=== PATIENT | male | born 1965 | race Caucasian/White ===

== ENCOUNTER 2016-12-06 19:19 | Inpatient (IN) | payer MEDICARE, OTHER ==
[~2016-12-06] VITALS: Ht 167.6 cm; Wt 60.0 kg
[~2016-12-06 19:19] MED LIST: ASPI325T PO; BACL20TA PO; DULO1CAP3 PO; LACTATED RINGER'S 1000 ML INJ 1,000 ML IV ONE; LIPI40TA PO; LORA-392 PO; METO50TA11 PO; NEUR300C PO; NORMOSOL R INJ 2,000 ML IV ONE; ONDANSETRON HCL 4 MG/2 ML VIAL IV PUSH ONE; PANT40TA3 PO; PERC10TA27 PO; PHENYLEPH/NS 1000 MCG/10 ML SYR IV ONE; PROPOFOL 200 MG/20 ML AMP IV ONE; SODIUM CHLOR 0.9% (EXCEL) INJ 250 ML IV ONE; TRAZ100T4 PO
[2016-12-06 19:22] VITALS: BP 108/79; PULSE 96; RESP 18; O2SAT 98
[2016-12-06] MEDS ORDERED: SODIUM CHLOR 0.9% 1000 ML INJ 1,000 ML IV SCH (19:34)
[2016-12-06 19:38] VITALS: O2SAT 98
[2016-12-06] MEDS ORDERED: SODIUM CHLORID 0.9% 500 ML INJ 500 ML IV ONE (19:45)
[2016-12-06] MEDS ORDERED: SODIUM CHLORIDE 0.9% FLUSH 10 ML FLUSH IV FLUSH PRN ×2 (19:45→21:15)
[2016-12-06] MEDS ORDERED: HEPARIN SODIUM - IV 10,000 UNITS/10 ML VIAL IV ONE (19:45)
[2016-12-06] MEDS ORDERED: HEPARIN-D5W INJ 250 ML IV SCH (19:45)
--- NOTE | 2016-12-06 19:45 | PD ---
HPI Chief Complaint: Numbness/Tingling Time Seen by Provider: 19:24 Travel History International Travel<30 days: No Contact w/Intl Traveler<30days: No Traveled to known affect area: No History of Present Illness HPI 51-year-old male with history of peripheral artery disease status post aortobifemoral bypass/right iliofemoral bypass/left femoral to below the knee popliteal artery bypass on 04/14/16 by a vascular surgeon Dr. Gandhi, brought in by ambulance for evaluation of right leg pain and numbness. EMS noted the extremity to be cool and mottled, and were unable to palpate a dorsalis pedis pulse. Symptoms started about 2 hours prior to arrival to the emergency department with numbness. The patient reports that he is unable to move his right leg. Patient reports that he continues to drink alcohol and smoke cigarettes, and has not been completely compliant with all of his medications. PFSH Past Medical History Hx Anticoagulant Therapy: Yes (UNSURE THE NAME ) Arthritis: Yes Asthma: Yes Anxiety: Yes Depression: Yes Heart Rhythm Problems: Yes Cancer: No Cardiovascular Problems: Yes (HTN) High Cholesterol: Yes Chest Pain: No Congestive Heart Failure: No Cerebrovascular Accident: No Diminished Hearing: No Endocrine: No Gastrointestinal Disorders: Yes GERD: Yes Genitourinary: No Headaches: Yes Hiatal Hernia: Yes (bilateral hernia repair) Hypertension: Yes Immune Disorder: No Inguinal Hernia: Yes Implanted Vascular Access Dvce: No Musculoskeletal: Yes Neurologic: Yes Psychiatric: No Reproductive: No Respiratory: Yes Migraines: Yes Seizures: No Ulcer: No Past Surgical History Cardiac Surgery: No Ear Surgery: No Endocrine Surgery: No Eye Surgery: No Genitourinary Surgery: No Oral Surgery: Yes (teeth removal) Other Surgery: Yes (LUCIANO. HERNIA REPAIR, L. LEG VASCULAR ) Social History Alcohol Use: Yes Tobacco Use: Yes Substance Use: Yes (alcohol, MARIJUANA ) Allergies-Medications (Allergen,Severity, Reaction): Coded Allergies: Bees (Verified Allergy, Severe, SWELLING, 12/06/16) Reported Meds & Prescriptions Reported Meds & Active Scripts Active Ativan (Lorazepam) 0.5 Mg Tab 0.5 Mg PO Q8H PRN Lipitor (Atorvastatin Calcium) 40 Mg Tab 40 Mg PO HS 30 Days Aspirin 325 Mg Tab 325 Mg PO DAILY Reported Pantoprazole (Pantoprazole Sodium) 40 Mg Tab 40 Mg PO DAILY Metoprolol Succinate ER 24 HR (Metoprolol Succinate) 50 Mg Tab 50 Mg PO DAILY Duloxetine DR (Duloxetine HCl) 60 Mg Capdr 60 Mg PO DAILY Baclofen 20 Mg Tab 20 Mg PO BID Review of Systems Except as stated in HPI: all other systems reviewed are Neg Physical Exam Narrative GENERAL: Well-developed, thin, awake, alert, no apparent distress. SKIN: Right leg is cool and mottled from the knee down. Left lower extremity is warm. HEAD: Atraumatic. Normocephalic. EYES: Pupils equal and round. No scleral icterus. No injection or drainage. ENT: Mucous membranes pink and moist. NECK: Trachea midline. No JVD. CARDIOVASCULAR: Regular rate and rhythm. Unable to palpate or Doppler right popliteal/dorsalis pedis/posterior tibialis pulses. Left dorsalis pedis pulse is thready palpable. RESPIRATORY: No accessory muscle use. Clear to auscultation. Breath sounds equal bilaterally. GASTROINTESTINAL: Abdomen soft, non-tender, nondistended. MUSCULOSKELETAL: Skin exam as above. No obvious deformities. NEUROLOGICAL: Awake and alert. No obvious cranial nerve deficits. Patient reports he is unable to move his right lower extremity. The rest of his extremities have a normal range of motion and muscle strength. He also reports absent sensation in his right lower extremity. PSYCHIATRIC: Appropriate mood and affect; insight and judgment normal. Data Data Last Documented VS Vital Signs Date Time Temp Pulse Resp B/P Pulse Ox O2 Delivery O2 Flow Rate FiO2 12/06/16 21:02 85 16 147/87 100 Room Air Orders Complete Blood Count With Diff (12/06/16 19:31) Comprehensive Metabolic Panel (12/06/16 19:31) Prothrombin Time / Inr (Pt) (12/06/16 19:31) Act Partial Throm Time (Ptt) (12/06/16 19:31) Iv Access Insert/Monitor (12/06/16 19:31) Ecg Monitoring (12/06/16 19:31) Oximetry (12/06/16 19:31) Sodium Chloride 0.9% Flush (Ns Flush) (12/06/16 19:45) Heparin Infusion JIM.Q1H (12/06/16 19:31) Heparin Inj (Heparin Inj) (12/06/16 19:45) Heparin Inj (Heparin Inj) (12/07/16 01:45) Heparin Inj (Heparin Inj) (12/07/16 01:45) Heparin-D5w Inj (Heparin-D5w Inj) (12/06/16 19:45) Sodium Chlorid 0.9% 500 Ml Inj (Ns 500 M (12/06/16 19:45) Sodium Chlor 0.9% 1000 Ml Inj (Ns 1000 M (12/06/16 19:34) Cta Runoff W Iv Contrast W 3d (12/06/16 ) Morphine Inj (Morphine Inj) (12/06/16 21:00) Admit Order (Ed Use Only) (12/06/16 21:05) Labs Laboratory Tests Test 12/06/16 19:45 White Blood Count 17.9 TH/MM3 Red Blood Count 4.54 MIL/MM3 Hemoglobin 14.6 GM/DL Hematocrit 43.4 % Mean Corpuscular Volume 95.5 FL Mean Corpuscular Hemoglobin 32.1 PG Mean Corpuscular Hemoglobin 33.6 % Concent Red Cell Distribution Width 14.3 % Platelet Count 118 TH/MM3 Mean Platelet Volume 7.9 FL Neutrophils (%) (Auto) 83.8 % Lymphocytes (%) (Auto) 11.9 % Monocytes (%) (Auto) 3.6 % Eosinophils (%) (Auto) 0.5 % Basophils (%) (Auto) 0.2 % Neutrophils # (Auto) 15.0 TH/MM3 Lymphocytes # (Auto) 2.1 TH/MM3 Monocytes # (Auto) 0.6 TH/MM3 Eosinophils # (Auto) 0.1 TH/MM3 Basophils # (Auto) 0.0 TH/MM3 CBC Comment DIFF FINAL Differential Comment Prothrombin Time 10.6 SEC Prothromb Time International 1.0 RATIO Ratio Activated Partial 24.9 SEC Thromboplast Time Sodium Level 133 MEQ/L Potassium Level 3.2 MEQ/L Chloride Level 96 MEQ/L Carbon Dioxide Level 24.6 MEQ/L Anion Gap 12 MEQ/L Blood Urea Nitrogen 17 MG/DL Creatinine 0.84 MG/DL Estimat Glomerular Filtration 96 ML/MIN Rate Random Glucose 191 MG/DL Calcium Level 8.8 MG/DL Total Bilirubin 0.5 MG/DL Aspartate Amino Transf 11 U/L (AST/SGOT) Alanine Aminotransferase 19 U/L (ALT/SGPT) Alkaline Phosphatase 111 U/L Total Protein 7.1 GM/DL Albumin 3.4 GM/DL MDM Medical Decision Making Medical Screen Exam Complete: Yes Emergency Medical Condition: Yes Interpretation(s) EKG: Sinus, rate 96 Differential Diagnosis Acute arterial occlusion, spinal canal stenosis unlikely Narrative Course 7:30 PM, shortly after the patient arrived to the emergency department I discussed the case with vascular surgeon Dr. Gandhi who is very familiar with the patient as he operated on him in March 2016. He reports that he is out of town, and will not be able to evaluate the patient. Patient will be started on heparin with a bolus if there are no contraindications. 7:34 PM: Case discussed with on-call vascular surgeon Dr. Guerra who agrees with plan to start the patient on heparin. He would also like a CTA runoff of the lower extremities and will present to the emergency department to evaluate the patient. Vital signs reviewed. CBC shows WBC 17.9, hemoglobin 14.6, hematocrit 43.4, platelets 118. CMP is remarkable for sodium 133, potassium 3.2, chloride 96, random glucose 191 , otherwise essentially unremarkable. Case discussed with hospitalist Dr. Kearns who will admit the patient to her service. Critical Care Narrative Aggregate critical care time was 40 minutes. Time to perform other separately billable procedures was not included in the critical care time. My time did not include minutes spent treating any other patients simultaneously or on activities that did not directly contribute to the patient's treatment. The services I provided to this patient were to treat and/or prevent clinically significant deterioration that could result in: Loss of limb, , permanent disability, sepsis. I provided critical care services requiring my management, as noted below: Chart data review, documentation time, medication orders and management, vital sign assessments/reviewing monitor data, ordering and reviewing lab tests, ordering and interpreting/reviewing x-rays and diagnostic studies, care of the patient and discussion of the patient with the admitting physicians. Diagnosis Primary Impression: Ischemia of extremity Admitting Information Admitting Physician Requests: Admit Manan Larkin MD Dec 06, 2016 19:45
[2016-12-06 20:03] LABS: BASOPHIL % 0.2 % (0.0-2.0); EOSINOPHIL # 0.1 TH/MM3 (0-0.4); EOSINOPHIL % 0.5 % (0.0-4.0); HEMATOCRIT 43.4 % (39.0-51.0); HEMO FLAGS DIFF FINAL; LYMPH % 11.9 % (9.0-44.0); LYMPHOCYTE # 2.1 TH/MM3 (1.0-4.8); MEAN CELL VOLUME 95.5 FL (80.0-100.0); MEAN CORPUSCULAR HEMOGLOBIN 32.1 PG (27.0-34.0); MEAN CORPUSCULAR HGB CONC 33.6 % (32.0-36.0); MONO % 3.6 % (0.0-8.0); NEUT % 83.8 % (16.0-70.0); PLATELET COUNT 118 TH/MM3 (150-450); RED BLOOD COUNT 4.54 MIL/MM3 (4.50-5.90); RED CELL DISTRIBUTION WIDTH 14.3 % (11.6-17.2); WHITE BLOOD COUNT 17.9 TH/MM3 (4.0-11.0)
[2016-12-06 20:20] LABS: ANION GAP 12 MEQ/L (5-15); AST (GOT) 11 U/L (15-37); BICARBONATE 24.6 MEQ/L (21.0-32.0); BLOOD UREA NITROGEN 17 MG/DL (7-18); CHLORIDE 96 MEQ/L (98-107); GLOMERULAR FILTRATION RATE 96 ML/MIN (>89); POTASSIUM 3.2 MEQ/L (3.5-5.1); SODIUM (NA) 133 MEQ/L (136-145)
[2016-12-06 20:21] LABS: APTT (PATIENT) 24.9 SEC (24.3-30.1); PROTHROMBIN TIME - PATIENT 10.6 SEC (9.8-11.6)
[2016-12-06 20:23] LABS: ALKALINE PHOSPHATASE 111 U/L (45-117); ALT (GPT) 19 U/L (12-78); TOTAL BILIRUBIN ADULT 0.5 MG/DL (0.2-1.0)
[2016-12-06] MEDS ORDERED: MORPHINE SULFATE 4 MG/ML INJ IV PUSH ONE (21:00)
[2016-12-06 21:02] VITALS: BP 147/87; PULSE 85; RESP 16; O2SAT 100
[2016-12-06] MEDS ORDERED: LORazepam 0.5 MG TAB PO PRN (21:15)
[2016-12-06] MEDS ORDERED: ONDANSETRON HCL 4 MG/2 ML VIAL IVP PRN (21:15)
[2016-12-06] MEDS ORDERED: MORPHINE SULFATE 4 MG/ML INJ IV PRN (21:15)
[2016-12-06] MEDS ORDERED: SENNOSIDES 8.6 MG TAB PO PRN (21:15)
[2016-12-06] MEDS ORDERED: MAGNESIUM HYDROXIDE SUSP 30 ML CUP PO PRN (21:15)
[2016-12-06] MEDS ORDERED: ACETAMINOPHEN/HYDROcodone 325 MG/5 MG TAB PO PRN (21:15)
[2016-12-06] MEDS ORDERED: ACETAMINOPHEN 325 MG TAB PO PRN (21:15)
[2016-12-06] MEDS ORDERED: LACTULOSE SYRUP 20 GM/30 ML CUP PO PRN (21:15)
[2016-12-06] MEDS ORDERED: BISACODYL 10 MG SUPP RECTAL PRN (21:15)
--- NOTE | 2016-12-06 21:20 | HHI.HP ---
[facility] Admission Diagnosis acute ischemic right leg Diagnoses: (1) Ischemia of extremity Diagnosis: Principal (2) Non-compliance Diagnosis: Principal (3) HTN (hypertension) Diagnosis: Principal (4) Thrombocytopenia Diagnosis: Principal (5) Leukocytosis Diagnosis: Principal (6) Alcohol abuse Diagnosis: Principal (7) Tobacco abuse Diagnosis: Principal Travel History International Travel<30 Days: No Contact w/Intl Traveler <30 Da: No Traveled to Known Affected Are: No History of Present Illness This is a 51-year-old male with a PMH of Anxiety, Depression, HTN, Hyperlipidemia, Non-Compliance, Alcohol Abuse, Tobacco Abuse and PAD s/p Aortobifemoral Bypass, Right Iliofemoral Bypass and Left Femoral Popliteal Artery Bypass on 04/14/[address] Gandhi who was brought to the ER by EMS secondary to complaints of severe right lower extremity pain, leg noted to be cold/mottled, no pulses found by EMS. Pt states symptoms have been ongoing for several days, noted "big toe turned purple", [facility] , however pt states he was waiting for Mother to get back from [place]. Today however had severe pain and called EMS. Non-compliant w/ meds. Continues to drink/smoke. On arrival, BP 108/79, HR 96, O2 sat 98% on RA, Afebrile. WBC 17.9. Platelets 118, previously 445 on 04/17/16. INR 1.0. Dr. Gandhi contacted by ER physician, recommended Heparin drip and eval by Vascular Surgeon , Dr. Guerra consulted, recommended CTA, currently pending. Review of Systems Except as stated in HPI: all other systems reviewed are Neg ROS: 14 point review of systems otherwise negative. Past Family Social History Past Medical History PMH: Anxiety, Depression, HTN, Hyperlipidemia, Non-Compliance, Alcohol Abuse, Tobacco Abuse and PAD s/p Aortobifemoral Bypass, Right Iliofemoral Bypass and Left Femoral Popliteal Artery Bypass Past Surgical History PAST SURGICAL HISTORY: Bilateral Hernia Repair, Aortobifemoral Bypass, Right Iliofemoral Bypass and Left Femoral Popliteal Artery Bypass 04/14/16 Allergies: Coded Allergies: Bees (Verified Allergy, Severe, SWELLING, 12/06/16) Family History PAST FAMILY HISTORY: Reviewed. No h/o DM or CAD Social History PAST SOCIAL HISTORY: Positive for alcohol. Positive for tobacco. Smokes Marijuana. Physical Exam Vital Signs Vital Signs Date Time Temp Pulse Resp B/P Pulse Ox O2 Delivery O2 Flow Rate FiO2 12/06/16 21:02 85 16 147/87 100 Room Air 12/06/16 19:38 98 Room Air 12/06/16 19:22 96 18 108/79 98 Physical Exam PE: GENERAL: Middle-aged white male in no acute distress. HEENT: PERRLA, EOMI. No scleral icterus or conjunctival pallor. No lid lag or facial droop. CARDIOVASCULAR: Regular rate and rhythm. No obvious murmurs to auscultation. No chest tenderness to palpation. RESPIRATORY: No obvious rhonchi or wheezing. Clear to auscultation. Breath sounds equal bilaterally. GASTROINTESTINAL: Abdomen soft, non-tender, nondistended. BS normal. MUSCULOSKELETAL: Extremities without clubbing or edema. No obvious deformities. Bilateral LE cool to touch, RLE worse than LLE. Unable to palpate pulses RLE. NEUROLOGICAL: Awake, alert and oriented x4. No focal neurologic deficits. Moving both upper and lower extremities spontaneously. Laboratory Laboratory Tests Test 12/06/16 19:45 White Blood Count 17.9 Red Blood Count 4.54 Hemoglobin 14.6 Hematocrit 43.4 Mean Corpuscular Volume 95.5 Mean Corpuscular Hemoglobin 32.1 Mean Corpuscular Hemoglobin 33.6 Concent Red Cell Distribution Width 14.3 Platelet Count 118 Mean Platelet Volume 7.9 Neutrophils (%) (Auto) 83.8 Lymphocytes (%) (Auto) 11.9 Monocytes (%) (Auto) 3.6 Eosinophils (%) (Auto) 0.5 Basophils (%) (Auto) 0.2 Neutrophils # (Auto) 15.0 Lymphocytes # (Auto) 2.1 Monocytes # (Auto) 0.6 Eosinophils # (Auto) 0.1 Basophils # (Auto) 0.0 CBC Comment DIFF FINAL Differential Comment Prothrombin Time 10.6 Prothromb Time International 1.0 Ratio Activated Partial 24.9 Thromboplast Time Sodium Level 133 Potassium Level 3.2 Chloride Level 96 Carbon Dioxide Level 24.6 Anion Gap 12 Blood Urea Nitrogen 17 Creatinine 0.84 Estimat Glomerular Filtration 96 Rate Random Glucose 191 Calcium Level 8.8 Total Bilirubin 0.5 Aspartate Amino Transf 11 (AST/SGOT) Alanine Aminotransferase 19 (ALT/SGPT) Alkaline Phosphatase 111 Total Protein 7.1 Albumin 3.4 Result Diagram: 12/06/16194412/06/161944 Assessment and Plan Problem List: (1) Ischemia of extremity ICD Code: I99.8 Status: Acute (2) Non-compliance ICD Code: Z91.19 Status: Acute (3) Thrombocytopenia ICD Code: D69.6 Status: Acute (4) HTN (hypertension) ICD Code: I10 Status: Acute (5) Leukocytosis ICD Code: D72.829 Status: Acute (6) Alcohol abuse ICD Code: F10.10 Status: Acute (7) Tobacco abuse ICD Code: Z72.0 Status: Acute Assessment and Plan A/P: 1. Limb Ischemia: RLE. h/o PAD s/p Aortobifemoral Bypass, Right Iliofemoral Bypass and Left Femoral Popliteal Artery Bypass by Dr. Gandhi 04/14/16, non- compliant w/ meds, now w/ acute limb ischemia. Dr. Gandhi consulted, recommended Heparin gtt and Vasc Sx consult, Dr. Guerra consulted, recommended CTA, currently pending. Continue Heparin gtt, analgesics/ antiemetics, resume home medications. 2. Non-Compliance: w/ meds and follow up, stressed importance of compliance. 3. Thrombocytopenia: Platelets 118, previously 445 on 04/17/16. No active bleeding, will monitor, caution w/ Heparin. 4. HTN: Resume home Metoprolol. 5. Leukocytosis: WBC 17.9, Afebrile, no evidence of infection, likely secondary to acute limb ischemia, will monitor closely. Repeat labs in am. 6. Alcohol Abuse: Drinks daily. CIWA, Seizure Precautions, MVT/Thiamine/ Folate 7. Tobacco Abuse: Pt counselled. Ativan prn. No NicoDerm to avoid further vasoconstriction. 8. DVT Prophylaxis: Heparin gtt 9. Social work for d/c planning as needed. 10. Case discussed w/ ER physician at length. Physician Certification 2 Midnight Certification Type: Admission for Inpatient Services Order for Inpatient Services The services are ordered in accordance with Medicare regulations or non- Medicare payer requirements, as applicable. In the case of services not specified as inpatient-only, they are appropriately provided as inpatient services in accordance with the 2-midnight benchmark. Estimated LOS (days): 2 days is the estimated time the patient will need to remain in the hospital, assuming treatment plan goals are met and no additional complications. Post-Hospital Plan: Not yet determined Bre Kearns MD Dec 06, 2016 21:20
[2016-12-06] MEDS ORDERED: LORazepam 2 MG TAB PO PRN (21:30)
[2016-12-06] MEDS ORDERED: HALOPERIDOL LACTATE 5 MG/ML AMP IM PRN (21:30)
[2016-12-06] MEDS ORDERED: FLUMAZENIL 0.5 MG/5 ML VIAL IV PUSH PRN (21:30)
[2016-12-06] MEDS ORDERED: LORazepam 2 MG/ML VIAL IV PUSH PRN ×4 (21:30)
[2016-12-06] MEDS ORDERED: LORazepam 1 MG TAB PO PRN (21:30)
[2016-12-06] MEDS ORDERED: IOHEXOL 350 MG/ML 10 ML VIAL (for RAD DIAG) IV ONE (21:33)
--- NOTE | 2016-12-06 21:53 | RADRPT ---
EXAM DATE/TIME: 12/06/2016 20:30 CORRECTION Corrected on: December 07, 2016; [facility] COMPARISON: CTA RUNOFF W 3D RECON, April 04, 2016, 0:21. INDICATIONS : Patient complains of pain in his right leg; it is the worst in his right great toe. IV CONTRAST: 100 cc Omnipaque 350 (iohexol) IV RADIATION DOSE: 1.65 CTDIvol (mGy) MEDICAL HISTORY : Cardiovascular disease. Hypertension. SURGICAL HISTORY : Inguinal hernia repair. prior vascular surgery ENCOUNTER: Initial ACUITY: 3 days PAIN SCALE: 7/10 LOCATION: Right leg TECHNIQUE: Volumetric scanning was performed using a multi-row detector CT scanner. The data was post processed with a variety of visualization algorithms including full volume maximum intensity projection, multi -planar sliding thin slab reformation, curved planar reformation, and surface rendering techniques. Using automated exposure control and adjustment of the mA and/or kV according to patient size, radiat ion dose was kept as low as reasonably achievable to obtain optimal diagnostic quality images. DICO M format image data is available electronically for review and comparison. FINDINGS: ABDOMINAL AORTA: Aortobifemoral bypass graft which is patent. There is abnormal thickening of the graft involving the distal aorta and right iliac vasculature raising the possibility of inflammation/infection. There ar e solitary renal arteries bilaterally without gross abnormality. BIFURCATION: Normal. RIGHT PELVIS: The right common iliac, internal iliac, and external iliac vessels are patent without luminal irregul arity. LEFT PELVIS: The left common iliac, internal iliac, and external iliac vessels are patent and without luminal irre gularity. RIGHT THIGH: There is occlusion of the right distal common femoral artery and proximal superficial femoral artery with reconstitution of distal superficial femoral artery.. LEFT THIGH: The superficial femoral and profunda vessels are patent without luminal irregularity. RIGHT KNEE: There is reconstitution of the popliteal artery on the right. LEFT KNEE: The distal femoral is patent without luminal irregularity. There is a graft in the left lag which is occluded, could be arterial or venous. There is occlusion of the left popliteal artery with reconstit ution distally. RIGHT LEG: The trifurcation is intact. LEFT LEG: The trifurcation is intact. CONCLUSION: 1. Occlusion of the right common femoral artery and proximal superficial femoral artery with reconsti tution of the distal superficial femoral artery. 2. Occlusion of graft in the left leg could be arterial or venous. 3. Occlusion of the left popliteal artery with reconstitution distally. 4. Patent aortobifemoral bypass graft, however there is abnormal thickening of the graft at the bifur cation and involving the right iliac vasculature, could be inflammation or infection. Clinical correl ation. Jack Castro MD on December 06, 2016 at 21:46 Board Certified Radiologist. This report was verified electronically. Jack Castro MD on December 07, 2016 at 13:20 Board Certified Radiologist. This report was verified electronically.
[2016-12-06] MEDS ORDERED: ceFAZolin 2 GM PREMIX 50 ML IV SCH (22:45)
[2016-12-06] MEDS ORDERED: HEPARIN SODIUM - SQ 10,000 UNITS/ML VIAL ONE (23:00)
[2016-12-06] MEDS ORDERED: PROTAMINE SULFATE 50 MG/5 ML VIAL ONE (23:00)
[2016-12-07] MEDS ORDERED: fentaNYL CITRATE 250 MCG/5 ML AMP ONE (00:43)
[2016-12-07] MEDS ORDERED: SUGAMMADEX SODIUM 200 MG/2 ML VIAL IV PUSH ONE ×2 (00:43)
[2016-12-07] MEDS ORDERED: ceFAZolin INJ 1,000 MG VIAL IV ONE (00:46)
[2016-12-07] MEDS ORDERED: HEPARIN SODIUM - IV 10,000 UNITS/10 ML VIAL IV PRN ×2 (01:45)
[2016-12-07] MEDS ORDERED: MORPHINE SULFATE 4 MG/ML INJ ONE (02:25)
[2016-12-07] MEDS ORDERED: *morphine SULFATE 8 MG/ML PERIprocedure ONLY ONE (02:27)
[2016-12-07] MEDS: SODIUM CHLOR 0.9% 1000 ML INJ 1,000 ML IV SCH ×3 (02:45→20:28)
[2016-12-07] MEDS ORDERED: DO NOT ADM ANY ANTICOAGULANT DRUGS PRN (02:45)
[2016-12-07] MEDS: POTASSIUM CHLOR 20 MEQ PREMIX 100 ML IV SCH ×2 (02:46→04:18)
[2016-12-07] MEDS: MORPHINE SULFATE 4 MG/ML INJ IV PUSH PRN ×3 (05:56→20:29)
[2016-12-07] MEDS: ENOXAPARIN SODIUM 40 MG/0.4 ML SYRINGE SQ SCH (06:11)
[2016-12-07 06:33] LABS: AUTOMATED NEUTROPHIL # 8.2 TH/MM3 (1.8-7.7); BASOPHIL % 0.3 % (0.0-2.0); EOSINOPHIL # 0.1 TH/MM3 (0-0.4); EOSINOPHIL % 1.1 % (0.0-4.0); HEMATOCRIT 34.9 % (39.0-51.0); LYMPH % 25.2 % (9.0-44.0); MEAN CELL VOLUME 95.1 FL (80.0-100.0); MEAN CORPUSCULAR HEMOGLOBIN 32.4 PG (27.0-34.0); MEAN CORPUSCULAR HGB CONC 34.1 % (32.0-36.0); MONO % 3.8 % (0.0-8.0); NEUT % 69.6 % (16.0-70.0); PLATELET COUNT 85 TH/MM3 (150-450); RED BLOOD COUNT 3.67 MIL/MM3 (4.50-5.90); WHITE BLOOD COUNT 11.9 TH/MM3 (4.0-11.0)
[2016-12-07 06:44] LABS: HEMO FLAGS AUTO DIFF
[2016-12-07 06:55] LABS: ALKALINE PHOSPHATASE 93 U/L (45-117); ALT (GPT) 14 U/L (12-78); ANION GAP 6 MEQ/L (5-15); AST (GOT) 12 U/L (15-37); BICARBONATE 26.7 MEQ/L (21.0-32.0); BLOOD UREA NITROGEN 12 MG/DL (7-18); CHLORIDE 103 MEQ/L (98-107); GLOMERULAR FILTRATION RATE 118 ML/MIN (>89); POTASSIUM 3.9 MEQ/L (3.5-5.1); SODIUM (NA) 136 MEQ/L (136-145); TOTAL BILIRUBIN ADULT 0.5 MG/DL (0.2-1.0)
--- NOTE | 2016-12-07 07:07 | EKG ---
Date Performed: 12/06/2016 Time Performed: 19:31:33 PTAGE: 51 years EKG: Sinus rhythm POSSIBLE INFERIOR MYOCARDIAL INFARCTION BORDERLINE ECG PREVIOUS TRACING : 04/13/2016 22.11 Compared to previous tracing, possible inferior infarction pattern is now evident. DOCTOR: Brody Upton Interpretating Date/Time 12/07/2016 07:07:05
--- NOTE | 2016-12-07 08:02 | MB ---
cc: RAAD WELLS MD DATE OF CONSULTATION: 12/06/2016 REASON FOR CONSULTATION Ischemia of the right leg. HISTORY OF PRESENT DISEASE This 51-year-old male, who appears much older than his actual age, presents to the hospital now with about seven weeks of pain in his right leg. The patient states first the pain was bearable then it became more and more and in the last two weeks became very severe. The patient now presents because of numbness in the foot. He is worked up. He is found to have occlusion of the right superficial femoral artery with distal reconstitution at the level of the popliteal. The patient about a year ago in 2016 underwent an aortobifemoral bypass and left fem-pop bypass by Dr. Gandhi. The question arises now about the nature of the patient's occlusion. PAST MEDICAL HISTORY 1. Hypertension. 2. Hyperlipidemia. 3. Chronic pain. PAST SURGICAL HISTORY As above-noted. MEDICATIONS Can be found in the record. SOCIAL HISTORY The patient drinks and smokes about a pack a day, has not stopped throughout this period. PHYSICAL EXAMINATION GENERAL: A 51-year-old male appearing much older than his actual age. HEENT: Normocephalic. No trauma to the head. Pupils equal and reactive. Extraocular muscles intact. NECK: Supple. Bilateral carotid pulses. No bruits. CHEST: Clear bilateral breath sounds decreased over both lung rodriguez consistent with moderate degree of COPD. 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 HEART: Regular rhythm. ABDOMEN: Soft, patulous, active bowel sounds. EXTREMITIES: The patient has palpable bilateral femoral pulses. On the left side he has a weak popliteal pulse and dorsalis pedis posterior tibial pulse. On the right side the patient does have a weak popliteal pulse but no posterior tibial or dorsalis pedis foot. The foot is pale proximally and livid distally. Toe is grayish discolored and clearly has been chronically ischemic for a while so I believe the great toe will eventually worsen regardless of what we do here. The patient must have trashed the circulation of his great toe at some point in the recent past. NEUROLOGIC: The patient moves all four extremities, however, he has decreased sensation in the right foot and basically insensate plantar surface. IMPRESSION AND RECOMMENDATIONS Patient with an aortobifemoral left fem-pop bypass a year ago. The left fem-pop bypass is occluded, however, the patient does not have problem with the left foot. On the right side the patient has no distal pulses and this is an acute occlusion superimposed on chronic changes in the previously diseased SFA which is a limiting factor here. At this point I believe the patient has been developing this occlusion for a long time so para I do not think that TPA lysis is appropriate in this situation. I will take the patient to the OR for reconstruction, probably femoral-popliteal bypass. Thank you very much for your referral. Raad CALDERON /2:30 AM /7:54 AM
[2016-12-07 08:12] LABS: PLATELET ESTIMATE SMEAR LOW (NORMAL); PLATELET MORPHOLOGY NORMAL (NORMAL); SCAN/DIFF AUTO DIFF CONFIRMED
[2016-12-07] MEDS: BACLOFEN 20 MG TAB PO SCH ×2 (08:30→20:28)
[2016-12-07] MEDS: DULoxetine HCl DR 60 MG CAP PO SCH (08:30)
[2016-12-07] MEDS: DOCUSATE SODIUM 50 MG/SENNA 8.6 MG TAB PO SCH ×2 (08:30→20:28)
[2016-12-07] MEDS: SODIUM CHLORIDE 0.9% FLUSH 10 ML FLUSH IV FLUSH SCH ×2 (08:30→20:28)
[2016-12-07] MEDS: FOLIC ACID 1 MG TAB PO SCH (08:30)
[2016-12-07] MEDS: ASPIRIN 325 MG TAB PO SCH (08:30)
[2016-12-07] MEDS: PANTOPRAZOLE SOD 40 MG DELAYED RELEASE TAB PO SCH (08:31)
[2016-12-07] MEDS: THIAMINE HCL 100 MG TAB PO SCH (08:31)
[2016-12-07] MEDS: METOPROLOL SUCCINATE 50 MG EXTENDED RELEASE TAB PO SCH (08:31)
[2016-12-07] MEDS: MULTIVITAMINS/MINERALS THERAPEUTIC TAB PO SCH (08:31)
--- NOTE | 2016-12-07 08:45 | EKG ---
Date Performed: 12/06/2016 Time Performed: 23:00:26 PTAGE: 51 years EKG: Sinus rhythm NONDIAGNOSTIC INFERIOR Q WAVES NORMAL ECG PREVIOUS TRACING : 12/06/2016 19.31 No significant change from previous tracing noted. DOCTOR: Brody Upton Interpretating Date/Time 12/07/2016 08:43:46
--- NOTE | 2016-12-07 11:54 | HHI.PR ---
Subjective Remarks Follow-up Lower leg ischemia 12/07/16-patient seen and examined, status post femoropopliteal. Patient seen in PACU and denies any lower extremity pain. Palpable pulses. Objective Vitals Vital Signs Date Time Temp Pulse Resp B/P Pulse Ox O2 Delivery O2 Flow Rate FiO2 12/07/16 11:00 94 16 110/65 97 Room Air 12/07/16 10:00 92 16 111/67 96 Room Air 12/07/16 09:00 92 16 118/68 96 Room Air 12/07/16 08:00 98.8 92 16 113/69 96 Room Air 12/07/16 07:00 98 16 108/67 95 Room Air 12/07/16 06:01 16 12/07/16 06:00 99.1 103 16 105/62 96 Room Air 12/07/16 05:00 92 16 117/67 96 Room Air 12/07/16 04:00 90 16 122/75 99 Room Air 12/07/16 03:30 85 16 127/74 98 Room Air 12/07/16 03:00 97.9 87 16 142/85 98 Room Air 12/07/16 02:45 83 15 140/96 97 Room Air 12/07/16 02:32 15 12/07/16 02:30 83 15 142/93 97 Room Air 12/07/16 02:15 82 15 141/90 96 Room Air 12/07/16 02:05 97.6 80 14 132/83 100 Simple Mask 8 12/06/16 21:02 85 16 147/87 100 Room Air 12/06/16 19:38 98 Room Air 12/06/16 19:22 96 18 108/79 98 I/O 12/06/16 12/06/16 12/06/16 12/07/16 12/07/16 12/07/16 07:00 15:00 23:00 07:00 15:00 23:00 Intake Total 1768 ml 318 ml Output Total 875 ml 125 ml Balance 893 ml 193 ml Intake Oral 318 ml IV Total 368 ml Other 1400 ml Output Urine Total 675 ml 125 ml Estimated Blood Loss 200 ml Result Diagram: 12/07/16 0609 12/07/16 0609 Imaging Last Impressions Aorta w/Runoff CTA 12/06/16 0000 Signed Impressions: Service Date/Time: Tuesday, December 06, 2016 20:30 - CONCLUSION: 1. Occlusion of the right superficial femoral artery with reconstitution of the right popliteal artery. 2. Occlusion of graft in the left leg. 3. Patent aortobifemoral bypass graft. Jack Castro MD Objective Remarks GENERAL: NAD SKIN: Warm and dry. HEAD: Normocephalic. EYES: No scleral icterus. No injection or drainage. NECK: Supple, trachea midline. No JVD or lymphadenopathy. CARDIOVASCULAR: Regular rate and rhythm without murmurs, gallops, or rubs. RESPIRATORY: Breath sounds equal bilaterally. No accessory muscle use. GASTROINTESTINAL: Abdomen soft, non-tender, nondistended. MUSCULOSKELETAL: No cyanosis, or edema. s/p femoropopliteal; dressing in place right lower extremity thigh BACK: Nontender without obvious deformity. No CVA tenderness. A/P Problem List: (1) Ischemia of extremity ICD Code: I99.8 Status: Acute (2) Non-compliance ICD Code: Z91.19 Status: Acute (3) Thrombocytopenia ICD Code: D69.6 Status: Acute (4) HTN (hypertension) ICD Code: I10 Status: Acute (5) Leukocytosis ICD Code: D72.829 Status: Acute (6) Alcohol abuse ICD Code: F10.10 Status: Acute (7) Tobacco abuse ICD Code: Z72.0 Status: Acute Assessment and Plan 51-year-old man with 1. Limb Ischemia: RLE. h/o PAD s/p Aortobifemoral Bypass, Right Iliofemoral Bypass and Left Femoral Popliteal Artery Bypass by Dr. Gandhi 04/14/16, non- compliant w/ meds, now w/ acute limb ischemia. Status post femoropopliteal bypass. CT aortogram not take. Continue Heparin gtt, analgesics/antiemetics, continue home medications. 2. Non-Compliance: w/ meds and follow up, stressed importance of compliance. 3. Thrombocytopenia: Platelets 118, previously 445 on 04/17/16. No active bleeding, will monitor, caution w/ Heparin. 4. HTN: Continue home Metoprolol. 5. Leukocytosis: WBC 17.9, Afebrile, no evidence of infection, likely secondary to acute limb ischemia, will monitor closely. 6. Alcohol Abuse: Drinks daily. CIWA, Seizure Precautions, MVT/Thiamine/ Folate 7. Tobacco Abuse: Pt counselled. Ativan prn. No NicoDerm to avoid further vasoconstriction. 8. DVT Prophylaxis: Heparin gtt Jack To MD Dec 07, 2016 11:54
[2016-12-07 20:00] VITALS: BP 123/73; PULSE 97; RESP 17; TEMP 97.3; O2SAT 98
[2016-12-07] MEDS ORDERED: ATORVASTATIN 40 MG TAB PO SCH (21:00)
[2016-12-08] VITALS: BP 118/71; PULSE 81; RESP 17; TEMP 96.8; O2SAT 98
[2016-12-08] MEDS: MORPHINE SULFATE 4 MG/ML INJ IV PUSH PRN ×6 (00:26→14:36)
[2016-12-08 04:00] VITALS: BP 134/78; PULSE 102; RESP 17; TEMP 99.7; O2SAT 96
[2016-12-08] MEDS: ENOXAPARIN SODIUM 40 MG/0.4 ML SYRINGE SQ SCH (05:33)
[2016-12-08 08:00] VITALS: BP 125/76; PULSE 84; RESP 20; TEMP 99.6; O2SAT 95
[2016-12-08] MEDS: ASPIRIN 325 MG TAB PO SCH (08:30)
[2016-12-08] MEDS: BACLOFEN 20 MG TAB PO SCH (08:30)
[2016-12-08] MEDS: FOLIC ACID 1 MG TAB PO SCH (08:30)
[2016-12-08] MEDS: DOCUSATE SODIUM 50 MG/SENNA 8.6 MG TAB PO SCH (08:30)
[2016-12-08] MEDS: PANTOPRAZOLE SOD 40 MG DELAYED RELEASE TAB PO SCH (08:30)
[2016-12-08] MEDS: MULTIVITAMINS/MINERALS THERAPEUTIC TAB PO SCH (08:30)
[2016-12-08] MEDS: THIAMINE HCL 100 MG TAB PO SCH (08:30)
[2016-12-08] MEDS: DULoxetine HCl DR 60 MG CAP PO SCH (08:30)
[2016-12-08] MEDS: METOPROLOL SUCCINATE 50 MG EXTENDED RELEASE TAB PO SCH (08:31)
[2016-12-08] MEDS: SODIUM CHLORIDE 0.9% FLUSH 10 ML FLUSH IV FLUSH SCH ×2 (08:31→14:34)
--- NOTE | 2016-12-08 10:59 | PD.CAR.PN ---
CVT Progress Note Subjective/Hospital Course: Patient is status post declotting /revision of the right limbo aortobifemoral graft and construction of a right femoral-popliteal bypass. Incisions are clean and dry Foot is warm with actually palpable posterior tibial pulse and the dopplerable dorsalis pedis Hallux which appeared somewhat dusky prior to surgery is no well-perfused and looks completely normal Patient has been again counseled on stopping smoking because if he doesn't he will end up with bilateral above-knee amputations within the next few years Patient can be discharged today from my point To follow-up with me in my office in 2 weeks He can be discharged on aspirin 325 mg by mouth daily Objective: Vital Signs Date Time Temp Pulse Resp B/P Pulse Ox O2 Delivery O2 Flow Rate FiO2 12/08/16 08:00 99.6 84 20 125/76 95 12/08/16 04:00 99.7 102 17 134/78 96 12/08/16 00:00 96.8 81 17 118/71 98 12/07/16 20:00 97.3 97 17 123/73 98 12/07/16 13:00 84 16 103/68 97 Room Air 12/07/16 12:00 92 16 101/56 98 Room Air 12/07/16 11:00 94 16 110/65 97 Room Air Result Diagram: 12/07/16 0609 12/07/16 0609 Raad Guerra MD Dec 08, 2016 10:59
[2016-12-08 11:00] VITALS: BP 121/75; PULSE 85; RESP 17; TEMP 98.6; O2SAT 96
--- NOTE | 2016-12-08 11:33 | HHI.FF ---
Face to Face Verification Diagnosis: (1) Ischemia of extremity (2) HTN (hypertension) Physical Therapy Order: Evaluate and Treat Home Health Nursing Order: Signs/symptoms of disease process Instructions: wound care I have seen patient Bradley Brower on 12/08/16. My clinical findings support the need for the requested home health care services because: Deconditioned w/ increased weakness I certify that my clinical findings support that this patient is homebound because: Poor cardiac reserve Jack To MD Dec 08, 2016 11:33
[2016-12-08 12:00] VITALS: BP 117/62; PULSE 75; RESP 17; TEMP 98.3; O2SAT 95
[2016-12-08] MEDS ORDERED: ACETAMINOPHEN/HYDROcodone 325 MG/10 MG TAB PO PRN (12:00)
--- NOTE | 2016-12-08 12:24 | HHI.PR ---
Subjective Remarks Follow-up Lower leg ischemia 12/07/16-patient seen and examined, status post femoropopliteal. Patient seen in PACU and denies any lower extremity pain. Palpable pulses. 12/08/16-patient seen and examined; complains of inadequate pain control to right lower extremity. Case was discussed with Dr. Strauss Objective Vitals Vital Signs Date Time Temp Pulse Resp B/P Pulse Ox O2 Delivery O2 Flow Rate FiO2 12/08/16 11:00 98.6 85 17 121/75 96 12/08/16 08:00 99.6 84 20 125/76 95 12/08/16 04:00 99.7 102 17 134/78 96 12/08/16 00:00 96.8 81 17 118/71 98 12/07/16 20:00 97.3 97 17 123/73 98 12/07/16 13:00 84 16 103/68 97 Room Air I/O 12/07/16 12/07/16 12/07/16 12/08/16 12/08/16 12/08/16 06:59 14:59 22:59 06:59 14:59 22:59 Intake Total 1684 ml 622 ml 850 ml 865 ml 120 ml Output Total 830 ml 270 ml 600 ml 600 ml Balance 854 ml 352 ml 250 ml 265 ml 120 ml Intake Oral 538 ml 240 ml 240 ml 120 ml IV Total 284 ml 84 ml 610 ml 625 ml Other 1400 ml Output Urine Total 630 ml 270 ml 600 ml 600 ml Estimated Blood Loss 200 ml Result Diagram: 12/07/16 0609 12/07/16 0609 Objective Remarks GENERAL: NAD SKIN: Warm and dry. HEAD: Normocephalic. EYES: No scleral icterus. No injection or drainage. NECK: Supple, trachea midline. No JVD or lymphadenopathy. CARDIOVASCULAR: Regular rate and rhythm without murmurs, gallops, or rubs. RESPIRATORY: Breath sounds equal bilaterally. No accessory muscle use. GASTROINTESTINAL: Abdomen soft, non-tender, nondistended. MUSCULOSKELETAL: No cyanosis, or edema. s/p femoropopliteal; dressing in place right lower extremity thigh BACK: Nontender without obvious deformity. No CVA tenderness. Procedures status post declotting /revision of the right limbo aortobifemoral graft and construction of a right femoral-popliteal bypass A/P Problem List: (1) Ischemia of extremity ICD Code: I99.8 Status: Acute (2) Non-compliance ICD Code: Z91.19 Status: Acute (3) Thrombocytopenia ICD Code: D69.6 Status: Acute (4) HTN (hypertension) ICD Code: I10 Status: Acute (5) Leukocytosis ICD Code: D72.829 Status: Acute (6) Alcohol abuse ICD Code: F10.10 Status: Acute (7) Tobacco abuse ICD Code: Z72.0 Status: Acute Assessment and Plan 51-year-old man with 1. Limb Ischemia: RLE. h/o PAD s/p Aortobifemoral Bypass, Right Iliofemoral Bypass and Left Femoral Popliteal Artery Bypass by Dr. Gandhi 04/14/16, non- compliant w/ meds, now w/ acute limb ischemia. status post declotting /revision of the right limbo aortobifemoral graft and construction of a right femoral- popliteal bypass 12/06/16 . s/p Heparin gtt and continue analgesics/antiemetics , continue home medications. Consult PT prior to discharge 2. Non-Compliance: w/ meds and follow up, stressed importance of compliance. 3. Thrombocytopenia: Platelets 118, previously 445 on 04/17/16. 4. HTN: Continue home Metoprolol. 5. Leukocytosis: WBC 17.9, Afebrile, no evidence of infection, likely secondary to acute limb ischemia, will monitor closely. 6. Alcohol Abuse: Drinks daily. CIWA, Seizure Precautions, MVT/Thiamine/ Folate 7. Tobacco Abuse: Pt counselled. Ativan prn. No NicoDerm to avoid further vasoconstriction. 8. DVT Prophylaxis: Heparin gtt Jack To MD Dec 08, 2016 12:24
[2016-12-08] MEDS ORDERED: PERI8.6T PO (12:30)
[2016-12-08] MEDS ORDERED: HYDR-3583 PO (12:30)
--- NOTE | 2016-12-08 12:33 | HHI.DS ---
Discharge Summary Admission Date Dec 06, 2016 at 21:07 Discharge Date: Dec 08, 2016 Admitting Diagnosis acute ischemic right leg (1) Ischemia of extremity ICD Code: I99.8 (2) Non-compliance ICD Code: Z91.19 (3) Thrombocytopenia ICD Code: D69.6 (4) HTN (hypertension) ICD Code: I10 (5) Leukocytosis ICD Code: D72.829 (6) Alcohol abuse ICD Code: F10.10 (7) Tobacco abuse ICD Code: Z72.0 Procedures status post declotting /revision of the right limbo aortobifemoral graft and construction of a right femoral-popliteal bypass Brief History - From Admission This is a 51-year-old male with a PMH of Anxiety, Depression, HTN, Hyperlipidemia, Non-Compliance, Alcohol Abuse, Tobacco Abuse and PAD s/p Aortobifemoral Bypass, Right Iliofemoral Bypass and Left Femoral Popliteal Artery Bypass on 04/14/[address] Gandhi who was brought to the ER by EMS secondary to complaints of severe right lower extremity pain, leg noted to be cold/mottled, no pulses found by EMS. Pt states symptoms have been ongoing for several days, noted "big toe turned purple", [facility] , however pt states he was waiting for Mother to get back from [place]. Today however had severe pain and called EMS. Non-compliant w/ meds. Continues to drink/smoke. On arrival, BP 108/79, HR 96, O2 sat 98% on RA, Afebrile. WBC 17.9. Platelets 118, previously 445 on 04/17/16. INR 1.0. Dr. Gandhi contacted by ER physician, recommended Heparin drip and eval by Vascular Surgeon , Dr. Guerra consulted, recommended CTA, currently pending. CBC/BMP: 12/07/16 0609 12/07/16 0609 Significant Findings Laboratory Tests Test 12/06/16 12/07/16 19:45 06:09 White Blood Count 17.9 TH/MM3 11.9 TH/MM3 (4.0-11.0) (4.0-11.0) Platelet Count 118 TH/MM3 85 TH/MM3 (150-450) (150-450) Neutrophils (%) (Auto) 83.8 % (16.0-70.0) Neutrophils # (Auto) 15.0 TH/MM3 8.2 TH/MM3 (1.8-7.7) (1.8-7.7) Sodium Level 133 MEQ/L (136-145) Potassium Level 3.2 MEQ/L (3.5-5.1) Chloride Level 96 MEQ/L (98-107) Random Glucose 191 MG/DL (74-106) Aspartate Amino Transf 11 U/L (15-37) 12 U/L (15-37) (AST/SGOT) Red Blood Count 3.67 MIL/MM3 (4.50-5.90) Hemoglobin 11.9 GM/DL (13.0-17.0) Hematocrit 34.9 % (39.0-51.0) Platelet Estimate LOW (NORMAL) Calcium Level 7.8 MG/DL (8.5-10.1) Total Protein 5.8 GM/DL (6.4-8.2) Albumin 2.7 GM/DL (3.4-5.0) Imaging Last Impressions Aorta w/Runoff CTA 12/06/16 0000 Signed Impressions: Service Date/Time: Tuesday, December 06, 2016 20:30 - CONCLUSION: 1. Occlusion of the right common femoral artery and proximal superficial femoral artery with reconstitution of the distal superficial femoral artery. 2. Occlusion of graft in the left leg could be arterial or venous. 3. Occlusion of the left popliteal artery with reconstitution distally. 4. Patent aortobifemoral bypass graft, however there is abnormal thickening of the graft at the bifurcation and involving the right iliac vasculature, could be inflammation or infection. Clinical correlation. Jack Castro MD PE at Discharge GENERAL: NAD SKIN: Warm and dry. HEAD: Normocephalic. EYES: No scleral icterus. No injection or drainage. NECK: Supple, trachea midline. No JVD or lymphadenopathy. CARDIOVASCULAR: Regular rate and rhythm without murmurs, gallops, or rubs. RESPIRATORY: Breath sounds equal bilaterally. No accessory muscle use. GASTROINTESTINAL: Abdomen soft, non-tender, nondistended. MUSCULOSKELETAL: No cyanosis, or edema. s/p femoropopliteal; dressing in place right lower extremity thigh BACK: Nontender without obvious deformity. No CVA tenderness. Hospital Course 1. Limb Ischemia: RLE. h/o PAD s/p Aortobifemoral Bypass, Right Iliofemoral Bypass and Left Femoral Popliteal Artery Bypass by Dr. Gandhi 04/14/16, non- compliant w/ meds, now w/ acute limb ischemia. He underwent declotting / revision of the right limbo aortobifemoral graft and construction of a right femoral-popliteal bypass 12/06/16 . He was initially treated with Heparin gtt as well as analgesics/antiemetics and continued on aspirin 2. Non-Compliance: w/ meds and follow up, stressed importance of compliance. 3. Thrombocytopenia: Platelets 118, previously 445 on 04/17/16. 4. HTN: Treated with Metoprolol. 5. Leukocytosis: WBC 17.9, Afebrile, no evidence of infection, likely secondary to acute limb ischemia 6. Alcohol Abuse: Placed on CIWA, Seizure Precautions, MVT/Thiamine/Folate 7. Tobacco Abuse: Pt counselled. Ativan prn. No NicoDerm to avoid further vasoconstriction. 8. DVT Prophylaxis: Heparin gtt Pt Condition on Discharge: Stable Discharge Disposition: Disch w/ Home Health Serv Discharge Time: > 30 minutes Discharge Instructions DIET: Follow Instructions for: Heart Healthy Diet Activities you can perform: Regular-No Restrictions Follow up Referrals: PCP Follow-up - 1 Week Vascular Surgery - 2 Weeks New Medications: Sennosides-Docusate Sodium (Neeta-Colace) 8.6-50 Mg Tab 1 TAB PO BID PRN Constipation #20 Ref 0 TAB Hydrocodone-Acetaminophen (Hydrocodone-Acetaminophen) 10-325 mg Tab 1 TAB PO Q4H PRN pain>5 #30 TAB Continued Medications: Aspirin (Aspirin) 325 Mg Tab 325 MG PO DAILY Blood Clot Prevention #30 Ref 0 TAB Atorvastatin (Lipitor) 40 Mg Tab 40 MG PO HS Cholesterol Management Days 30 TAB Baclofen (Baclofen) 20 Mg Tab 20 MG PO BID Muscle Spasm Ref [address] (Dul[address]etine DR) 60 Mg Capdr 60 MG PO DAILY #30 Ref 0 CAP Lorazepam (Ativan) 0.5 Mg Tab 0.5 MG PO Q8H PRN anxiety #20 TAB Metoprolol Succinate ER 24 HR (Metoprolol Succinate ER 24 HR) 50 Mg Tab 50 MG PO DAILY #30 Ref 0 TAB Pantoprazole (Pantoprazole) 40 Mg Tab 40 MG PO DAILY Reflux #30 Ref 0 TAB Jack To MD Dec 08, 2016 12:33
[2016-12-08] MEDS: SODIUM CHLOR 0.9% 1000 ML INJ 1,000 ML IV SCH (14:10)
--- NOTE | 2016-12-09 07:13 | MP ---
cc: GLADIS WELLS MD DATE OF SURGERY 12/07/2016 PREOPERATIVE DIAGNOSIS Ischemia of the right leg, acute ischemia of the right foot, peripheral vascular disease, tobacco abuse. POSTOPERATIVE DIAGNOSIS Ischemia of the right leg, acute ischemia of the right foot, peripheral vascular disease, tobacco abuse, near occlusion of the right limb of the aortobifemoral graft and then total occlusion of the superficial femoral artery on the right. OPERATIVE PROCEDURE Right femoral-popliteal bypass with PTFE graft and embolectomy and thrombectomy of the common femoral artery and right limb of the aortobifemoral graft. SURGEON Gladis Wells MD ANESTHESIA General ESTIMATED BLOOD LOSS About 200 cc INDICATIONS FOR THE PROCEDURE This 51-year-old male presented to the emergency room with ischemia of the right leg. The patient states that this has been going on now for seven weeks, but about three weeks has been worse and the patient finally could not take it anymore. He states he has pain in his right foot and cannot walk on it and now it is getting numb. PROCEDURE NOTE The patient prepped and draped in the usual fashion and a right groin incision is made, deepened down to the level of the connection of the right limb of the aortobifemoral left to the common femoral artery. There is a nice anastomosis which is spatulated and appears to be nice and clean. The vessel was very carefully dissected and so is the graft proximally to gain control and then a Vesseloop and umbilical tape is placed around the graft. Another way of proximal control, the anastomosis is dissected. The patient has blood flow proximally, however as I am coming down to the anastomosis, blood flow disappears. There is no flow below the groin level. Once the vessel is dissected, the patient is given 5000 units of heparin and then proximally DeBakey clamp is placed and longitudinal incision is made in the graft overlying the vessel. This allows entry of the vessel. The patient has a large amount of thromboembolic material in the distal graft and continuing into the superficial femoral artery, as well as into the deep femoral artery. He must have trashed the leg several times and finally this came to a grinding halt. The anastomosis, however, is very nicely done and clean. All the thromboembolic material is now removed and then a The DeBakey clamp was released and Reed is placed proximally. Reed retrieves another clump of thromboembolic material and then there is a brisk flow down. The clamp is now quickly reapplied. The Reed is now passed distally into the SFA however, there is an organized clot in there and this cannot be opened up at this point, therefore this is abandoned and incision made through the fem-pop graft. Now the median popliteal incision is made, popliteal artery isolated. It appears to be nice and soft and well suited for the graft. An 8 mm ringed Ogden-Osmar is now passed from distal to proximal using a Tanya Weck tunneler and then distal anastomosis is created. The popliteal artery is opened longitudinally with Lamb scissors and then the graft is cut under oblique angle with an 11 blade. 6-0 Prolene running anastomosis is now created. The vessel is now released and back bled. It bleeds back nicely. The graft is now flushed with heparinized saline and then the clamp is applied to the graft allowing the vessel to maintain patent. Proximal anastomosis now attended obviously and I made about a 2-1/2 inch long incision in the graft so the distal half of the incision is closed with running 5-0 Prolene and then about another inch is left open. This was used to anastomose the proximal graft which is cut to size under an oblique angle and then sewn in with 5-0 Prolene. Prior to completion of the anastomosis, again the graft is back bled and then flushed and then blood flow was reestablished. The patient now has a bounding pulse in the popliteal artery and brisk pulse in the and posterior tibial artery. The foot warms up readily. The area irrigated with copious amounts of saline and then the incision is closed in layers with 0 Vicryl and gilbert. The patient tolerated the procedure well. Gladis DENNIS /2:19 AM /7:04 AM
[2016-12-10] MEDS ORDERED: THIAMINE HCL 100 MG TAB PO SCH (09:00)
== END 2016-12-08 17:42 | disposition home health service (06) | DRG 271 ==
LOC: NEPD 19:19 → NEDA 21:07 → HPAC 12-07 06:11 → N07B 12-07 14:20
PROVIDERS: ADMIT Hospitalist; ATTEND Hospitalist
PROC: 041K0JL Bypass Right Femoral Artery to Popliteal Artery with Synthetic Substitute, Open Approach (ICD-10-PCS; 2016-12-06)
PROC: 04CK3ZZ Extirpation of Matter from Right Femoral Artery, Percutaneous Approach (ICD-10-PCS; principal; 2016-12-06 23:18)
DX: I74.3 Embolism and thrombosis of arteries of the lower extremities (principal); T82.818A Embolism due to vascular prosthetic devices, implants and grafts, initial encounter; D69.6 Thrombocytopenia, unspecified; I70.92 Chronic total occlusion of artery of the extremities; I73.9 Peripheral vascular disease, unspecified; I10 Essential (primary) hypertension; D72.829 Elevated white blood cell count, unspecified; F10.10 Alcohol abuse, uncomplicated; F17.210 Nicotine dependence, cigarettes, uncomplicated; M19.90 Unspecified osteoarthritis, unspecified site; K21.9 Gastro-esophageal reflux disease without esophagitis; E78.5 Hyperlipidemia, unspecified; G89.29 Other chronic pain; F41.9 Anxiety disorder, unspecified; F32.9 Major depressive disorder, single episode, unspecified; Z79.82 Long term (current) use of aspirin; Z91.14 Patient's other noncompliance with medication regimen; Y90.9 Presence of alcohol in blood, level not specified; Z91.19 Patient's noncompliance with other medical treatment and regimen
CPT/HCPCS: 75635; 80053; 82948; 85025; 85610; 85730; 86850; 86900; 86901; 86920; 87015; 87070; 87102; 87116; 87205; 87206; 88304; 88305; 93005; 96361; 96365; 96374; 96375; C1757; C1768; E0113; J0690; J1644; J1650; J2060; J2270; J2370; J2405; J2720; J3010; J3480; J7030; J7040; J7050; J7120; Q9967

== ENCOUNTER 2017-04-18 18:49 | Inpatient (IN) | payer MEDICARE, OTHER ==
[~2017-04-18] VITALS: Ht 167.6 cm; Wt 54.0 kg
[~2017-04-18 18:49] MED LIST changes: +ASPI-183 PO; -ASPI325T PO; +HYDR-3583 PO; -LACTATED RINGER'S 1000 ML INJ 1,000 ML IV ONE; +METO1TAB9 PO; -METO50TA11 PO; -NEUR300C PO; -NORMOSOL R INJ 2,000 ML IV ONE; -ONDANSETRON HCL 4 MG/2 ML VIAL IV PUSH ONE; -PERC10TA27 PO; +PERI8.6T PO; -PHENYLEPH/NS 1000 MCG/10 ML SYR IV ONE; -PROPOFOL 200 MG/20 ML AMP IV ONE; -SODIUM CHLOR 0.9% (EXCEL) INJ 250 ML IV ONE; -TRAZ100T4 PO
[2017-04-18 19:06] VITALS: BP 184/107; PULSE 82; RESP 16; TEMP 98.9; O2SAT 99
--- NOTE | 2017-04-18 20:38 | PD ---
HPI Chief Complaint: Pain: Acute or Chronic Time Seen by Provider: 20:33 Travel History International Travel<30 days: No Contact w/Intl Traveler<30days: No Traveled to known affect area: No History of Present Illness HPI The patient is a 51 year old male who presents to the [facility] emergency department with a history of worsening right foot and ankle pain that he reports began a few days ago. The patient is a poor historian. The patient reports that he has had chronic leg pain in both legs for years. He reports that in March 2016 he had surgery to the vasculature of the right leg and then again in November had another surgery due to an acute blockage. He can't recall the name of the surgeon. He reports he is followed at the [facility] and cannot recall exactly when he last had a visit with a primary care physician. He reports that at sometime earlier this year. The patient reports that he continues to smoke approximately 16 cigarettes daily. The patient on review of systems reports that he did have diarrhea a few days ago, however he reports that it was mild and resolved. Otherwise on review of systems, he denies having any known recent fevers, worsening cough or congestion , neck pain, chest pain, shortness of breath, abdominal pain, vomiting, urinary symptoms, or neurologic symptoms. PFS Past Medical History Narrative Medical The patient's past medical history is significant for PTSD, Hypertension, 13 broken bones, CVA, GERD, Depression, and Anxiety, peripheral arterial disease, hyperlipidemia, medication noncompliance, tobacco abuse, alcohol abuse. Hx Anticoagulant Therapy: Yes (UNSURE THE NAME ) Arthritis: Yes Asthma: Yes Anxiety: Yes Depression: Yes Heart Rhythm Problems: No Cancer: No Cardiovascular Problems: Yes (HTN) Chemotherapy: No Chest Pain: No Congestive Heart Failure: Yes Diabetes: No Diminished Hearing: No Endocrine: No Gastrointestinal Disorders: Yes GERD: Yes (very bad) Genitourinary: No Headaches: Yes (patient states due to neck) Hiatal Hernia: Yes Hypertension: Yes Immune Disorder: No Inguinal Hernia: Yes Implanted Vascular Access Dvce: No Kidney Stones: No Musculoskeletal: Yes Neurologic: No Psychiatric: Yes (PTSD) Reproductive: No Respiratory: Yes (patient states due to smoking he has a lot of breath problems ) Migraines: Yes Radiation Therapy: No Renal Failure: No Seizures: No Sickle Cell Disease: No Thyroid Disease: No Past Surgical History Narrative Surgical The patient's past surgical history is significant for cervical fusion, bilateral hernia repair, aortobifemoral bypass, right iliofemoral bypass, left femoral-popliteal artery bypass. Abdominal Surgery: Yes (hernia surgery 1988 ) Cardiac Surgery: No Ear Surgery: No Endocrine Surgery: No Eye Surgery: No Genitourinary Surgery: No Gynecologic Surgery: No Oral Surgery: Yes (removal of teeth) Thoracic Surgery: Yes (titanium plate in neck) Other Surgery: Yes (VASCULAR SX BILATERAL LEGS) Social History Alcohol Use: Yes (2-4 packs a week) Tobacco Use: Yes (16 CIGS DAILY) Substance Use: Yes (smoke marijuana) Allergies-Medications (Allergen,Severity, Reaction): Coded Allergies: bee venom protein (honey bee) (Unverified Allergy, Severe, SWELLING, ) Reported Meds & Prescriptions Reported Meds & Active Scripts Active Hydrocodone-Acetaminophen 10-325 mg Tab 1 Tab PO Q4H PRN Ativan (Lorazepam) 0.5 Mg Tab 0.5 Mg PO Q8H PRN Lipitor (Atorvastatin Calcium) 40 Mg Tab 40 Mg PO HS 30 Days Aspirin 325 Mg Tab 325 Mg PO DAILY Reported Pantoprazole (Pantoprazole Sodium) 40 Mg Tab 40 Mg PO DAILY Metoprolol Succinate ER 24 HR (Metoprolol Succinate) 50 Mg Tab 50 Mg PO DAILY Duloxetine DR (Duloxetine HCl) 60 Mg Capdr 60 Mg PO DAILY Baclofen 20 Mg Tab 20 Mg PO BID Review of Systems General / Constitutional: No: Fever Eyes: No: Visual changes HENT: No: Headaches Cardiovascular: No: Chest Pain or Discomfort Respiratory: No: Shortness of Breath Gastrointestinal: Positive: Diarrhea, No: Nausea, Vomiting, Abdominal Pain Genitourinary: No: Dysuria Musculoskeletal: Positive: Myalgias, Arthralgias, Pain Skin: No Rash Neurologic: No: Weakness, Focal Abnormalities, Change in Mentation, Slurred Speech, Sensory Disturbance Psychiatric: No: Depression Endocrine: No: Polydipsia Hematologic/Lymphatic: No: Easy Bruising Physical Exam Narrative General: The patient is well-developed well-nourished male in no acute distress. Head and Neck exam: Head is normocephalic atraumatic. Eyes: EOMI, pupils are equal round and reactive to light. Nose: Midline septum with pink mucous membranes Mouth: Dentition unremarkable. Moist mucus membranes. Posterior oropharynx is not erythematous. No tonsillar hypertrophy. Uvula midline. Airway patent. Neck: No palpable lymphadenopathy. No nuchal rigidity. No thyromegaly. Cardiovascular: Regular rate and rhythm without murmurs, gallops, or rubs. Lungs: Clear to auscultation bilaterally. No wheezes, rhonchi, or rales. Abdomen: Soft, without tenderness to palpation in all 4 quadrants of the abdomen. No guarding, rebound, or rigidity. Normal bowel sounds are audible. No tenderness on palpation of McBurney's point. Extremities: No clubbing, cyanosis, or edema. The patient's right foot is pale compared to the left. The patient has prolonged capillary refill of the right foot compared to the left. The patient's left foot capillary refill is 4 seconds. The patient has no palpable pulses in bilateral lower extremities. The patient has 2+ pulses in bilateral upper extremities. Back: No spinous process tenderness to palpation. No costovertebral angle tenderness to palpation. Neurologic Exam: Grossly nonfocal. Skin Exam: No rash noted. Intact skin that is warm and dry. Data Data Last Documented VS Vital Signs Date Time Temp Pulse Resp B/P (MAP) Pulse Ox O2 Delivery O2 Flow Rate FiO2 04/18/17 20:47 89 18 209/108 (141) 100 Room Air 04/18/17 19:06 98.9 Orders Orders Complete Blood Count With Diff (04/18/17 20:45) Comprehensive Metabolic Panel (04/18/17 20:45) Creatine Kinase (Cpk) (04/18/17 20:45) Ckmb (Isoenzyme) Profile (04/18/17 20:45) Troponin I (04/18/17 20:45) Prothrombin Time / Inr (Pt) (04/18/17 20:45) Act Partial Throm Time (Ptt) (04/18/17 20:45) Magnesium (Mg) (04/18/17 20:45) Chest, Single Ap (04/18/17 20:45) Iv Access Insert/Monitor (04/18/17 20:45) Ecg Monitoring (04/18/17 20:45) Oximetry (04/18/17 20:45) Morphine Inj (Morphine Inj) (04/18/17 21:15) Ondansetron Inj (Zofran Inj) (04/18/17 21:15) Sodium Chlor 0.9% 1000 Ml Inj (Ns 1000 M (04/18/17 21:15) Cta Runoff W Iv Contrast W 3d (04/18/17 ) CKMB (04/18/17 21:15) CKMB% (04/18/17 21:15) Heparin Inj (Heparin Inj) (04/18/17 23:00) Heparin-D5w 25,000 U/250 Ml (Heparin-D5w (04/18/17 23:00) Act Partial Throm Time (Ptt) (04/18/17 22:54) Prothrombin Time / Inr (Pt) (04/18/17 22:54) Cbc No Diff, Includes Plts (04/18/17 22:54) Cbc No Diff, Includes Plts (04/21/17 06:00) Act Partial Throm Time (Ptt) (04/19/17 05:54) Occult Blood (Hemoccult) Stool (04/18/17 22:54) Admit Order (Ed Use Only) (04/18/17 22:54) Labs Laboratory Tests Test 04/18/17 21:15 White Blood Count 13.8 TH/MM3 Red Blood Count 5.00 MIL/MM3 Hemoglobin 16.3 GM/DL Hematocrit 47.7 % Mean Corpuscular Volume 95.5 FL Mean Corpuscular Hemoglobin 32.7 PG Mean Corpuscular Hemoglobin Concent 34.3 % Red Cell Distribution Width 14.1 % Platelet Count 298 TH/MM3 Mean Platelet Volume 7.2 FL Neutrophils (%) (Auto) 74.6 % Lymphocytes (%) (Auto) 18.9 % Monocytes (%) (Auto) 5.5 % Eosinophils (%) (Auto) 0.7 % Basophils (%) (Auto) 0.3 % Neutrophils # (Auto) 10.3 TH/MM3 Lymphocytes # (Auto) 2.6 TH/MM3 Monocytes # (Auto) 0.8 TH/MM3 Eosinophils # (Auto) 0.1 TH/MM3 Basophils # (Auto) 0.0 TH/MM3 CBC Comment DIFF FINAL Differential Comment Prothrombin Time 10.3 SEC Prothromb Time International Ratio 1.0 RATIO Activated Partial Thromboplast Time 28.1 SEC Blood Urea Nitrogen 7 MG/DL Creatinine 0.79 MG/DL Random Glucose 103 MG/DL Total Protein 7.8 GM/DL Albumin 3.7 GM/DL Calcium Level 8.6 MG/DL Magnesium Level 1.8 MG/DL Alkaline Phosphatase 98 U/L Aspartate Amino Transf (AST/SGOT) 34 U/L Alanine Aminotransferase (ALT/SGPT) 16 U/L Total Bilirubin 0.4 MG/DL Sodium Level 132 MEQ/L Potassium Level 4.1 MEQ/L Chloride Level 100 MEQ/L Carbon Dioxide Level 28.2 MEQ/L Anion Gap 4 MEQ/L Estimat Glomerular Filtration Rate 103 ML/MIN Total Creatine Kinase 636 U/L Creatine Kinase MB 11.0 NG/ML Creatine Kinase MB % 1.7 % Troponin I LESS THAN 0.02 NG/ML MDM Medical Decision Making Medical Screen Exam Complete: Yes Emergency Medical Condition: Yes Medical Record Reviewed: Yes Interpretation(s) Last Impressions Chest X-Ray 04/18/172044 Signed Impressions: Service Date/Time: Tuesday, April 18, 2017 21:33 - CONCLUSION: No evidence of acute cardiopulmonary disease. Delonte Mas MD Differential Diagnosis Peripheral arterial occlusion related to thrombosis, versus embolism Narrative Course During the course of the patients emergency department visit, the patients history, examination, and differential diagnosis were reviewed with the patient. The patient was placed on a child monitor with oximetry and frequent blood pressure monitoring. The patient had IV access obtained and blood work sent for analysis. The patient had an ECG done on arrival. The patient's ECG reveals a sinus rhythm with a heart rate of 87, no acute ST segment elevation, QRS duration is 102 ms, QTC 421 ms. A call was then placed out to the vascular surgeon that lasted surgery on the patient, . I spoke to him at 9:01 PM regarding this patient's case. He recommended that the patient be admitted to the medical service and he will see the patient consultation in the morning. The patient was initially provided morphine for pain, Zofran for nausea. The patients laboratory studies were reviewed and remarkable for a CBC remarkable for a white count of 13.8, neutrophils 74.6. CMP is remarkable for sodium of 132, anion gap 4, CPK 636 with MB percent 1.7, troponin I less than 0.02, PT 10.3, PTT 28.1. Radiology studies were reviewed and remarkable for a chest x-ray that showed no evidence of acute cardiopulmonary disease. A CTA with runoff of the legs was ordered. I spoke to the admitting hospitalist who did recommend the patient be started on heparin as a bolus and IV. The patients results were discussed with the patient, including the plan of care. I explained that further testing and/ or monitoring is indicated based on the patients history, examination, and/ or laboratory findings. Therefore, I recommended admission for additional evaluation. The patient expressed understanding and was agreeable with this plan. The patient was admitted to the hospital in guarded condition and sent to a bed under the care of the [facility] service. Physician Communication Physician Communication The patient's case including history, pertinent physical examination findings, and laboratory studies were discussed with Dr. Kearns. It was agreed that the patient would be admitted to the [facility] service. Diagnosis Primary Impression: Ischemia of extremity Admitting Information Admitting Physician Requests: it Yuliya Bynum MD Apr 18, 2017 20:38
[2017-04-18 20:47] VITALS: BP 209/108; PULSE 89; RESP 18; O2SAT 100
[2017-04-18] MEDS ORDERED: MORPHINE SULFATE 4 MG/ML INJ IV PUSH ONE (21:15)
[2017-04-18] MEDS ORDERED: ONDANSETRON HCL 4 MG/2 ML VIAL IV PUSH ONE (21:15)
[2017-04-18] MEDS: SODIUM CHLOR 0.9% 1000 ML INJ 1,000 ML IV SCH (21:46)
[2017-04-18 21:51] LABS: APTT (PATIENT) 28.1 SEC (24.3-30.1); PROTHROMBIN TIME - PATIENT 10.3 SEC (9.8-11.6)
--- NOTE | 2017-04-18 21:55 | RADRPT ---
EXAM DATE/TIME: 04/18/2017 21:33 [facility] COMPARISON: CHEST SINGLE AP, April 10, 2016, 11:12. INDICATIONS : Cough. MEDICAL HISTORY : Cardiovascular disease. Hypertension SURGICAL HISTORY : Inguinal hernia repair. Fusion, cervical. ENCOUNTER: Initial ACUITY: 1 day PAIN SCORE: 0/10 LOCATION: Bilateral chest FINDINGS: A single view of the chest demonstrates the lungs to be symmetrically aerated without evidence of mas s, infiltrate or effusion. The cardiomediastinal contours are unremarkable. Osseous structures are intact. Unchanged subcentimeter right upper lobe benign granuloma. CONCLUSION: No evidence of acute cardiopulmonary disease. Delonte Mas MD on April 18, 2017 at 21:52 Board Certified Radiologist. This report was verified electronically.
[2017-04-18 21:56] LABS: AUTOMATED NEUTROPHIL # 10.3 TH/MM3 (1.8-7.7); BASOPHIL % 0.3 % (0.0-2.0); EOSINOPHIL # 0.1 TH/MM3 (0-0.4); EOSINOPHIL % 0.7 % (0.0-4.0); HEMATOCRIT 47.7 % (39.0-51.0); HEMO FLAGS DIFF FINAL; LYMPH % 18.9 % (9.0-44.0); LYMPHOCYTE # 2.6 TH/MM3 (1.0-4.8); MEAN CELL VOLUME 95.5 FL (80.0-100.0); MEAN CORPUSCULAR HEMOGLOBIN 32.7 PG (27.0-34.0); MEAN CORPUSCULAR HGB CONC 34.3 % (32.0-36.0); MONO % 5.5 % (0.0-8.0); NEUT % 74.6 % (16.0-70.0); PLATELET COUNT 298 TH/MM3 (150-450); RED CELL DISTRIBUTION WIDTH 14.1 % (11.6-17.2); WHITE BLOOD COUNT 13.8 TH/MM3 (4.0-11.0)
[2017-04-18 22:03] LABS: ALT (GPT) 16 U/L (12-78)
[2017-04-18 22:06] LABS: ANION GAP 4 MEQ/L (5-15); AST (GOT) 34 U/L (15-37); BICARBONATE 28.2 MEQ/L (21.0-32.0); BLOOD UREA NITROGEN 7 MG/DL (7-18); CHLORIDE 100 MEQ/L (98-107); GLOMERULAR FILTRATION RATE 103 ML/MIN (>89); MAGNESIUM 1.8 MG/DL (1.5-2.5); SODIUM (NA) 132 MEQ/L (136-145)
[2017-04-18 22:07] LABS: POTASSIUM 4.1 MEQ/L (3.5-5.1)
[2017-04-18 22:12] LABS: ALKALINE PHOSPHATASE 98 U/L (45-117); CREATINE KINASE 636 U/L (39-308); TOTAL BILIRUBIN ADULT 0.4 MG/DL (0.2-1.0)
[2017-04-18] MEDS ORDERED: ACETAMINOPHEN 325 MG TAB PO PRN (23:00)
[2017-04-18] MEDS ORDERED: LACTULOSE SYRUP 20 GM/30 ML CUP PO PRN (23:00)
[2017-04-18] MEDS ORDERED: LORazepam 2 MG TAB PO PRN (23:00)
[2017-04-18] MEDS ORDERED: LORazepam 0.5 MG TAB PO PRN (23:00)
[2017-04-18] MEDS ORDERED: MAGNESIUM HYDROXIDE SUSP 30 ML CUP PO PRN (23:00)
[2017-04-18] MEDS ORDERED: BISACODYL 10 MG SUPP RECTAL PRN (23:00)
[2017-04-18] MEDS ORDERED: LORazepam 2 MG/ML VIAL IV PUSH PRN ×3 (23:00)
[2017-04-18] MEDS ORDERED: ONDANSETRON HCL 4 MG/2 ML VIAL IVP PRN (23:00)
[2017-04-18] MEDS ORDERED: LORazepam 1 MG TAB PO PRN (23:00)
[2017-04-18] MEDS ORDERED: SODIUM CHLORIDE 0.9% FLUSH 10 ML FLUSH IV FLUSH PRN (23:00)
[2017-04-18] MEDS ORDERED: HEPARIN SODIUM - IV 10,000 UNITS/10 ML VIAL IV ONE (23:00)
[2017-04-18] MEDS ORDERED: SENNOSIDES 8.6 MG TAB PO PRN (23:00)
[2017-04-18] MEDS ORDERED: FLUMAZENIL 0.5 MG/5 ML VIAL IV PUSH PRN (23:00)
[2017-04-18 23:46] VITALS: BP 228/104; PULSE 66; RESP 18; O2SAT 100
[2017-04-18] MEDS: ACETAMINOPHEN/HYDROcodone 325 MG/5 MG TAB PO PRN (23:46)
--- NOTE | 2017-04-18 23:51 | HHI.HP ---
HPI Service [facility] Primary Care Physician [facility] Admission Diagnosis Limb ischemia on right Diagnoses: (1) Ischemia of extremity Diagnosis: Principal (2) Non-compliance Diagnosis: Principal (3) HTN (hypertension) Diagnosis: Principal (4) Leukocytosis Diagnosis: Principal (5) Rhabdomyolysis Diagnosis: Principal (6) Alcohol abuse Diagnosis: Principal (7) Tobacco abuse Diagnosis: Principal Travel History International Travel<30 Days: No Contact w/Intl Traveler <30 Da: No Traveled to Known Affected Are: No History of Present Illness This is a 51-year-old male with a PMH of HTN, Anxiety, Depression, Hyperlipidemia, Noncompliance, Alcohol Abuse, Tobacco Abuse and PAD who presented to the ER with complaints of right foot pain x3 days. Previous admit 12/06-12/08/16 for similar complaints, h/o PAD s/p Aortobifemoral Bypass, Right Iliofemoral Bypass and Left Femoral Popliteal Artery Bypass by Dr. Gandhi , non-compliant w/ meds, noted to have acute limb ischemia during that admission, s/p declotting/revision of the right limb aortobifemoral graft and right femoral-popliteal bypass 12/06/[address] Guerra. Returns now w/ acute onset of pain. Pt poor historian, doesn't know what medications he takes. On arrival, BP 184/107, HR 82, O2 sat 99% on RA, Afebrile. WBC 13.8. CPK 636. Trop negative. Dr. Guerra consulted by ER physician, will see in consultation. Started on Heparin gtt in ER. Review of Systems Except as stated in HPI: all other systems reviewed are Neg ROS: 14 point review of systems otherwise negative. Past Family Social History Past Medical History PMH: HTN, Anxiety, Depression, Hyperlipidemia, Noncompliance, Alcohol Abuse, Tobacco Abuse and PAD Past Surgical History PAST SURGICAL HISTORY: Bilateral Hernia Repair, Cervical Fusion, Aortobifemoral Bypass, Right Iliofemoral Bypass, Left Femoral Popliteal Arterial Bypass, Dental Extraction Allergies: Coded Allergies: bee venom protein (honey bee) (Unverified Allergy, Severe, SWELLING, ) Family History PAST FAMILY HISTORY: Reviewed. No h/o DM or CAD Social History PAST SOCIAL HISTORY: +Alcohol. Smokes 1ppd. +Marijuana. Physical Exam Vital Signs Vital Signs Date Time Temp Pulse Resp B/P (MAP) Pulse Ox O2 Delivery O2 Flow Rate FiO2 04/18/17 23:46 66 18 228/104 (145) 100 Room Air 04/18/17 20:47 89 18 209/108 (141) 100 Room Air 04/18/17 19:06 98.9 82 16 184/107 (132) 99 Physical Exam PE: GENERAL: Middle-aged male in no acute distress. HEENT: PERRLA, EOMI. No scleral icterus or conjunctival pallor. No lid lag or facial droop. CARDIOVASCULAR: Regular rate and rhythm. No obvious murmurs to auscultation. No chest tenderness to palpation. RESPIRATORY: No obvious rhonchi or wheezing. Clear to auscultation. Breath sounds equal bilaterally. GASTROINTESTINAL: Abdomen soft, non-tender, nondistended. BS normal. MUSCULOSKELETAL: Extremities without clubbing or edema. No obvious deformities. Bilateral feet cold to touch, right worse than left, no palpable pulses bilaterally. LLE dopplerable. NEUROLOGICAL: Awake, alert and oriented x4. No focal neurologic deficits. Moving both upper and lower extremities spontaneously. Laboratory Laboratory Tests Test 04/18/17 21:15 White Blood Count 13.8 Red Blood Count 5.00 Hemoglobin 16.3 Hematocrit 47.7 Mean Corpuscular Volume 95.5 Mean Corpuscular Hemoglobin 32.7 Mean Corpuscular Hemoglobin Concent 34.3 Red Cell Distribution Width 14.1 Platelet Count 298 Mean Platelet Volume 7.2 Neutrophils (%) (Auto) 74.6 Lymphocytes (%) (Auto) 18.9 Monocytes (%) (Auto) 5.5 Eosinophils (%) (Auto) 0.7 Basophils (%) (Auto) 0.3 Neutrophils # (Auto) 10.3 Lymphocytes # (Auto) 2.6 Monocytes # (Auto) 0.8 Eosinophils # (Auto) 0.1 Basophils # (Auto) 0.0 CBC Comment DIFF FINAL Differential Comment Prothrombin Time 10.3 Prothromb Time International Ratio 1.0 Activated Partial Thromboplast Time 28.1 Blood Urea Nitrogen 7 Creatinine 0.79 Random Glucose 103 Total Protein 7.8 Albumin 3.7 Calcium Level 8.6 Magnesium Level 1.8 Alkaline Phosphatase 98 Aspartate Amino Transf (AST/SGOT) 34 Alanine Aminotransferase (ALT/SGPT) 16 Total Bilirubin 0.4 Sodium Level 132 Potassium Level 4.1 Chloride Level 100 Carbon Dioxide Level 28.2 Anion Gap 4 Estimat Glomerular Filtration Rate 103 Total Creatine Kinase 636 Creatine Kinase MB 11.0 Creatine Kinase MB % 1.7 Troponin I LESS THAN 0.02 Result Diagram: 04/18/17211404/18/172114 Caprini VTE Risk Assessment Caprini VTE Risk Assessment: Mod/High Risk (score >= 2) Caprini Risk Assessment Model Point Value = 1 Point Value = 2 Point Value = 3 Point Value = 5 Age 41-60 Minor surgery BMI > 25 kg/m2 Swollen legs Varicose veins or History of unexplained or recurrent spontaneous Oral contraceptives or hormone replacement Sepsis (< 1 month) Serious lung disease, including pneumonia (< 1 month) Abnormal pulmonary function Acute myocardial infarction Congestive heart failure (< 1 month) History of inflammatory bowel disease Medical patient at bed rest Age 61-74 Arthroscopic surgery Major open surgery (> 45 min) Laparoscopic surgery (> 45 min) Malignancy Confined to bed (> 72 hours) Immobilizing plaster cast Central venous access Age >= 75 History of VTE Family history of VTE Factor V Leiden Prothrombin [id number] Lupus anticoagulant Anticardiolipin antibodies Elevated serum homocysteine Heparin-induced thrombocytopenia Other congenital or acquired thrombophilia Stroke (< 1 month) Elective arthroplasty Hip, pelvis, or leg fracture Acute spinal cord injury (< 1 month) Prophylaxis Regimen Total Risk Factor Score Risk Level Prophylaxis Regimen 0-1 Low Early ambulation 2 Moderate Order ONE of the following: *Sequential Compression Device (SCD) *Heparin 5000 units SQ BID 3-4 Higher Order ONE of the following medications: *Heparin 5000 units SQ TID *Enoxaparin/Lovenox 40 mg SQ daily (WT < 150 kg, CrCl > 30 mL/min) *Enoxaparin/Lovenox 30 mg SQ daily (WT < 150 kg, CrCl > 10-29 mL/min) *Enoxaparin/Lovenox 30 mg SQ BID (WT < 150 kg, CrCl > 30 mL/min) AND/OR *Sequential Compression Device (SCD) 5 or more Highest Order ONE of the following medications: *Heparin 5000 units SQ TID (Preferred with Epidurals) *Enoxaparin/Lovenox 40 mg SQ daily (WT < 150 kg, CrCl > 30 mL/min) *Enoxaparin/Lovenox 30 mg SQ daily (WT < 150 kg, CrCl > 10-29 mL/min) *Enoxaparin/Lovenox 30 mg SQ BID (WT < 150 kg, CrCl > 30 mL/min) AND *Sequential Compression Device (SCD) Assessment and Plan Problem List: (1) Ischemia of extremity ICD Code: I99.8 - Other disorder of circulatory system Status: Acute (2) Non-compliance ICD Code: Z91.19 - Patient's noncompliance with other medical treatment and regimen Status: Acute (3) HTN (hypertension) ICD Code: I10 - Essential (primary) hypertension Status: Acute (4) Leukocytosis ICD Code: D72.829 - Elevated white blood cell count, unspecified Status: Acute (5) Rhabdomyolysis ICD Code: M62.82 - Rhabdomyolysis (6) Alcohol abuse ICD Code: F10.10 - Alcohol abuse, uncomplicated Status: Acute (7) Tobacco abuse ICD Code: Z72.0 - Tobacco use Status: Acute Assessment and Plan A/P: 1. Limb Ischemia: h/o PAD s/p Aortobifemoral Bypass, Right Iliofemoral Bypass and Left Femoral Popliteal Artery Bypass by Dr. Gandhi 04/14/16 and declotting/ revision of the Right Aortobifemoral Graft w/ Right Femoral-Popliteal Bypass on 12/06/[address] Guerra, now w/ recurrent ischemia, likely secondary to non- compliance and ongoing tobacco abuse. Dr. Guerra consulted by ER physician, will see in consultation. Started on Heparin gtt, CTA w/ Runoff pending, will follow. Continue ASA, Metoprolol, Statin. 2. Non-Compliance: known non-compliance to meds/follow-up, continues to smoke. Stressed importance of compliance. 3. HTN: Uncontrolled. BP 228/104, HR 66, Lopressor IV x1 now, recheck BP, optimize BP control. 4. Rhabdomyolysis: Mild. CPK 636. IVF for hydration, repeat labs in am. 5. Leukocytosis: WBC 13.8, no obvious source of infection, CXR negative, images reviewed by me. Leukocytosis likely secondary to hypoperfusion from limb ischemia. Recheck labs in am. 6. Alcohol Abuse: CIWA, Seizure Precautions, MVT/Thiamine/Folate 7. Tobacco Abuse: Counselled. Ativan prn. No NicoDerm to avoid vasoconstriction. 8. DVT Prophylaxis: Heparin gtt 9. Social work for d/c planning as needed. 10. Case discussed w/ ER physician at length. Physician Certification 2 Midnight Certification Type: Admission for Inpatient Services Order for Inpatient Services The services are ordered in accordance with Medicare regulations or non- Medicare payer requirements, as applicable. In the case of services not specified as inpatient-only, they are appropriately provided as inpatient services in accordance with the 2-midnight benchmark. Estimated LOS (days): 2 days is the estimated time the patient will need to remain in the hospital, assuming treatment plan goals are met and no additional complications. Post-Hospital Plan: Not yet determined Bre Kearns MD Apr 18, 2017 23:51
[2017-04-18] MEDS: HEPARIN-D5W 25,000 U/250 ML 250 ML IV PRN (23:58)
[2017-04-19] VITALS (7 sets, daily range): BP systolic 155–205; BP diastolic 85–111; PULSE 18–110; RESP 15–18; TEMP 97–99; O2SAT 97–100
[2017-04-19] MEDS ORDERED: METOPROLOL TARTRATE 5 MG/5 ML VIAL IV PUSH ONE
[2017-04-19 00:08] LABS: HEMATOCRIT 46.4 % (39.0-51.0); MEAN CELL VOLUME 95.8 FL (80.0-100.0); MEAN CORPUSCULAR HEMOGLOBIN 33.2 PG (27.0-34.0); MEAN CORPUSCULAR HGB CONC 34.7 % (32.0-36.0); PLATELET COUNT 240 TH/MM3 (150-450); RED BLOOD COUNT 4.84 MIL/MM3 (4.50-5.90); RED CELL DISTRIBUTION WIDTH 14.2 % (11.6-17.2); REVIEW FLAG FINAL; WHITE BLOOD COUNT 13.8 TH/MM3 (4.0-11.0)
[2017-04-19] MEDS ORDERED: LABETALOL HCL 100 MG/20 ML VIAL IV PUSH ONE (00:15)
[2017-04-19] MEDS ORDERED: FAMOTIDINE 20 MG/2 ML VIAL IV PUSH SCH (00:15)
[2017-04-19 00:21] LABS: APTT (PATIENT) 28.1 SEC (24.3-30.1); PROTHROMBIN TIME - PATIENT 10.3 SEC (9.8-11.6)
[2017-04-19] MEDS: MORPHINE SULFATE 4 MG/ML INJ IV PUSH PRN ×2 (00:55→03:48)
[2017-04-19] MEDS ORDERED: cloNIDine HCL 0.1 MG TAB PO ONE (02:00)
[2017-04-19] MEDS ORDERED: ENALAPRILAT 2.5 MG/2 ML VIAL IV PUSH PRN (02:15)
[2017-04-19] MEDS: LORazepam 2 MG/ML VIAL IV PUSH PRN ×6 (03:51→22:54)
[2017-04-19] MEDS ORDERED: HALOPERIDOL LACTATE 5 MG/ML AMP IV PUSH ONE (05:00)
[2017-04-19] MEDS: SODIUM CHLOR 0.9% 1000 ML INJ 1,000 ML IV SCH ×2 (07:15→17:15)
[2017-04-19 07:35] LABS: AUTOMATED NEUTROPHIL # 9.9 TH/MM3 (1.8-7.7); BASOPHIL % 0.2 % (0.0-2.0); EOSINOPHIL # 0.1 TH/MM3 (0-0.4); EOSINOPHIL % 0.4 % (0.0-4.0); HEMATOCRIT 45.3 % (39.0-51.0); HEMO FLAGS DIFF FINAL; LYMPH % 19.2 % (9.0-44.0); LYMPHOCYTE # 2.6 TH/MM3 (1.0-4.8); MEAN CELL VOLUME 95.1 FL (80.0-100.0); MEAN CORPUSCULAR HEMOGLOBIN 32.7 PG (27.0-34.0); MEAN CORPUSCULAR HGB CONC 34.4 % (32.0-36.0); MONO % 5.9 % (0.0-8.0); NEUT % 74.3 % (16.0-70.0); PLATELET COUNT 247 TH/MM3 (150-450); RED BLOOD COUNT 4.76 MIL/MM3 (4.50-5.90); RED CELL DISTRIBUTION WIDTH 13.9 % (11.6-17.2); WHITE BLOOD COUNT 13.3 TH/MM3 (4.0-11.0)
[2017-04-19 07:40] LABS: APTT (PATIENT) 30.6 SEC (24.3-30.1)
[2017-04-19 08:08] LABS: ALT (GPT) 18 U/L (12-78); ANION GAP 10 MEQ/L (5-15); AST (GOT) 24 U/L (15-37); BICARBONATE 24.8 MEQ/L (21.0-32.0); BLOOD UREA NITROGEN 4 MG/DL (7-18); CHLORIDE 102 MEQ/L (98-107); GLOMERULAR FILTRATION RATE 131 ML/MIN (>89); POTASSIUM 3.3 MEQ/L (3.5-5.1); SODIUM (NA) 137 MEQ/L (136-145)
[2017-04-19 08:11] LABS: ALKALINE PHOSPHATASE 94 U/L (45-117); CREATINE KINASE 874 U/L (39-308); TOTAL BILIRUBIN ADULT 0.3 MG/DL (0.2-1.0)
[2017-04-19 08:30] LABS: CKMB 15.1 NG/ML (0.5-3.6)
[2017-04-19] MEDS: ASPIRIN 325 MG TAB PO SCH (08:45)
[2017-04-19] MEDS: DOCUSATE SODIUM 50 MG/SENNA 8.6 MG TAB PO SCH ×2 (08:45→20:41)
[2017-04-19] MEDS: BACLOFEN 20 MG TAB PO SCH ×2 (08:45→20:41)
[2017-04-19] MEDS: FOLIC ACID 1 MG TAB PO SCH (08:45)
[2017-04-19] MEDS: THIAMINE HCL 100 MG TAB PO SCH (08:45)
[2017-04-19] MEDS: PANTOPRAZOLE SOD 40 MG DELAYED RELEASE TAB PO SCH (08:45)
[2017-04-19] MEDS: MULTIVITAMINS/MINERALS THERAPEUTIC TAB PO SCH (08:45)
[2017-04-19] MEDS: METOPROLOL SUCCINATE 50 MG EXTENDED RELEASE TAB PO SCH (08:45)
[2017-04-19] MEDS: DULoxetine HCl DR 60 MG CAP PO SCH (08:46)
[2017-04-19] MEDS: SODIUM CHLORIDE 0.9% FLUSH 10 ML FLUSH IV FLUSH SCH ×2 (08:46→20:42)
[2017-04-19] MEDS: HALOPERIDOL LACTATE 5 MG/ML AMP IM PRN ×5 (08:47→22:04)
[2017-04-19] MEDS: amLODIPine BESYLATE 5 MG TAB PO SCH (10:14)
--- NOTE | 2017-04-19 10:19 | PD.PN.STU ---
Subjective Remarks Patient is a poor historian but reports pain in his right leg for several days. He states he has been having issues with blood flow to legs for at least 2 years now. Admits regular smoking and alcohol use but amount is unclear. Also admits to noncompliance with medications. Per nurse, patient disoriented and has been pulling out his IVs even when sedated with Haldol and in wrist restraints. Ativan given every 4 hours per [facility] alcohol withdrawal protocol and with possible hallucinations. Objective Vitals Vital Signs Date Time Temp Pulse Resp B/P (MAP) Pulse Ox O2 Delivery O2 Flow Rate FiO2 04/19/17 08:39 99.0 96 18 194/105 (134) 97 04/19/17 04:00 97.0 110 18 191/110 (137) 97 04/19/17 00:45 98.2 62 18 205/111 (142) 100 04/19/17 00:13 80 194/110 (138) 04/18/17 23:46 66 18 228/104 (145) 100 Room Air 04/18/17 20:47 89 18 209/108 (141) 100 Room Air 04/18/17 19:06 98.9 82 16 184/107 (132) 99 Result Diagram: 04/19/17 0712 04/19/17 0712 Other Results Laboratory Tests Test 04/18/17 21:15 04/18/17 23:50 04/19/17 07:12 White Blood Count 13.8 TH/MM3 13.8 TH/MM3 13.3 TH/MM3 Red Blood Count 5.00 MIL/MM3 4.84 MIL/MM3 4.76 MIL/MM3 Hemoglobin 16.3 GM/DL 16.1 GM/DL 15.6 GM/DL Hematocrit 47.7 % 46.4 % 45.3 % Mean Corpuscular Volume 95.5 FL 95.8 FL 95.1 FL Mean Corpuscular Hemoglobin 32.7 PG 33.2 PG 32.7 PG Mean Corpuscular Hemoglobin Concent 34.3 % 34.7 % 34.4 % Red Cell Distribution Width 14.1 % 14.2 % 13.9 % Platelet Count 298 TH/MM3 240 TH/MM3 247 TH/MM3 Mean Platelet Volume 7.2 FL 6.8 FL 6.9 FL Neutrophils (%) (Auto) 74.6 % 74.3 % Lymphocytes (%) (Auto) 18.9 % 19.2 % Monocytes (%) (Auto) 5.5 % 5.9 % Eosinophils (%) (Auto) 0.7 % 0.4 % Basophils (%) (Auto) 0.3 % 0.2 % Neutrophils # (Auto) 10.3 TH/MM3 9.9 TH/MM3 Lymphocytes # (Auto) 2.6 TH/MM3 2.6 TH/MM3 Monocytes # (Auto) 0.8 TH/MM3 0.8 TH/MM3 Eosinophils # (Auto) 0.1 TH/MM3 0.1 TH/MM3 Basophils # (Auto) 0.0 TH/MM3 0.0 TH/MM3 CBC Comment DIFF FINAL DIFF FINAL Differential Comment Prothrombin Time 10.3 SEC 10.3 SEC Prothromb Time International Ratio 1.0 RATIO 1.0 RATIO Activated Partial Thromboplast Time 28.1 SEC 28.1 SEC 30.6 SEC Blood Urea Nitrogen 7 MG/DL 4 MG/DL Creatinine 0.79 MG/DL 0.64 MG/DL Random Glucose 103 MG/DL 118 MG/DL Total Protein 7.8 GM/DL 7.0 GM/DL Albumin 3.7 GM/DL 3.5 GM/DL Calcium Level 8.6 MG/DL 8.4 MG/DL Magnesium Level 1.8 MG/DL Alkaline Phosphatase 98 U/L 94 U/L Aspartate Amino Transf (AST/SGOT) 34 U/L 24 U/L Alanine Aminotransferase (ALT/SGPT) 16 U/L 18 U/L Total Bilirubin 0.4 MG/DL 0.3 MG/DL Sodium Level 132 MEQ/L 137 MEQ/L Potassium Level 4.1 MEQ/L 3.3 MEQ/L Chloride Level 100 MEQ/L 102 MEQ/L Carbon Dioxide Level 28.2 MEQ/L 24.8 MEQ/L Anion Gap 4 MEQ/L 10 MEQ/L Estimat Glomerular Filtration Rate 103 ML/MIN 131 ML/MIN Total Creatine Kinase 636 U/L 874 U/L Creatine Kinase MB 11.0 NG/ML 15.1 NG/ML Creatine Kinase MB % 1.7 % 1.7 % Troponin I LESS THAN 0.02 NG/ML Imaging Last 48 hours Impressions Chest X-Ray 04/18/172044 Signed Impressions: Service Date/Time: Tuesday, April 18, 2017 21:33 - CONCLUSION: No evidence of acute cardiopulmonary disease. Delonte Mas MD Objective Remarks GENERAL: Patient writhing in bed in apparent distress. Alert and oriented only to person. SKIN: Warm and dry. HEAD: Atraumatic. Normocephalic. EYES: Pupils equal and round. No scleral icterus. No injection or drainage. ENT: No nasal bleeding or discharge. Mucous membranes pink and moist. NECK: Trachea midline. No JVD. CARDIOVASCULAR: Regular rate and rhythm. RESPIRATORY: No accessory muscle use. Clear to auscultation. Breath sounds equal bilaterally. GASTROINTESTINAL: Abdomen soft, non-tender, nondistended. Hepatic and splenic margins not palpable. MUSCULOSKELETAL: Extremities without clubbing, cyanosis, or edema. No obvious deformities. NEUROLOGICAL: Awake and alert. No obvious cranial nerve deficits. Motor grossly within normal limits. Five out of 5 muscle strength in the arms and legs. Normal speech. Medications and IVs Current Medications Morphine Sulfate (Morphine Inj) 4 mg ONCE ONCE IV PUSH Last administered on 21:46; Start 04/18/17 at 21:15; Stop 04/18/17 at 21:16; Status DC Ondansetron HCl (Zofran Inj) 4 mg ONCE ONCE IV PUSH Last administered on 21:46; Start 04/18/17 at 21:15; Stop 04/18/17 at 21:16; Status DC Sodium Chloride 1,000 ml @ 100 mls/hr Q10H IV Last administered on 04/18/17 21:46; Start 04/18/17 at 21:15 Heparin Sodium (Porcine) (Heparin Inj) 4,000 units ONCE ONCE IV Last administered on 04/18/17 23:55; Start 04/18/17 at 23:00; Stop 04/18/17 at 23:01 ; Status DC Heparin Sodium/ Dextrose 250 ml @ 10 mls/hr TITRATE PRN IV Coagulation Management Last administered on 04/18/17 23:58; Start 04/18/17 at 23:00 Sodium Chloride (NS Flush) 2 ml UNSCH PRN IV FLUSH FLUSH AFTER USING IV ACCESS ; Start 04/18/17 at 23:00 Sodium Chloride (NS Flush) 2 ml BID IV FLUSH ; Start 04/19/17 at 09:00 Ondansetron HCl (Zofran Inj) 4 mg Q6H PRN IVP NAUSEA OR VOMITING; Start at 23:00 Acetaminophen (Tylenol) 650 mg Q6H PRN PO FEVER/PAIN SCALE 1 TO 2; Start at 23:00 Acetaminophen/ Hydrocodone Bitart ([place]ette 5-325 Mg) 1 tab Q4H PRN PO PAIN SCALE 3 TO 5 Last administered on 04/18/17 23:46; Start 04/18/17 at 23:00 Morphine Sulfate (Morphine Inj) 2 mg Q3H PRN IV PUSH Pain 6-10 Last administered on 04/19/17 03:48; Start 04/18/17 at 23:00 Senna/Docusate Sodium (Neeta-Colace) 1 tab BID PO Last administered on 08:45; Start 04/19/17 at 09:00 Magnesium Hydroxide (Milk Of Magnesia Liq) 30 ml Q12H PRN PO Mild constipation ; Start 04/18/17 at 23:00 Sennosides (Senokot) 17.2 mg Q12H PRN PO Moderate constipation; Start 04/18/17 at 23:00 Bisacodyl (Dulcolax Supp) 10 mg DAILY PRN RECTAL SEVERE CONSITIPATION; Start 04/18/17 at 23:00 Lactulose (Lactulose Liq) 30 ml DAILY PRN PO SEVERE CONSITIPATION; Start at 23:00 Folic Acid (Folate) 1 mg DAILY PO Last administered on 04/19/17 08:45; Start 04/19/17 at 09:00; Stop 04/24/17 at 08:59 Thiamine HCl (Vitamin B1) 100 mg DAILY PO Last administered on 04/19/17 08:45 ; Start 04/19/17 at 09:00 Multivitamins/ Minerals Therapeutic (Theragran M Tab) 1 tab DAILY PO Last administered on 04/19/17 08:45; Start 04/19/17 at 09:00; Stop 04/24/17 at 08:59 Flumazenil (Romazicon Inj) 0.2 mg Q1M PRN IV PUSH SEE LABEL COMMENTS; Start at 23:00 Lorazepam (Ativan) 1 mg Q4H PRN PO CIWA 8 - 10; Start 04/18/17 at 23:00 Lorazepam (Ativan Inj) 1 mg Q4H PRN IV PUSH CIWA 8 - 10 Last administered on 00:56; Start 04/18/17 at 23:00 Lorazepam (Ativan) 2 mg Q2H PRN PO CIWA 11-14; Start 04/18/17 at 23:00 Lorazepam (Ativan Inj) 2 mg Q2H PRN IV PUSH CIWA 11-14 Last administered on 07:46; Start 04/18/17 at 23:00 Lorazepam (Ativan Inj) 2 mg Q1H PRN IV PUSH CIWA 15-20; Start 04/18/17 at 23:00 Lorazepam (Ativan Inj) 2 mg Q15M PRN IV PUSH CIWA > 20; Start 04/18/17 at 23:00 Haloperidol Lactate (Haldol Inj) 2 mg Q15M PRN IM SEE LABEL COMMENTS Last administered on 04/19/17 08:47; Start 04/18/17 at 23:00 Aspirin (Aspirin) 325 mg DAILY PO Last administered on 04/19/17 08:45; Start 04/19/17 at 09:00 Atorvastatin Calcium (Lipitor) 40 mg HS PO ; Start 04/19/17 at 21:00 Baclofen (Lioresal) 20 mg BID PO Last administered on 04/19/17 08:45; Start 04/19/17 at 09:00 Duloxetine HCl (Cymbalta Dr) 60 mg DAILY PO Last administered on 04/19/17 08: 46; Start 04/19/17 at 09:00 Lorazepam (Ativan) 0.5 mg Q8H PRN PO anxiety; Start 04/18/17 at 23:00 Metoprolol Succinate (Toprol Xl) 50 mg DAILY PO Last administered on 04/19/17 08:45; Start 04/19/17 at 09:00 Pantoprazole Sodium (Protonix) 40 mg DAILY PO Last administered on 04/19/17 08 :45; Start 04/19/17 at 09:00 Metoprolol Tartrate (Lopressor Inj) 5 mg ONCE ONCE IV PUSH Last administered on 04/19/17 00:10; Start 04/19/17 at 00:00; Stop 04/19/17 at 00:01; Status DC Labetalol HCl (Trandate Inj) 10 mg ONCE ONCE IV PUSH ; Start 04/19/17 at 00:15 ; Stop 04/19/17 at 00:16; Status DC Famotidine (Pepcid Inj) 10 mg ONCE IV PUSH ; Start 04/19/17 at 00:15 Clonidine (Catapres) 0.1 mg ONCE ONCE PO Last administered on 04/19/17 03:48 ; Start 04/19/17 at 02:00; Stop 04/19/17 at 02:01; Status DC Enalaprilat (Vasotec Inj) 2.5 mg Q6H PRN IV PUSH SEE LABEL COMMENTS; Start 04/19/17 at 02:15 Haloperidol Lactate (Haldol Inj) 2 mg ONCE ONCE IV PUSH Last administered on 04/19/17 05:30; Start 04/19/17 at 05:00; Stop 04/19/17 at 05:01; Status DC Amlodipine Besylate (Norvasc) 5 mg DAILY PO ; Start 04/19/17 at 10:00 A/P Assessment and Plan P 1. Limb Ischemia: h/o PAD s/p Aortobifemoral Bypass, Right Iliofemoral Bypass and Left Femoral Popliteal Artery Bypass by Dr. Gandhi 04/14/16 and declotting/ revision of the Right Aortobifemoral Graft w/ Right Femoral-Popliteal Bypass on 12/06/[address] Guerra, now w/ recurrent ischemia, likely secondary to non- compliance and ongoing tobacco abuse. Dr. Guerra consulted by ER physician, will see in consultation. Started on Heparin gtt, CTA w/ Runoff pending, will follow. Continue ASA, Metoprolol, Statin. 2. Non-Compliance: known non-compliance to meds/follow-up, continues to smoke. Stressed importance of compliance. 3. HTN: Uncontrolled. BP 228/104, HR 66, Lopressor IV x1 now, recheck BP, optimize BP control. 4. Rhabdomyolysis: Mild. CPK 636. IVF for hydration, repeat labs in am. 5. Leukocytosis: WBC 13.8, no obvious source of infection, CXR negative, images reviewed by me. Leukocytosis likely secondary to hypoperfusion from limb ischemia. Recheck labs in am. 6. Alcohol Abuse: CIWA, Seizure Precautions, MVT/Thiamine/Folate 7. Tobacco Abuse: Counselled. Ativan prn. No NicoDerm to avoid vasoconstriction. 8. DVT Prophylaxis: Heparin gtt Nigel Frazier M3 Apr 19, 2017 10:19
[2017-04-19] MEDS: ACETAMINOPHEN/HYDROcodone 325 MG/5 MG TAB PO PRN ×2 (11:55→22:15)
--- NOTE | 2017-04-19 12:40 | PD.CAR.PN ---
CVT Progress Note Subjective/Hospital Course: Patient evaluated Likely occlusion of the right femoral-popliteal bypass. Patient is very noncompliant never follow-up with my office after the surgery Spoken to interventional radiology Based on CTA will likely need tPA lysis Full consult to follow Nesha J Objective: Vital Signs Date Time Temp Pulse Resp B/P (MAP) Pulse Ox O2 Delivery O2 Flow Rate FiO2 04/19/17 12:12 97.2 18 18 160/96 (117) 98 04/19/17 08:39 99.0 96 18 194/105 (134) 97 04/19/17 04:00 97.0 110 18 191/110 (137) 97 04/19/17 00:45 98.2 62 18 205/111 (142) 100 04/19/17 00:13 80 194/110 (138) 04/18/17 23:46 66 18 228/104 (145) 100 Room Air 04/18/17 20:47 89 18 209/108 (141) 100 Room Air 04/18/17 19:06 98.9 82 16 184/107 (132) 99 Labs: Laboratory Tests Test 04/19/17 07:12 White Blood Count 13.3 TH/MM3 (4.0-11.0) Red Blood Count 4.76 MIL/MM3 (4.50-5.90) Hemoglobin 15.6 GM/DL (13.0-17.0) Hematocrit 45.3 % (39.0-51.0) Mean Corpuscular Volume 95.1 FL (80.0-100.0) Mean Corpuscular Hemoglobin 32.7 PG (27.0-34.0) Mean Corpuscular Hemoglobin Concent 34.4 % (32.0-36.0) Red Cell Distribution Width 13.9 % (11.6-17.2) Platelet Count 247 TH/MM3 (150-450) Mean Platelet Volume 6.9 FL (7.0-11.0) Neutrophils (%) (Auto) 74.3 % (16.0-70.0) Lymphocytes (%) (Auto) 19.2 % (9.0-44.0) Monocytes (%) (Auto) 5.9 % (0.0-8.0) Eosinophils (%) (Auto) 0.4 % (0.0-4.0) Basophils (%) (Auto) 0.2 % (0.0-2.0) Neutrophils # (Auto) 9.9 TH/MM3 (1.8-7.7) Lymphocytes # (Auto) 2.6 TH/MM3 (1.0-4.8) Monocytes # (Auto) 0.8 TH/MM3 (0-0.9) Eosinophils # (Auto) 0.1 TH/MM3 (0-0.4) Basophils # (Auto) 0.0 TH/MM3 (0-0.2) CBC Comment DIFF FINAL Differential Comment Activated Partial Thromboplast Time 30.6 SEC (24.3-30.1) Blood Urea Nitrogen 4 MG/DL (7-18) Creatinine 0.64 MG/DL (0.60-1.30) Random Glucose 118 MG/DL (74-106) Total Protein 7.0 GM/DL (6.4-8.2) Albumin 3.5 GM/DL (3.4-5.0) Calcium Level 8.4 MG/DL (8.5-10.1) Alkaline Phosphatase 94 U/L (45-117) Aspartate Amino Transf (AST/SGOT) 24 U/L (15-37) Alanine Aminotransferase (ALT/SGPT) 18 U/L (12-78) Total Bilirubin 0.3 MG/DL (0.2-1.0) Sodium Level 137 MEQ/L (136-145) Potassium Level 3.3 MEQ/L (3.5-5.1) Chloride Level 102 MEQ/L (98-107) Carbon Dioxide Level 24.8 MEQ/L (21.0-32.0) Anion Gap 10 MEQ/L (5-15) Estimat Glomerular Filtration Rate 131 ML/MIN (>89) Total Creatine Kinase 874 U/L (39-308) Creatine Kinase MB 15.1 NG/ML (0.5-3.6) Creatine Kinase MB % 1.7 % (0.0-4.0) Result Diagram: 04/19/1771104/19/1712 Raad Guerra MD Apr 19, 2017 12:40
--- NOTE | 2017-04-19 12:43 | HHI.PR ---
Subjective Remarks The patient is currently withdrawing, presumably from alcohol. He is hallucinating which suggest delirium tremens. He does complain of pain of the right knee and ankle. He took out his IV multiple times and is requiring restraints. Objective Vitals Vital Signs Date Time Temp Pulse Resp B/P (MAP) Pulse Ox O2 Delivery O2 Flow Rate FiO2 04/19/17 12:12 97.2 18 18 160/96 (117) 98 04/19/17 08:39 99.0 96 18 194/105 (134) 97 04/19/17 04:00 97.0 110 18 191/110 (137) 97 04/19/17 00:45 98.2 62 18 205/111 (142) 100 04/19/17 00:13 80 194/110 (138) 04/18/17 23:46 66 18 228/104 (145) 100 Room Air 04/18/17 20:47 89 18 209/108 (141) 100 Room Air 04/18/17 19:06 98.9 82 16 184/107 (132) 99 I/O 04/18/17 04/18/17 04/18/17 04/19/17 04/19/17 04/19/17 07:00 15:00 23:00 07:00 15:00 23:00 # Voids 5 Result Diagram: 04/19/1771104/19/17711 Imaging Last Impressions Chest X-Ray 04/18/172044 Signed Impressions: Service Date/Time: Tuesday, April 18, 2017 21:33 - CONCLUSION: No evidence of acute cardiopulmonary disease. Delonte Mas MD Objective Remarks GENERAL: This is a well-nourished, well-developed patient, in no apparent distress. CARDIOVASCULAR: Normal rate and regular rhythm without murmurs, gallops, or rubs. RESPIRATORY: Good respiratory efforts. Breath sounds equal and clear to auscultation bilaterally. GASTROINTESTINAL: Abdomen soft, non-tender, non-distended. Normal active bowel sounds MUSCULOSKELETAL: Extremities without cyanosis, or edema. NEURO: Alert & Oriented x4 to person, place, time, situation. Moves all ext x4 PSYCH: Appropriate mood and affect. A/P Problem List: (1) Ischemia of extremity ICD Code: I99.8 - Other disorder of circulatory system Status: Acute (2) Non-compliance ICD Code: Z91.19 - Patient's noncompliance with other medical treatment and regimen Status: Acute (3) HTN (hypertension) ICD Code: I10 - Essential (primary) hypertension Status: Acute (4) Leukocytosis ICD Code: D72.829 - Elevated white blood cell count, unspecified Status: Acute (5) Rhabdomyolysis ICD Code: M62.82 - Rhabdomyolysis (6) Alcohol abuse ICD Code: F10.10 - Alcohol abuse, uncomplicated Status: Acute (7) Tobacco abuse ICD Code: Z72.0 - Tobacco use Status: Acute Assessment and Plan 51-year-old male alcoholic, significant peripheral vascular disease, noncompliance with medical treatment presented with acute right limb ischemia. Limb Ischemia: h/o PAD s/p Aortobifemoral Bypass, Right Iliofemoral Bypass and Left Femoral Popliteal Artery Bypass by Dr. Gandhi 04/14/16 and declotting/ revision of the Right Aortobifemoral Graft w/ Right Femoral-Popliteal Bypass on 12/06/[address] Guerra, now w/ recurrent ischemia, likely secondary to non- compliance and ongoing tobacco abuse. Dr. Guerra consulted by ER physician and will see in consultation. - Started on Heparin gtt, CTA w/ Runoff pending. Continue ASA, Metoprolol, Statin. -Further plans per vascular surgery. Alcohol withdrawal/DTs: - Continue treatment per CIWA protocol. Haldol as needed. Discussed with RN to treat symptoms accordingly. HTN: Uncontrolled. Worse secondary to withdrawal as above. - Continue metoprolol. Add Norvasc. Clonidine as needed. Rhabdomyolysis: Mild. Continue IVF for hydration, repeat labs in am. Leukocytosis: WBC 13.8, no obvious source of infection, CXR negative, images reviewed by me. Leukocytosis likely secondary to hypoperfusion from limb ischemia. Recheck labs in am. Alcohol Abuse: CIWA, Seizure Precautions, MVT/Thiamine/Folate Tobacco Abuse: Counselled. Ativan prn. DVT Prophylaxis: Heparin gtt Beatrice Groves MD Apr 19, 2017 12:43
[2017-04-19] MEDS ORDERED: POTASSIUM CHLORIDE 10 MEQ CONTROLLED RELEASE TAB PO ONE (12:45)
--- NOTE | 2017-04-19 13:15 | MB ---
cc: RAAD WELLS MD DATE OF CONSULTATION: 04/19/2017 REASON FOR CONSULTATION Ischemia of the right leg. HISTORY OF PRESENT DISEASE This 51-year-old male is known to me from previous encounters. He is a noncompliant patient and a vasculopath. In March 2016 he underwent aortobifemoral bypass and then in November I did a fem-pop bypass on the right. Since then the patient has been followed off and on by the [facility] and he never came back to my office for follow-up. Numerous messages to reach him remained unanswered. The patient continues to smoke about pack a day and here he is now with ischemia of the right foot. PAST MEDICAL HISTORY 1. Peripheral vascular disease. 2. Hypertension. 3. Congestive heart failure. 4. Recurrent diarrhea. 5. Severe gastroesophageal reflux with heartburn. 6. Hiatal hernia. 7. PTSD. 8. COPD. 9. Recurrent migraines. 10.Asthma. PAST SURGICAL HISTORY 1. Inguinal hernia repair in 1988. 2. Some sort of a chest surgery with a titanium plate in the anterior neck. 3. Aortobifemoral bypass in March last year, fem-pop in October this year. SOCIAL HISTORY The patient drinks about a six-pack of beer a day and smokes about a pack of cigarettes a day. He also smokes pot. MEDICATIONS 1. Initially on Plavix, which he stopped taking. 2. Eliquis, which he stopped taking. 3. Metoprolol; does not seem to be taking this. 4. Prevacid; does not seem to be taking this. PHYSICAL EXAMINATION GENERAL: A 51-year-old male who appears to be 78. HEENT: Normocephalic. No trauma to the head. Pupils equally reactive. Extraocular muscles intact. NECK: Bilateral carotid pulses; faint bruits. Carotids have been reviewed in the past. CHEST: Decreased breath sounds bilateral. Patient has advanced COPD. HEART: Regular rhythm. ABDOMEN: Soft, patulous, active bowel sounds. EXTREMITIES: The patient actually has palpable femoral pulse on the left and Doppler'able on the right. He had Doppler'able left posterior tibial but no dorsalis pedis. On the right he has no pulses below the level of the groin. Thigh is warm but calf is cool and foot is cold, insensate and pale-appearing. NEUROLOGIC: The patient is intact except decreased sensation in the right foot. IMPRESSION Patient with occlusion of blood flow to the right leg, likely right fem-pop occlusion and distal occlusion. RECOMMENDATIONS At this point the only option is a TPA lysis. If that is not successful the patient will require right above-knee amputation. Thank you very much for the referral. Raad CALDERON /12:43 PM /12:59 PM
[2017-04-19] MEDS ORDERED: cloNIDine HCL 0.1 MG TAB PO PRN (16:15)
[2017-04-19] MEDS ORDERED: IOHEXOL 350 MG/ML 10 ML VIAL (for RAD DIAG) IVCONTRAST ONE (18:29)
--- NOTE | 2017-04-19 19:12 | EKG ---
Date Performed: 04/18/2017 Time Performed: 21:26:13 PTAGE: 51 years EKG: Sinus rhythm POSSIBLE LEFT ATRIAL ENLARGEMENT POSSIBLE INFERIOR MYOCARDIAL INFARCTION Since previous tracing, no significant change noted BORDERLINE ECG PREVIOUS TRACING : 12/06/2016 23.00 DOCTOR: Fredy Jansen Interpretating Date/Time 04/19/2017 19:11:28
[2017-04-19 20:10] LABS: APTT (PATIENT) 29.9 SEC (24.3-30.1)
[2017-04-19] MEDS: ATORVASTATIN 40 MG TAB PO SCH (20:42)
[2017-04-20] VITALS (8 sets, daily range): BP systolic 114–186; BP diastolic 78–99; PULSE 58–88; RESP 16–18; TEMP 97.3–99.1; O2SAT 95–97
[2017-04-20] MEDS: SODIUM CHLOR 0.9% 1000 ML INJ 1,000 ML IV SCH ×2 (03:15→21:56)
[2017-04-20] MEDS: ACETAMINOPHEN/HYDROcodone 325 MG/5 MG TAB PO PRN ×2 (06:36→16:55)
[2017-04-20 08:07] LABS: HEMATOCRIT 47.5 % (39.0-51.0); MEAN CELL VOLUME 95.8 FL (80.0-100.0); MEAN CORPUSCULAR HEMOGLOBIN 32.7 PG (27.0-34.0); MEAN CORPUSCULAR HGB CONC 34.2 % (32.0-36.0); PLATELET COUNT 248 TH/MM3 (150-450); RED BLOOD COUNT 4.96 MIL/MM3 (4.50-5.90); RED CELL DISTRIBUTION WIDTH 14.2 % (11.6-17.2); REVIEW FLAG FINAL; WHITE BLOOD COUNT 14.8 TH/MM3 (4.0-11.0)
[2017-04-20 08:15] LABS: APTT (PATIENT) 66.5 SEC (24.3-30.1)
--- NOTE | 2017-04-20 08:17 | RADRPT ---
EXAM DATE/TIME: 04/19/2017 17:42 [facility] COMPARISON: CTA RUNOFF W 3D RECON, December 06, 2016, 20:30. INDICATIONS : Thrombosis IV CONTRAST: 100 cc Omnipaque 350 (iohexol) IV RADIATION DOSE: 6.26 CTDIvol (mGy) MEDICAL HISTORY : Hypertension. Arthritis. Hernia, hiatal.Inguinal hernea SURGICAL HISTORY : Hernia,aortofemoral bypass,left femoral popiteal ENCOUNTER: Initial ACUITY: 1 day PAIN SCALE: 10/10 LOCATION: Bilateral lower extremity TECHNIQUE: Volumetric scanning was performed using a multi-row detector CT scanner. The data was post processed with a variety of visualization algorithms including full volume maximum intensity projection, multi -planar sliding thin slab reformation, curved planar reformation, and surface rendering techniques. Using automated exposure control and adjustment of the mA and/or kV according to patient size, radiat ion dose was kept as low as reasonably achievable to obtain optimal diagnostic quality images. DICO M format image data is available electronically for review and comparison. FINDINGS: AORTA: Redemonstration of aortobifemoral bypass graft. Aortic portion of the graft is patent. The [place] inf rarenal abdominal aorta is occluded. VISCERAL ARTERIES: Single bilateral renal arteries. Right renal artery demonstrates mild stenosis proximally secondary t o calcified plaque. There is critical stenosis of the left renal artery origin. Celiac and SMA are wi jeffrey patent. LISSY is occluded the origin and reconstitutes proximally. RIGHT LEG: INFLOW: Interval occlusion of the right iliac limb and common femoral artery. [place] iliac arteries are occlu ded. OUTFLOW: Persistent occlusion of the profunda and SFA. Interval placement of a right femoral to popliteal bypa ss graft which is now also occluded. Popliteal artery is occluded. RUNOFF: No runoff arteries are demonstrated. LEFT LEG: INFLOW: Left iliac limb is patent. The post endarterectomy changes of the left common femoral artery with sta ble small ulcerated plaque versus pseudoaneurysms in the distal common artery. The [place] iliac arter ies are occluded. OUTFLOW: Profunda is patent. SFA is patent. Popliteal artery is patent. There is an occluded left femoral to below knee popliteal artery bypass graft. There is focal moderate to severe stenosis of the distal ab ove-knee popliteal artery at the level of the knee secondary to calcified plaque. The below knee popl iteal artery is occluded at the level of the knee. RUNOFF: There is reconstitution of the runoff vessels via genicular collaterals with 3 vessel runoff to the f oot. GENERAL FINDINGS: Visualized lung bases are clear. Evaluation of the abdominal viscera is limited due to arterial phase technique. Liver, spleen, adrenal glands, gallbladder, and pancreas are grossly unremarkable. Kidney s demonstrate symmetrical enhancement without evidence for radiopaque renal calculi or hydronephrosis . No significant renal mass. The bowel appears unremarkable without evidence for obstruction. No sign ificant free fluid or drainable fluid collection. Bladder is mildly distended but otherwise unremarkable. Prostate and seminal vesicles are within norm al limits. CONCLUSION: 1. Aortobifemoral bypass with interval occlusion of the right iliac limb and right common from arteri es. There is also persistent occlusion of the profunda and SFA with occlusion of interval right femor al to popliteal bypass graft. Popliteal artery and runoff vessels on the right are also not opacified . However, this may be flow related. 2. Persistent occlusion of left femoral to below knee popliteal artery bypass graft do to below knee popliteal artery occlusion. There is reconstitution of the runoff vessels via genicular collaterals w ith 3 vessel runoff to the left foot. Conrado Lynn MD on April 20, 2017 at 7:39 Board Certified Radiologist. This report was verified electronically.
[2017-04-20] MEDS: amLODIPine BESYLATE 5 MG TAB PO SCH (08:20)
[2017-04-20] MEDS: BACLOFEN 20 MG TAB PO SCH ×2 (08:20→21:00)
[2017-04-20] MEDS: FOLIC ACID 1 MG TAB PO SCH (08:20)
[2017-04-20] MEDS: DULoxetine HCl DR 60 MG CAP PO SCH (08:20)
[2017-04-20] MEDS: SODIUM CHLORIDE 0.9% FLUSH 10 ML FLUSH IV FLUSH SCH ×2 (08:20→21:00)
[2017-04-20] MEDS: ASPIRIN 325 MG TAB PO SCH (08:20)
[2017-04-20] MEDS: MULTIVITAMINS/MINERALS THERAPEUTIC TAB PO SCH (08:21)
[2017-04-20] MEDS: METOPROLOL SUCCINATE 50 MG EXTENDED RELEASE TAB PO SCH (08:21)
[2017-04-20] MEDS: THIAMINE HCL 100 MG TAB PO SCH (08:21)
[2017-04-20] MEDS: PANTOPRAZOLE SOD 40 MG DELAYED RELEASE TAB PO SCH (08:21)
[2017-04-20] MEDS: DOCUSATE SODIUM 50 MG/SENNA 8.6 MG TAB PO SCH ×2 (08:21→21:00)
[2017-04-20 08:23] LABS: BICARBONATE 24.1 MEQ/L (21.0-32.0); POTASSIUM 4.1 MEQ/L (3.5-5.1)
[2017-04-20] MEDS: HEPARIN-D5W 25,000 U/250 ML 250 ML IV PRN ×2 (08:23→14:00)
[2017-04-20 08:49] LABS: CKMB 28.6 NG/ML (0.5-3.6)
[2017-04-20] MEDS ORDERED: LIDOCAINE 1%/EPINEPHrine 1:100,000 SOLN 20 ML VIAL ONE (09:31)
[2017-04-20] MEDS ORDERED: ceFAZolin INJ 1,000 MG VIAL ONE ×2 (09:31→19:49)
[2017-04-20] MEDS ORDERED: HEPARIN SODIUM - SQ 10,000 UNITS/ML VIAL ONE (09:31)
--- NOTE | 2017-04-20 10:41 | PD.PN.STU ---
Subjective Remarks Patient oriented today and able to provide a more coherent history. Still with a lot of pain in R leg. No other complaints. Last Ativan and Haldol needed at 22 :00 yesterday. Objective Vitals Vital Signs Date Time Temp Pulse Resp B/P (MAP) Pulse Ox O2 Delivery O2 Flow Rate FiO2 04/20/17 08:14 97.9 58 16 186/93 (124) 96 04/20/17 05:37 97.5 83 18 97 04/20/17 04:51 157/92 (113) 04/20/17 00:45 97.3 80 18 163/99 (120) 95 04/19/17 20:36 98.1 68 15 155/85 (108) 98 04/19/17 16:31 97.3 64 16 158/108 (125) 98 04/19/17 12:12 97.2 18 18 160/96 (117) 98 I/O 04/19/17 04/19/17 04/19/17 04/20/17 04/20/17 04/20/17 07:00 15:00 23:00 07:00 15:00 23:00 Intake Total 120 ml Output Total 500 ml 450 ml Balance 120 ml -500 ml -450 ml Intake Oral 120 ml Output Urine Total 500 ml 450 ml # Voids 5 3 Result Diagram: 04/20/17 0600 04/20/17 0620 Other Results Laboratory Tests Test 04/18/17 21:15 04/18/17 23:50 04/19/17 07:12 04/19/17 18:36 White Blood Count 13.8 TH/MM3 13.8 TH/MM3 13.3 TH/MM3 Red Blood Count 5.00 MIL/MM3 4.84 MIL/MM3 4.76 MIL/MM3 Hemoglobin 16.3 GM/DL 16.1 GM/DL 15.6 GM/DL Hematocrit 47.7 % 46.4 % 45.3 % Mean Corpuscular Volume 95.5 FL 95.8 FL 95.1 FL Mean Corpuscular Hemoglobin 32.7 PG 33.2 PG 32.7 PG Mean Corpuscular Hemoglobin Concent 34.3 % 34.7 % 34.4 % Red Cell Distribution Width 14.1 % 14.2 % 13.9 % Platelet Count 298 TH/MM3 240 TH/MM3 247 TH/MM3 Mean Platelet Volume 7.2 FL 6.8 FL 6.9 FL Neutrophils (%) (Auto) 74.6 % 74.3 % Lymphocytes (%) (Auto) 18.9 % 19.2 % Monocytes (%) (Auto) 5.5 % 5.9 % Eosinophils (%) (Auto) 0.7 % 0.4 % Basophils (%) (Auto) 0.3 % 0.2 % Neutrophils # (Auto) 10.3 TH/MM3 9.9 TH/MM3 Lymphocytes # (Auto) 2.6 TH/MM3 2.6 TH/MM3 Monocytes # (Auto) 0.8 TH/MM3 0.8 TH/MM3 Eosinophils # (Auto) 0.1 TH/MM3 0.1 TH/MM3 Basophils # (Auto) 0.0 TH/MM3 0.0 TH/MM3 CBC Comment DIFF FINAL DIFF FINAL Differential Comment Prothrombin Time 10.3 SEC 10.3 SEC Prothromb Time International Ratio 1.0 RATIO 1.0 RATIO Activated Partial Thromboplast Time 28.1 SEC 28.1 SEC 30.6 SEC 29.9 SEC Blood Urea Nitrogen 7 MG/DL 4 MG/DL Creatinine 0.79 MG/DL 0.64 MG/DL Random Glucose 103 MG/DL 118 MG/DL Total Protein 7.8 GM/DL 7.0 GM/DL Albumin 3.7 GM/DL 3.5 GM/DL Calcium Level 8.6 MG/DL 8.4 MG/DL Magnesium Level 1.8 MG/DL Alkaline Phosphatase 98 U/L 94 U/L Aspartate Amino Transf (AST/SGOT) 34 U/L 24 U/L Alanine Aminotransferase (ALT/SGPT) 16 U/L 18 U/L Total Bilirubin 0.4 MG/DL 0.3 MG/DL Sodium Level 132 MEQ/L 137 MEQ/L Potassium Level 4.1 MEQ/L 3.3 MEQ/L Chloride Level 100 MEQ/L 102 MEQ/L Carbon Dioxide Level 28.2 MEQ/L 24.8 MEQ/L Anion Gap 4 MEQ/L 10 MEQ/L Estimat Glomerular Filtration Rate 103 ML/MIN 131 ML/MIN Total Creatine Kinase 636 U/L 874 U/L Creatine Kinase MB 11.0 NG/ML 15.1 NG/ML Creatine Kinase MB % 1.7 % 1.7 % Troponin I LESS THAN 0.02 NG/ML Test 04/20/17 06:00 04/20/17 06:20 White Blood Count 14.8 TH/MM3 Red Blood Count 4.96 MIL/MM3 Hemoglobin 16.2 GM/DL Hematocrit 47.5 % Mean Corpuscular Volume 95.8 FL Mean Corpuscular Hemoglobin 32.7 PG Mean Corpuscular Hemoglobin Concent 34.2 % Red Cell Distribution Width 14.2 % Platelet Count 248 TH/MM3 Mean Platelet Volume 7.9 FL Hematology Comments Activated Partial Thromboplast Time 66.5 SEC Blood Urea Nitrogen 5 MG/DL Creatinine 0.59 MG/DL Random Glucose 69 MG/DL Calcium Level 8.5 MG/DL Sodium Level 136 MEQ/L Potassium Level 4.1 MEQ/L Chloride Level 106 MEQ/L Carbon Dioxide Level 24.1 MEQ/L Anion Gap 6 MEQ/L Estimat Glomerular Filtration Rate 144 ML/MIN Total Creatine Kinase 2073 U/L Creatine Kinase MB 28.6 NG/ML Creatine Kinase MB % 1.4 % Imaging Last 72 hours Impressions Chest X-Ray [id number]/18/[id number] Signed Impressions: Service Date/Time: Tuesday, April 18, 2017 21:33 - CONCLUSION: No evidence of acute cardiopulmonary disease. Delonte Mas MD Aorta w/Runoff CTA 04/18/17 0000 Signed Impressions: Service Date/Time: Wednesday, April 19, 2017 17:42 - CONCLUSION: 1. Aortobifemoral bypass with interval occlusion of the right iliac limb and right common from arteries. There is also persistent occlusion of the profunda and SFA with occlusion of interval right femoral to popliteal bypass graft. Popliteal artery and runoff vessels on the right are also not opacified. However, this may be flow related. 2. Persistent occlusion of left femoral to below knee popliteal artery bypass graft do to below knee popliteal artery occlusion. There is reconstitution of the runoff vessels via genicular collaterals with 3 vessel runoff to the left foot. Conrado Lynn MD Objective Remarks GENERAL: Alert and oriented x3. Awakened from sleep. In obvious pain, especially upon movement of R leg. SKIN: Warm and dry. HEAD: Atraumatic. Normocephalic. EYES: Pupils equal and round. No scleral icterus. No injection or drainage. ENT: No nasal bleeding or discharge. Mucous membranes pink and moist. NECK: Trachea midline. No JVD. CARDIOVASCULAR: Regular rate and rhythm. RESPIRATORY: No accessory muscle use. Clear to auscultation. Breath sounds equal bilaterally. GASTROINTESTINAL: Abdomen soft, non-tender, nondistended. Hepatic and splenic margins not palpable. MUSCULOSKELETAL: L LE within normal limits. R foot with significant cyanosis, cold to touch, dorsalis pedis and posterior malleolar pulses absent. Distal R leg with erythematous mottling and pain to palpation. Popliteal pulse weak. NEUROLOGICAL: Awake and alert. No obvious cranial nerve deficits. Motor grossly within normal limits. Normal speech. Medications and IVs Current Medications Morphine Sulfate (Morphine Inj) 4 mg ONCE ONCE IV PUSH Last administered on 21:46; Start 04/18/17 at 21:15; Stop 04/18/17 at 21:16; Status DC Ondansetron HCl (Zofran Inj) 4 mg ONCE ONCE IV PUSH Last administered on 21:46; Start 04/18/17 at 21:15; Stop 04/18/17 at 21:16; Status DC Sodium Chloride 1,000 ml @ 100 mls/hr Q10H IV Last administered on 04/19/17 07:15; Start 04/18/17 at 21:15 Heparin Sodium (Porcine) (Heparin Inj) 4,000 units ONCE ONCE IV Last administered on 04/18/17 23:55; Start 04/18/17 at 23:00; Stop 04/18/17 at 23:01 ; Status DC Heparin Sodium/ Dextrose 250 ml @ 10 mls/hr TITRATE PRN IV Coagulation Management Last administered on 04/20/17 08:23; Start 04/18/17 at 23:00 Sodium Chloride (NS Flush) 2 ml UNSCH PRN IV FLUSH FLUSH AFTER USING IV ACCESS ; Start 04/18/17 at 23:00 Sodium Chloride (NS Flush) 2 ml BID IV FLUSH ; Start 04/19/17 at 09:00 Ondansetron HCl (Zofran Inj) 4 mg Q6H PRN IVP NAUSEA OR VOMITING; Start at 23:00 Acetaminophen (Tylenol) 650 mg Q6H PRN PO FEVER/PAIN SCALE 1 TO 2; Start at 23:00 Acetaminophen/ Hydrocodone Bitart ([place] 5-325 Mg) 1 tab Q4H PRN PO PAIN SCALE 3 TO 5 Last administered on 04/20/17 06:36; Start 04/18/17 at 23:00 Morphine Sulfate (Morphine Inj) 2 mg Q3H PRN IV PUSH Pain 6-10 Last administered on 04/19/17 03:48; Start 04/18/17 at 23:00 Senna/Docusate Sodium (Neeta-Colace) 1 tab BID PO Last administered on 20:41; Start 04/19/17 at 09:00 Magnesium Hydroxide (Milk Of Magnesia Liq) 30 ml Q12H PRN PO Mild constipation ; Start 04/18/17 at 23:00 Sennosides (Senokot) 17.2 mg Q12H PRN PO Moderate constipation; Start 04/18/17 at 23:00 Bisacodyl (Dulcolax Supp) 10 mg DAILY PRN RECTAL SEVERE CONSITIPATION; Start 04/18/17 at 23:00 Lactulose (Lactulose Liq) 30 ml DAILY PRN PO SEVERE CONSITIPATION; Start at 23:00 Folic Acid (Folate) 1 mg DAILY PO Last administered on 04/19/17 08:45; Start 04/19/17 at 09:00; Stop 04/24/17 at 08:59 Thiamine HCl (Vitamin B1) 100 mg DAILY PO Last administered on 04/19/17 08:45 ; Start 04/19/17 at 09:00 Multivitamins/ Minerals Therapeutic (Theragran M Tab) 1 tab DAILY PO Last administered on 04/19/17 08:45; Start 04/19/17 at 09:00; Stop 04/24/17 at 08:59 Flumazenil (Romazicon Inj) 0.2 mg Q1M PRN IV PUSH SEE LABEL COMMENTS; Start at 23:00 Lorazepam (Ativan) 1 mg Q4H PRN PO CIWA 8 - 10; Start 04/18/17 at 23:00 Lorazepam (Ativan Inj) 1 mg Q4H PRN IV PUSH CIWA 8 - 10 Last administered on 00:56; Start 04/18/17 at 23:00 Lorazepam (Ativan) 2 mg Q2H PRN PO CIWA 11-14; Start 04/18/17 at 23:00 Lorazepam (Ativan Inj) 2 mg Q2H PRN IV PUSH CIWA 11-14 Last administered on 22:54; Start 04/18/17 at 23:00 Lorazepam (Ativan Inj) 2 mg Q1H PRN IV PUSH CIWA 15-20; Start 04/18/17 at 23:00 Lorazepam (Ativan Inj) 2 mg Q15M PRN IV PUSH CIWA > 20; Start 04/18/17 at 23:00 Haloperidol Lactate (Haldol Inj) 2 mg Q15M PRN IM SEE LABEL COMMENTS Last administered on 04/19/17 22:04; Start 04/18/17 at 23:00 Aspirin (Aspirin) 325 mg DAILY PO Last administered on 04/19/17 08:45; Start 04/19/17 at 09:00 Atorvastatin Calcium (Lipitor) 40 mg HS PO Last administered on 04/19/17 20:42 ; Start 04/19/17 at 21:00 Baclofen (Lioresal) 20 mg BID PO Last administered on 04/19/17 20:41; Start 04/19/17 at 09:00 Duloxetine HCl (Cymbalta Dr) 60 mg DAILY PO Last administered on 04/19/17 08: 46; Start 04/19/17 at 09:00 Lorazepam (Ativan) 0.5 mg Q8H PRN PO anxiety; Start 04/18/17 at 23:00 Metoprolol Succinate (Toprol Xl) 50 mg DAILY PO Last administered on 04/19/17 08:45; Start 04/19/17 at 09:00 Pantoprazole Sodium (Protonix) 40 mg DAILY PO Last administered on 04/19/17 08 :45; Start 04/19/17 at 09:00 Metoprolol Tartrate (Lopressor Inj) 5 mg ONCE ONCE IV PUSH Last administered on 04/19/17 00:10; Start 04/19/17 at 00:00; Stop 04/19/17 at 00:01; Status DC Labetalol HCl (Trandate Inj) 10 mg ONCE ONCE IV PUSH ; Start 04/19/17 at 00:15 ; Stop 04/19/17 at 00:16; Status DC Famotidine (Pepcid Inj) 10 mg ONCE IV PUSH ; Start 04/19/17 at 00:15 Clonidine (Catapres) 0.1 mg ONCE ONCE PO Last administered on 04/19/17 03:48 ; Start 04/19/17 at 02:00; Stop 04/19/17 at 02:01; Status DC Enalaprilat (Vasotec Inj) 2.5 mg Q6H PRN IV PUSH SEE LABEL COMMENTS Last administered on 04/20/17 08:31; Start 04/19/17 at 02:15 Haloperidol Lactate (Haldol Inj) 2 mg ONCE ONCE IV PUSH Last administered on 04/19/17 05:30; Start 04/19/17 at 05:00; Stop 04/19/17 at 05:01; Status DC Amlodipine Besylate (Norvasc) 5 mg DAILY PO Last administered on 04/19/17 10: 14; Start 04/19/17 at 10:00 Potassium Chloride (KCl) 30 meq ONCE ONCE PO Last administered on 04/19/17 15 :41; Start 04/19/17 at 12:45; Stop 04/19/17 at 12:49; Status DC Clonidine (Catapres) 0.1 mg Q6H PRN PO SBP> OR = 180, DBP> OR = 100; Start 04/19/17 at 16:15 Iohexol (Omnipaque 350 Inj) 100 ml STK-MED ONCE IVCONTRAST Last administered on 04/19/17 18:29; Start 04/19/17 at 18:29; Stop 04/19/17 at 18:30; Status DC Heparin Sodium (Porcine) (Heparin Inj) 10,000 units STK-MED ONCE .ROUTE ; Start 04/20/17 at 09:31; Stop 04/20/17 at 09:32; Status DC Cefazolin Sodium (Ancef Inj) 1,000 mg STK-MED ONCE .ROUTE ; Start 04/20/17 at 09 :31; Stop 04/20/17 at 09:32; Status DC Lidocaine/ Epinephrine (Xylocaine-Epi 1%-1:100,000 Inj) 20 ml STK-MED ONCE .ROUTE ; Start 04/20/17 at 09:31; Stop 04/20/17 at 09:32; Status DC A/P Assessment and Plan 51-year-old male alcoholic, significant peripheral vascular disease, noncompliance with medical treatment presented with acute right limb ischemia. Limb Ischemia: h/o PAD s/p Aortobifemoral Bypass, Right Iliofemoral Bypass and Left Femoral Popliteal Artery Bypass by Dr. Gandhi 04/14/16 and declotting/ revision of the Right Aortobifemoral Graft w/ Right Femoral-Popliteal Bypass on 12/06/[address] Guerra, now w/ recurrent ischemia, likely secondary to non- compliance and ongoing tobacco abuse. Dr. Guerra consulted by ER physician and will see in consultation. -On Heparin gtt, CTA w/ Runoff shows significant occlusions in bypasses and [place] arteries in R LE as well as occlusion but collateral circulation in L LE. -Continue ASA, Metoprolol, Statin. -Following with vascular surgery: tPA lysis planned. -Clinically worsened today, urgent intervention indicated. Alcohol withdrawal/DTs: - Continue treatment per CIWA protocol. Haldol as needed. HTN: Better control today. Worse secondary to withdrawal as above. - Continue metoprolol. Add Norvasc. Clonidine as needed. Rhabdomyolysis: More severe today, CK >2000. Continue IVF for hydration, repeat labs post-thrombolysis. Leukocytosis: WBC 14.8 today, 13.8 on admission but no obvious source of infection, CXR negative, images reviewed by me. Leukocytosis likely secondary to hypoperfusion from limb ischemia. Recheck labs in am. Alcohol Abuse: CIWA, Seizure Precautions, MVT/Thiamine/Folate Tobacco Abuse: Counselled. Ativan prn. DVT Prophylaxis: Heparin gtt Nigel Frazier M3 Apr 20, 2017 10:41
[2017-04-20] MEDS ORDERED: VANCOMYCIN HCL 1000 MG VIAL IV ONE (12:50)
[2017-04-20] MEDS ORDERED: DO NOT ADM ANY ANTICOAGULANT DRUGS PRN ×2 (13:22→20:23)
[2017-04-20] MEDS ORDERED: SODIUM CHLOR 0.9% 1000 ML INJ 1,000 ML IV SCH (14:00)
[2017-04-20] MEDS ORDERED: *morphine SULFATE 8 MG/ML PERIprocedure ONLY ONE ×2 (14:10→14:18)
--- NOTE | 2017-04-20 14:40 | PD.CAR.PN ---
CVT Progress Note Subjective/Hospital Course: Patient evaluated Likely occlusion of the right femoral-popliteal bypass. Patient is very noncompliant never follow-up with my office after the surgery Spoken to interventional radiology Based on CTA will likely need tPA lysis Full consult to follow Nesha J 04/20/17 CTA with runoff reveals complete occlusion of the right sided flow starting from the aorta down into the leg. Patient has occlusion of the aortofemoral bypass femoral-popliteal bypass and popliteal artery to the level of the knee. Distal vessels are barely discernible in face of lack of flow We'll take patient to the operating room for revision of aorta to femoral graft femoral-popliteal bypass thromboembolectomy and possible axillofemoral bypass depending on the circumstances Despite all these measures there is a very high likelihood that this patient will lose his leg above the knee eventually considering the fact that he has no discernible flow below the level of the knee and his disease is severely advanced This will be last ditch effort to save the leg but explained to the patient there is high likelihood he will lose the right leg. Objective: Vital Signs Date Time Temp Pulse Resp B/P (MAP) Pulse Ox O2 Delivery O2 Flow Rate FiO2 04/20/17 08:14 97.9 58 16 186/93 (124) 96 04/20/17 05:37 97.5 83 18 97 04/20/17 04:51 157/92 (113) 04/20/17 00:45 97.3 80 18 163/99 (120) 95 04/19/17 20:36 98.1 68 15 155/85 (108) 98 04/19/17 16:31 97.3 64 16 158/108 (125) 98 Labs: Laboratory Tests Test 04/20/17 06:00 04/20/17 06:20 White Blood Count 14.8 TH/MM3 (4.0-11.0) Red Blood Count 4.96 MIL/MM3 (4.50-5.90) Hemoglobin 16.2 GM/DL (13.0-17.0) Hematocrit 47.5 % (39.0-51.0) Mean Corpuscular Volume 95.8 FL (80.0-100.0) Mean Corpuscular Hemoglobin 32.7 PG (27.0-34.0) Mean Corpuscular Hemoglobin Concent 34.2 % (32.0-36.0) Red Cell Distribution Width 14.2 % (11.6-17.2) Platelet Count 248 TH/MM3 (150-450) Mean Platelet Volume 7.9 FL (7.0-11.0) Hematology Comments Activated Partial Thromboplast Time 66.5 SEC (24.3-30.1) Blood Urea Nitrogen 5 MG/DL (7-18) Creatinine 0.59 MG/DL (0.60-1.30) Random Glucose 69 MG/DL (74-106) Calcium Level 8.5 MG/DL (8.5-10.1) Sodium Level 136 MEQ/L (136-145) Potassium Level 4.1 MEQ/L (3.5-5.1) Chloride Level 106 MEQ/L (98-107) Carbon Dioxide Level 24.1 MEQ/L (21.0-32.0) Anion Gap 6 MEQ/L (5-15) Estimat Glomerular Filtration Rate 144 ML/MIN (>89) Total Creatine Kinase 2073 U/L (39-308) Creatine Kinase MB 28.6 NG/ML (0.5-3.6) Creatine Kinase MB % 1.4 % (0.0-4.0) Result Diagram: 04/20/17 0600 04/20/17 0620 Raad Guerra MD Apr 20, 2017 14:40
[2017-04-20] MEDS ORDERED: HEPARIN SODIUM - IV 10,000 UNITS/10 ML VIAL IV PUSH ONE (14:45)
[2017-04-20] MEDS ORDERED: HEPARIN-D5W 25,000 U/250 ML 250 ML IV PRN (14:45)
[2017-04-20] MEDS: MORPHINE SULFATE 4 MG/ML INJ IV PUSH PRN ×3 (16:11→22:35)
--- NOTE | 2017-04-20 18:08 | HHI.PR ---
Subjective Remarks Patient seen post op. He underwent Iliofemoral embolectomy, femoral-popliteal embolectomy, revision of the iliofemoral anastomosis graft, revision of femoral- popliteal graft with popliteal artery endarterectomy and bovine patch angioplasty. He reports pain on the right leg. Objective Vitals Vital Signs Date Time Temp Pulse Resp B/P (MAP) Pulse Ox O2 Delivery O2 Flow Rate FiO2 04/20/17 16:00 97 16 131/98 (109) 93 Nasal Cannula 2 04/20/17 15:00 96 16 137/98 (111) 98 Nasal Cannula 2 04/20/17 14:30 84 20 131/85 (100) 95 Nasal Cannula 2 04/20/17 14:15 86 22 139/87 (104) 99 Nasal Cannula 2 04/20/17 14:00 80 22 123/73 (90) 99 Nasal Cannula 2 04/20/17 13:45 59 20 122/70 (87) 99 Nasal Cannula 2 04/20/17 13:30 78 20 141/79 (99) 99 Nasal Cannula 2 04/20/17 13:23 97.6 75 18 133/79 (97) 100 Nasal Cannula 2 04/20/17 08:14 97.9 58 16 186/93 (124) 96 04/20/17 05:37 97.5 83 18 97 04/20/17 04:51 157/92 (113) 04/20/17 00:45 97.3 80 18 163/99 (120) 95 04/19/17 20:36 98.1 68 15 155/85 (108) 98 I/O 04/19/17 04/19/17 04/19/17 04/20/17 04/20/17 04/20/17 07:00 15:00 23:00 07:00 15:00 23:00 Intake Total 120 ml 1500 ml Output Total 500 ml 775 ml 75 ml Balance 120 ml -500 ml 725 ml -75 ml Intake Oral 120 ml Other 1500 ml Output Urine Total 500 ml 675 ml 75 ml Estimated Blood Loss 100 ml # Voids 5 3 Result Diagram: 04/20/17 0600 04/20/17 0620 Objective Remarks GENERAL: This is a well-nourished, well-developed patient, in no apparent distress. CARDIOVASCULAR: Normal rate and regular rhythm without murmurs, gallops, or rubs. RESPIRATORY: Good respiratory efforts. Breath sounds equal and clear to auscultation bilaterally. GASTROINTESTINAL: Abdomen soft, non-tender, non-distended. Normal active bowel sounds MUSCULOSKELETAL: I am unable to palpate a right dorsalis pedis pulse. Right foot colder than left. Right great toe is purple. NEURO: Alert & Oriented x4 to person, place, time, situation. Moves all ext x4 PSYCH: Calm A/P Problem List: (1) Ischemia of extremity ICD Code: I99.8 - Other disorder of circulatory system Status: Acute (2) Non-compliance ICD Code: Z91.19 - Patient's noncompliance with other medical treatment and regimen Status: Acute (3) HTN (hypertension) ICD Code: I10 - Essential (primary) hypertension Status: Acute (4) Leukocytosis ICD Code: D72.829 - Elevated white blood cell count, unspecified Status: Acute (5) Rhabdomyolysis ICD Code: M62.82 - Rhabdomyolysis (6) Alcohol abuse ICD Code: F10.10 - Alcohol abuse, uncomplicated Status: Acute (7) Tobacco abuse ICD Code: Z72.0 - Tobacco use Status: Acute Assessment and Plan 51-year-old male alcoholic, significant peripheral vascular disease, noncompliance with medical treatment presented with acute right limb ischemia. Limb Ischemia: h/o PAD s/p Aortobifemoral Bypass, Right Iliofemoral Bypass and Left Femoral Popliteal Artery Bypass by Dr. Gandhi 04/14/16 and declotting/ revision of the Right Aortobifemoral Graft w/ Right Femoral-Popliteal Bypass on 12/06/[address] Guerra, now w/ recurrent ischemia, likely secondary to non- compliance and ongoing tobacco abuse. Dr. Guerra following - Started on Heparin gtt, patient underwent Iliofemoral embolectomy, femoral- popliteal embolectomy, revision of the iliofemoral anastomosis graft, revision of femoral-popliteal graft with popliteal artery endarterectomy and bovine patch angioplasty. - Further plans per Vascular surgery. My need amputation. Alcohol withdrawal/DTs: Improving - Continue treatment per CIWA protocol. Haldol as needed. HTN: Better controlled - Continue metoprolol. Norvasc. Clonidine as needed. Rhabdomyolysis: Mild. Continue IVF for hydration, repeat labs in am. Leukocytosis: WBC 13.8, no obvious source of infection, CXR negative, images reviewed by me. Leukocytosis likely reactive secondary to hypoperfusion from limb ischemia. Recheck labs in am. Alcohol Abuse: CIWA, Seizure Precautions, MVT/Thiamine/Folate Tobacco Abuse: Counselled. Ativan prn. DVT Prophylaxis: Heparin gtt Beatrice Groves MD Apr 20, 2017 18:08
--- NOTE | 2017-04-20 19:10 | MP ---
cc: [facility] PRISCILLA[facility] DATE OF SURGERY: 04/20/2017 PREOPERATIVE DIAGNOSIS: Severe ischemia of the right leg, occlusion of ortho femoral and femoral-popliteal bypass graft, occlusion of flow to the right leg and severe distal disease. POSTOPERATIVE DIAGNOSIS: Severe ischemia of the right leg, occlusion of ortho femoral and femoral-popliteal bypass graft, occlusion of flow to the right leg and severe distal disease. OPERATIVE PROCEDURE: Iliofemoral embolectomy, femoral-popliteal embolectomy, revision of the iliofemoral anastomosis graft, revision of femoral-popliteal graft with popliteal artery endarterectomy and bovine patch angioplasty. SURGEON Dr. Guerra ANESTHESIA General. ESTIMATED BLOOD LOSS: 200 cc DETAILS OF PROCEDURE: The patient prepped and draped in the usual fashion. First the right groin incision was made, deepened down to the level of the graft anastomosis. With careful dissection the proximal anastomosis femoral graft, the common femoral artery in a jump and then to the iliofemoral graft is exposed. Both anastomosis are intact. The patient is given 5000 units of heparin and then fem-pop PTFE graft is opened, as it courses into the aortofemoral graft. Opening is made measuring about an [id number] in length. This allows for visualization of inside of this. There is an old organized thrombus in there. This has been there probably for at least a week or ten days. Nonetheless, a #5 embolectomy catheter is now passed up into the aorta and it goes easy. The balloon is inflated and withdrawn. Huge amount of thromboembolic material is obtained and on second pass. There is a brisk high pressure flow coming down. Therefore, a Satinsky clamp is placed around the proximal part of the graft to control the bleeding. Very carefully, one more time, the embolectomy catheter is passed up holding pressure on the vessel and then withdrawn. No more embolic material is obtained and blood flow from top down is brisk and high pressure. This basically opens up this part of the graft. Satinsky clamp is now applied and the distal end is observed. The fem pop graft is clearly occluded. Embolectomy catheter is passed down and huge amount of thromboembolic material obtained. I could only pass the embolectomy catheter about 32 cm down and this is measured out and it corresponds to the anastomosis with the popliteal artery. Therefore, the median incision is made just at the level of the knee, deepened down to the level of the previous anastomosis. This one is isolated and then the popliteal artery is isolated all the way down to the trifurcation. The anastomosis is probably an inch above the trifurcation so it is fairly low. There the vessel is fairly soft. The vessel loops placed around it and then the graft is opened longitudinally with Lamb scissors going into the popliteal artery. An opening of about two inches in length is created. The vessel is filled with old organized plaque, thromboembolic material and debris, neointimal hyperplasia and anything else that would pathologically occur here. Very carefully with [place] dissector all the material was dissected and then removed. Small debris is removed with [place] dissector and small hemostats. Once this was completed actual some back flow from the popliteal artery. The #3 Reed is now passed distally and goes into only about 12 cm down into some sort of a vessel but this patient has such severe distal disease that nothing will pass. It is withdrawn and no embolic or thrombotic material was obtained. Popliteal artery is now flushed with copious amounts of heparinized saline downward and this comes back but it is fairly easy to flush it down so there must be an outflow down there. Distal arteriogram could not be obtained due to the orientation of the patient on the table. Once more the inside of the vessel is now checked. The Reed embolectomy catheter is now passed proximal to distal once more and comes out at the level of the incision, so the whole graft is now clearn. An 8 millimeter x 8 cm Bovine patch is now chosen and sewn with running 5-0 Prolene creating a patch anastomosis of the fem pop distal area. Once more, the graft is flushed with saline. There is no leak. Now the proximal area is attended. Once more the Reed is passed proximal and there is again brisk flow down under pressure. The graft is closed now primarily with running 5-0 Prolene and blood flow re-established. The patient has a bounding palpable pulse and popliteal artery and the foot readily warms up. It should be noted that the foot is at this point purple, discolored, because it was ischemic for such a long time. I could not palpate right away any pulses or Doppler, but clearly color changed immediately and the patient had distal flow. We will see how he does in the next few days and this will determine whether needs a high or lower level amputation. Incision is now closed with 4-0 Vicryl in layers and 4-0 Monocryl. The patient tolerated the procedure well. Raad CEDEÑO /2:40 PM /5:50 PM
[2017-04-20] MEDS: ceFAZolin 1,000 MG/NS 100 ML IV SCH ×2 (19:49)
[2017-04-20 19:59] LABS: APTT (PATIENT) 44.3 SEC (24.3-30.1)
[2017-04-20] MEDS ORDERED: MORPHINE SULFATE 2 MG/ML INJ ONE (20:46)
[2017-04-20] MEDS: ATORVASTATIN 40 MG TAB PO SCH (21:00)
[2017-04-21] VITALS (9 sets, daily range): BP systolic 110–143; BP diastolic 66–90; PULSE 75–97; RESP 14–20; TEMP 98.4–99.3; O2SAT 95–97
[2017-04-21] MEDS: MORPHINE SULFATE 4 MG/ML INJ IV PUSH PRN ×8 (01:19→21:15)
[2017-04-21] MEDS: SODIUM CHLOR 0.9% 1000 ML INJ 1,000 ML IV SCH ×4 (01:40→23:24)
[2017-04-21 01:59] LABS: MEAN CELL VOLUME 97.2 FL (80.0-100.0); MEAN CORPUSCULAR HEMOGLOBIN 32.2 PG (27.0-34.0); MEAN CORPUSCULAR HGB CONC 33.2 % (32.0-36.0); PLATELET COUNT 232 TH/MM3 (150-450); RED BLOOD COUNT 4.02 MIL/MM3 (4.50-5.90); RED CELL DISTRIBUTION WIDTH 14.2 % (11.6-17.2); REVIEW FLAG FINAL; WHITE BLOOD COUNT 15.2 TH/MM3 (4.0-11.0)
[2017-04-21 02:23] LABS: APTT (PATIENT) 41.1 SEC (24.3-30.1)
[2017-04-21 02:26] LABS: BICARBONATE 22.6 MEQ/L (21.0-32.0); POTASSIUM 3.6 MEQ/L (3.5-5.1)
[2017-04-21 02:38] LABS: CALCIUM-PROTEIN CORRECTED 8.3 MG/DL (8.5-10.1)
[2017-04-21] MEDS: ceFAZolin 1,000 MG/NS 100 ML IV SCH ×6 (03:53→21:12)
--- NOTE | 2017-04-21 07:59 | HHI.PR ---
Subjective Remarks f/u; PVD in no acute distress. complaining of severe pain to the right leg. d/w the RN. Objective Vitals Vital Signs Date Time Temp Pulse Resp B/P (MAP) Pulse Ox O2 Delivery O2 Flow Rate FiO2 04/21/17 06:48 19 04/21/17 03:00 92 04/21/17 03:00 99.0 97 16 135/84 (101) 95 04/20/17 23:49 96 21 04/20/17 23:00 98.9 71 16 114/78 (90) 97 04/20/17 23:00 71 04/20/17 21:30 96 29 111/74 (86) 100 Nasal Cannula 2 04/20/17 21:15 57 20 125/69 (87) 100 Nasal Cannula 2 04/20/17 21:00 70 22 127/67 (87) 100 Nasal Cannula 2 04/20/17 20:45 69 24 118/66 (83) 100 Nasal Cannula 2 04/20/17 20:24 64 20 117/65 (82) 100 Nasal Cannula 2 04/20/17 18:40 97 Nasal Cannula 2.00 04/20/17 18:20 99.1 88 16 146/86 (106) 97 04/20/17 18:00 98.8 93 18 150/79 (102) 96 Nasal Cannula 2 04/20/17 17:00 96 20 134/79 (97) 97 Nasal Cannula 2 04/20/17 16:00 97 16 131/98 (109) 93 Nasal Cannula 2 04/20/17 15:00 96 16 137/98 (111) 98 Nasal Cannula 2 04/20/17 14:30 84 20 131/85 (100) 95 Nasal Cannula 2 04/20/17 14:15 86 22 139/87 (104) 99 Nasal Cannula 2 04/20/17 14:00 80 22 123/73 (90) 99 Nasal Cannula 2 04/20/17 13:45 59 20 122/70 (87) 99 Nasal Cannula 2 04/20/17 13:30 78 20 141/79 (99) 99 Nasal Cannula 2 04/20/17 13:23 97.6 75 18 133/79 (97) 100 Nasal Cannula 2 04/20/17 08:14 97.9 58 16 186/93 (124) 96 I/O 12/5/17 04/20/17 04/20/17 04/21/17 04/21/17 04/21/17 07:00 15:00 23:00 07:00 15:00 23:00 Intake Total 1500 ml 833 ml 1707 ml Output Total 500 ml 775 ml 375 ml 650 ml Balance -500 ml 725 ml 458 ml 1057 ml Intake Oral 50 ml 480 ml IV Total 283 ml 1227 ml Other 1500 ml 500 ml Output Urine Total 500 ml 675 ml 375 ml 650 ml Stool Total 0 ml Estimated Blood Loss 100 ml # Voids 3 Result Diagram: 04/21/17 0152 04/21/17 0152 Imaging Last Impressions Chest X-Ray 04/18/172044 Signed Impressions: Service Date/Time: Tuesday, April 18, 2017 21:33 - CONCLUSION: No evidence of acute cardiopulmonary disease. Delonte Mas MD Aorta w/Runoff CTA 04/18/17 0000 Signed Impressions: Service Date/Time: Wednesday, April 19, 2017 17:42 - CONCLUSION: 1. Aortobifemoral bypass with interval occlusion of the right iliac limb and right common from arteries. There is also persistent occlusion of the profunda and SFA with occlusion of interval right femoral to popliteal bypass graft. Popliteal artery and runoff vessels on the right are also not opacified. However, this may be flow related. 2. Persistent occlusion of left femoral to below knee popliteal artery bypass graft do to below knee popliteal artery occlusion. There is reconstitution of the runoff vessels via genicular collaterals with 3 vessel runoff to the left foot. Conrado Lynn MD Objective Remarks GENERAL: This is a well-nourished, well-developed patient, in no apparent distress. CARDIOVASCULAR: Regular rate and regular rhythm without murmurs, gallops, or rubs. RESPIRATORY: Clear to auscultation. Breath sounds equal bilaterally. No wheezes , rales, or rhonchi. GASTROINTESTINAL: Abdomen soft, non-tender, nondistended. Normal, active bowel sounds MUSCULOSKELETAL: right leg covered with clean dressing. NEURO: Alert & Oriented x4 to person, place, time, situation. Moves all ext x4 Medications and IVs Current Medications Morphine Sulfate (Morphine Inj) 4 mg ONCE ONCE IV PUSH Last administered on t 21:46; Start 04/18/17 at 21:15; Stop 04/18/17 at 21:16; Status DC Ondansetron HCl (Zofran Inj) 4 mg ONCE ONCE IV PUSH Last administered on 21:46; Start 04/18/17 at 21:15; Stop 04/18/17 at 21:16; Status DC Sodium Chloride 1,000 ml @ 100 mls/hr Q10H IV Last administered on 04/19/17 07:15; Start 04/18/17 at 21:15; Stop 04/20/17 at 14:52; Status DC Heparin Sodium (Porcine) (Heparin Inj) 4,000 units ONCE ONCE IV Last administered on 04/18/17 23:55; Start 04/18/17 at 23:00; Stop 04/18/17 at 23:01 ; Status DC Heparin Sodium/ Dextrose 250 ml @ 10 mls/hr TITRATE PRN IV Coagulation Management Last administered on 04/20/17 08:23; Start 04/18/17 at 23:00; Stop 04/20/17 at 14:21; Status DC Sodium Chloride (NS Flush) 2 ml UNSCH PRN IV FLUSH FLUSH AFTER USING IV ACCESS ; Start 04/18/17 at 23:00 Sodium Chloride (NS Flush) 2 ml BID IV FLUSH ; Start 04/19/17 at 09:00 Ondansetron HCl (Zofran Inj) 4 mg Q6H PRN IVP NAUSEA OR VOMITING; Start at 23:00 Acetaminophen (Tylenol) 650 mg Q6H PRN PO FEVER/PAIN SCALE 1 TO 2; Start at 23:00 Acetaminophen/ Hydrocodone Bitart ([place] 5-325 Mg) 1 tab Q4H PRN PO PAIN SCALE 3 TO 5 Last administered on 04/20/17 16:55; Start 04/18/17 at 23:00 Morphine Sulfate (Morphine Inj) 2 mg Q3H PRN IV PUSH Pain 6-10 Last administered on 04/21/17 06:40; Start 04/18/17 at 23:00 Senna/Docusate Sodium (Neeta-Colace) 1 tab BID PO Last administered on 20:41; Start 04/19/17 at 09:00 Magnesium Hydroxide (Milk Of Magnesia Liq) 30 ml Q12H PRN PO Mild constipation ; Start 04/18/17 at 23:00 Sennosides (Senokot) 17.2 mg Q12H PRN PO Moderate constipation; Start 04/18/17 at 23:00 Bisacodyl (Dulcolax Supp) 10 mg DAILY PRN RECTAL SEVERE CONSITIPATION; Start 04/18/17 at 23:00 Lactulose (Lactulose Liq) 30 ml DAILY PRN PO SEVERE CONSITIPATION; Start at 23:00 Folic Acid (Folate) 1 mg DAILY PO Last administered on 04/19/17 08:45; Start 04/19/17 at 09:00; Stop 04/24/17 at 08:59 Thiamine HCl (Vitamin B1) 100 mg DAILY PO Last administered on 04/19/17 08:45 ; Start 04/19/17 at 09:00 Multivitamins/ Minerals Therapeutic (Theragran M Tab) 1 tab DAILY PO Last administered on 04/19/17 08:45; Start 04/19/17 at 09:00; Stop 04/24/17 at 08:59 Flumazenil (Romazicon Inj) 0.2 mg Q1M PRN IV PUSH SEE LABEL COMMENTS; Start at 23:00 Lorazepam (Ativan) 1 mg Q4H PRN PO CIWA 8 - 10; Start 04/18/17 at 23:00 Lorazepam (Ativan Inj) 1 mg Q4H PRN IV PUSH CIWA 8 - 10 Last administered on 00:56; Start 04/18/17 at 23:00 Lorazepam (Ativan) 2 mg Q2H PRN PO CIWA 11-14; Start 04/18/17 at 23:00 Lorazepam (Ativan Inj) 2 mg Q2H PRN IV PUSH CIWA 11-14 Last administered on 22:54; Start 04/18/17 at 23:00 Lorazepam (Ativan Inj) 2 mg Q1H PRN IV PUSH CIWA 15-20; Start 04/18/17 at 23:00 Lorazepam (Ativan Inj) 2 mg Q15M PRN IV PUSH CIWA > 20; Start 04/18/17 at 23:00 Haloperidol Lactate (Haldol Inj) 2 mg Q15M PRN IM SEE LABEL COMMENTS Last administered on 04/19/17 22:04; Start 04/18/17 at 23:00 Aspirin (Aspirin) 325 mg DAILY PO Last administered on 04/19/17 08:45; Start 04/19/17 at 09:00 Atorvastatin Calcium (Lipitor) 40 mg HS PO Last administered on 04/19/17 20:42 ; Start 04/19/17 at 21:00 Baclofen (Lioresal) 20 mg BID PO Last administered on 04/19/17 20:41; Start 04/19/17 at 09:00 Duloxetine HCl (Cymbalta Dr) 60 mg DAILY PO Last administered on 04/19/17 08: 46; Start 04/19/17 at 09:00 Lorazepam (Ativan) 0.5 mg Q8H PRN PO anxiety Last administered on 04/21/17 01: 38; Start 04/18/17 at 23:00 Metoprolol Succinate (Toprol Xl) 50 mg DAILY PO Last administered on 04/19/17 08:45; Start 04/19/17 at 09:00 Pantoprazole Sodium (Protonix) 40 mg DAILY PO Last administered on 04/19/17 08 :45; Start 04/19/17 at 09:00 Metoprolol Tartrate (Lopressor Inj) 5 mg ONCE ONCE IV PUSH Last administered on 04/19/17 00:10; Start 04/19/17 at 00:00; Stop 04/19/17 at 00:01; Status DC Labetalol HCl (Trandate Inj) 10 mg ONCE ONCE IV PUSH ; Start 04/19/17 at 00:15 ; Stop 04/19/17 at 00:16; Status DC Famotidine (Pepcid Inj) 10 mg ONCE IV PUSH ; Start 04/19/17 at 00:15 Clonidine (Catapres) 0.1 mg ONCE ONCE PO Last administered on 04/19/17 03:48 ; Start 04/19/17 at 02:00; Stop 04/19/17 at 02:01; Status DC Enalaprilat (Vasotec Inj) 2.5 mg Q6H PRN IV PUSH SEE LABEL COMMENTS Last administered on 04/20/17 08:31; Start 04/19/17 at 02:15 Haloperidol Lactate (Haldol Inj) 2 mg ONCE ONCE IV PUSH Last administered on 04/19/17 05:30; Start 04/19/17 at 05:00; Stop 04/19/17 at 05:01; Status DC Amlodipine Besylate (Norvasc) 5 mg DAILY PO Last administered on 04/19/17 10: 14; Start 04/19/17 at 10:00 Potassium Chloride (KCl) 30 meq ONCE ONCE PO Last administered on 04/19/17 15 :41; Start 04/19/17 at 12:45; Stop 04/19/17 at 12:49; Status DC Clonidine (Catapres) 0.1 mg Q6H PRN PO SBP> OR = 180, DBP> OR = 100; Start 04/19/17 at 16:15 Iohexol (Omnipaque 350 Inj) 100 ml STK-MED ONCE IVCONTRAST Last administered on 04/19/17 18:29; Start 04/19/17 at 18:29; Stop 04/19/17 at 18:30; Status DC Heparin Sodium (Porcine) (Heparin Inj) 10,000 units STK-MED ONCE .ROUTE Last administered on 04/20/17 11:35; Start 04/20/17 at 09:31; Stop 04/20/17 at 09:32 ; Status DC Cefazolin Sodium (Ancef Inj) 1,000 mg STK-MED ONCE .ROUTE Last administered on 04/20/17 11:20; Start 04/20/17 at 09:31; Stop 04/20/17 at 09:32; Status DC Lidocaine/ Epinephrine (Xylocaine-Epi 1%-1:100,000 Inj) 20 ml STK-MED ONCE .ROUTE Last administered on 04/20/17 11:35; Start 04/20/17 at 09:31; Stop 04/20/17 at 09:32; Status DC Vancomycin HCl (Vancomycin Inj) 1,000 mg ONCE ONCE IV Last administered on 13:29; Start 04/20/17 at 12:50; Stop 04/20/17 at 13:29; Status DC Morphine Sulfate (*morphine INJ PERIprocedure ONLY) 8 mg STK-MED ONCE .ROUTE Last administered on 04/20/17 14:10; Start 04/20/17 at 14:10; Stop 04/20/17 at 14:11; Status DC Miscellaneous Information ALL NURSING DEPARTME... UNSCH PRN .XX SEE LABEL COMMENTS; Start 04/20/17 at 13:22; Stop 04/21/17 at 13:21 Morphine Sulfate (*morphine INJ PERIprocedure ONLY) 8 mg STK-MED ONCE .ROUTE Last administered on 04/20/17 14:18; Start 04/20/17 at 14:18; Stop 04/20/17 at 14:19; Status DC Heparin Sodium/ Dextrose 250 ml @ 8 mls/hr TITRATE PRN IV Coagulation Management Last administered on 04/20/17 14:00; Start 04/20/17 at 14:00 Sodium Chloride 1,000 ml @ 60 mls/hr [id number] IV Last administered on 14:00; Start 04/20/17 at 14:00; Stop 04/20/17 at 18:39; Status DC Heparin Sodium (Porcine) (Heparin Inj) ONCE ONCE IV PUSH ; Start 04/20/17 at 14:45; Stop 04/20/17 at 14:46; Status UNV Heparin Sodium/ Dextrose 250 ml @ 6.6 mls/hr TITRATE PRN IV Coagulation Management; Start 04/20/17 at 14:45; Status UNV Sodium Chloride 1,000 ml @ 150 mls/hr Q6H40M IV Last administered on 01:40; Start 04/20/17 at 19:00 Cefazolin Sodium 1000 mg/Sodium Chloride 100 ml @ 200 mls/hr Q8H IV Last administered on 04/21/17 03:53; Start 04/20/17 at 18:45; Stop 04/21/17 at 11:14 Cefazolin Sodium (Ancef Inj) 1,000 mg STK-MED ONCE .ROUTE ; Start 04/20/17 at 19 :49; Stop 04/20/17 at 19:50; Status DC Morphine Sulfate (Morphine Inj) 2 mg STK-MED ONCE .ROUTE ; Start 04/20/17 at 20: 46; Stop 04/20/17 at 20:47; Status DC Miscellaneous Information ALL NURSING DEPARTME... UNSCH PRN .XX SEE LABEL COMMENTS; Start 04/20/17 at 20:23; Stop 04/21/17 at 20:22 A/P Problem List: (1) Ischemia of extremity ICD Code: I99.8 - Other disorder of circulatory system Status: Acute (2) Non-compliance ICD Code: Z91.19 - Patient's noncompliance with other medical treatment and regimen Status: Acute (3) HTN (hypertension) ICD Code: I10 - Essential (primary) hypertension Status: Acute (4) Leukocytosis ICD Code: D72.829 - Elevated white blood cell count, unspecified Status: Acute (5) Rhabdomyolysis ICD Code: M62.82 - Rhabdomyolysis (6) Alcohol abuse ICD Code: F10.10 - Alcohol abuse, uncomplicated Status: Acute (7) Tobacco abuse ICD Code: Z72.0 - Tobacco use Status: Acute Assessment and Plan A/P Limb Ischemia: h/o PAD s/p Aortobifemoral Bypass, Right Iliofemoral Bypass and Left Femoral Popliteal Artery Bypass by Dr. Gandhi 04/14/16 and declotting/ revision of the Right Aortobifemoral Graft w/ Right Femoral-Popliteal Bypass on 12/06/[address] Guerra, now w/ recurrent ischemia, likely secondary to non- compliance and ongoing tobacco abuse. - Started on Heparin gtt. - patient underwent Iliofemoral embolectomy, femoral-popliteal embolectomy, revision of the iliofemoral anastomosis graft, revision of femoral-popliteal graft with popliteal artery endarterectomy and bovine patch angioplasty. - continue with pain control; will increase IV Morphine today and monitor the response. - Further plans per Vascular surgery. My need amputation. Alcohol withdrawal/DTs: Improving - Continue treatment per CIWA protocol. Haldol as needed. HTN: Better controlled - Continue metoprolol. Norvasc. Clonidine as needed. Rhabdomyolysis: Mild. Continue IVF for hydration, repeat labs in am. Leukocytosis: Leukocytosis likely reactive secondary to hypoperfusion from limb ischemia. Alcohol Abuse: CIWA, Seizure Precautions, MVT/Thiamine/Folate Tobacco Abuse: Counselled. Ativan prn. DVT Prophylaxis: Heparin gtt Sindi Desai MD Apr 21, 2017 07:59
[2017-04-21] MEDS: BACLOFEN 20 MG TAB PO SCH ×2 (08:22→21:13)
[2017-04-21] MEDS: THIAMINE HCL 100 MG TAB PO SCH (08:22)
[2017-04-21] MEDS: FOLIC ACID 1 MG TAB PO SCH (08:22)
[2017-04-21] MEDS: PANTOPRAZOLE SOD 40 MG DELAYED RELEASE TAB PO SCH (08:22)
[2017-04-21] MEDS: ASPIRIN 325 MG TAB PO SCH (08:23)
[2017-04-21] MEDS: DOCUSATE SODIUM 50 MG/SENNA 8.6 MG TAB PO SCH ×2 (08:23→21:13)
[2017-04-21] MEDS: METOPROLOL SUCCINATE 50 MG EXTENDED RELEASE TAB PO SCH (08:23)
[2017-04-21] MEDS: MULTIVITAMINS/MINERALS THERAPEUTIC TAB PO SCH (08:23)
[2017-04-21] MEDS: DULoxetine HCl DR 60 MG CAP PO SCH (08:23)
[2017-04-21] MEDS: SODIUM CHLORIDE 0.9% FLUSH 10 ML FLUSH IV FLUSH SCH ×2 (08:23→21:13)
[2017-04-21] MEDS: amLODIPine BESYLATE 5 MG TAB PO SCH (08:23)
[2017-04-21] MEDS: ACETAMINOPHEN/HYDROcodone 325 MG/5 MG TAB PO PRN ×3 (08:40→16:31)
[2017-04-21] MEDS: fentaNYL 50 MCG/HR PATCH T-DERMAL SCH (16:01)
[2017-04-21 16:44] LABS: CKMB 296.9 NG/ML (0.5-3.6)
[2017-04-21] MEDS: HEPARIN-D5W 25,000 U/250 ML 250 ML IV PRN (17:20)
[2017-04-21] MEDS: ATORVASTATIN 40 MG TAB PO SCH (21:13)
[2017-04-22] VITALS (19 sets, daily range): BP systolic 104–129; BP diastolic 62–76; PULSE 67–89; RESP 17–20; TEMP 97.9–99.5; O2SAT 93–98
[2017-04-22] MEDS: MORPHINE SULFATE 4 MG/ML INJ IV PUSH PRN ×4 (01:03→21:48)
[2017-04-22] MEDS: ceFAZolin 1,000 MG/NS 100 ML IV SCH ×6 (04:33→19:54)
[2017-04-22] MEDS: ACETAMINOPHEN/HYDROcodone 325 MG/5 MG TAB PO PRN ×5 (04:47→21:47)
[2017-04-22] MEDS: SODIUM CHLOR 0.9% 1000 ML INJ 1,000 ML IV SCH ×3 (06:13→17:36)
--- NOTE | 2017-04-22 08:14 | HHI.PR ---
Subjective Remarks in no acute distress. pain is better. d/w the RN and no acute issues over night. Objective Vitals Vital Signs Date Time Temp Pulse Resp B/P (MAP) Pulse Ox O2 Delivery O2 Flow Rate FiO2 04/22/17 05:50 16 04/22/17 04:00 98.3 89 20 107/76 (86) 96 04/22/17 03:00 89 04/22/17 01:10 16 04/22/17 00:00 99.0 83 20 129/75 (93) 94 04/21/17 23:00 97 04/21/17 20:00 98.7 83 20 142/90 (107) 96 04/21/17 19:00 83 04/21/17 15:17 98.4 75 14 118/75 (89) 97 04/21/17 15:00 83 04/21/17 11:00 98.6 76 14 126/72 (90) 97 04/21/17 11:00 78 I/O 04/21/17 04/21/17 04/21/17 04/22/17 04/22/17 04/22/17 07:00 15:00 23:00 07:00 15:00 23:00 Intake Total 1707 ml 100 ml 2459 ml 2752 ml Output Total 650 ml 1280 ml 790 ml Balance 1057 ml 100 ml 1179 ml 1962 ml Intake Oral 480 ml 960 ml 720 ml IV Total 1227 ml 100 ml 1499 ml 2032 ml Output Urine Total 650 ml 1280 ml 790 ml Stool Total 0 ml 0 ml # Bowel Movements 0 Result Diagram: 04/21/17 0152 04/21/17 0152 Imaging Last Impressions Chest X-Ray 04/18/172044 Signed Impressions: Service Date/Time: Tuesday, April 18, 2017 21:33 - CONCLUSION: No evidence of acute cardiopulmonary disease. Delonte Mas MD Aorta w/Runoff CTA 04/18/17 0000 Signed Impressions: Service Date/Time: Wednesday, April 19, 2017 17:42 - CONCLUSION: 1. Aortobifemoral bypass with interval occlusion of the right iliac limb and right common from arteries. There is also persistent occlusion of the profunda and SFA with occlusion of interval right femoral to popliteal bypass graft. Popliteal artery and runoff vessels on the right are also not opacified. However, this may be flow related. 2. Persistent occlusion of left femoral to below knee popliteal artery bypass graft do to below knee popliteal artery occlusion. There is reconstitution of the runoff vessels via genicular collaterals with 3 vessel runoff to the left foot. Conrado Lynn MD Objective Remarks GENERAL: This is a well-nourished, well-developed patient, in no apparent distress. CARDIOVASCULAR: Regular rate and regular rhythm without murmurs, gallops, or rubs. RESPIRATORY: Clear to auscultation. Breath sounds equal bilaterally. No wheezes , rales, or rhonchi. GASTROINTESTINAL: Abdomen soft, non-tender, nondistended. Normal, active bowel sounds MUSCULOSKELETAL: right leg covered with clean dressing. NEURO: Alert & Oriented x4 to person, place, time, situation. Moves all ext x4 Medications and IVs Current Medications Morphine Sulfate (Morphine Inj) 4 mg ONCE ONCE IV PUSH Last administered on 21:46; Start 04/18/17 at 21:15; Stop 04/18/17 at 21:16; Status DC Ondansetron HCl (Zofran Inj) 4 mg ONCE ONCE IV PUSH Last administered on 21:46; Start 04/18/17 at 21:15; Stop 04/18/17 at 21:16; Status DC Sodium Chloride 1,000 ml @ 100 mls/hr Q10H IV Last administered on 04/19/17 07:15; Start 04/18/17 at 21:15; Stop 04/20/17 at 14:52; Status DC Heparin Sodium (Porcine) (Heparin Inj) 4,000 units ONCE ONCE IV Last administered on 04/18/17 23:55; Start 04/18/17 at 23:00; Stop 04/18/17 at 23:01 ; Status DC Heparin Sodium/ Dextrose 250 ml @ 10 mls/hr TITRATE PRN IV Coagulation Management Last administered on 04/20/17 08:23; Start 04/18/17 at 23:00; Stop 04/20/17 at 14:21; Status DC Sodium Chloride (NS Flush) 2 ml UNSCH PRN IV FLUSH FLUSH AFTER USING IV ACCESS ; Start 04/18/17 at 23:00 Sodium Chloride (NS Flush) 2 ml BID IV FLUSH Last administered on 04/21/17 21: 13; Start 04/19/17 at 09:00 Ondansetron HCl (Zofran Inj) 4 mg Q6H PRN IVP NAUSEA OR VOMITING; Start at 23:00 Acetaminophen (Tylenol) 650 mg Q6H PRN PO FEVER/PAIN SCALE 1 TO 2; Start at 23:00 Acetaminophen/ Hydrocodone Bitart ([place] 5-325 Mg) 1 tab Q4H PRN PO PAIN SCALE 3 TO 5 Last administered on 04/22/17 04:47; Start 04/18/17 at 23:00 Morphine Sulfate (Morphine Inj) 2 mg Q3H PRN IV PUSH Pain 6-10 Last administered on 04/21/17 06:40; Start 04/18/17 at 23:00; Stop 04/21/17 at 08:00 ; Status DC Senna/Docusate Sodium (Neeta-Colace) 1 tab BID PO Last administered on 21:13; Start 04/19/17 at 09:00 Magnesium Hydroxide (Milk Of Magnesia Liq) 30 ml Q12H PRN PO Mild constipation ; Start 04/18/17 at 23:00 Sennosides (Senokot) 17.2 mg Q12H PRN PO Moderate constipation; Start 04/18/17 at 23:00 Bisacodyl (Dulcolax Supp) 10 mg DAILY PRN RECTAL SEVERE CONSITIPATION; Start 04/18/17 at 23:00 Lactulose (Lactulose Liq) 30 ml DAILY PRN PO SEVERE CONSITIPATION; Start at 23:00 Folic Acid (Folate) 1 mg DAILY PO Last administered on 04/21/17 08:22; Start 04/19/17 at 09:00; Stop 04/24/17 at 08:59 Thiamine HCl (Vitamin B1) 100 mg DAILY PO Last administered on 04/21/17 08:22 ; Start 04/19/17 at 09:00 Multivitamins/ Minerals Therapeutic (Theragran M Tab) 1 tab DAILY PO Last administered on 04/21/17 08:23; Start 04/19/17 at 09:00; Stop 04/24/17 at 08:59 Flumazenil (Romazicon Inj) 0.2 mg Q1M PRN IV PUSH SEE LABEL COMMENTS; Start at 23:00 Lorazepam (Ativan) 1 mg Q4H PRN PO CIWA 8 - 10; Start 04/18/17 at 23:00 Lorazepam (Ativan Inj) 1 mg Q4H PRN IV PUSH CIWA 8 - 10 Last administered on 00:56; Start 04/18/17 at 23:00 Lorazepam (Ativan) 2 mg Q2H PRN PO CIWA 11-14; Start 04/18/17 at 23:00 Lorazepam (Ativan Inj) 2 mg Q2H PRN IV PUSH CIWA 11-14 Last administered on 22:54; Start 04/18/17 at 23:00 Lorazepam (Ativan Inj) 2 mg Q1H PRN IV PUSH CIWA 15-20; Start 04/18/17 at 23:00 Lorazepam (Ativan Inj) 2 mg Q15M PRN IV PUSH CIWA > 20; Start 04/18/17 at 23:00 Haloperidol Lactate (Haldol Inj) 2 mg Q15M PRN IM SEE LABEL COMMENTS Last administered on 04/19/17 22:04; Start 04/18/17 at 23:00 Aspirin (Aspirin) 325 mg DAILY PO Last administered on 04/21/17 08:23; Start 04/19/17 at 09:00 Atorvastatin Calcium (Lipitor) 40 mg HS PO Last administered on 04/21/17 21:13 ; Start 04/19/17 at 21:00 Baclofen (Lioresal) 20 mg BID PO Last administered on 04/21/17 21:13; Start 04/19/17 at 09:00 Duloxetine HCl (Cymbalta Dr) 60 mg DAILY PO Last administered on 04/21/17 08: 23; Start 04/19/17 at 09:00 Lorazepam (Ativan) 0.5 mg Q8H PRN PO anxiety Last administered on 04/21/17 01: 38; Start 04/18/17 at 23:00 Metoprolol Succinate (Toprol Xl) 50 mg DAILY PO Last administered on 04/21/17 08:23; Start 04/19/17 at 09:00 Pantoprazole Sodium (Protonix) 40 mg DAILY PO Last administered on 04/21/17 08 :22; Start 04/19/17 at 09:00 Metoprolol Tartrate (Lopressor Inj) 5 mg ONCE ONCE IV PUSH Last administered on 04/19/17 00:10; Start 04/19/17 at 00:00; Stop 04/19/17 at 00:01; Status DC Labetalol HCl (Trandate Inj) 10 mg ONCE ONCE IV PUSH ; Start 04/19/17 at 00:15 ; Stop 04/19/17 at 00:16; Status DC Famotidine (Pepcid Inj) 10 mg ONCE IV PUSH ; Start 04/19/17 at 00:15 Clonidine (Catapres) 0.1 mg ONCE ONCE PO Last administered on 04/19/17 03:48 ; Start 04/19/17 at 02:00; Stop 04/19/17 at 02:01; Status DC Enalaprilat (Vasotec Inj) 2.5 mg Q6H PRN IV PUSH SEE LABEL COMMENTS Last administered on 04/20/17 08:31; Start 04/19/17 at 02:15 Haloperidol Lactate (Haldol Inj) 2 mg ONCE ONCE IV PUSH Last administered on 04/19/17 05:30; Start 04/19/17 at 05:00; Stop 04/19/17 at 05:01; Status DC Amlodipine Besylate (Norvasc) 5 mg DAILY PO Last administered on 04/21/17 08: 23; Start 04/19/17 at 10:00 Potassium Chloride (KCl) 30 meq ONCE ONCE PO Last administered on 04/19/17 15 :41; Start 04/19/17 at 12:45; Stop 04/19/17 at 12:49; Status DC Clonidine (Catapres) 0.1 mg Q6H PRN PO SBP> OR = 180, DBP> OR = 100; Start 04/19/17 at 16:15 Iohexol (Omnipaque 350 Inj) 100 ml STK-MED ONCE IVCONTRAST Last administered on 04/19/17 18:29; Start 04/19/17 at 18:29; Stop 04/19/17 at 18:30; Status DC Heparin Sodium (Porcine) (Heparin Inj) 10,000 units STK-MED ONCE .ROUTE Last administered on 04/20/17 11:35; Start 04/20/17 at 09:31; Stop 04/20/17 at 09:32 ; Status DC Cefazolin Sodium (Ancef Inj) 1,000 mg STK-MED ONCE .ROUTE Last administered on 04/20/17 11:20; Start 04/20/17 at 09:31; Stop 04/20/17 at 09:32; Status DC Lidocaine/ Epinephrine (Xylocaine-Epi 1%-1:100,000 Inj) 20 ml STK-MED ONCE .ROUTE Last administered on 04/20/17 11:35; Start 04/20/17 at 09:31; Stop 04/20/17 at 09:32; Status DC Vancomycin HCl (Vancomycin Inj) 1,000 mg ONCE ONCE IV Last administered on 13:29; Start 04/20/17 at 12:50; Stop 04/20/17 at 13:29; Status DC Morphine Sulfate (*morphine INJ PERIprocedure ONLY) 8 mg STK-MED ONCE .ROUTE Last administered on 04/20/17 14:10; Start 04/20/17 at 14:10; Stop 04/20/17 at 14:11; Status DC Miscellaneous Information ALL NURSING DEPARTME... UNSCH PRN .XX SEE LABEL COMMENTS; Start 04/20/17 at 13:22; Stop 04/21/17 at 13:21; Status DC Morphine Sulfate (*morphine INJ PERIprocedure ONLY) 8 mg STK-MED ONCE .ROUTE Last administered on 04/20/17 14:18; Start 04/20/17 at 14:18; Stop 04/20/17 at 14:19; Status DC Heparin Sodium/ Dextrose 250 ml @ 8 mls/hr TITRATE PRN IV Coagulation Management Last administered on 04/21/17 17:20; Start 04/20/17 at 14:00 Sodium Chloride 1,000 ml @ 60 mls/hr [id number] IV Last administered on 14:00; Start 04/20/17 at 14:00; Stop 04/20/17 at 18:39; Status DC Heparin Sodium (Porcine) (Heparin Inj) ONCE ONCE IV PUSH ; Start 04/20/17 at 14:45; Stop 04/20/17 at 14:46; Status UNV Heparin Sodium/ Dextrose 250 ml @ 6.6 mls/hr TITRATE PRN IV Coagulation Management; Start 04/20/17 at 14:45; Status UNV Sodium Chloride 1,000 ml @ 150 mls/hr Q6H40M IV Last administered on 06:13; Start 04/20/17 at 19:00 Cefazolin Sodium 1000 mg/Sodium Chloride 100 ml @ 200 mls/hr Q8H IV Last administered on 04/21/17 11:37; Start 04/20/17 at 18:45; Stop 04/21/17 at 11:14 ; Status DC Cefazolin Sodium (Ancef Inj) 1,000 mg STK-MED ONCE .ROUTE ; Start 04/20/17 at 19 :49; Stop 04/20/17 at 19:50; Status DC Morphine Sulfate (Morphine Inj) 2 mg STK-MED ONCE .ROUTE ; Start 04/20/17 at 20: 46; Stop 04/20/17 at 20:47; Status DC Miscellaneous Information ALL NURSING DEPARTME... UNSCH PRN .XX SEE LABEL COMMENTS; Start 04/20/17 at 20:23; Stop 04/21/17 at 20:22; Status DC Morphine Sulfate (Morphine Inj) 4 mg Q3H PRN IV PUSH Pain 6-10 Last administered on 04/22/17 01:03; Start 04/21/17 at 08:00 Cefazolin Sodium 1000 mg/Sodium Chloride 100 ml @ 200 mls/hr Q8H IV Last administered on 04/22/17 04:33; Start 04/21/17 at 20:00 Fentanyl (Duragesic 50 Mcg Patch.72 Hr) 1 patch Q3D T-DERMAL Last administered on 04/21/17 16:01; Start 04/21/17 at 16:00 Miscellaneous Information 1 Q3D T-DERMAL ; Start 04/24/17 at 16:00 A/P Problem List: (1) Ischemia of extremity ICD Code: I99.8 - Other disorder of circulatory system Status: Acute (2) Non-compliance ICD Code: Z91.19 - Patient's noncompliance with other medical treatment and regimen Status: Acute (3) HTN (hypertension) ICD Code: I10 - Essential (primary) hypertension Status: Acute (4) Leukocytosis ICD Code: D72.829 - Elevated white blood cell count, unspecified Status: Acute (5) Rhabdomyolysis ICD Code: M62.82 - Rhabdomyolysis (6) Alcohol abuse ICD Code: F10.10 - Alcohol abuse, uncomplicated Status: Acute (7) Tobacco abuse ICD Code: Z72.0 - Tobacco use Status: Acute Assessment and Plan A/P Limb Ischemia: h/o PAD s/p Aortobifemoral Bypass, Right Iliofemoral Bypass and Left Femoral Popliteal Artery Bypass by Dr. Gandhi 04/14/16 and declotting/ revision of the Right Aortobifemoral Graft w/ Right Femoral-Popliteal Bypass on 12/06/[address] Guerra, now w/ recurrent ischemia, likely secondary to non- compliance and ongoing tobacco abuse. - Started on Heparin gtt. - patient underwent Iliofemoral embolectomy, femoral-popliteal embolectomy, revision of the iliofemoral anastomosis graft, revision of femoral-popliteal graft with popliteal artery endarterectomy and bovine patch angioplasty. - continue with pain contro; pain is better today. - Further plans per Vascular surgery. My need amputation. Alcohol withdrawal/DTs: Improving - Continue treatment per CIWA protocol. Haldol as needed. HTN: Better controlled - Continue metoprolol. Norvasc. Clonidine as needed. Rhabdomyolysis: Continue IVF for hydration, repeat labs tomorrow. Leukocytosis: Leukocytosis likely reactive secondary to hypoperfusion from limb ischemia. Alcohol Abuse: CIWA, Seizure Precautions, MVT/Thiamine/Folate Tobacco Abuse: Counselled. Ativan prn. DVT Prophylaxis: Heparin gtt Sindi Desai MD Apr 22, 2017 08:14
[2017-04-22 08:24] LABS: APTT (PATIENT) 41.3 SEC (24.3-30.1)
[2017-04-22] MEDS: SODIUM CHLORIDE 0.9% FLUSH 10 ML FLUSH IV FLUSH SCH ×2 (09:00→20:01)
[2017-04-22] MEDS: FOLIC ACID 1 MG TAB PO SCH (09:47)
[2017-04-22] MEDS: PANTOPRAZOLE SOD 40 MG DELAYED RELEASE TAB PO SCH (09:47)
[2017-04-22] MEDS: DULoxetine HCl DR 60 MG CAP PO SCH (09:47)
[2017-04-22] MEDS: amLODIPine BESYLATE 5 MG TAB PO SCH (09:47)
[2017-04-22] MEDS: MULTIVITAMINS/MINERALS THERAPEUTIC TAB PO SCH (09:47)
[2017-04-22] MEDS: THIAMINE HCL 100 MG TAB PO SCH (09:47)
[2017-04-22] MEDS: ASPIRIN 325 MG TAB PO SCH (09:48)
[2017-04-22] MEDS: BACLOFEN 20 MG TAB PO SCH ×2 (09:48→20:01)
[2017-04-22] MEDS: DOCUSATE SODIUM 50 MG/SENNA 8.6 MG TAB PO SCH ×2 (09:48→20:01)
[2017-04-22] MEDS: METOPROLOL SUCCINATE 50 MG EXTENDED RELEASE TAB PO SCH (09:49)
[2017-04-22] MEDS: HEPARIN-D5W 25,000 U/250 ML 250 ML IV PRN (18:32)
[2017-04-22] MEDS: ATORVASTATIN 40 MG TAB PO SCH (20:01)
[2017-04-23] VITALS (25 sets, daily range): BP systolic 104–121; BP diastolic 60–78; PULSE 69–98; RESP 16–18; TEMP 97.6–100.1; O2SAT 94–97
[2017-04-23] MEDS: ACETAMINOPHEN/HYDROcodone 325 MG/5 MG TAB PO PRN ×7 (02:00→21:24)
[2017-04-23] MEDS: SODIUM CHLOR 0.9% 1000 ML INJ 1,000 ML IV SCH ×4 (02:00→20:20)
[2017-04-23] MEDS: MORPHINE SULFATE 4 MG/ML INJ IV PUSH PRN ×7 (02:00→23:08)
[2017-04-23] MEDS: ceFAZolin 1,000 MG/NS 100 ML IV SCH ×6 (03:42→19:58)
[2017-04-23 06:03] LABS: HEMATOCRIT 32.1 % (39.0-51.0); MEAN CELL VOLUME 97.1 FL (80.0-100.0); MEAN CORPUSCULAR HEMOGLOBIN 32.3 PG (27.0-34.0); MEAN CORPUSCULAR HGB CONC 33.3 % (32.0-36.0); PLATELET COUNT 214 TH/MM3 (150-450); RED CELL DISTRIBUTION WIDTH 14.1 % (11.6-17.2); REVIEW FLAG FINAL; WHITE BLOOD COUNT 12.7 TH/MM3 (4.0-11.0)
[2017-04-23 06:16] LABS: APTT (PATIENT) 39.8 SEC (24.3-30.1)
[2017-04-23 07:05] LABS: BICARBONATE 25.2 MEQ/L (21.0-32.0); POTASSIUM 3.5 MEQ/L (3.5-5.1)
--- NOTE | 2017-04-23 07:27 | HHI.PR ---
Subjective Remarks in no acute distress. had a low grade fever earlier today. pain is better controlled. d/w the RN and no acute issues over night. Objective Vitals Vital Signs Date Time Temp Pulse Resp B/P (MAP) Pulse Ox O2 Delivery O2 Flow Rate FiO2 04/23/17 06:00 92 04/23/17 05:00 76 04/23/17 04:00 78 04/23/17 03:45 96 Room Air 04/23/17 03:45 100.1 87 16 121/69 (86) 96 04/23/17 03:00 79 04/23/17 02:00 78 04/23/17 01:00 83 04/23/17 00:00 80 04/22/17 23:45 97.9 85 18 104/70 (81) 96 04/22/17 23:45 95 Room Air 04/22/17 23:00 79 04/22/17 22:00 80 04/22/17 21:00 78 04/22/17 20:00 78 04/22/17 19:30 98.5 87 18 113/69 (84) 96 04/22/17 19:30 96 Room Air 04/22/17 19:00 81 04/22/17 18:36 19 04/22/17 18:36 19 04/22/17 18:05 70 04/22/17 17:00 73 04/22/17 16:00 67 04/22/17 15:01 98.7 77 17 107/62 (77) 97 04/22/17 15:01 97 Room Air 04/22/17 15:01 79 04/22/17 14:00 70 04/22/17 13:00 76 04/22/17 12:00 87 04/22/17 11:00 99.5 85 18 121/74 (90) 98 04/22/17 11:00 98 Nasal Cannula 2.00 04/22/17 08:10 99 Nasal Cannula 2.00 04/22/17 08:00 85 Room Air I/O 04/22/17 04/22/17 04/22/17 04/23/17 04/23/17 04/23/17 07:00 15:00 23:00 07:00 15:00 23:00 Intake Total 2752 ml 1040 ml 1544 ml 2400 ml Output Total 790 ml 600 ml 1750 ml Balance 1962 ml 1040 ml 944 ml 650 ml Intake Oral 720 ml 480 ml 1200 ml IV Total 2032 ml 1040 ml 1064 ml 1200 ml Output Urine Total 790 ml 600 ml 1750 ml # Bowel Movements 0 0 Result Diagram: 04/23/17 0534 04/23/17 0534 Imaging Last Impressions Chest X-Ray 04/18/172044 Signed Impressions: Service Date/Time: Tuesday, April 18, 2017 21:33 - CONCLUSION: No evidence of acute cardiopulmonary disease. Delonte Mas MD Aorta w/Runoff CTA 04/18/17 0000 Signed Impressions: Service Date/Time: Wednesday, April 19, 2017 17:42 - CONCLUSION: 1. Aortobifemoral bypass with interval occlusion of the right iliac limb and right common from arteries. There is also persistent occlusion of the profunda and SFA with occlusion of interval right femoral to popliteal bypass graft. Popliteal artery and runoff vessels on the right are also not opacified. However, this may be flow related. 2. Persistent occlusion of left femoral to below knee popliteal artery bypass graft do to below knee popliteal artery occlusion. There is reconstitution of the runoff vessels via genicular collaterals with 3 vessel runoff to the left foot. Conrado Lynn MD Objective Remarks GENERAL: This is a well-nourished, well-developed patient, in no apparent distress. CARDIOVASCULAR: Regular rate and regular rhythm without murmurs, gallops, or rubs. RESPIRATORY: Clear to auscultation. Breath sounds equal bilaterally. No wheezes , rales, or rhonchi. GASTROINTESTINAL: Abdomen soft, non-tender, nondistended. Normal, active bowel sounds MUSCULOSKELETAL: right leg covered with clean dressing. NEURO: Alert & Oriented x4 to person, place, time, situation. Moves all ext x4 Medications and IVs Current Medications Morphine Sulfate (Morphine Inj) 4 mg ONCE ONCE IV PUSH Last administered on 21:46; Start 04/18/17 at 21:15; Stop 04/18/17 at 21:16; Status DC Ondansetron HCl (Zofran Inj) 4 mg ONCE ONCE IV PUSH Last administered on 21:46; Start 04/18/17 at 21:15; Stop 04/18/17 at 21:16; Status DC Sodium Chloride 1,000 ml @ 100 mls/hr Q10H IV Last administered on 04/19/17 07:15; Start 04/18/17 at 21:15; Stop 04/20/17 at 14:52; Status DC Heparin Sodium (Porcine) (Heparin Inj) 4,000 units ONCE ONCE IV Last administered on 04/18/17 23:55; Start 04/18/17 at 23:00; Stop 04/18/17 at 23:01 ; Status DC Heparin Sodium/ Dextrose 250 ml @ 10 mls/hr TITRATE PRN IV Coagulation Management Last administered on 04/20/17 08:23; Start 04/18/17 at 23:00; Stop 04/20/17 at 14:21; Status DC Sodium Chloride (NS Flush) 2 ml UNSCH PRN IV FLUSH FLUSH AFTER USING IV ACCESS ; Start 04/18/17 at 23:00 Sodium Chloride (NS Flush) 2 ml BID IV FLUSH Last administered on 04/22/17 20: 01; Start 04/19/17 at 09:00 Ondansetron HCl (Zofran Inj) 4 mg Q6H PRN IVP NAUSEA OR VOMITING; Start at 23:00 Acetaminophen (Tylenol) 650 mg Q6H PRN PO FEVER/PAIN SCALE 1 TO 2; Start at 23:00 Acetaminophen/ Hydrocodone Bitart ([place] 5-325 Mg) 1 tab Q4H PRN PO PAIN SCALE 3 TO 5 Last administered on 04/23/17 05:52; Start 04/18/17 at 23:00 Morphine Sulfate (Morphine Inj) 2 mg Q3H PRN IV PUSH Pain 6-10 Last administered on 04/21/17 06:40; Start 04/18/17 at 23:00; Stop 04/21/17 at 08:00 ; Status DC Senna/Docusate Sodium (Neeta-Colace) 1 tab BID PO Last administered on 20:01; Start 04/19/17 at 09:00 Magnesium Hydroxide (Milk Of Magnesia Liq) 30 ml Q12H PRN PO Mild constipation ; Start 04/18/17 at 23:00 Sennosides (Senokot) 17.2 mg Q12H PRN PO Moderate constipation; Start 04/18/17 at 23:00 Bisacodyl (Dulcolax Supp) 10 mg DAILY PRN RECTAL SEVERE CONSITIPATION; Start 04/18/17 at 23:00 Lactulose (Lactulose Liq) 30 ml DAILY PRN PO SEVERE CONSITIPATION; Start at 23:00 Folic Acid (Folate) 1 mg DAILY PO Last administered on 04/22/17 09:47; Start 04/19/17 at 09:00; Stop 04/24/17 at 08:59 Thiamine HCl (Vitamin B1) 100 mg DAILY PO Last administered on 04/22/17 09:47 ; Start 04/19/17 at 09:00 Multivitamins/ Minerals Therapeutic (Theragran M Tab) 1 tab DAILY PO Last administered on 04/22/17 09:47; Start 04/19/17 at 09:00; Stop 04/24/17 at 08:59 Flumazenil (Romazicon Inj) 0.2 mg Q1M PRN IV PUSH SEE LABEL COMMENTS; Start at 23:00 Lorazepam (Ativan) 1 mg Q4H PRN PO CIWA 8 - 10; Start 04/18/17 at 23:00 Lorazepam (Ativan Inj) 1 mg Q4H PRN IV PUSH CIWA 8 - 10 Last administered on 00:56; Start 04/18/17 at 23:00 Lorazepam (Ativan) 2 mg Q2H PRN PO CIWA 11-14; Start 04/18/17 at 23:00 Lorazepam (Ativan Inj) 2 mg Q2H PRN IV PUSH CIWA 11-14 Last administered on 22:54; Start 04/18/17 at 23:00 Lorazepam (Ativan Inj) 2 mg Q1H PRN IV PUSH CIWA 15-20; Start 04/18/17 at 23:00 Lorazepam (Ativan Inj) 2 mg Q15M PRN IV PUSH CIWA > 20; Start 04/18/17 at 23:00 Haloperidol Lactate (Haldol Inj) 2 mg Q15M PRN IM SEE LABEL COMMENTS Last administered on 04/19/17 22:04; Start 04/18/17 at 23:00 Aspirin (Aspirin) 325 mg DAILY PO Last administered on 04/22/17 09:48; Start 04/19/17 at 09:00 Atorvastatin Calcium (Lipitor) 40 mg HS PO Last administered on 04/22/17 20:01 ; Start 04/19/17 at 21:00 Baclofen (Lioresal) 20 mg BID PO Last administered on 04/22/17 20:01; Start 04/19/17 at 09:00 Duloxetine HCl (Cymbalta Dr) 60 mg DAILY PO Last administered on 04/22/17 09: 47; Start 04/19/17 at 09:00 Lorazepam (Ativan) 0.5 mg Q8H PRN PO anxiety Last administered on 04/21/17 01: 38; Start 04/18/17 at 23:00 Metoprolol Succinate (Toprol Xl) 50 mg DAILY PO Last administered on 04/22/17 09:49; Start 04/19/17 at 09:00 Pantoprazole Sodium (Protonix) 40 mg DAILY PO Last administered on 04/22/17 09 :47; Start 04/19/17 at 09:00 Metoprolol Tartrate (Lopressor Inj) 5 mg ONCE ONCE IV PUSH Last administered on 04/19/17 00:10; Start 04/19/17 at 00:00; Stop 04/19/17 at 00:01; Status DC Labetalol HCl (Trandate Inj) 10 mg ONCE ONCE IV PUSH ; Start 04/19/17 at 00:15 ; Stop 04/19/17 at 00:16; Status DC Famotidine (Pepcid Inj) 10 mg ONCE IV PUSH ; Start 04/19/17 at 00:15 Clonidine (Catapres) 0.1 mg ONCE ONCE PO Last administered on 04/19/17 03:48 ; Start 04/19/17 at 02:00; Stop 04/19/17 at 02:01; Status DC Enalaprilat (Vasotec Inj) 2.5 mg Q6H PRN IV PUSH SEE LABEL COMMENTS Last administered on 04/20/17 08:31; Start 04/19/17 at 02:15 Haloperidol Lactate (Haldol Inj) 2 mg ONCE ONCE IV PUSH Last administered on 04/19/17 05:30; Start 04/19/17 at 05:00; Stop 04/19/17 at 05:01; Status DC Amlodipine Besylate (Norvasc) 5 mg DAILY PO Last administered on 04/22/17 09: 47; Start 04/19/17 at 10:00 Potassium Chloride (KCl) 30 meq ONCE ONCE PO Last administered on 04/19/17 15 :41; Start 04/19/17 at 12:45; Stop 04/19/17 at 12:49; Status DC Clonidine (Catapres) 0.1 mg Q6H PRN PO SBP> OR = 180, DBP> OR = 100; Start 04/19/17 at 16:15 Iohexol (Omnipaque 350 Inj) 100 ml STK-MED ONCE IVCONTRAST Last administered on 04/19/17 18:29; Start 04/19/17 at 18:29; Stop 04/19/17 at 18:30; Status DC Heparin Sodium (Porcine) (Heparin Inj) 10,000 units STK-MED ONCE .ROUTE Last administered on 04/20/17 11:35; Start 04/20/17 at 09:31; Stop 04/20/17 at 09:32 ; Status DC Cefazolin Sodium (Ancef Inj) 1,000 mg STK-MED ONCE .ROUTE Last administered on 04/20/17 11:20; Start 04/20/17 at 09:31; Stop 04/20/17 at 09:32; Status DC Lidocaine/ Epinephrine (Xylocaine-Epi 1%-1:100,000 Inj) 20 ml STK-MED ONCE .ROUTE Last administered on 04/20/17 11:35; Start 04/20/17 at 09:31; Stop 04/20/17 at 09:32; Status DC Vancomycin HCl (Vancomycin Inj) 1,000 mg ONCE ONCE IV Last administered on 13:29; Start 04/20/17 at 12:50; Stop 04/20/17 at 13:29; Status DC Morphine Sulfate (*morphine INJ PERIprocedure ONLY) 8 mg STK-MED ONCE .ROUTE Last administered on 04/20/17 14:10; Start 04/20/17 at 14:10; Stop 04/20/17 at 14:11; Status DC Miscellaneous Information ALL NURSING DEPARTME... UNSCH PRN .XX SEE LABEL COMMENTS; Start 04/20/17 at 13:22; Stop 04/21/17 at 13:21; Status DC Morphine Sulfate (*morphine INJ PERIprocedure ONLY) 8 mg STK-MED ONCE .ROUTE Last administered on 04/20/17 14:18; Start 04/20/17 at 14:18; Stop 04/20/17 at 14:19; Status DC Heparin Sodium/ Dextrose 250 ml @ 8 mls/hr TITRATE PRN IV Coagulation Management Last administered on 04/22/17 18:32; Start 04/20/17 at 14:00 Sodium Chloride 1,000 ml @ 60 mls/hr [id number] IV Last administered on 14:00; Start 04/20/17 at 14:00; Stop 04/20/17 at 18:39; Status DC Heparin Sodium (Porcine) (Heparin Inj) ONCE ONCE IV PUSH ; Start 04/20/17 at 14:45; Stop 04/20/17 at 14:46; Status UNV Heparin Sodium/ Dextrose 250 ml @ 6.6 mls/hr TITRATE PRN IV Coagulation Management; Start 04/20/17 at 14:45; Status UNV Sodium Chloride 1,000 ml @ 150 mls/hr Q6H40M IV Last administered on 02:00; Start 04/20/17 at 19:00 Cefazolin Sodium 1000 mg/Sodium Chloride 100 ml @ 200 mls/hr Q8H IV Last administered on 04/21/17 11:37; Start 04/20/17 at 18:45; Stop 04/21/17 at 11:14 ; Status DC Cefazolin Sodium (Ancef Inj) 1,000 mg STK-MED ONCE .ROUTE ; Start 04/20/17 at 19 :49; Stop 04/20/17 at 19:50; Status DC Morphine Sulfate (Morphine Inj) 2 mg STK-MED ONCE .ROUTE ; Start 04/20/17 at 20: 46; Stop 04/20/17 at 20:47; Status DC Miscellaneous Information ALL NURSING DEPARTME... UNSCH PRN .XX SEE LABEL COMMENTS; Start 04/20/17 at 20:23; Stop 04/21/17 at 20:22; Status DC Morphine Sulfate (Morphine Inj) 4 mg Q3H PRN IV PUSH Pain 6-10 Last administered on 04/23/17 05:52; Start 04/21/17 at 08:00 Cefazolin Sodium 1000 mg/Sodium Chloride 100 ml @ 200 mls/hr Q8H IV Last administered on 04/23/17 03:42; Start 04/21/17 at 20:00 Fentanyl (Duragesic 50 Mcg Patch.72 Hr) 1 patch Q3D T-DERMAL Last administered on 04/21/17 16:01; Start 04/21/17 at 16:00 Miscellaneous Information 1 Q3D T-DERMAL ; Start 04/24/17 at 16:00 A/P Problem List: (1) Ischemia of extremity ICD Code: I99.8 - Other disorder of circulatory system Status: Acute (2) Non-compliance ICD Code: Z91.19 - Patient's noncompliance with other medical treatment and regimen Status: Acute (3) HTN (hypertension) ICD Code: I10 - Essential (primary) hypertension Status: Acute (4) Leukocytosis ICD Code: D72.829 - Elevated white blood cell count, unspecified Status: Acute (5) Rhabdomyolysis ICD Code: M62.82 - Rhabdomyolysis (6) Alcohol abuse ICD Code: F10.10 - Alcohol abuse, uncomplicated Status: Acute (7) Tobacco abuse ICD Code: Z72.0 - Tobacco use Status: Acute Assessment and Plan A/P Limb Ischemia: h/o PAD s/p Aortobifemoral Bypass, Right Iliofemoral Bypass and Left Femoral Popliteal Artery Bypass by Dr. Gandhi 04/14/16 and declotting/ revision of the Right Aortobifemoral Graft w/ Right Femoral-Popliteal Bypass on 12/06/[address] Guerra, now w/ recurrent ischemia, likely secondary to non- compliance and ongoing tobacco abuse. - Started on Heparin gtt. - patient underwent Iliofemoral embolectomy, femoral-popliteal embolectomy, revision of the iliofemoral anastomosis graft, revision of femoral-popliteal graft with popliteal artery endarterectomy and bovine patch angioplasty. - continue with pain contro; pain is fairly controlled. - Further plans per Vascular surgery. My need amputation; awaiting vascular surgery f/u and recommendations. Alcohol withdrawal/DTs: Improving - Continue treatment per CIWA protocol. Haldol as needed. HTN: Better controlled - Continue metoprolol. Norvasc. Clonidine as needed. Rhabdomyolysis: improving- Continue IVF for hydration,will monitor the CPK level. Leukocytosis: Leukocytosis likely reactive secondary to hypoperfusion from limb ischemia- improving- will monitor. Alcohol Abuse: CIWA, Seizure Precautions, MVT/Thiamine/Folate Tobacco Abuse: Counselled. Ativan prn. DVT Prophylaxis: Heparin gtt Sindi Desai MD Apr 23, 2017 07:27
[2017-04-23 07:39] LABS: CALCIUM-PROTEIN CORRECTED 8.5 MG/DL (8.5-10.1); CKMB 72.4 NG/ML (0.5-3.6)
[2017-04-23 08:53] LABS: APTT (PATIENT) 40.5 SEC (24.3-30.1)
[2017-04-23] MEDS: PANTOPRAZOLE SOD 40 MG DELAYED RELEASE TAB PO SCH (09:00)
[2017-04-23] MEDS: MULTIVITAMINS/MINERALS THERAPEUTIC TAB PO SCH (09:00)
[2017-04-23] MEDS: SODIUM CHLORIDE 0.9% FLUSH 10 ML FLUSH IV FLUSH SCH ×2 (09:00→19:58)
[2017-04-23] MEDS: ASPIRIN 325 MG TAB PO SCH (09:05)
[2017-04-23] MEDS: DULoxetine HCl DR 60 MG CAP PO SCH (09:05)
[2017-04-23] MEDS: amLODIPine BESYLATE 5 MG TAB PO SCH (09:05)
[2017-04-23] MEDS: BACLOFEN 20 MG TAB PO SCH ×2 (09:05→19:58)
[2017-04-23] MEDS: THIAMINE HCL 100 MG TAB PO SCH (09:06)
[2017-04-23] MEDS: DOCUSATE SODIUM 50 MG/SENNA 8.6 MG TAB PO SCH ×2 (09:06→19:58)
[2017-04-23] MEDS: METOPROLOL SUCCINATE 50 MG EXTENDED RELEASE TAB PO SCH (09:06)
[2017-04-23] MEDS: FOLIC ACID 1 MG TAB PO SCH (09:06)
--- NOTE | 2017-04-23 11:55 | PD.CAR.PN ---
CVT Progress Note Subjective/Hospital Course: Patient evaluated Likely occlusion of the right femoral-popliteal bypass. Patient is very noncompliant never follow-up with my office after the surgery Spoken to interventional radiology Based on CTA will likely need tPA lysis Full consult to follow Nesha J 04/20/17 CTA with runoff reveals complete occlusion of the right sided flow starting from the aorta down into the leg. Patient has occlusion of the aortofemoral bypass femoral-popliteal bypass and popliteal artery to the level of the knee. Distal vessels are barely discernible in face of lack of flow We'll take patient to the operating room for revision of aorta to femoral graft femoral-popliteal bypass thromboembolectomy and possible axillofemoral bypass depending on the circumstances Despite all these measures there is a very high likelihood that this patient will lose his leg above the knee eventually considering the fact that he has no discernible flow below the level of the knee and his disease is severely advanced This will be last ditch effort to save the leg but explained to the patient there is high likelihood he will lose the right leg. 04/23/17 C/O worsening calf pain, medication adjusted Foot is edematous s/p fasciotomy Objective: Vital Signs Date Time Temp Pulse Resp B/P (MAP) Pulse Ox O2 Delivery O2 Flow Rate FiO2 04/23/17 10:00 80 04/23/17 09:00 84 04/23/17 08:00 88 04/23/17 07:30 98.4 88 18 116/69 (85) 97 04/23/17 07:30 98 04/23/17 07:30 97 Room Air 04/23/17 06:00 92 04/23/17 05:00 76 04/23/17 04:00 78 04/23/17 03:45 96 Room Air 04/23/17 03:45 100.1 87 16 121/69 (86) 96 04/23/17 03:00 79 04/23/17 02:00 78 04/23/17 01:00 83 04/23/17 00:00 80 04/22/17 23:45 97.9 85 18 104/70 (81) 96 04/22/17 23:45 95 Room Air 04/22/17 23:00 79 04/22/17 22:00 80 04/22/17 21:00 78 04/22/17 20:00 78 04/22/17 19:30 98.5 87 18 113/69 (84) 96 04/22/17 19:30 96 Room Air 04/22/17 19:00 81 04/22/17 18:36 19 04/22/17 18:36 19 04/22/17 18:05 70 04/22/17 17:00 73 04/22/17 16:00 67 04/22/17 15:01 98.7 77 17 107/62 (77) 97 04/22/17 15:01 97 Room Air 04/22/17 15:01 79 04/22/17 14:00 70 04/22/17 13:00 76 04/22/17 12:00 87 Labs: Laboratory Tests Test 04/23/17 05:34 04/23/17 08:15 White Blood Count 12.7 TH/MM3 (4.0-11.0) Red Blood Count 3.30 MIL/MM3 (4.50-5.90) Hemoglobin 10.7 GM/DL (13.0-17.0) Hematocrit 32.1 % (39.0-51.0) Mean Corpuscular Volume 97.1 FL (80.0-100.0) Mean Corpuscular Hemoglobin 32.3 PG (27.0-34.0) Mean Corpuscular Hemoglobin Concent 33.3 % (32.0-36.0) Red Cell Distribution Width 14.1 % (11.6-17.2) Platelet Count 214 TH/MM3 (150-450) Mean Platelet Volume 7.1 FL (7.0-11.0) Activated Partial Thromboplast Time 39.8 SEC (24.3-30.1) 40.5 SEC (24.3-30.1) Blood Urea Nitrogen 4 MG/DL (7-18) Creatinine 0.50 MG/DL (0.60-1.30) Random Glucose 86 MG/DL (74-106) Total Protein 5.2 GM/DL (6.4-8.2) Calcium Level 7.4 MG/DL (8.5-10.1) Sodium Level 138 MEQ/L (136-145) Potassium Level 3.5 MEQ/L (3.5-5.1) Chloride Level 105 MEQ/L (98-107) Carbon Dioxide Level 25.2 MEQ/L (21.0-32.0) Anion Gap 8 MEQ/L (5-15) Estimat Glomerular Filtration Rate 174 ML/MIN (>89) Protein Corrected Calcium 8.5 MG/DL (8.5-10.1) Total Creatine Kinase 99192 U/L (39-308) Creatine Kinase MB 72.4 NG/ML (0.5-3.6) Creatine Kinase MB % 0.7 % (0.0-4.0) Result Diagram: 04/23/17 0534 04/23/17 0534 Cardiovascular: RRR Pulmonary: CTA B GI/: Soft, NT, ND Incision: Clead, dry, intact, right groin with dry hematoma, no active bleeding Edema: right foot edematous Plan: Continue wound care, fasciotomy care per Dr. Kimball Likely AKA due to poor perfusion below the knee Silviano Brantley MD Apr 23, 2017 11:55
[2017-04-23 13:54] LABS: APTT (PATIENT) 38.7 SEC (24.3-30.1)
[2017-04-23] MEDS: GABAPENTIN 300 MG CAP PO SCH (17:38)
[2017-04-23] MEDS: RIVAROXABAN 10 MG TAB PO SCH (18:19)
[2017-04-23] MEDS: ATORVASTATIN 40 MG TAB PO SCH (19:58)
[2017-04-23] MEDS ORDERED: ZOLPIDEM TARTRATE 10 MG TAB PO ONE (21:00)
[2017-04-24] VITALS (28 sets, daily range): BP systolic 116–142; BP diastolic 61–78; PULSE 60–95; RESP 17–18; TEMP 97.9–99.3; O2SAT 94–98
[2017-04-24] MEDS: SODIUM CHLOR 0.9% 1000 ML INJ 1,000 ML IV SCH ×3 (02:15→16:20)
[2017-04-24] MEDS: ceFAZolin 1,000 MG/NS 100 ML IV SCH ×6 (04:52→21:27)
--- NOTE | 2017-04-24 07:46 | HHI.PR ---
Subjective Remarks in no acute distress. pain is better. no fever. no new complaints. d/w the RN and no acute issues over night. Objective Vitals Vital Signs Date Time Temp Pulse Resp B/P (MAP) Pulse Ox O2 Delivery O2 Flow Rate FiO2 04/24/17 06:17 84 04/24/17 05:04 81 04/24/17 04:15 84 04/24/17 03:40 81 04/24/17 03:25 98.0 91 17 116/78 (91) 95 04/24/17 03:25 95 Room Air 04/24/17 02:12 74 04/24/17 01:04 81 04/24/17 00:36 70 04/23/17 23:25 69 04/23/17 23:25 94 Room Air 04/23/17 23:25 98.1 75 16 104/66 (79) 94 04/23/17 22:19 76 04/23/17 21:00 74 04/23/17 20:15 74 04/23/17 19:20 94 Room Air 04/23/17 19:20 98.3 70 18 109/63 (78) 94 04/23/17 19:20 75 04/23/17 18:00 73 04/23/17 17:00 85 04/23/17 16:00 82 04/23/17 15:00 77 04/23/17 15:00 97.6 81 18 105/78 (87) 94 04/23/17 15:00 94 Room Air 04/23/17 14:00 86 04/23/17 13:00 75 04/23/17 12:00 80 04/23/17 11:00 98 Room Air 04/23/17 11:00 75 04/23/17 11:00 98.1 82 16 116/60 (78) 97 04/23/17 10:00 80 04/23/17 09:00 84 04/23/17 08:00 88 I/O 04/23/17 04/23/17 04/23/17 04/24/17 04/24/17 04/24/17 07:00 15:00 23:00 07:00 15:00 23:00 Intake Total 2409 ml 914 ml 240 ml 240 ml Output Total 1750 ml 520 ml 1200 ml Balance 659 ml 914 ml -280 ml -960 ml Intake Oral 1200 ml 240 ml 240 ml IV Total 1209 ml 914 ml Output Urine Total 1750 ml 520 ml 1200 ml # Bowel Movements 0 0 Result Diagram: 04/23/17 0534 04/23/17 0534 Imaging Last Impressions Chest X-Ray 04/18/172044 Signed Impressions: Service Date/Time: Tuesday, April 18, 2017 21:33 - CONCLUSION: No evidence of acute cardiopulmonary disease. Delonte Mas MD Aorta w/Runoff CTA 04/18/17 0000 Signed Impressions: Service Date/Time: Wednesday, April 19, 2017 17:42 - CONCLUSION: 1. Aortobifemoral bypass with interval occlusion of the right iliac limb and right common from arteries. There is also persistent occlusion of the profunda and SFA with occlusion of interval right femoral to popliteal bypass graft. Popliteal artery and runoff vessels on the right are also not opacified. However, this may be flow related. 2. Persistent occlusion of left femoral to below knee popliteal artery bypass graft do to below knee popliteal artery occlusion. There is reconstitution of the runoff vessels via genicular collaterals with 3 vessel runoff to the left foot. Conrado Lynn MD Objective Remarks GENERAL: This is a well-nourished, well-developed patient, in no apparent distress. CARDIOVASCULAR: Regular rate and regular rhythm without murmurs, gallops, or rubs. RESPIRATORY: Clear to auscultation. Breath sounds equal bilaterally. No wheezes , rales, or rhonchi. GASTROINTESTINAL: Abdomen soft, non-tender, nondistended. Normal, active bowel sounds MUSCULOSKELETAL: right leg covered with clean dressing. NEURO: Alert & Oriented x4 to person, place, time, situation. Moves all ext x4 Medications and IVs Current Medications Morphine Sulfate (Morphine Inj) 4 mg ONCE ONCE IV PUSH Last administered on 21:46; Start 04/18/17 at 21:15; Stop 04/18/17 at 21:16; Status DC Ondansetron HCl (Zofran Inj) 4 mg ONCE ONCE IV PUSH Last administered on 21:46; Start 04/18/17 at 21:15; Stop 04/18/17 at 21:16; Status DC Sodium Chloride 1,000 ml @ 100 mls/hr Q10H IV Last administered on 04/19/17 07:15; Start 04/18/17 at 21:15; Stop 04/20/17 at 14:52; Status DC Heparin Sodium (Porcine) (Heparin Inj) 4,000 units ONCE ONCE IV Last administered on 04/18/17 23:55; Start 04/18/17 at 23:00; Stop 04/18/17 at 23:01 ; Status DC Heparin Sodium/ Dextrose 250 ml @ 10 mls/hr TITRATE PRN IV Coagulation Management Last administered on 04/20/17 08:23; Start 04/18/17 at 23:00; Stop 04/20/17 at 14:21; Status DC Sodium Chloride (NS Flush) 2 ml UNSCH PRN IV FLUSH FLUSH AFTER USING IV ACCESS ; Start 04/18/17 at 23:00 Sodium Chloride (NS Flush) 2 ml BID IV FLUSH Last administered on 04/23/17 19: 58; Start 04/19/17 at 09:00 Ondansetron HCl (Zofran Inj) 4 mg Q6H PRN IVP NAUSEA OR VOMITING; Start at 23:00 Acetaminophen (Tylenol) 650 mg Q6H PRN PO FEVER/PAIN SCALE 1 TO 2; Start at 23:00 Acetaminophen/ Hydrocodone Bitart ([place] 5-325 Mg) 1 tab Q4H PRN PO PAIN SCALE 3 TO 5 Last administered on 04/23/17 09:08; Start 04/18/17 at 23:00 Morphine Sulfate (Morphine Inj) 2 mg Q3H PRN IV PUSH Pain 6-10 Last administered on 04/21/17 06:40; Start 04/18/17 at 23:00; Stop 04/21/17 at 08:00 ; Status DC Senna/Docusate Sodium (Neeta-Colace) 1 tab BID PO Last administered on 19:58; Start 04/19/17 at 09:00 Magnesium Hydroxide (Milk Of Magnesia Liq) 30 ml Q12H PRN PO Mild constipation ; Start 04/18/17 at 23:00 Sennosides (Senokot) 17.2 mg Q12H PRN PO Moderate constipation; Start 04/18/17 at 23:00 Bisacodyl (Dulcolax Supp) 10 mg DAILY PRN RECTAL SEVERE CONSITIPATION; Start 04/18/17 at 23:00 Lactulose (Lactulose Liq) 30 ml DAILY PRN PO SEVERE CONSITIPATION; Start at 23:00 Folic Acid (Folate) 1 mg DAILY PO Last administered on 04/23/17 09:06; Start 04/19/17 at 09:00; Stop 04/24/17 at 08:59 Thiamine HCl (Vitamin B1) 100 mg DAILY PO Last administered on 04/23/17 09:06 ; Start 04/19/17 at 09:00 Multivitamins/ Minerals Therapeutic (Theragran M Tab) 1 tab DAILY PO Last administered on 04/23/17 09:00; Start 04/19/17 at 09:00; Stop 04/24/17 at 08:59 Flumazenil (Romazicon Inj) 0.2 mg Q1M PRN IV PUSH SEE LABEL COMMENTS; Start at 23:00 Lorazepam (Ativan) 1 mg Q4H PRN PO CIWA 8 - 10; Start 04/18/17 at 23:00 Lorazepam (Ativan Inj) 1 mg Q4H PRN IV PUSH CIWA 8 - 10 Last administered on 00:56; Start 04/18/17 at 23:00 Lorazepam (Ativan) 2 mg Q2H PRN PO CIWA 11-14; Start 04/18/17 at 23:00 Lorazepam (Ativan Inj) 2 mg Q2H PRN IV PUSH CIWA 11-14 Last administered on 22:54; Start 04/18/17 at 23:00 Lorazepam (Ativan Inj) 2 mg Q1H PRN IV PUSH CIWA 15-20; Start 04/18/17 at 23:00 Lorazepam (Ativan Inj) 2 mg Q15M PRN IV PUSH CIWA > 20; Start 04/18/17 at 23:00 Haloperidol Lactate (Haldol Inj) 2 mg Q15M PRN IM SEE LABEL COMMENTS Last administered on 04/19/17 22:04; Start 04/18/17 at 23:00 Aspirin (Aspirin) 325 mg DAILY PO Last administered on 04/23/17 09:05; Start 04/19/17 at 09:00 Atorvastatin Calcium (Lipitor) 40 mg HS PO Last administered on 04/23/17 19:58 ; Start 04/19/17 at 21:00 Baclofen (Lioresal) 20 mg BID PO Last administered on 04/23/17 19:58; Start 04/19/17 at 09:00 Duloxetine HCl (Cymbalta Dr) 60 mg DAILY PO Last administered on 04/23/17 09: 05; Start 04/19/17 at 09:00 Lorazepam (Ativan) 0.5 mg Q8H PRN PO anxiety Last administered on 04/21/17 01: 38; Start 04/18/17 at 23:00 Metoprolol Succinate (Toprol Xl) 50 mg DAILY PO Last administered on 04/23/17 09:06; Start 04/19/17 at 09:00 Pantoprazole Sodium (Protonix) 40 mg DAILY PO Last administered on 04/22/17 09 :47; Start 04/19/17 at 09:00 Metoprolol Tartrate (Lopressor Inj) 5 mg ONCE ONCE IV PUSH Last administered on 04/19/17 00:10; Start 04/19/17 at 00:00; Stop 04/19/17 at 00:01; Status DC Labetalol HCl (Trandate Inj) 10 mg ONCE ONCE IV PUSH ; Start 04/19/17 at 00:15 ; Stop 04/19/17 at 00:16; Status DC Famotidine (Pepcid Inj) 10 mg ONCE IV PUSH ; Start 04/19/17 at 00:15 Clonidine (Catapres) 0.1 mg ONCE ONCE PO Last administered on 04/19/17 03:48 ; Start 04/19/17 at 02:00; Stop 04/19/17 at 02:01; Status DC Enalaprilat (Vasotec Inj) 2.5 mg Q6H PRN IV PUSH SEE LABEL COMMENTS Last administered on 04/20/17 08:31; Start 04/19/17 at 02:15 Haloperidol Lactate (Haldol Inj) 2 mg ONCE ONCE IV PUSH Last administered on 04/19/17 05:30; Start 04/19/17 at 05:00; Stop 04/19/17 at 05:01; Status DC Amlodipine Besylate (Norvasc) 5 mg DAILY PO Last administered on 04/23/17 09: 05; Start 04/19/17 at 10:00 Potassium Chloride (KCl) 30 meq ONCE ONCE PO Last administered on 04/19/17 15 :41; Start 04/19/17 at 12:45; Stop 04/19/17 at 12:49; Status DC Clonidine (Catapres) 0.1 mg Q6H PRN PO SBP> OR = 180, DBP> OR = 100; Start 04/19/17 at 16:15 Iohexol (Omnipaque 350 Inj) 100 ml STK-MED ONCE IVCONTRAST Last administered on 04/19/17 18:29; Start 04/19/17 at 18:29; Stop 04/19/17 at 18:30; Status DC Heparin Sodium (Porcine) (Heparin Inj) 10,000 units STK-MED ONCE .ROUTE Last administered on 04/20/17 11:35; Start 04/20/17 at 09:31; Stop 04/20/17 at 09:32 ; Status DC Cefazolin Sodium (Ancef Inj) 1,000 mg STK-MED ONCE .ROUTE Last administered on 04/20/17 11:20; Start 04/20/17 at 09:31; Stop 04/20/17 at 09:32; Status DC Lidocaine/ Epinephrine (Xylocaine-Epi 1%-1:100,000 Inj) 20 ml STK-MED ONCE .ROUTE Last administered on 04/20/17 11:35; Start 04/20/17 at 09:31; Stop 04/20/17 at 09:32; Status DC Vancomycin HCl (Vancomycin Inj) 1,000 mg ONCE ONCE IV Last administered on 13:29; Start 04/20/17 at 12:50; Stop 04/20/17 at 13:29; Status DC Morphine Sulfate (*morphine INJ PERIprocedure ONLY) 8 mg STK-MED ONCE .ROUTE Last administered on 04/20/17 14:10; Start 04/20/17 at 14:10; Stop 04/20/17 at 14:11; Status DC Miscellaneous Information ALL NURSING DEPARTME... UNSCH PRN .XX SEE LABEL COMMENTS; Start 04/20/17 at 13:22; Stop 04/21/17 at 13:21; Status DC Morphine Sulfate (*morphine INJ PERIprocedure ONLY) 8 mg STK-MED ONCE .ROUTE Last administered on 04/20/17 14:18; Start 04/20/17 at 14:18; Stop 04/20/17 at 14:19; Status DC Heparin Sodium/ Dextrose 250 ml @ 8 mls/hr TITRATE PRN IV Coagulation Management Last administered on 04/22/17 18:32; Start 04/20/17 at 14:00; Stop 04/23/17 at 17:06; Status DC Sodium Chloride 1,000 ml @ 60 mls/hr [id number] IV Last administered on 14:00; Start 04/20/17 at 14:00; Stop 04/20/17 at 18:39; Status DC Heparin Sodium (Porcine) (Heparin Inj) ONCE ONCE IV PUSH ; Start 04/20/17 at 14:45; Stop 04/20/17 at 14:46; Status UNV Heparin Sodium/ Dextrose 250 ml @ 6.6 mls/hr TITRATE PRN IV Coagulation Management; Start 04/20/17 at 14:45; Status UNV Sodium Chloride 1,000 ml @ 150 mls/hr Q6H40M IV Last administered on 09:18; Start 04/20/17 at 19:00 Cefazolin Sodium 1000 mg/Sodium Chloride 100 ml @ 200 mls/hr Q8H IV Last administered on 04/21/17 11:37; Start 04/20/17 at 18:45; Stop 04/21/17 at 11:14 ; Status DC Cefazolin Sodium (Ancef Inj) 1,000 mg STK-MED ONCE .ROUTE ; Start 04/20/17 at 19 :49; Stop 04/20/17 at 19:50; Status DC Morphine Sulfate (Morphine Inj) 2 mg STK-MED ONCE .ROUTE ; Start 04/20/17 at 20: 46; Stop 04/20/17 at 20:47; Status DC Miscellaneous Information ALL NURSING DEPARTME... UNSCH PRN .XX SEE LABEL COMMENTS; Start 04/20/17 at 20:23; Stop 04/21/17 at 20:22; Status DC Morphine Sulfate (Morphine Inj) 4 mg Q3H PRN IV PUSH Pain 6-10 Last administered on 04/23/17 23:08; Start 04/21/17 at 08:00 Cefazolin Sodium 1000 mg/Sodium Chloride 100 ml @ 200 mls/hr Q8H IV Last administered on 04/24/17 04:52; Start 04/21/17 at 20:00 Fentanyl (Duragesic 50 Mcg Patch.72 Hr) 1 patch Q3D T-DERMAL Last administered on 04/21/17 16:01; Start 04/21/17 at 16:00 Miscellaneous Information 1 Q3D T-DERMAL ; Start 04/24/17 at 16:00 Acetaminophen/ Hydrocodone Bitart ([place] 5-325 Mg) 2 tab Q4H PRN PO pain 6-10 Last administered on 04/23/17 21:24; Start 04/23/17 at 12:00 Gabapentin (Neurontin) 300 mg TID PO Last administered on 04/23/17 17:38; Start 04/23/17 at 18:00 Rivaroxaban (Xarelto) 10 mg DAILY PO Last administered on 04/23/17 18:19; Start 04/23/17 at 17:07 Zolpidem Tartrate (Ambien) 10 mg ONCE ONCE PO Last administered on 04/23/17 21:24; Start 04/23/17 at 21:00; Stop 04/23/17 at 21:01; Status DC A/P Problem List: (1) Ischemia of extremity ICD Code: I99.8 - Other disorder of circulatory system Status: Acute (2) Non-compliance ICD Code: Z91.19 - Patient's noncompliance with other medical treatment and regimen Status: Acute (3) HTN (hypertension) ICD Code: I10 - Essential (primary) hypertension Status: Acute (4) Leukocytosis ICD Code: D72.829 - Elevated white blood cell count, unspecified Status: Acute (5) Rhabdomyolysis ICD Code: M62.82 - Rhabdomyolysis (6) Alcohol abuse ICD Code: F10.10 - Alcohol abuse, uncomplicated Status: Acute (7) Tobacco abuse ICD Code: Z72.0 - Tobacco use Status: Acute Assessment and Plan A/P Limb Ischemia: h/o PAD s/p Aortobifemoral Bypass, Right Iliofemoral Bypass and Left Femoral Popliteal Artery Bypass by Dr. Gandhi 04/14/16 and declotting/ revision of the Right Aortobifemoral Graft w/ Right Femoral-Popliteal Bypass on 12/06/[address] Guerra, now w/ recurrent ischemia, likely secondary to non- compliance and ongoing tobacco abuse. - patient underwent Iliofemoral embolectomy, femoral-popliteal embolectomy, revision of the iliofemoral anastomosis graft, revision of femoral-popliteal graft with popliteal artery endarterectomy and bovine patch angioplasty. -- started on Xarelto. - continue with pain contro; pain is fairly controlled. - Further plans per Vascular surgery. My need amputation. Alcohol withdrawal/DTs: Improving - Continue treatment per CIWA protocol. Haldol as needed. HTN: Better controlled - Continue metoprolol. Norvasc. Clonidine as needed. Rhabdomyolysis: improving- Continue IVF for hydration,will monitor the CPK level. Leukocytosis: Leukocytosis likely reactive secondary to hypoperfusion from limb ischemia- improving- will monitor. Alcohol Abuse: CIWA, Seizure Precautions, MVT/Thiamine/Folate Tobacco Abuse: Counselled. Ativan prn. DVT Prophylaxis: Xarelto consult PT. Discharge Planning discharge when ok with vascular surgery. Sindi Desai MD Apr 24, 2017 07:46
[2017-04-24 08:39] LABS: HEMATOCRIT 31.6 % (39.0-51.0); MEAN CELL VOLUME 94.9 FL (80.0-100.0); MEAN CORPUSCULAR HEMOGLOBIN 32.4 PG (27.0-34.0); MEAN CORPUSCULAR HGB CONC 34.2 % (32.0-36.0); PLATELET COUNT 278 TH/MM3 (150-450); RED BLOOD COUNT 3.33 MIL/MM3 (4.50-5.90); RED CELL DISTRIBUTION WIDTH 13.5 % (11.6-17.2); REVIEW FLAG FINAL; WHITE BLOOD COUNT 12.9 TH/MM3 (4.0-11.0)
[2017-04-24 08:49] LABS: APTT (PATIENT) 35.1 SEC (24.3-30.1)
[2017-04-24] MEDS: ACETAMINOPHEN/HYDROcodone 325 MG/5 MG TAB PO PRN ×4 (09:00→21:28)
[2017-04-24] MEDS: THIAMINE HCL 100 MG TAB PO SCH (09:00)
[2017-04-24] MEDS: RIVAROXABAN 10 MG TAB PO SCH (09:00)
[2017-04-24] MEDS: ASPIRIN 325 MG TAB PO SCH (09:00)
[2017-04-24] MEDS: BACLOFEN 20 MG TAB PO SCH ×2 (09:00→21:28)
[2017-04-24] MEDS: METOPROLOL SUCCINATE 50 MG EXTENDED RELEASE TAB PO SCH (09:00)
[2017-04-24] MEDS: GABAPENTIN 300 MG CAP PO SCH ×3 (09:00→17:12)
[2017-04-24] MEDS: DULoxetine HCl DR 60 MG CAP PO SCH (09:00)
[2017-04-24] MEDS: SODIUM CHLORIDE 0.9% FLUSH 10 ML FLUSH IV FLUSH SCH ×2 (09:00→21:28)
[2017-04-24] MEDS: DOCUSATE SODIUM 50 MG/SENNA 8.6 MG TAB PO SCH ×2 (09:01→21:28)
[2017-04-24] MEDS: PANTOPRAZOLE SOD 40 MG DELAYED RELEASE TAB PO SCH (09:01)
[2017-04-24] MEDS: amLODIPine BESYLATE 5 MG TAB PO SCH (09:01)
[2017-04-24] MEDS: MORPHINE SULFATE 4 MG/ML INJ IV PUSH PRN ×3 (10:49→22:22)
--- NOTE | 2017-04-24 12:38 | MP ---
cc: KASANDRA KIMBALL DATE OF SURGERY: 04/21/2017 PREOPERATIVE DIAGNOSIS: Compartment syndrome following right lower extremity revascularization. POSTOPERATIVE DIAGNOSIS: Compartment syndrome following right lower extremity revascularization. OPERATION: Four compartment fasciotomy below the knee. SURGEON: Kasandra Kimball MD ANESTHESIA General endotracheal DESCRIPTION OF PROCEDURE With the patient in the supine position general endotracheal anesthesia was induced, the right leg prepped with Betadine and draped in a sterile fashion. A vertical incision was performed along the right mid inferior tibial region. Beginning several centimeters distal to the fibular head and extending below the area of obvious compartment edema. The fascia within the anterior and lateral musculature segments was vertically incised along the knee and entire length of the skin incision, care taken to avoid injury to the superficial or common peroneal nerves. Attention was then directed to the posterior compartments. A vertical incision was performed along the medial calf approximately 2-3 cm lateral to the tibial crest extending half way down to the medial malleolus. The superficial posterior compartment fascia was vertically incised. The soleus was dissected free of the posterior attachments to the tibia during the deep compartment as well. The muscle tissue and all four compartments appeared quite ill initially but towards in the procedure actually exhibited improved perfusion, became somewhat pinker. There was no. muscle tissue grossly apparent. Both wounds were dressed with Adaptic, ABD and sterile gauze. There were no operative complications. The conclusion of the procedure a faint biphasic Doppler flow was detected within the dorsalis pedis wears as none was present prior to initiation of the procedure. The patient returned to the recovery room in stable condition having tolerated procedure well. MD NIHARIKA Heck/yannick /4:33 PM /12:15 PM
[2017-04-24] MEDS ORDERED: REMOVE OLD DURAGESIC (FENTANYL) PATCH T-DERMAL SCH (16:00)
--- NOTE | 2017-04-24 16:12 | HHI.PR ---
Subjective Subjective Notes feeling better,pain controlled Objective Vitals/I&O Vital Signs Date Time Temp Pulse Resp B/P (MAP) Pulse Ox O2 Delivery O2 Flow Rate FiO2 04/24/17 15:36 97.9 77 18 117/72 (87) 98 04/24/17 15:36 Room Air 04/22/17 11:00 2.00 04/20/17 23:49 21 Labs Laboratory Tests Test 04/24/17 08:25 White Blood Count 12.9 Red Blood Count 3.33 Hemoglobin 10.8 Hematocrit 31.6 Mean Corpuscular Volume 94.9 Mean Corpuscular Hemoglobin 32.4 Mean Corpuscular Hemoglobin Concent 34.2 Red Cell Distribution Width 13.5 Platelet Count 278 Mean Platelet Volume 6.9 Activated Partial Thromboplast Time 35.1 Cardiovascular: Regular Lungs: Clear Extremities: Other Narrative Exam right leg wound dressing clean erythema right foot Wound Wound : Wound Location: Right leg Dressing: Dry A/P Assessment and Plan s/p fasciotomy after revision of bypass continue dressing change,medical care Yenny Bardales MD Apr 24, 2017 16:12
[2017-04-24] MEDS: fentaNYL 50 MCG/HR PATCH T-DERMAL SCH (16:14)
--- NOTE | 2017-04-24 19:43 | PD.CAR.PN ---
CVT Progress Note Subjective/Hospital Course: Patient evaluated Likely occlusion of the right femoral-popliteal bypass. Patient is very noncompliant never follow-up with my office after the surgery Spoken to interventional radiology Based on CTA will likely need tPA lysis Full consult to follow Nesha J 04/20/17 CTA with runoff reveals complete occlusion of the right sided flow starting from the aorta down into the leg. Patient has occlusion of the aortofemoral bypass femoral-popliteal bypass and popliteal artery to the level of the knee. Distal vessels are barely discernible in face of lack of flow We'll take patient to the operating room for revision of aorta to femoral graft femoral-popliteal bypass thromboembolectomy and possible axillofemoral bypass depending on the circumstances Despite all these measures there is a very high likelihood that this patient will lose his leg above the knee eventually considering the fact that he has no discernible flow below the level of the knee and his disease is severely advanced This will be last ditch effort to save the leg but explained to the patient there is high likelihood he will lose the right leg. 04/23/17 C/O worsening calf pain, medication adjusted Foot is edematous s/p fasciotomy 04/24/17 Patient doing well at this time Bounding femoral and popliteal pulses on palpation and distal by Doppler Foot is nice and warm red and hyperperfused Fasciotomy nice and clean and very grateful for Dr. Kimball Patient of heparin and started on factor X a inhibitors Will go home on the same probably Xarelto Needs aggressive physical therapy and an case management will have to place him in some sort of a fci because he cannot go home and take care of this on his own Will eventually need a skin graft Objective: Vital Signs Date Time Temp Pulse Resp B/P (MAP) Pulse Ox O2 Delivery O2 Flow Rate FiO2 04/24/17 18:00 84 04/24/17 17:00 82 04/24/17 16:00 80 04/24/17 15:36 97.9 77 18 117/72 (87) 98 04/24/17 15:36 98 Room Air 04/24/17 15:00 75 04/24/17 14:00 62 04/24/17 13:00 72 04/24/17 12:00 60 04/24/17 11:05 98.1 70 18 117/61 (79) 95 04/24/17 11:05 95 Room Air 04/24/17 11:00 68 04/24/17 10:00 66 04/24/17 09:00 95 04/24/17 08:00 70 04/24/17 07:16 99.3 95 18 142/70 (94) 94 04/24/17 07:16 94 Room Air 04/24/17 07:00 86 04/24/17 06:17 84 04/24/17 05:04 81 04/24/17 04:15 84 04/24/17 03:40 81 04/24/17 03:25 98.0 91 17 116/78 (91) 95 04/24/17 03:25 95 Room Air 04/24/17 02:12 74 04/24/17 01:04 81 04/24/17 00:36 70 04/23/17 23:25 69 04/23/17 23:25 94 Room Air 04/23/17 23:25 98.1 75 16 104/66 (79) 94 04/23/17 22:19 76 04/23/17 21:00 74 04/23/17 20:15 74 Labs: Laboratory Tests Test 04/24/17 08:25 White Blood Count 12.9 TH/MM3 (4.0-11.0) Red Blood Count 3.33 MIL/MM3 (4.50-5.90) Hemoglobin 10.8 GM/DL (13.0-17.0) Hematocrit 31.6 % (39.0-51.0) Mean Corpuscular Volume 94.9 FL (80.0-100.0) Mean Corpuscular Hemoglobin 32.4 PG (27.0-34.0) Mean Corpuscular Hemoglobin Concent 34.2 % (32.0-36.0) Red Cell Distribution Width 13.5 % (11.6-17.2) Platelet Count 278 TH/MM3 (150-450) Mean Platelet Volume 6.9 FL (7.0-11.0) Activated Partial Thromboplast Time 35.1 SEC (24.3-30.1) Result Diagram: 04/24/17 0825 04/23/17 0534 Raad Guerra MD Apr 24, 2017 19:43
[2017-04-24] MEDS: ATORVASTATIN 40 MG TAB PO SCH (21:28)
[2017-04-25] VITALS (26 sets, daily range): BP systolic 116–159; BP diastolic 70–78; PULSE 60–102; RESP 17–20; TEMP 98–98.4; O2SAT 95–98
[2017-04-25] MEDS: ACETAMINOPHEN/HYDROcodone 325 MG/5 MG TAB PO PRN ×5 (01:28→20:24)
[2017-04-25] MEDS: MORPHINE SULFATE 4 MG/ML INJ IV PUSH PRN ×6 (02:36→22:06)
[2017-04-25] MEDS: ceFAZolin 1,000 MG/NS 100 ML IV SCH ×4 (05:21→11:36)
[2017-04-25] MEDS: SODIUM CHLOR 0.9% 1000 ML INJ 1,000 ML IV SCH ×2 (05:23→05:40)
[2017-04-25 07:14] LABS: BASOPHIL % 0.3 % (0.0-2.0); EOSINOPHIL # 0.3 TH/MM3 (0-0.4); EOSINOPHIL % 2.2 % (0.0-4.0); HEMATOCRIT 32.7 % (39.0-51.0); HEMO FLAGS DIFF FINAL; LYMPH % 18.2 % (9.0-44.0); LYMPHOCYTE # 2.3 TH/MM3 (1.0-4.8); MEAN CELL VOLUME 97.7 FL (80.0-100.0); MEAN CORPUSCULAR HEMOGLOBIN 32.9 PG (27.0-34.0); MEAN CORPUSCULAR HGB CONC 33.6 % (32.0-36.0); MONO % 9.2 % (0.0-8.0); NEUT % 70.1 % (16.0-70.0); PLATELET COUNT 336 TH/MM3 (150-450); RED BLOOD COUNT 3.35 MIL/MM3 (4.50-5.90); RED CELL DISTRIBUTION WIDTH 14.2 % (11.6-17.2); WHITE BLOOD COUNT 12.8 TH/MM3 (4.0-11.0)
[2017-04-25 07:28] LABS: APTT (PATIENT) 30.4 SEC (24.3-30.1)
--- NOTE | 2017-04-25 07:41 | HHI.PR ---
Subjective Remarks in no acute distress. pain is fairly controlled. no new complaints. d/w the RN and no acute issues over night. Objective Vitals Vital Signs Date Time Temp Pulse Resp B/P (MAP) Pulse Ox O2 Delivery O2 Flow Rate FiO2 04/25/17 06:00 75 04/25/17 05:00 78 04/25/17 04:13 97 Room Air 04/25/17 04:11 75 04/25/17 04:00 98.0 78 18 135/78 (97) 97 04/25/17 03:00 74 04/25/17 02:00 74 04/25/17 01:00 74 04/25/17 00:05 72 04/25/17 00:04 97 Room Air 04/25/17 00:00 98.4 70 18 142/74 (96) 97 04/24/17 23:00 68 04/24/17 22:00 86 04/24/17 21:00 74 04/24/17 20:00 73 04/24/17 20:00 98.1 73 18 117/71 (86) 97 04/24/17 20:00 97 Room Air 04/24/17 19:00 73 04/24/17 18:00 84 04/24/17 17:00 82 04/24/17 16:00 80 04/24/17 15:36 97.9 77 18 117/72 (87) 98 04/24/17 15:36 98 Room Air 04/24/17 15:00 75 04/24/17 14:00 62 04/24/17 13:00 72 04/24/17 12:00 60 04/24/17 11:05 98.1 70 18 117/61 (79) 95 04/24/17 11:05 95 Room Air 04/24/17 11:00 68 04/24/17 10:00 66 04/24/17 09:00 95 04/24/17 08:00 70 I/O 04/24/17 04/24/17 04/24/17 04/25/17 04/25/17 04/25/17 07:00 15:00 23:00 07:00 15:00 23:00 Intake Total 240 ml 2127 ml 1920 ml Output Total 1200 ml 950 ml 1150 ml Balance -960 ml 1177 ml 770 ml Intake Oral 240 ml 1050 ml 420 ml IV Total 1077 ml 1500 ml Output Urine Total 1200 ml 950 ml 1150 ml Result Diagram: 04/25/17 0656 04/23/17 0534 Imaging Last Impressions Chest X-Ray 04/18/172044 Signed Impressions: Service Date/Time: Tuesday, April 18, 2017 21:33 - CONCLUSION: No evidence of acute cardiopulmonary disease. Delonte Mas MD Aorta w/Runoff CTA 04/18/17 0000 Signed Impressions: Service Date/Time: Wednesday, April 19, 2017 17:42 - CONCLUSION: 1. Aortobifemoral bypass with interval occlusion of the right iliac limb and right common from arteries. There is also persistent occlusion of the profunda and SFA with occlusion of interval right femoral to popliteal bypass graft. Popliteal artery and runoff vessels on the right are also not opacified. However, this may be flow related. 2. Persistent occlusion of left femoral to below knee popliteal artery bypass graft do to below knee popliteal artery occlusion. There is reconstitution of the runoff vessels via genicular collaterals with 3 vessel runoff to the left foot. Conrado Lynn MD Objective Remarks GENERAL: This is a well-nourished, well-developed patient, in no apparent distress. CARDIOVASCULAR: Regular rate and regular rhythm without murmurs, gallops, or rubs. RESPIRATORY: Clear to auscultation. Breath sounds equal bilaterally. No wheezes , rales, or rhonchi. GASTROINTESTINAL: Abdomen soft, non-tender, nondistended. Normal, active bowel sounds MUSCULOSKELETAL: right leg covered with clean dressing. NEURO: Alert & Oriented x4 to person, place, time, situation. Moves all ext x4 Medications and IVs Current Medications Morphine Sulfate (Morphine Inj) 4 mg ONCE ONCE IV PUSH Last administered on 21:46; Start 04/18/17 at 21:15; Stop 04/18/17 at 21:16; Status DC Ondansetron HCl (Zofran Inj) 4 mg ONCE ONCE IV PUSH Last administered on 21:46; Start 04/18/17 at 21:15; Stop 04/18/17 at 21:16; Status DC Sodium Chloride 1,000 ml @ 100 mls/hr Q10H IV Last administered on 04/19/17 07:15; Start 04/18/17 at 21:15; Stop 04/20/17 at 14:52; Status DC Heparin Sodium (Porcine) (Heparin Inj) 4,000 units ONCE ONCE IV Last administered on 04/18/17 23:55; Start 04/18/17 at 23:00; Stop 04/18/17 at 23:01 ; Status DC Heparin Sodium/ Dextrose 250 ml @ 10 mls/hr TITRATE PRN IV Coagulation Management Last administered on 04/20/17 08:23; Start 04/18/17 at 23:00; Stop 04/20/17 at 14:21; Status DC Sodium Chloride (NS Flush) 2 ml UNSCH PRN IV FLUSH FLUSH AFTER USING IV ACCESS ; Start 04/18/17 at 23:00 Sodium Chloride (NS Flush) 2 ml BID IV FLUSH Last administered on 04/24/17 21: 28; Start 04/19/17 at 09:00 Ondansetron HCl (Zofran Inj) 4 mg Q6H PRN IVP NAUSEA OR VOMITING; Start at 23:00 Acetaminophen (Tylenol) 650 mg Q6H PRN PO FEVER/PAIN SCALE 1 TO 2; Start at 23:00 Acetaminophen/ Hydrocodone Bitart ([place] 5-325 Mg) 1 tab Q4H PRN PO PAIN SCALE 3 TO 5 Last administered on 04/23/17 09:08; Start 04/18/17 at 23:00 Morphine Sulfate (Morphine Inj) 2 mg Q3H PRN IV PUSH Pain 6-10 Last administered on 04/21/17 06:40; Start 04/18/17 at 23:00; Stop 04/21/17 at 08:00 ; Status DC Senna/Docusate Sodium (Neeta-Colace) 1 tab BID PO Last administered on 21:28; Start 04/19/17 at 09:00 Magnesium Hydroxide (Milk Of Magnesia Liq) 30 ml Q12H PRN PO Mild constipation ; Start 04/18/17 at 23:00 Sennosides (Senokot) 17.2 mg Q12H PRN PO Moderate constipation; Start 04/18/17 at 23:00 Bisacodyl (Dulcolax Supp) 10 mg DAILY PRN RECTAL SEVERE CONSITIPATION; Start 04/18/17 at 23:00 Lactulose (Lactulose Liq) 30 ml DAILY PRN PO SEVERE CONSITIPATION; Start at 23:00 Folic Acid (Folate) 1 mg DAILY PO Last administered on 04/23/17 09:06; Start 04/19/17 at 09:00; Stop 04/24/17 at 08:59; Status DC Thiamine HCl (Vitamin B1) 100 mg DAILY PO Last administered on 04/24/17 09:00 ; Start 04/19/17 at 09:00 Multivitamins/ Minerals Therapeutic (Theragran M Tab) 1 tab DAILY PO Last administered on 04/23/17 09:00; Start 04/19/17 at 09:00; Stop 04/24/17 at 08:59 ; Status DC Flumazenil (Romazicon Inj) 0.2 mg Q1M PRN IV PUSH SEE LABEL COMMENTS; Start at 23:00 Lorazepam (Ativan) 1 mg Q4H PRN PO CIWA 8 - 10; Start 04/18/17 at 23:00 Lorazepam (Ativan Inj) 1 mg Q4H PRN IV PUSH CIWA 8 - 10 Last administered on 00:56; Start 04/18/17 at 23:00 Lorazepam (Ativan) 2 mg Q2H PRN PO CIWA 11-14; Start 04/18/17 at 23:00 Lorazepam (Ativan Inj) 2 mg Q2H PRN IV PUSH CIWA 11-14 Last administered on 22:54; Start 04/18/17 at 23:00 Lorazepam (Ativan Inj) 2 mg Q1H PRN IV PUSH CIWA 15-20; Start 04/18/17 at 23:00 Lorazepam (Ativan Inj) 2 mg Q15M PRN IV PUSH CIWA > 20; Start 04/18/17 at 23:00 Haloperidol Lactate (Haldol Inj) 2 mg Q15M PRN IM SEE LABEL COMMENTS Last administered on 04/19/17 22:04; Start 04/18/17 at 23:00 Aspirin (Aspirin) 325 mg DAILY PO Last administered on 04/24/17 09:00; Start 04/19/17 at 09:00 Atorvastatin Calcium (Lipitor) 40 mg HS PO Last administered on 04/24/17 21:28 ; Start 04/19/17 at 21:00 Baclofen (Lioresal) 20 mg BID PO Last administered on 04/24/17 21:28; Start 04/19/17 at 09:00 Duloxetine HCl (Cymbalta Dr) 60 mg DAILY PO Last administered on 04/24/17 09: 00; Start 04/19/17 at 09:00 Lorazepam (Ativan) 0.5 mg Q8H PRN PO anxiety Last administered on 04/21/17 01: 38; Start 04/18/17 at 23:00 Metoprolol Succinate (Toprol Xl) 50 mg DAILY PO Last administered on 04/24/17 09:00; Start 04/19/17 at 09:00 Pantoprazole Sodium (Protonix) 40 mg DAILY PO Last administered on 04/24/17 09 :01; Start 04/19/17 at 09:00 Metoprolol Tartrate (Lopressor Inj) 5 mg ONCE ONCE IV PUSH Last administered on 04/19/17 00:10; Start 04/19/17 at 00:00; Stop 04/19/17 at 00:01; Status DC Labetalol HCl (Trandate Inj) 10 mg ONCE ONCE IV PUSH ; Start 04/19/17 at 00:15 ; Stop 04/19/17 at 00:16; Status DC Famotidine (Pepcid Inj) 10 mg ONCE IV PUSH ; Start 04/19/17 at 00:15 Clonidine (Catapres) 0.1 mg ONCE ONCE PO Last administered on 04/19/17 03:48 ; Start 04/19/17 at 02:00; Stop 04/19/17 at 02:01; Status DC Enalaprilat (Vasotec Inj) 2.5 mg Q6H PRN IV PUSH SEE LABEL COMMENTS Last administered on 04/20/17 08:31; Start 04/19/17 at 02:15 Haloperidol Lactate (Haldol Inj) 2 mg ONCE ONCE IV PUSH Last administered on 04/19/17 05:30; Start 04/19/17 at 05:00; Stop 04/19/17 at 05:01; Status DC Amlodipine Besylate (Norvasc) 5 mg DAILY PO Last administered on 04/24/17 09: 01; Start 04/19/17 at 10:00 Potassium Chloride (KCl) 30 meq ONCE ONCE PO Last administered on 04/19/17 15 :41; Start 04/19/17 at 12:45; Stop 04/19/17 at 12:49; Status DC Clonidine (Catapres) 0.1 mg Q6H PRN PO SBP> OR = 180, DBP> OR = 100; Start 04/19/17 at 16:15 Iohexol (Omnipaque 350 Inj) 100 ml STK-MED ONCE IVCONTRAST Last administered on 04/19/17 18:29; Start 04/19/17 at 18:29; Stop 04/19/17 at 18:30; Status DC Heparin Sodium (Porcine) (Heparin Inj) 10,000 units STK-MED ONCE .ROUTE Last administered on 04/20/17 11:35; Start 04/20/17 at 09:31; Stop 04/20/17 at 09:32 ; Status DC Cefazolin Sodium (Ancef Inj) 1,000 mg STK-MED ONCE .ROUTE Last administered on 04/20/17 11:20; Start 04/20/17 at 09:31; Stop 04/20/17 at 09:32; Status DC Lidocaine/ Epinephrine (Xylocaine-Epi 1%-1:100,000 Inj) 20 ml STK-MED ONCE .ROUTE Last administered on 04/20/17 11:35; Start 04/20/17 at 09:31; Stop 04/20/17 at 09:32; Status DC Vancomycin HCl (Vancomycin Inj) 1,000 mg ONCE ONCE IV Last administered on 13:29; Start 04/20/17 at 12:50; Stop 04/20/17 at 13:29; Status DC Morphine Sulfate (*morphine INJ PERIprocedure ONLY) 8 mg STK-MED ONCE .ROUTE Last administered on 04/20/17 14:10; Start 04/20/17 at 14:10; Stop 04/20/17 at 14:11; Status DC Miscellaneous Information ALL NURSING DEPARTME... UNSCH PRN .XX SEE LABEL COMMENTS; Start 04/20/17 at 13:22; Stop 04/21/17 at 13:21; Status DC Morphine Sulfate (*morphine INJ PERIprocedure ONLY) 8 mg STK-MED ONCE .ROUTE Last administered on 04/20/17 14:18; Start 04/20/17 at 14:18; Stop 04/20/17 at 14:19; Status DC Heparin Sodium/ Dextrose 250 ml @ 8 mls/hr TITRATE PRN IV Coagulation Management Last administered on 04/22/17 18:32; Start 04/20/17 at 14:00; Stop 04/23/17 at 17:06; Status DC Sodium Chloride 1,000 ml @ 60 mls/hr [id number] IV Last administered on 14:00; Start 04/20/17 at 14:00; Stop 04/20/17 at 18:39; Status DC Heparin Sodium (Porcine) (Heparin Inj) ONCE ONCE IV PUSH ; Start 04/20/17 at 14:45; Stop 04/20/17 at 14:46; Status UNV Heparin Sodium/ Dextrose 250 ml @ 6.6 mls/hr TITRATE PRN IV Coagulation Management; Start 04/20/17 at 14:45; Status UNV Sodium Chloride 1,000 ml @ 150 mls/hr Q6H40M IV Last administered on 05:23; Start 04/20/17 at 19:00 Cefazolin Sodium 1000 mg/Sodium Chloride 100 ml @ 200 mls/hr Q8H IV Last administered on 04/21/17 11:37; Start 04/20/17 at 18:45; Stop 04/21/17 at 11:14 ; Status DC Cefazolin Sodium (Ancef Inj) 1,000 mg STK-MED ONCE .ROUTE ; Start 04/20/17 at 19 :49; Stop 04/20/17 at 19:50; Status DC Morphine Sulfate (Morphine Inj) 2 mg STK-MED ONCE .ROUTE ; Start 04/20/17 at 20: 46; Stop 04/20/17 at 20:47; Status DC Miscellaneous Information ALL NURSING DEPARTME... UNSCH PRN .XX SEE LABEL COMMENTS; Start 04/20/17 at 20:23; Stop 04/21/17 at 20:22; Status DC Morphine Sulfate (Morphine Inj) 4 mg Q3H PRN IV PUSH Pain 6-10 Last administered on 04/25/17 06:28; Start 04/21/17 at 08:00 Cefazolin Sodium 1000 mg/Sodium Chloride 100 ml @ 200 mls/hr Q8H IV Last administered on 04/25/17 05:21; Start 04/21/17 at 20:00 Fentanyl (Duragesic 50 Mcg Patch.72 Hr) 1 patch Q3D T-DERMAL Last administered on 04/24/17 16:14; Start 04/21/17 at 16:00 Miscellaneous Information 1 Q3D T-DERMAL Last administered on 04/24/17 16:00; Start 04/24/17 at 16:00 Acetaminophen/ Hydrocodone Bitart ([place] 5-325 Mg) 2 tab Q4H PRN PO pain 6-10 Last administered on 04/25/17 05:21; Start 04/23/17 at 12:00 Gabapentin (Neurontin) 300 mg TID PO Last administered on 04/24/17 17:12; Start 04/23/17 at 18:00 Rivaroxaban (Xarelto) 10 mg DAILY PO Last administered on 04/24/17 09:00; Start 04/23/17 at 17:07 Zolpidem Tartrate (Ambien) 10 mg ONCE ONCE PO Last administered on 04/23/17 21:24; Start 04/23/17 at 21:00; Stop 04/23/17 at 21:01; Status DC A/P Problem List: (1) Ischemia of extremity ICD Code: I99.8 - Other disorder of circulatory system Status: Acute (2) Non-compliance ICD Code: Z91.19 - Patient's noncompliance with other medical treatment and regimen Status: Acute (3) HTN (hypertension) ICD Code: I10 - Essential (primary) hypertension Status: Acute (4) Leukocytosis ICD Code: D72.829 - Elevated white blood cell count, unspecified Status: Acute (5) Rhabdomyolysis ICD Code: M62.82 - Rhabdomyolysis (6) Alcohol abuse ICD Code: F10.10 - Alcohol abuse, uncomplicated Status: Acute (7) Tobacco abuse ICD Code: Z72.0 - Tobacco use Status: Acute Assessment and Plan A/P Limb Ischemia: h/o PAD s/p Aortobifemoral Bypass, Right Iliofemoral Bypass and Left Femoral Popliteal Artery Bypass by Dr. Gandhi 04/14/16 and declotting/ revision of the Right Aortobifemoral Graft w/ Right Femoral-Popliteal Bypass on 12/06/[address] Guerra, now w/ recurrent ischemia, likely secondary to non- compliance and ongoing tobacco abuse. - patient underwent Iliofemoral embolectomy, femoral-popliteal embolectomy, revision of the iliofemoral anastomosis graft, revision of femoral-popliteal graft with popliteal artery endarterectomy and bovine patch angioplasty. -- started on Xarelto. - continue with pain contro; pain is fairly controlled. - Further plans per Vascular surgery. My need amputation. Alcohol withdrawal/DTs: Improving - Continue treatment per CIWA protocol. Haldol as needed. HTN: Better controlled - Continue metoprolol. Norvasc. Clonidine as needed. Rhabdomyolysis: improving- Continue IVF for hydration,will monitor the CPK level. Leukocytosis: Leukocytosis likely reactive secondary to hypoperfusion from limb ischemia- improving- will monitor. Alcohol Abuse: CIWA, Seizure Precautions, MVT/Thiamine/Folate Tobacco Abuse: Counselled. Ativan prn. DVT Prophylaxis: Xarelto consulted PT. Discharge Planning discharge when ok with vascular surgery. case management consult for dc planning. Sindi Desai MD Apr 25, 2017 07:41
[2017-04-25] MEDS ORDERED: NORC5TAB PO (07:42)
[2017-04-25 07:50] LABS: BICARBONATE 25.5 MEQ/L (21.0-32.0); POTASSIUM 3.6 MEQ/L (3.5-5.1)
[2017-04-25 08:42] LABS: CKMB 22.3 NG/ML (0.5-3.6)
[2017-04-25] MEDS: DOCUSATE SODIUM 50 MG/SENNA 8.6 MG TAB PO SCH ×2 (09:00→20:24)
[2017-04-25] MEDS: ASPIRIN 325 MG TAB PO SCH (09:44)
[2017-04-25] MEDS: RIVAROXABAN 10 MG TAB PO SCH (09:45)
[2017-04-25] MEDS: THIAMINE HCL 100 MG TAB PO SCH (09:45)
[2017-04-25] MEDS: amLODIPine BESYLATE 5 MG TAB PO SCH (09:45)
[2017-04-25] MEDS: METOPROLOL SUCCINATE 50 MG EXTENDED RELEASE TAB PO SCH (09:46)
[2017-04-25] MEDS: SODIUM CHLORIDE 0.9% FLUSH 10 ML FLUSH IV FLUSH SCH ×2 (09:46→20:24)
[2017-04-25] MEDS: GABAPENTIN 300 MG CAP PO SCH ×3 (09:46→17:42)
[2017-04-25] MEDS: DULoxetine HCl DR 60 MG CAP PO SCH (09:46)
[2017-04-25] MEDS: BACLOFEN 20 MG TAB PO SCH ×2 (09:46→20:24)
[2017-04-25] MEDS: PANTOPRAZOLE SOD 40 MG DELAYED RELEASE TAB PO SCH (09:46)
--- NOTE | 2017-04-25 15:37 | HHI.PR ---
Subjective Subjective Notes no events overnight Objective Vitals/I&O Vital Signs Date Time Temp Pulse Resp B/P (MAP) Pulse Ox O2 Delivery O2 Flow Rate FiO2 04/25/17 14:10 19 04/25/17 14:00 67 04/25/17 11:00 98.3 125/70 (88) 95 04/25/17 11:00 Room Air 04/22/17 11:00 2.00 Labs Laboratory Tests Test 04/25/17 06:56 White Blood Count 12.8 Red Blood Count 3.35 Hemoglobin 11.0 Hematocrit 32.7 Mean Corpuscular Volume 97.7 Mean Corpuscular Hemoglobin 32.9 Mean Corpuscular Hemoglobin Concent 33.6 Red Cell Distribution Width 14.2 Platelet Count 336 Mean Platelet Volume 6.9 Neutrophils (%) (Auto) 70.1 Lymphocytes (%) (Auto) 18.2 Monocytes (%) (Auto) 9.2 Eosinophils (%) (Auto) 2.2 Basophils (%) (Auto) 0.3 Neutrophils # (Auto) 9.0 Lymphocytes # (Auto) 2.3 Monocytes # (Auto) 1.2 Eosinophils # (Auto) 0.3 Basophils # (Auto) 0.0 CBC Comment DIFF FINAL Differential Comment Activated Partial Thromboplast Time 30.4 Blood Urea Nitrogen 3 Creatinine 0.63 Random Glucose 85 Calcium Level 7.8 Sodium Level 137 Potassium Level 3.6 Chloride Level 102 Carbon Dioxide Level 25.5 Anion Gap 10 Estimat Glomerular Filtration Rate 133 Total Creatine Kinase 7128 Creatine Kinase MB 22.3 Creatine Kinase MB % 0.3 Date/Time Source Procedure Growth Status 04/25/17 08:50 Wound Leg Gram Stain Pending Received 04/25/17 08:50 Wound Leg Wound Culture Pending Received Cardiovascular: Regular Lungs: Clear Narrative Exam right leg wound dressing clean erythema right foot A/P Assessment and Plan s/p fasciotomy after revision of bypass continue dressing change,medical care Yenny Bardales MD Apr 25, 2017 15:37
[2017-04-25] MEDS: ATORVASTATIN 40 MG TAB PO SCH (20:24)
[2017-04-26] VITALS (23 sets, daily range): BP systolic 111–142; BP diastolic 69–87; PULSE 64–100; RESP 16–18; TEMP 97.7–98.3; O2SAT 95–98
[2017-04-26] MEDS: ACETAMINOPHEN/HYDROcodone 325 MG/5 MG TAB PO PRN ×5 (00:26→23:14)
[2017-04-26] MEDS: MORPHINE SULFATE 4 MG/ML INJ IV PUSH PRN ×7 (01:06→23:17)
[2017-04-26] MEDS: ceFAZolin 1,000 MG/NS 100 ML IV SCH ×8 (03:11→20:18)
[2017-04-26] MEDS: DULoxetine HCl DR 60 MG CAP PO SCH (08:59)
[2017-04-26] MEDS: RIVAROXABAN 10 MG TAB PO SCH (08:59)
[2017-04-26] MEDS: THIAMINE HCL 100 MG TAB PO SCH (08:59)
[2017-04-26] MEDS: amLODIPine BESYLATE 5 MG TAB PO SCH (08:59)
[2017-04-26] MEDS: ASPIRIN 325 MG TAB PO SCH (09:00)
[2017-04-26] MEDS: PANTOPRAZOLE SOD 40 MG DELAYED RELEASE TAB PO SCH (09:00)
[2017-04-26] MEDS: SODIUM CHLORIDE 0.9% FLUSH 10 ML FLUSH IV FLUSH SCH ×2 (09:00→20:18)
[2017-04-26] MEDS: GABAPENTIN 300 MG CAP PO SCH ×3 (09:00→17:07)
[2017-04-26] MEDS: METOPROLOL SUCCINATE 50 MG EXTENDED RELEASE TAB PO SCH (09:00)
[2017-04-26] MEDS: BACLOFEN 20 MG TAB PO SCH ×2 (09:00→20:17)
[2017-04-26] MEDS: DOCUSATE SODIUM 50 MG/SENNA 8.6 MG TAB PO SCH ×2 (09:00→20:18)
--- NOTE | 2017-04-26 09:26 | HHI.PR ---
Subjective Remarks in no acute distress. pain is controlled. no new complaints. d/w the RN. Objective Vitals Vital Signs Date Time Temp Pulse Resp B/P (MAP) Pulse Ox O2 Delivery O2 Flow Rate FiO2 04/26/17 06:00 78 04/26/17 05:00 78 04/26/17 04:00 96 Room Air 04/26/17 04:00 97.7 78 18 111/77 (88) 95 04/26/17 04:00 64 04/26/17 03:00 68 04/26/17 02:00 74 04/26/17 01:00 74 04/26/17 00:00 95 Room Air 04/26/17 00:00 70 04/26/17 00:00 97.9 76 18 122/87 (99) 95 04/25/17 23:00 82 04/25/17 22:00 72 04/25/17 21:00 60 04/25/17 20:00 95 Room Air 04/25/17 20:00 70 04/25/17 20:00 98.0 79 18 116/73 (87) 95 04/25/17 19:00 68 04/25/17 18:02 70 04/25/17 17:11 17 04/25/17 17:00 81 04/25/17 16:53 18 04/25/17 16:00 86 04/25/17 15:00 98 Room Air 04/25/17 15:00 98.1 80 17 124/75 (91) 98 04/25/17 15:00 60 04/25/17 14:00 67 04/25/17 13:00 87 04/25/17 12:00 77 04/25/17 11:00 98.3 80 19 125/70 (88) 95 04/25/17 11:00 95 Room Air 04/25/17 11:00 79 04/25/17 10:00 82 I/O 04/25/17 04/25/17 04/25/17 04/26/17 04/26/17 04/26/17 07:00 15:00 23:00 07:00 15:00 23:00 Intake Total 1920 ml 100 ml 420 ml Output Total 1150 ml 1800 ml 1250 ml Balance 770 ml 100 ml -1800 ml -830 ml Intake Oral 420 ml 420 ml IV Total 1500 ml 100 ml Output Urine Total 1150 ml 1800 ml 1250 ml Result Diagram: 04/25/17 0656 04/25/17 0656 Imaging Last Impressions Chest X-Ray 04/18/172044 Signed Impressions: Service Date/Time: Tuesday, April 18, 2017 21:33 - CONCLUSION: No evidence of acute cardiopulmonary disease. Delonte Mas MD Aorta w/Runoff CTA 04/18/17 0000 Signed Impressions: Service Date/Time: Wednesday, April 19, 2017 17:42 - CONCLUSION: 1. Aortobifemoral bypass with interval occlusion of the right iliac limb and right common from arteries. There is also persistent occlusion of the profunda and SFA with occlusion of interval right femoral to popliteal bypass graft. Popliteal artery and runoff vessels on the right are also not opacified. However, this may be flow related. 2. Persistent occlusion of left femoral to below knee popliteal artery bypass graft do to below knee popliteal artery occlusion. There is reconstitution of the runoff vessels via genicular collaterals with 3 vessel runoff to the left foot. Conrado Lynn MD Objective Remarks GENERAL: This is a well-nourished, well-developed patient, in no apparent distress. CARDIOVASCULAR: Regular rate and regular rhythm without murmurs, gallops, or rubs. RESPIRATORY: Clear to auscultation. Breath sounds equal bilaterally. No wheezes , rales, or rhonchi. GASTROINTESTINAL: Abdomen soft, non-tender, nondistended. Normal, active bowel sounds MUSCULOSKELETAL: right leg covered with clean dressing. NEURO: Alert & Oriented x4 to person, place, time, situation. Moves all ext x4 Procedures Iliofemoral embolectomy, femoral-popliteal embolectomy, revision of the iliofemoral anastomosis graft, revision of femoral-popliteal graft with popliteal artery endarterectomy and bovine patch angioplasty. Medications and IVs Current Medications Morphine Sulfate (Morphine Inj) 4 mg ONCE ONCE IV PUSH Last administered on 21:46; Start 04/18/17 at 21:15; Stop 04/18/17 at 21:16; Status DC Ondansetron HCl (Zofran Inj) 4 mg ONCE ONCE IV PUSH Last administered on 21:46; Start 04/18/17 at 21:15; Stop 04/18/17 at 21:16; Status DC Sodium Chloride 1,000 ml @ 100 mls/hr Q10H IV Last administered on 04/19/17 07:15; Start 04/18/17 at 21:15; Stop 04/20/17 at 14:52; Status DC Heparin Sodium (Porcine) (Heparin Inj) 4,000 units ONCE ONCE IV Last administered on 04/18/17 23:55; Start 04/18/17 at 23:00; Stop 04/18/17 at 23:01 ; Status DC Heparin Sodium/ Dextrose 250 ml @ 10 mls/hr TITRATE PRN IV Coagulation Management Last administered on 04/20/17 08:23; Start 04/18/17 at 23:00; Stop 04/20/17 at 14:21; Status DC Sodium Chloride (NS Flush) 2 ml UNSCH PRN IV FLUSH FLUSH AFTER USING IV ACCESS ; Start 04/18/17 at 23:00 Sodium Chloride (NS Flush) 2 ml BID IV FLUSH Last administered on 04/26/17 09 :00; Start 04/19/17 at 09:00 Ondansetron HCl (Zofran Inj) 4 mg Q6H PRN IVP NAUSEA OR VOMITING; Start at 23:00 Acetaminophen (Tylenol) 650 mg Q6H PRN PO FEVER/PAIN SCALE 1 TO 2; Start at 23:00 Acetaminophen/ Hydrocodone Bitart ([place] 5-325 Mg) 1 tab Q4H PRN PO PAIN SCALE 3 TO 5 Last administered on 04/26/17 09:00; Start 04/18/17 at 23:00 Morphine Sulfate (Morphine Inj) 2 mg Q3H PRN IV PUSH Pain 6-10 Last administered on 04/21/17 06:40; Start 04/18/17 at 23:00; Stop 04/21/17 at 08:00 ; Status DC Senna/Docusate Sodium (Neeta-Colace) 1 tab BID PO Last administered on 09:00; Start 04/19/17 at 09:00 Magnesium Hydroxide (Milk Of Magnesia Liq) 30 ml Q12H PRN PO Mild constipation ; Start 04/18/17 at 23:00 Sennosides (Senokot) 17.2 mg Q12H PRN PO Moderate constipation; Start 04/18/17 at 23:00 Bisacodyl (Dulcolax Supp) 10 mg DAILY PRN RECTAL SEVERE CONSITIPATION; Start 04/18/17 at 23:00 Lactulose (Lactulose Liq) 30 ml DAILY PRN PO SEVERE CONSITIPATION; Start at 23:00 Folic Acid (Folate) 1 mg DAILY PO Last administered on 04/23/17 09:06; Start 04/19/17 at 09:00; Stop 04/24/17 at 08:59; Status DC Thiamine HCl (Vitamin B1) 100 mg DAILY PO Last administered on 04/26/17 08:59 ; Start 04/19/17 at 09:00 Multivitamins/ Minerals Therapeutic (Theragran M Tab) 1 tab DAILY PO Last administered on 04/23/17 09:00; Start 04/19/17 at 09:00; Stop 04/24/17 at 08:59 ; Status DC Flumazenil (Romazicon Inj) 0.2 mg Q1M PRN IV PUSH SEE LABEL COMMENTS; Start at 23:00 Lorazepam (Ativan) 1 mg Q4H PRN PO CIWA 8 - 10; Start 04/18/17 at 23:00 Lorazepam (Ativan Inj) 1 mg Q4H PRN IV PUSH CIWA 8 - 10 Last administered on 00:56; Start 04/18/17 at 23:00 Lorazepam (Ativan) 2 mg Q2H PRN PO CIWA 11-14; Start 04/18/17 at 23:00 Lorazepam (Ativan Inj) 2 mg Q2H PRN IV PUSH CIWA 11-14 Last administered on 22:54; Start 04/18/17 at 23:00 Lorazepam (Ativan Inj) 2 mg Q1H PRN IV PUSH CIWA 15-20; Start 04/18/17 at 23:00 Lorazepam (Ativan Inj) 2 mg Q15M PRN IV PUSH CIWA > 20; Start 04/18/17 at 23:00 Haloperidol Lactate (Haldol Inj) 2 mg Q15M PRN IM SEE LABEL COMMENTS Last administered on 04/19/17 22:04; Start 04/18/17 at 23:00 Aspirin (Aspirin) 325 mg DAILY PO Last administered on 04/26/17 09:00; Start 04/19/17 at 09:00 Atorvastatin Calcium (Lipitor) 40 mg HS PO Last administered on 04/25/17 20: 24; Start 04/19/17 at 21:00 Baclofen (Lioresal) 20 mg BID PO Last administered on 04/26/17 09:00; Start 04/19/17 at 09:00 Duloxetine HCl (Cymbalta Dr) 60 mg DAILY PO Last administered on 04/26/17 08: 59; Start 04/19/17 at 09:00 Lorazepam (Ativan) 0.5 mg Q8H PRN PO anxiety Last administered on 04/21/17 01: 38; Start 04/18/17 at 23:00 Metoprolol Succinate (Toprol Xl) 50 mg DAILY PO Last administered on 09:00; Start 04/19/17 at 09:00 Pantoprazole Sodium (Protonix) 40 mg DAILY PO Last administered on 04/26/17 09:00; Start 04/19/17 at 09:00 Metoprolol Tartrate (Lopressor Inj) 5 mg ONCE ONCE IV PUSH Last administered on 04/19/17 00:10; Start 04/19/17 at 00:00; Stop 04/19/17 at 00:01; Status DC Labetalol HCl (Trandate Inj) 10 mg ONCE ONCE IV PUSH ; Start 04/19/17 at 00:15 ; Stop 04/19/17 at 00:16; Status DC Famotidine (Pepcid Inj) 10 mg ONCE IV PUSH ; Start 04/19/17 at 00:15 Clonidine (Catapres) 0.1 mg ONCE ONCE PO Last administered on 04/19/17 03:48 ; Start 04/19/17 at 02:00; Stop 04/19/17 at 02:01; Status DC Enalaprilat (Vasotec Inj) 2.5 mg Q6H PRN IV PUSH SEE LABEL COMMENTS Last administered on 04/20/17 08:31; Start 04/19/17 at 02:15 Haloperidol Lactate (Haldol Inj) 2 mg ONCE ONCE IV PUSH Last administered on 04/19/17 05:30; Start 04/19/17 at 05:00; Stop 04/19/17 at 05:01; Status DC Amlodipine Besylate (Norvasc) 5 mg DAILY PO Last administered on 04/26/17 08: 59; Start 04/19/17 at 10:00 Potassium Chloride (KCl) 30 meq ONCE ONCE PO Last administered on 04/19/17 15 :41; Start 04/19/17 at 12:45; Stop 04/19/17 at 12:49; Status DC Clonidine (Catapres) 0.1 mg Q6H PRN PO SBP> OR = 180, DBP> OR = 100; Start 04/19/17 at 16:15 Iohexol (Omnipaque 350 Inj) 100 ml STK-MED ONCE IVCONTRAST Last administered on 04/19/17 18:29; Start 04/19/17 at 18:29; Stop 04/19/17 at 18:30; Status DC Heparin Sodium (Porcine) (Heparin Inj) 10,000 units STK-MED ONCE .ROUTE Last administered on 04/20/17 11:35; Start 04/20/17 at 09:31; Stop 04/20/17 at 09:32 ; Status DC Cefazolin Sodium (Ancef Inj) 1,000 mg STK-MED ONCE .ROUTE Last administered on 04/20/17 11:20; Start 04/20/17 at 09:31; Stop 04/20/17 at 09:32; Status DC Lidocaine/ Epinephrine (Xylocaine-Epi 1%-1:100,000 Inj) 20 ml STK-MED ONCE .ROUTE Last administered on 04/20/17 11:35; Start 04/20/17 at 09:31; Stop 04/20/17 at 09:32; Status DC Vancomycin HCl (Vancomycin Inj) 1,000 mg ONCE ONCE IV Last administered on 13:29; Start 04/20/17 at 12:50; Stop 04/20/17 at 13:29; Status DC Morphine Sulfate (*morphine INJ PERIprocedure ONLY) 8 mg STK-MED ONCE .ROUTE Last administered on 04/20/17 14:10; Start 04/20/17 at 14:10; Stop 04/20/17 at 14:11; Status DC Miscellaneous Information ALL NURSING DEPARTME... UNSCH PRN .XX SEE LABEL COMMENTS; Start 04/20/17 at 13:22; Stop 04/21/17 at 13:21; Status DC Morphine Sulfate (*morphine INJ PERIprocedure ONLY) 8 mg STK-MED ONCE .ROUTE Last administered on 04/20/17 14:18; Start 04/20/17 at 14:18; Stop 04/20/17 at 14:19; Status DC Heparin Sodium/ Dextrose 250 ml @ 8 mls/hr TITRATE PRN IV Coagulation Management Last administered on 04/22/17 18:32; Start 04/20/17 at 14:00; Stop 04/23/17 at 17:06; Status DC Sodium Chloride 1,000 ml @ 60 mls/hr [id number] IV Last administered on 14:00; Start 04/20/17 at 14:00; Stop 04/20/17 at 18:39; Status DC Heparin Sodium (Porcine) (Heparin Inj) ONCE ONCE IV PUSH ; Start 04/20/17 at 14:45; Stop 04/20/17 at 14:46; Status UNV Heparin Sodium/ Dextrose 250 ml @ 6.6 mls/hr TITRATE PRN IV Coagulation Management; Start 04/20/17 at 14:45; Status UNV Sodium Chloride 1,000 ml @ 150 mls/hr Q6H40M IV Last administered on 05:23; Start 04/20/17 at 19:00; Stop 04/25/17 at 08:08; Status DC Cefazolin Sodium 1000 mg/Sodium Chloride 100 ml @ 200 mls/hr Q8H IV Last administered on 04/21/17 11:37; Start 04/20/17 at 18:45; Stop 04/21/17 at 11:14 ; Status DC Cefazolin Sodium (Ancef Inj) 1,000 mg STK-MED ONCE .ROUTE ; Start 04/20/17 at 19 :49; Stop 04/20/17 at 19:50; Status DC Morphine Sulfate (Morphine Inj) 2 mg STK-MED ONCE .ROUTE ; Start 04/20/17 at 20: 46; Stop 04/20/17 at 20:47; Status DC Miscellaneous Information ALL NURSING DEPARTME... UNSCH PRN .XX SEE LABEL COMMENTS; Start 04/20/17 at 20:23; Stop 04/21/17 at 20:22; Status DC Morphine Sulfate (Morphine Inj) 4 mg Q3H PRN IV PUSH Pain 6-10 Last administered on 04/26/17 06:38; Start 04/21/17 at 08:00 Cefazolin Sodium 1000 mg/Sodium Chloride 100 ml @ 200 mls/hr Q8H IV Last administered on 04/26/17 03:12; Start 04/21/17 at 20:00 Fentanyl (Duragesic 50 Mcg Patch.72 Hr) 1 patch Q3D T-DERMAL Last administered on 04/24/17 16:14; Start 04/21/17 at 16:00 Miscellaneous Information 1 Q3D T-DERMAL Last administered on 04/24/17 16:00; Start 04/24/17 at 16:00 Acetaminophen/ Hydrocodone Bitart ([place] 5-325 Mg) 2 tab Q4H PRN PO pain 6-10 Last administered on 04/26/17 04:37; Start 04/23/17 at 12:00 Gabapentin (Neurontin) 300 mg TID PO Last administered on 04/26/17 09:00; Start 04/23/17 at 18:00 Rivaroxaban (Xarelto) 10 mg DAILY PO Last administered on 04/26/17 08:59; Start 04/23/17 at 17:07 Zolpidem Tartrate (Ambien) 10 mg ONCE ONCE PO Last administered on 04/23/17 21:24; Start 04/23/17 at 21:00; Stop 04/23/17 at 21:01; Status DC A/P Problem List: (1) Ischemia of extremity ICD Code: I99.8 - Other disorder of circulatory system Status: Acute (2) Non-compliance ICD Code: Z91.19 - Patient's noncompliance with other medical treatment and regimen Status: Acute (3) HTN (hypertension) ICD Code: I10 - Essential (primary) hypertension Status: Acute (4) Leukocytosis ICD Code: D72.829 - Elevated white blood cell count, unspecified Status: Acute (5) Rhabdomyolysis ICD Code: M62.82 - Rhabdomyolysis (6) Alcohol abuse ICD Code: F10.10 - Alcohol abuse, uncomplicated Status: Acute (7) Tobacco abuse ICD Code: Z72.0 - Tobacco use Status: Acute Assessment and Plan A/P Limb Ischemia: h/o PAD s/p Aortobifemoral Bypass, Right Iliofemoral Bypass and Left Femoral Popliteal Artery Bypass by Dr. Gandhi 04/14/16 and declotting/ revision of the Right Aortobifemoral Graft w/ Right Femoral-Popliteal Bypass on 12/06/[address] Guerra, now w/ recurrent ischemia, likely secondary to non- compliance and ongoing tobacco abuse. - patient underwent Iliofemoral embolectomy, femoral-popliteal embolectomy, revision of the iliofemoral anastomosis graft, revision of femoral-popliteal graft with popliteal artery endarterectomy and bovine patch angioplasty. -- started on Xarelto. - continue with pain contro; pain is fairly controlled. - Further plans per Vascular surgery. Alcohol withdrawal/DTs: Improving - Continue treatment per CIWA protocol. Haldol as needed. HTN: Better controlled - Continue metoprolol. Norvasc. Clonidine as needed. Rhabdomyolysis: improving- Continue IVF for hydration. Leukocytosis: Leukocytosis likely reactive secondary to hypoperfusion from limb ischemia- improving- will monitor. Alcohol Abuse: CIWA, Seizure Precautions, MVT/Thiamine/Folate Tobacco Abuse: Counselled. Ativan prn. DVT Prophylaxis: Xarelto consulted PT. Discharge Planning discharge planning to rehab- when cleared by vascular surgery. Sindi Desai MD Apr 26, 2017 09:26
[2017-04-26] MEDS ORDERED: MULT1TAB46 PO (09:30)
[2017-04-26] MEDS ORDERED: LORA-392 PO (09:30)
[2017-04-26] MEDS ORDERED: AMLO5 PO (09:30)
[2017-04-26] MEDS ORDERED: XARE10TA PO (09:30)
[2017-04-26] MEDS ORDERED: NEUR300C PO (09:33)
[2017-04-26 11:19] LABS: HEMATOCRIT 31.6 % (39.0-51.0); MEAN CELL VOLUME 95.9 FL (80.0-100.0); MEAN CORPUSCULAR HEMOGLOBIN 32.5 PG (27.0-34.0); MEAN CORPUSCULAR HGB CONC 33.9 % (32.0-36.0); PLATELET COUNT 388 TH/MM3 (150-450); RED BLOOD COUNT 3.29 MIL/MM3 (4.50-5.90); RED CELL DISTRIBUTION WIDTH 13.8 % (11.6-17.2); REVIEW FLAG FINAL; WHITE BLOOD COUNT 14.9 TH/MM3 (4.0-11.0)
[2017-04-26 11:30] LABS: APTT (PATIENT) 34.3 SEC (24.3-30.1)
--- NOTE | 2017-04-26 14:18 | HHI.FF ---
Face to Face Verification Diagnosis: (1) PVD (peripheral vascular disease) Physical Therapy Order: Evaluate and Treat Home Health Nursing Order: Medical education Signs/symptoms of disease process Medication education-adverse effect Wound care and dressing changes Nursing assessment with vital signs I have seen patient Bradley Brower, III on 04/26/17. My clinical findings support the need for the requested home health care services because: Ltd mobility - disease progression I certify that my clinical findings support that this patient is homebound because: Unsteady gait/balance Sindi Desai MD Apr 26, 2017 14:18
--- NOTE | 2017-04-26 16:14 | PD.CAR.PN ---
CVT Progress Note Subjective/Hospital Course: Patient evaluated Likely occlusion of the right femoral-popliteal bypass. Patient is very noncompliant never follow-up with my office after the surgery Spoken to interventional radiology Based on CTA will likely need tPA lysis Full consult to follow Nesha J 04/20/17 CTA with runoff reveals complete occlusion of the right sided flow starting from the aorta down into the leg. Patient has occlusion of the aortofemoral bypass femoral-popliteal bypass and popliteal artery to the level of the knee. Distal vessels are barely discernible in face of lack of flow We'll take patient to the operating room for revision of aorta to femoral graft femoral-popliteal bypass thromboembolectomy and possible axillofemoral bypass depending on the circumstances Despite all these measures there is a very high likelihood that this patient will lose his leg above the knee eventually considering the fact that he has no discernible flow below the level of the knee and his disease is severely advanced This will be last ditch effort to save the leg but explained to the patient there is high likelihood he will lose the right leg. 04/23/17 C/O worsening calf pain, medication adjusted Foot is edematous s/p fasciotomy 04/24/17 Patient doing well at this time Bounding femoral and popliteal pulses on palpation and distal by Doppler Foot is nice and warm red and hyperperfused Fasciotomy nice and clean and very grateful for Dr. Kimball Patient of heparin and started on factor X a inhibitors Will go home on the same probably Xarelto Needs aggressive physical therapy and an case management will have to place him in some sort of a long-term because he cannot go home and take care of this on his own Will eventually need a skin graft 04/26/17 Patient doing wearing well at this time Groin incision is completely dry and there is tiny amount of serous drainage from the popliteal incision. The fasciotomy sites are clean with a viable muscle Foot is well-perfused with bounding pulses palpable proximally and dopplerable distally Patient will likely lose the hallux of the right foot eventually because it appears to be involved in dry gangrene but hasn't demarcated clearly yet so I would leave it alone for the time being At this point patient will need to be transferred to rehabilitation for aggressive physical therapy passive and active range of motion and ambulation There is not much sense saving a leg if patient is unable to use it functionally Patient initially was opposed to going to rehabilitation but this is essential and not only for his final functional outcome but also as far as the wound care is concerned for this cannot be done at home safely If patient decides to go home anyway it can only be AGAINST MEDICAL ADVICE Objective: Vital Signs Date Time Temp Pulse Resp B/P (MAP) Pulse Ox O2 Delivery O2 Flow Rate FiO2 04/26/17 16:00 78 04/26/17 15:00 73 04/26/17 15:00 98 Room Air 04/26/17 15:00 98.3 93 16 135/71 (92) 98 04/26/17 14:00 74 04/26/17 13:00 70 04/26/17 12:00 74 04/26/17 11:00 82 04/26/17 11:00 98.1 82 16 130/70 (90) 96 04/26/17 11:00 96 Room Air 04/26/17 10:53 16 04/26/17 10:00 74 04/26/17 09:00 76 04/26/17 08:53 16 04/26/17 08:00 90 04/26/17 08:00 98 Room Air 04/26/17 08:00 98.2 83 16 142/74 (96) 95 04/26/17 06:00 78 04/26/17 05:00 78 04/26/17 04:00 96 Room Air 04/26/17 04:00 97.7 78 18 111/77 (88) 95 04/26/17 04:00 64 04/26/17 03:00 68 04/26/17 02:00 74 04/26/17 01:00 74 04/26/17 00:00 95 Room Air 04/26/17 00:00 70 04/26/17 00:00 97.9 76 18 122/87 (99) 95 04/25/17 23:00 82 04/25/17 22:00 72 04/25/17 21:00 60 04/25/17 20:00 95 Room Air 04/25/17 20:00 70 04/25/17 20:00 98.0 79 18 116/73 (87) 95 04/25/17 19:00 68 04/25/17 18:02 70 04/25/17 17:00 81 04/25/17 16:53 18 Labs: Laboratory Tests Test 04/26/17 11:00 White Blood Count 14.9 TH/MM3 (4.0-11.0) Red Blood Count 3.29 MIL/MM3 (4.50-5.90) Hemoglobin 10.7 GM/DL (13.0-17.0) Hematocrit 31.6 % (39.0-51.0) Mean Corpuscular Volume 95.9 FL (80.0-100.0) Mean Corpuscular Hemoglobin 32.5 PG (27.0-34.0) Mean Corpuscular Hemoglobin Concent 33.9 % (32.0-36.0) Red Cell Distribution Width 13.8 % (11.6-17.2) Platelet Count 388 TH/MM3 (150-450) Mean Platelet Volume 7.0 FL (7.0-11.0) Activated Partial Thromboplast Time 34.3 SEC (24.3-30.1) Result Diagram: 04/26/17 1100 04/25/17 0656 Raad Guerra MD Apr 26, 2017 16:14
[2017-04-26] MEDS: ATORVASTATIN 40 MG TAB PO SCH (20:18)
[2017-04-27] VITALS (11 sets, daily range): BP systolic 126–135; BP diastolic 72–79; PULSE 70–90; RESP 16; TEMP 97.4–98.7; O2SAT 92–99
[2017-04-27] MEDS: MORPHINE SULFATE 4 MG/ML INJ IV PUSH PRN ×3 (02:25→10:01)
[2017-04-27] MEDS: ACETAMINOPHEN/HYDROcodone 325 MG/5 MG TAB PO PRN ×2 (03:24→08:03)
[2017-04-27] MEDS: ceFAZolin 1,000 MG/NS 100 ML IV SCH ×2 (03:25)
[2017-04-27] MEDS ORDERED: hydrOXYzine HCL 25 MG TAB PO PRN (04:30)
[2017-04-27 05:56] LABS: HEMATOCRIT 30.5 % (39.0-51.0); MEAN CELL VOLUME 96.9 FL (80.0-100.0); MEAN CORPUSCULAR HEMOGLOBIN 32.6 PG (27.0-34.0); MEAN CORPUSCULAR HGB CONC 33.6 % (32.0-36.0); PLATELET COUNT 448 TH/MM3 (150-450); RED BLOOD COUNT 3.15 MIL/MM3 (4.50-5.90); RED CELL DISTRIBUTION WIDTH 14.3 % (11.6-17.2); REVIEW FLAG FINAL; WHITE BLOOD COUNT 13.6 TH/MM3 (4.0-11.0)
--- NOTE | 2017-04-27 07:40 | HHI.PR ---
Subjective Remarks in no acute distress. reportedly had a fall earlier this morning. complaining of mild pain to the right wrist. d/w the RN. Objective Vitals Vital Signs Date Time Temp Pulse Resp B/P (MAP) Pulse Ox O2 Delivery O2 Flow Rate FiO2 04/27/17 07:27 18 04/27/17 07:27 18 04/27/17 05:00 70 04/27/17 04:00 82 04/27/17 03:40 97.4 84 16 135/79 (97) 96 04/27/17 03:39 96 Room Air 04/27/17 03:00 73 04/27/17 02:00 80 04/27/17 01:00 82 04/27/17 00:48 98.1 88 16 132/73 (92) 92 04/27/17 00:43 92 Room Air 04/27/17 00:00 90 04/26/17 23:00 82 04/26/17 22:00 90 04/26/17 21:00 74 04/26/17 20:00 90 04/26/17 20:00 98.0 81 16 134/69 (90) 96 04/26/17 20:00 96 Room Air 04/26/17 19:00 100 04/26/17 18:00 78 04/26/17 17:00 79 04/26/17 16:00 78 04/26/17 15:00 73 04/26/17 15:00 98 Room Air 04/26/17 15:00 98.3 93 16 135/71 (92) 98 04/26/17 14:00 74 04/26/17 13:00 70 04/26/17 12:00 74 04/26/17 11:00 82 04/26/17 11:00 98.1 82 16 130/70 (90) 96 04/26/17 11:00 96 Room Air 04/26/17 10:53 16 04/26/17 10:00 74 04/26/17 09:00 76 04/26/17 08:00 90 04/26/17 08:00 98 Room Air 04/26/17 08:00 98.2 83 16 142/74 (96) 95 I/O 12/11/17 12/11/17 12/11/17 12/12/17 12/12/17 12/12/17 07:00 15:00 23:00 07:00 15:00 23:00 Intake Total 420 ml 100 ml 400 ml 1260 ml Output Total 1250 ml 1300 ml 2575 ml Balance -830 ml 100 ml -900 ml -1315 ml Intake Oral 420 ml 400 ml 1260 ml IV Total 100 ml Output Urine Total 1250 ml 1300 ml 2575 ml # Bowel Movements 0 1 Result Diagram: 04/27/17 0432 04/25/17 0656 Imaging Last Impressions Chest X-Ray 04/18/172044 Signed Impressions: Service Date/Time: Tuesday, April 18, 2017 21:33 - CONCLUSION: No evidence of acute cardiopulmonary disease. Delonte Mas MD Aorta w/Runoff CTA 04/18/17 0000 Signed Impressions: Service Date/Time: Wednesday, April 19, 2017 17:42 - CONCLUSION: 1. Aortobifemoral bypass with interval occlusion of the right iliac limb and right common from arteries. There is also persistent occlusion of the profunda and SFA with occlusion of interval right femoral to popliteal bypass graft. Popliteal artery and runoff vessels on the right are also not opacified. However, this may be flow related. 2. Persistent occlusion of left femoral to below knee popliteal artery bypass graft do to below knee popliteal artery occlusion. There is reconstitution of the runoff vessels via genicular collaterals with 3 vessel runoff to the left foot. Conrado Lynn MD Objective Remarks GENERAL: This is a well-nourished, well-developed patient, in no apparent distress. CARDIOVASCULAR: Regular rate and regular rhythm without murmurs, gallops, or rubs. RESPIRATORY: Clear to auscultation. Breath sounds equal bilaterally. No wheezes , rales, or rhonchi. GASTROINTESTINAL: Abdomen soft, non-tender, nondistended. Normal, active bowel sounds MUSCULOSKELETAL: right leg covered with clean dressing. NEURO: Alert & Oriented x4 to person, place, time, situation. Moves all ext x4 Procedures Iliofemoral embolectomy, femoral-popliteal embolectomy, revision of the iliofemoral anastomosis graft, revision of femoral-popliteal graft with popliteal artery endarterectomy and bovine patch angioplasty. Medications and IVs Current Medications Morphine Sulfate (Morphine Inj) 4 mg ONCE ONCE IV PUSH Last administered on t 21:46; Start 04/18/17 at 21:15; Stop 04/18/17 at 21:16; Status DC Ondansetron HCl (Zofran Inj) 4 mg ONCE ONCE IV PUSH Last administered on 21:46; Start 04/18/17 at 21:15; Stop 04/18/17 at 21:16; Status DC Sodium Chloride 1,000 ml @ 100 mls/hr Q10H IV Last administered on 04/19/17 07:15; Start 04/18/17 at 21:15; Stop 04/20/17 at 14:52; Status DC Heparin Sodium (Porcine) (Heparin Inj) 4,000 units ONCE ONCE IV Last administered on 04/18/17 23:55; Start 04/18/17 at 23:00; Stop 04/18/17 at 23:01 ; Status DC Heparin Sodium/ Dextrose 250 ml @ 10 mls/hr TITRATE PRN IV Coagulation Management Last administered on 04/20/17 08:23; Start 04/18/17 at 23:00; Stop 04/20/17 at 14:21; Status DC Sodium Chloride (NS Flush) 2 ml UNSCH PRN IV FLUSH FLUSH AFTER USING IV ACCESS ; Start 04/18/17 at 23:00 Sodium Chloride (NS Flush) 2 ml BID IV FLUSH Last administered on 04/26/17 20 :18; Start 04/19/17 at 09:00 Ondansetron HCl (Zofran Inj) 4 mg Q6H PRN IVP NAUSEA OR VOMITING; Start at 23:00 Acetaminophen (Tylenol) 650 mg Q6H PRN PO FEVER/PAIN SCALE 1 TO 2; Start at 23:00 Acetaminophen/ Hydrocodone Bitart ([place] 5-325 Mg) 1 tab Q4H PRN PO PAIN SCALE 3 TO 5 Last administered on 04/26/17 09:00; Start 04/18/17 at 23:00 Morphine Sulfate (Morphine Inj) 2 mg Q3H PRN IV PUSH Pain 6-10 Last administered on 04/21/17 06:40; Start 04/18/17 at 23:00; Stop 04/21/17 at 08:00 ; Status DC Senna/Docusate Sodium (Neeta-Colace) 1 tab BID PO Last administered on 20:18; Start 04/19/17 at 09:00 Magnesium Hydroxide (Milk Of Magnesia Liq) 30 ml Q12H PRN PO Mild constipation ; Start 04/18/17 at 23:00 Sennosides (Senokot) 17.2 mg Q12H PRN PO Moderate constipation; Start 04/18/17 at 23:00 Bisacodyl (Dulcolax Supp) 10 mg DAILY PRN RECTAL SEVERE CONSITIPATION; Start 04/18/17 at 23:00 Lactulose (Lactulose Liq) 30 ml DAILY PRN PO SEVERE CONSITIPATION; Start at 23:00 Folic Acid (Folate) 1 mg DAILY PO Last administered on 04/23/17 09:06; Start 04/19/17 at 09:00; Stop 04/24/17 at 08:59; Status DC Thiamine HCl (Vitamin B1) 100 mg DAILY PO Last administered on 04/26/17 08:59 ; Start 04/19/17 at 09:00 Multivitamins/ Minerals Therapeutic (Theragran M Tab) 1 tab DAILY PO Last administered on 04/23/17 09:00; Start 04/19/17 at 09:00; Stop 04/24/17 at 08:59 ; Status DC Flumazenil (Romazicon Inj) 0.2 mg Q1M PRN IV PUSH SEE LABEL COMMENTS; Start at 23:00 Lorazepam (Ativan) 1 mg Q4H PRN PO CIWA 8 - 10; Start 04/18/17 at 23:00 Lorazepam (Ativan Inj) 1 mg Q4H PRN IV PUSH CIWA 8 - 10 Last administered on 00:56; Start 04/18/17 at 23:00 Lorazepam (Ativan) 2 mg Q2H PRN PO CIWA 11-14; Start 04/18/17 at 23:00 Lorazepam (Ativan Inj) 2 mg Q2H PRN IV PUSH CIWA 11-14 Last administered on 22:54; Start 04/18/17 at 23:00 Lorazepam (Ativan Inj) 2 mg Q1H PRN IV PUSH CIWA 15-20; Start 04/18/17 at 23:00 Lorazepam (Ativan Inj) 2 mg Q15M PRN IV PUSH CIWA > 20; Start 04/18/17 at 23:00 Haloperidol Lactate (Haldol Inj) 2 mg Q15M PRN IM SEE LABEL COMMENTS Last administered on 04/19/17 22:04; Start 04/18/17 at 23:00 Aspirin (Aspirin) 325 mg DAILY PO Last administered on 04/26/17 09:00; Start 04/19/17 at 09:00 Atorvastatin Calcium (Lipitor) 40 mg HS PO Last administered on 04/26/17 20: 18; Start 04/19/17 at 21:00 Baclofen (Lioresal) 20 mg BID PO Last administered on 04/26/17 20:17; Start 04/19/17 at 09:00 Duloxetine HCl (Cymbalta Dr) 60 mg DAILY PO Last administered on 04/26/17 08: 59; Start 04/19/17 at 09:00 Lorazepam (Ativan) 0.5 mg Q8H PRN PO anxiety Last administered on 04/21/17 01: 38; Start 04/18/17 at 23:00 Metoprolol Succinate (Toprol Xl) 50 mg DAILY PO Last administered on 09:00; Start 04/19/17 at 09:00 Pantoprazole Sodium (Protonix) 40 mg DAILY PO Last administered on 04/26/17 09:00; Start 04/19/17 at 09:00 Metoprolol Tartrate (Lopressor Inj) 5 mg ONCE ONCE IV PUSH Last administered on 04/19/17 00:10; Start 04/19/17 at 00:00; Stop 04/19/17 at 00:01; Status DC Labetalol HCl (Trandate Inj) 10 mg ONCE ONCE IV PUSH ; Start 04/19/17 at 00:15 ; Stop 04/19/17 at 00:16; Status DC Famotidine (Pepcid Inj) 10 mg ONCE IV PUSH ; Start 04/19/17 at 00:15 Clonidine (Catapres) 0.1 mg ONCE ONCE PO Last administered on 04/19/17 03:48 ; Start 04/19/17 at 02:00; Stop 04/19/17 at 02:01; Status DC Enalaprilat (Vasotec Inj) 2.5 mg Q6H PRN IV PUSH SEE LABEL COMMENTS Last administered on 04/20/17 08:31; Start 04/19/17 at 02:15 Haloperidol Lactate (Haldol Inj) 2 mg ONCE ONCE IV PUSH Last administered on 04/19/17 05:30; Start 04/19/17 at 05:00; Stop 04/19/17 at 05:01; Status DC Amlodipine Besylate (Norvasc) 5 mg DAILY PO Last administered on 04/26/17 08: 59; Start 04/19/17 at 10:00 Potassium Chloride (KCl) 30 meq ONCE ONCE PO Last administered on 04/19/17 15 :41; Start 04/19/17 at 12:45; Stop 04/19/17 at 12:49; Status DC Clonidine (Catapres) 0.1 mg Q6H PRN PO SBP> OR = 180, DBP> OR = 100; Start 04/19/17 at 16:15 Iohexol (Omnipaque 350 Inj) 100 ml STK-MED ONCE IVCONTRAST Last administered on 04/19/17 18:29; Start 04/19/17 at 18:29; Stop 04/19/17 at 18:30; Status DC Heparin Sodium (Porcine) (Heparin Inj) 10,000 units STK-MED ONCE .ROUTE Last administered on 04/20/17 11:35; Start 04/20/17 at 09:31; Stop 04/20/17 at 09:32 ; Status DC Cefazolin Sodium (Ancef Inj) 1,000 mg STK-MED ONCE .ROUTE Last administered on 04/20/17 11:20; Start 04/20/17 at 09:31; Stop 04/20/17 at 09:32; Status DC Lidocaine/ Epinephrine (Xylocaine-Epi 1%-1:100,000 Inj) 20 ml STK-MED ONCE .ROUTE Last administered on 04/20/17 11:35; Start 04/20/17 at 09:31; Stop 04/20/17 at 09:32; Status DC Vancomycin HCl (Vancomycin Inj) 1,000 mg ONCE ONCE IV Last administered on 13:29; Start 04/20/17 at 12:50; Stop 04/20/17 at 13:29; Status DC Morphine Sulfate (*morphine INJ PERIprocedure ONLY) 8 mg STK-MED ONCE .ROUTE Last administered on 04/20/17 14:10; Start 04/20/17 at 14:10; Stop 04/20/17 at 14:11; Status DC Miscellaneous Information ALL NURSING DEPARTME... UNSCH PRN .XX SEE LABEL COMMENTS; Start 04/20/17 at 13:22; Stop 04/21/17 at 13:21; Status DC Morphine Sulfate (*morphine INJ PERIprocedure ONLY) 8 mg STK-MED ONCE .ROUTE Last administered on 04/20/17 14:18; Start 04/20/17 at 14:18; Stop 04/20/17 at 14:19; Status DC Heparin Sodium/ Dextrose 250 ml @ 8 mls/hr TITRATE PRN IV Coagulation Management Last administered on 04/22/17 18:32; Start 04/20/17 at 14:00; Stop 04/23/17 at 17:06; Status DC Sodium Chloride 1,000 ml @ 60 mls/hr [id number] IV Last administered on 14:00; Start 04/20/17 at 14:00; Stop 04/20/17 at 18:39; Status DC Heparin Sodium (Porcine) (Heparin Inj) ONCE ONCE IV PUSH ; Start 04/20/17 at 14:45; Stop 04/20/17 at 14:46; Status UNV Heparin Sodium/ Dextrose 250 ml @ 6.6 mls/hr TITRATE PRN IV Coagulation Management; Start 04/20/17 at 14:45; Status UNV Sodium Chloride 1,000 ml @ 150 mls/hr Q6H40M IV Last administered on 05:23; Start 04/20/17 at 19:00; Stop 04/25/17 at 08:08; Status DC Cefazolin Sodium 1000 mg/Sodium Chloride 100 ml @ 200 mls/hr Q8H IV Last administered on 04/21/17 11:37; Start 04/20/17 at 18:45; Stop 04/21/17 at 11:14 ; Status DC Cefazolin Sodium (Ancef Inj) 1,000 mg STK-MED ONCE .ROUTE ; Start 04/20/17 at 19 :49; Stop 04/20/17 at 19:50; Status DC Morphine Sulfate (Morphine Inj) 2 mg STK-MED ONCE .ROUTE ; Start 04/20/17 at 20: 46; Stop 04/20/17 at 20:47; Status DC Miscellaneous Information ALL NURSING DEPARTME... UNSCH PRN .XX SEE LABEL COMMENTS; Start 04/20/17 at 20:23; Stop 04/21/17 at 20:22; Status DC Morphine Sulfate (Morphine Inj) 4 mg Q3H PRN IV PUSH Pain 6-10 Last administered on 04/27/17 05:47; Start 04/21/17 at 08:00 Cefazolin Sodium 1000 mg/Sodium Chloride 100 ml @ 200 mls/hr Q8H IV Last administered on 04/27/17 03:25; Start 04/21/17 at 20:00 Fentanyl (Duragesic 50 Mcg Patch.72 Hr) 1 patch Q3D T-DERMAL Last administered on 04/24/17 16:14; Start 04/21/17 at 16:00 Miscellaneous Information 1 Q3D T-DERMAL Last administered on 04/24/17 16:00; Start 04/24/17 at 16:00 Acetaminophen/ Hydrocodone Bitart ([place] 5-325 Mg) 2 tab Q4H PRN PO pain 6-10 Last administered on 04/27/17 03:24; Start 04/23/17 at 12:00 Gabapentin (Neurontin) 300 mg TID PO Last administered on 04/26/17 17:07; Start 04/23/17 at 18:00 Rivaroxaban (Xarelto) 10 mg DAILY PO Last administered on 04/26/17 08:59; Start 04/23/17 at 17:07 Zolpidem Tartrate (Ambien) 10 mg ONCE ONCE PO Last administered on 04/23/17 21:24; Start 04/23/17 at 21:00; Stop 04/23/17 at 21:01; Status DC Hydroxyzine HCl (Atarax) 25 mg Q6H PRN PO pruritis Last administered on 05:47; Start 04/27/17 at 04:30 A/P Problem List: (1) Ischemia of extremity ICD Code: I99.8 - Other disorder of circulatory system Status: Acute (2) Non-compliance ICD Code: Z91.19 - Patient's noncompliance with other medical treatment and regimen Status: Acute (3) HTN (hypertension) ICD Code: I10 - Essential (primary) hypertension Status: Acute (4) Leukocytosis ICD Code: D72.829 - Elevated white blood cell count, unspecified Status: Acute (5) Rhabdomyolysis ICD Code: M62.82 - Rhabdomyolysis (6) Alcohol abuse ICD Code: F10.10 - Alcohol abuse, uncomplicated Status: Acute (7) Tobacco abuse ICD Code: Z72.0 - Tobacco use Status: Acute Assessment and Plan A/P Limb Ischemia: h/o PAD s/p Aortobifemoral Bypass, Right Iliofemoral Bypass and Left Femoral Popliteal Artery Bypass by Dr. Gandhi 04/14/16 and declotting/ revision of the Right Aortobifemoral Graft w/ Right Femoral-Popliteal Bypass on 12/06/[address] Guerra, now w/ recurrent ischemia, likely secondary to non- compliance and ongoing tobacco abuse. - patient underwent Iliofemoral embolectomy, femoral-popliteal embolectomy, revision of the iliofemoral anastomosis graft, revision of femoral-popliteal graft with popliteal artery endarterectomy and bovine patch angioplasty. -- started on Xarelto. - continue with pain contro; pain is fairly controlled. - Further plans per Vascular surgery. Alcohol withdrawal/DTs: Improving - Continue treatment per CIWA protocol. Haldol as needed. HTN: Better controlled - Continue metoprolol. Norvasc. Clonidine as needed. Rhabdomyolysis: improving- Continue IVF for hydration. Leukocytosis: Leukocytosis likely reactive secondary to hypoperfusion from limb ischemia- improving- will monitor. Alcohol Abuse: CIWA, Seizure Precautions, MVT/Thiamine/Folate Tobacco Abuse: Counselled. Ativan prn. DVT Prophylaxis: Xarelto consulted PT. Discharge Planning rehab was offered and the importance of wound care was emphasized. however the patient wants to home. 's recommendations was relayed; the patient has to sign out against medical advice if he wants to go home. despite our recommendations, he decided to sign out. d/w the RN at the bedside. Sindi Desai MD Apr 27, 2017 07:40
--- NOTE | 2017-04-27 07:43 | HHI.DS ---
Discharge Summary Admission Date Apr 18, 2017 at 22:56 Discharge Date: Apr 27, 2017 Admitting Diagnosis Limb ischemia on right (1) Ischemia of extremity ICD Code: I99.8 - Other disorder of circulatory system Diagnosis: Principal Status: Acute (2) Non-compliance ICD Code: Z91.19 - Patient's noncompliance with other medical treatment and regimen Diagnosis: Principal Status: Acute (3) HTN (hypertension) ICD Code: I10 - Essential (primary) hypertension Diagnosis: Secondary Status: Acute (4) Leukocytosis ICD Code: D72.829 - Elevated white blood cell count, unspecified Diagnosis: Secondary Status: Acute (5) Rhabdomyolysis ICD Code: M62.82 - Rhabdomyolysis Diagnosis: Secondary (6) Alcohol abuse ICD Code: F10.10 - Alcohol abuse, uncomplicated Diagnosis: Secondary Status: Acute (7) Tobacco abuse ICD Code: Z72.0 - Tobacco use Diagnosis: Secondary Status: Acute Procedures Iliofemoral embolectomy, femoral-popliteal embolectomy, revision of the iliofemoral anastomosis graft, revision of femoral-popliteal graft with popliteal artery endarterectomy and bovine patch angioplasty. Brief History - From Admission This is a 51-year-old male with a PMH of HTN, Anxiety, Depression, Hyperlipidemia, Noncompliance, Alcohol Abuse, Tobacco Abuse and PAD who presented to the ER with complaints of right foot pain x3 days. Previous admit 12/06-12/08/16 for similar complaints, h/o PAD s/p Aortobifemoral Bypass, Right Iliofemoral Bypass and Left Femoral Popliteal Artery Bypass by Dr. Gandhi , non-compliant w/ meds, noted to have acute limb ischemia during that admission, s/p declotting/revision of the right limb aortobifemoral graft and right femoral-popliteal bypass 12/06/[address] Guerra. Returns now w/ acute onset of pain. Pt poor historian, doesn't know what medications he takes. On arrival, BP 184/107, HR 82, O2 sat 99% on RA, Afebrile. WBC 13.8. CPK 636. Trop negative. Dr. Guerra consulted by ER physician, will see in consultation. Started on Heparin gtt in ER. CBC/BMP: 04/27/17 0432 04/25/17 0656 Significant Findings Laboratory Tests Test 04/24/17 08:25 04/25/17 06:56 04/26/17 11:00 04/27/17 04:32 White Blood Count 12.9 TH/MM3 (4.0-11.0) 12.8 TH/MM3 (4.0-11.0) 14.9 TH/MM3 (4.0-11.0) 13.6 TH/MM3 (4.0-11.0) Red Blood Count 3.33 MIL/MM3 (4.50-5.90) 3.35 MIL/MM3 (4.50-5.90) 3.29 MIL/MM3 (4.50-5.90) 3.15 MIL/MM3 (4.50-5.90) Hemoglobin 10.8 GM/DL (13.0-17.0) 11.0 GM/DL (13.0-17.0) 10.7 GM/DL (13.0-17.0) 10.3 GM/DL (13.0-17.0) Hematocrit 31.6 % (39.0-51.0) 32.7 % (39.0-51.0) 31.6 % (39.0-51.0) 30.5 % (39.0-51.0) Mean Platelet Volume 6.9 FL (7.0-11.0) 6.9 FL (7.0-11.0) Activated Partial Thromboplast Time 35.1 SEC (24.3-30.1) 30.4 SEC (24.3-30.1) 34.3 SEC (24.3-30.1) Neutrophils (%) (Auto) 70.1 % (16.0-70.0) Monocytes (%) (Auto) 9.2 % (0.0-8.0) Neutrophils # (Auto) 9.0 TH/MM3 (1.8-7.7) Monocytes # (Auto) 1.2 TH/MM3 (0-0.9) Blood Urea Nitrogen 3 MG/DL (7-18) Calcium Level 7.8 MG/DL (8.5-10.1) Total Creatine Kinase 7128 U/L (39-308) Creatine Kinase MB 22.3 NG/ML (0.5-3.6) Imaging Last Impressions Chest X-Ray 04/18/172044 Signed Impressions: Service Date/Time: Tuesday, April 18, 2017 21:33 - CONCLUSION: No evidence of acute cardiopulmonary disease. Delonte Mas MD Aorta w/Runoff CTA 04/18/17 0000 Signed Impressions: Service Date/Time: Wednesday, April 19, 2017 17:42 - CONCLUSION: 1. Aortobifemoral bypass with interval occlusion of the right iliac limb and right common from arteries. There is also persistent occlusion of the profunda and SFA with occlusion of interval right femoral to popliteal bypass graft. Popliteal artery and runoff vessels on the right are also not opacified. However, this may be flow related. 2. Persistent occlusion of left femoral to below knee popliteal artery bypass graft do to below knee popliteal artery occlusion. There is reconstitution of the runoff vessels via genicular collaterals with 3 vessel runoff to the left foot. Conrado Lynn MD PE at Discharge GENERAL: This is a well-nourished, well-developed patient, in no apparent distress. CARDIOVASCULAR: Regular rate and regular rhythm without murmurs, gallops, or rubs. RESPIRATORY: Clear to auscultation. Breath sounds equal bilaterally. No wheezes , rales, or rhonchi. GASTROINTESTINAL: Abdomen soft, non-tender, nondistended. Normal, active bowel sounds MUSCULOSKELETAL: right leg covered with clean dressing. NEURO: Alert & Oriented x4 to person, place, time, situation. Moves all ext x4 Hospital Course patient was admitted with Limb Ischemia: has a h/o PAD s/p Aortobifemoral Bypass, Right Iliofemoral Bypass and Left Femoral Popliteal Artery Bypass by Dr. Gandhi 04/14/16 and declotting/revision of the Right Aortobifemoral Graft w / Right Femoral-Popliteal Bypass on 12/06/[address] Guerra, now w/ recurrent ischemia, likely secondary to non-compliance and ongoing tobacco abuse. patient underwentt underwent Iliofemoral embolectomy, femoral-popliteal embolectomy, revision of the iliofemoral anastomosis graft, revision of femoral-popliteal graft with popliteal artery endarterectomy and bovine patch angioplasty.-- started on Xarelto.rehab was recommended by vascular surgery however the patient declined and decided to sign out against medical advice. Pt Condition on Discharge: Fair Discharge Disposition: Discharge Home (patient signed out against medical advice.) Discharge Time: <= 30 minutes Discharge Instructions DIET: Follow Instructions for: Heart Healthy Diet Activities you can perform: Regular-No Restrictions Sindi Desai MD Apr 27, 2017 07:43
[2017-04-27] MEDS: GABAPENTIN 300 MG CAP PO SCH (08:02)
[2017-04-27] MEDS: DOCUSATE SODIUM 50 MG/SENNA 8.6 MG TAB PO SCH (08:02)
[2017-04-27] MEDS: ASPIRIN 325 MG TAB PO SCH (08:02)
[2017-04-27] MEDS: amLODIPine BESYLATE 5 MG TAB PO SCH (08:02)
[2017-04-27] MEDS: BACLOFEN 20 MG TAB PO SCH (08:02)
[2017-04-27] MEDS: THIAMINE HCL 100 MG TAB PO SCH (08:02)
[2017-04-27] MEDS: METOPROLOL SUCCINATE 50 MG EXTENDED RELEASE TAB PO SCH (08:02)
[2017-04-27] MEDS: PANTOPRAZOLE SOD 40 MG DELAYED RELEASE TAB PO SCH (08:02)
[2017-04-27] MEDS: DULoxetine HCl DR 60 MG CAP PO SCH (08:02)
[2017-04-27] MEDS: SODIUM CHLORIDE 0.9% FLUSH 10 ML FLUSH IV FLUSH SCH (08:03)
[2017-04-27] MEDS: RIVAROXABAN 10 MG TAB PO SCH (08:03)
--- NOTE | 2017-04-27 12:01 | RADRPT ---
EXAM DATE/TIME: 04/27/2017 10:59 [facility] COMPARISON: ELBOW RIGHT LIMITED (AP & LAT), April 27, 2017, 10:56. INDICATIONS : Right knee pain and swelling. MEDICAL HISTORY : Hypertension. Arthritis. Hernia, hiatal.Inguinal hernea. SURGICAL HISTORY : Hernia. Aortofemoral bypass. Left femoral popiteal. ENCOUNTER: Subsequent ACUITY: 2 weeks PAIN SCORE: 5/10 LOCATION: Right knee. FINDINGS: The osseous structures of the right knee are intact. There are mild degenerative changes. Note is mad e of a femoral to popliteal bypass graft. There is some gas within the deep subcutaneous tissues parviz cent to the graft. CT imaging through this area to exclude infection would be warranted. CONCLUSION: 1. The osseous structures are intact. 2. There is gas within the deep subcutaneous soft tissues. Unless this patient has had recent instrum entation, CT imaging through this area to exclude infection would be warranted. Eric Burr MD on April 27, 2017 at 11:58 Board Certified Radiologist. This report was verified electronically.
--- NOTE | 2017-04-27 12:11 | RADRPT ---
EXAM DATE/TIME: 04/27/2017 10:55 [facility] COMPARISON: No previous studies available for comparison. INDICATIONS : Right wrist pain. MEDICAL HISTORY : Hypertension. Arthritis. Hernia, hiatal.Inguinal hernea. SURGICAL HISTORY : Hernia. Aortofemoral bypass. Left femoral popiteal. ENCOUNTER: Initial ACUITY: 2 weeks PAIN SCORE: 5/10 LOCATION: Right wrist. FINDINGS: Two view examination of the right wrist demonstrates no acute osseous injury. However, there are well -corticated ossific fragments distal to the ulna possibly representing old ulnar styloid avulsion inj ury. There is also some deformity of the distal radial metaphysis suggesting an old healed fracture d eformity. Certainly, probable old boxers type deformity of the fifth metacarpal. CONCLUSION: 1. No acute osseous injury. 2. Plain film findings suggest old healed fracture deformities of the fifth metacarpal, distal radial metaphysis and ulnar styloid. Humberto Barba MD on April 27, 2017 at 12:08 Board Certified Radiologist. This report was verified electronically.
--- NOTE | 2017-04-27 12:17 | RADRPT ---
EXAM DATE/TIME: 04/27/2017 10:56 [facility] COMPARISON: No previous studies available for comparison. INDICATIONS : Right elbow pain. MEDICAL HISTORY : Hypertension. Arthritis. Hernia, hiatal.Inguinal hernea SURGICAL HISTORY : Hernia. Aortofemoral bypass. Left femoral popiteal. ENCOUNTER: Initial ACUITY: 2 weeks PAIN SCORE: 4/10 LOCATION: Right elbow. FINDINGS: Two view examination of the right elbow demonstrates no soft tissue swelling, joint effusion, fractur e or dislocation. Bony mineralization is normal. CONCLUSION: No fracture. Humberto Barba MD on April 27, 2017 at 12:15 Board Certified Radiologist. This report was verified electronically.
== END 2017-04-27 12:00 | disposition left against medical advice (07) | DRG 253 ==
LOC: NEPE 18:49 → NEDA 22:56 → N05A 04-19 00:20 → HCVI 04-20 13:45 → HCPC 04-22 10:50
PROVIDERS: ADMIT Internal Medicine; ATTEND Internal Medicine
PROC: 04CM0ZZ Extirpation of Matter from Right Popliteal Artery, Open Approach (ICD-10-PCS; 2017-04-20)
PROC: 04U Lower Arteries, Supplement (ICD-10-PCS; 2017-04-20)
PROC: 04CK0ZZ Extirpation of Matter from Right Femoral Artery, Open Approach (ICD-10-PCS; principal; 2017-04-20 10:00)
PROC: 0KNS0ZZ Release Right Lower Leg Muscle, Open Approach (ICD-10-PCS; 2017-04-21)
PROC: 0KNS0ZZ Release Right Lower Leg Muscle, Open Approach (ICD-10-PCS; 2017-04-21)
PROC: 0KNS0ZZ Release Right Lower Leg Muscle, Open Approach (ICD-10-PCS; 2017-04-21)
PROC: 0KNS0ZZ Release Right Lower Leg Muscle, Open Approach (ICD-10-PCS; 2017-04-21)
DX: T82.868A Thrombosis due to vascular prosthetic devices, implants and grafts, initial encounter (principal); M79.A21 Nontraumatic compartment syndrome of right lower extremity; F10.231 Alcohol dependence with withdrawal delirium; M62.82 Rhabdomyolysis; I11.0 Hypertensive heart disease with heart failure; I50.9 Heart failure, unspecified; Z78.1 Physical restraint status; Y71.3 Surgical instruments, materials and cardiovascular devices (including sutures) associated with adverse incidents; Y92.9 Unspecified place or not applicable; Z91.19 Patient's noncompliance with other medical treatment and regimen; I73.9 Peripheral vascular disease, unspecified; K21.9 Gastro-esophageal reflux disease without esophagitis; F43.10 Post-traumatic stress disorder, unspecified; J44.9 Chronic obstructive pulmonary disease, unspecified; G43.909 Migraine, unspecified, not intractable, without status migrainosus; R12 Heartburn; K44.9 Diaphragmatic hernia without obstruction or gangrene; F17.210 Nicotine dependence, cigarettes, uncomplicated; F12.90 Cannabis use, unspecified, uncomplicated; Y83.2 Surgical operation with anastomosis, bypass or graft as the cause of abnormal reaction of the patient, or of later complication, without mention of misadventure at the time of the procedure; D72.829 Elevated white blood cell count, unspecified; W19.XXXA Unspecified fall, initial encounter; M25.531 Pain in right wrist; Z91.14 Patient's other noncompliance with medication regimen; Z86.73 Personal history of transient ischemic attack (TIA), and cerebral infarction without residual deficits; E78.5 Hyperlipidemia, unspecified
CPT/HCPCS: 71010; 73070; 73100; 73560; 75635; 80048; 80053; 82550; 82552; 82948; 83735; 84155; 84484; 85025; 85027; 85610; 85730; 86403; 86850; 86900; 86901; 86920; 87070; 87205; 93005; 96361; 96374; 96375; J0690; J1630; J1644; J2060; J2270; J2405; J3370; J7030; Q9967

== ENCOUNTER 2017-05-02 13:43 | Inpatient (IN) | payer OTHER, MEDICARE ==
[~2017-05-02] VITALS: Ht 167.6 cm; Wt 48.5 kg
[~2017-05-02 13:43] MED LIST changes: +AMLO5 PO; -ASPI-183 PO; -HYDR-3583 PO; +MULT1TAB46 PO; +NEUR300C PO; +NORC5TAB PO; -PERI8.6T PO; +XARE10TA PO
[2017-05-02] MEDS ORDERED: SODIUM CHLORIDE 0.9% FLUSH 10 ML FLUSH IV FLUSH PRN (19:00)
[2017-05-02] MEDS ORDERED: LACTULOSE SYRUP 20 GM/30 ML CUP PO PRN (19:00)
[2017-05-02] MEDS ORDERED: MAGNESIUM HYDROXIDE SUSP 30 ML CUP PO PRN (19:00)
[2017-05-02] MEDS ORDERED: ACETAMINOPHEN 325 MG TAB PO PRN (19:00)
[2017-05-02] MEDS ORDERED: ACETAMINOPHEN/HYDROcodone 325 MG/5 MG TAB PO PRN (19:00)
[2017-05-02] MEDS ORDERED: SENNOSIDES 8.6 MG TAB PO PRN (19:00)
[2017-05-02] MEDS ORDERED: ONDANSETRON HCL 4 MG/2 ML VIAL IVP PRN (19:00)
[2017-05-02] MEDS ORDERED: HEPARIN-D5W 25,000 U/250 ML 250 ML IV PRN (19:00)
[2017-05-02] MEDS ORDERED: BISACODYL 10 MG SUPP RECTAL PRN (19:00)
[2017-05-02] MEDS ORDERED: MORPHINE SULFATE 2 MG/ML INJ IV PRN (19:15)
[2017-05-02] MEDS ORDERED: HEPARIN 25,000 UNITS-D5W 250 ML - PREMIX IV PRN (19:30)
[2017-05-02 20:11] LABS: HEMATOCRIT 31.2 % (39.0-51.0); MEAN CELL VOLUME 96.7 FL (80.0-100.0); MEAN CORPUSCULAR HEMOGLOBIN 31.8 PG (27.0-34.0); MEAN CORPUSCULAR HGB CONC 32.9 % (32.0-36.0); PLATELET COUNT 643 TH/MM3 (150-450); RED BLOOD COUNT 3.23 MIL/MM3 (4.50-5.90); RED CELL DISTRIBUTION WIDTH 14.2 % (11.6-17.2); REVIEW FLAG FINAL; WHITE BLOOD COUNT 15.2 TH/MM3 (4.0-11.0)
[2017-05-02 20:16] LABS: APTT (PATIENT) 27.2 SEC (24.3-30.1); PROTHROMBIN TIME - PATIENT 10.3 SEC (9.8-11.6)
[2017-05-02] MEDS: SODIUM CHLORIDE 0.9% FLUSH 10 ML FLUSH IV FLUSH SCH (20:40)
[2017-05-02] MEDS: DOCUSATE SODIUM 50 MG/SENNA 8.6 MG TAB PO SCH (20:41)
[2017-05-02] MEDS: ATORVASTATIN 40 MG TAB PO SCH (20:41)
[2017-05-02] MEDS ORDERED: Vancomycin Consult Pharmacy 1 EA OTHER SCH (21:15)
[2017-05-02 21:19] VITALS: BP 137/78; PULSE 64; RESP 16; TEMP 98.1; O2SAT 92
[2017-05-02] MEDS ORDERED: PIPERACIL-TAZO 3.375 GM PREMIX 50 ML IV SCH (22:00)
--- NOTE | 2017-05-02 22:12 | HHI.HP ---
[facility] Service [facility] . Primary Care Physician [facility] . Admission Diagnosis Right lower extremity limb ischemia/necrosis . Diagnoses: (1) Peripheral arterial occlusive disease (2) Lower limb ischemia Chief Complaint: Severe right lower leg pain Travel History International Travel<30 Days: No Contact w/Intl Traveler <30 Da: No History of Present Illness Mr. Brower is a 51 y/o male with a history of PAD with multiple reperfusion surgeries performed by Dr. Guerra and Dr. Gandhi, hypertension, hyperlipidemia, GERD, anxiety/depression, nonadherence with medical regimen, and tobacco abuse who was transferred from the [facility] in [place] on for right lower leg ischemia and necrosis to be evaluated by vascular surgeon Dr. Guerra. The patient is admitted to [facility] service to manage medical problems prior to surgical intervention. The patient is seen in his room complaining of severe 8/10 aching pain to right lower extremity and paresthesias in right foot. The patient states the pain has been ongoing since his discharge ([facility]) from the hospital on 04/27/17 but it progressively worsened until he sought treatment for the pain at the [facility] in [place] on 05/01/17. He also reports exudate to right calf fasciotomy sites - purulent at times. He reports chills, sweats, and nausea with vomiting since last Wednesday. Last episode of vomiting was 4 PM yesterday. Denies any recorded fevers. The patient had following surgeries with Dr. Gandhi: 04/14/2016 - Aorto bifemoral bypass, right iliofemoral bypass, left femoropopliteal bypass The patient had following surgeries with Dr. Guerra: 12/06/16 - declotting/ revision of right limb aortobifemoral graft and right femoral popliteal bypass; 04/20/17 - iliofemoral embolectomy, Femoral popliteal embolectomy, revision of iliofemoral anastomosis graft, revision of femoral popliteal graft with popliteal artery endarterectomy and bovine patch angioplasty. The patient had following surgeries with Dr. Kimball: 04/21/17 - 4 compartment fasciotomy below the right knee for compartment syndrome. Records were personally reviewed from the [facility] - the patient was on vancomycin and Zosyn for right lower extremity cellulitis. Review of Systems Except as stated in HPI: all other systems reviewed are Neg Past Family Social History Past Medical History PAD with multiple reperfusion surgeries performed by Dr. Guerra and Dr. Gandhi, hypertension, hyperlipidemia, GERD, anxiety/depression, nonadherence with medical regimen, and tobacco abuse . Past Surgical History Cervical fusion Bilateral inguinal hernia repair The patient had following surgeries with Dr. Gandhi: 04/14/2016 - Aorto bifemoral bypass, right iliofemoral bypass, left femoropopliteal bypass The patient had following surgeries with Dr. Guerra: 12/06/16 - declotting/ revision of right limb aortobifemoral graft and right femoral popliteal bypass; 04/20/17 - iliofemoral embolectomy, Femoral popliteal embolectomy, revision of iliofemoral anastomosis graft, revision of femoral popliteal graft with popliteal artery endarterectomy and bovine patch angioplasty. The patient had following surgeries with Dr. Kimball: 04/21/17 - 4 compartment fasciotomy below the right knee for compartment syndrome. Dental extractions . Reported Medications Reported Meds & Active Scripts Active Neurontin (Gabapentin) 300 Mg Cap 300 Mg PO TID 30 Days Multi Vitamin Daily (Multiple Vitamin) 1 Tab Tab 1 Tab PO DAILY 30 Days Xarelto (Rivaroxaban) 10 Mg Tab 10 Mg PO DAILY 30 Days Norvasc (Amlodipine Besylate) 5 Mg Tab 5 Mg PO DAILY 30 Days Ativan (Lorazepam) 0.5 Mg Tab 0.5 Mg PO Q8H PRN [place] (Hydrocodone-Acetaminophen) 5 Mg-325 Mg Tab 1 Tab PO Q6H PRN Lipitor (Atorvastatin Calcium) 40 Mg Tab 40 Mg PO HS 30 Days Reported Pantoprazole (Pantoprazole Sodium) 40 Mg Tab 40 Mg PO DAILY Metoprolol Succinate ER 24 HR (Metoprolol Succinate) 50 Mg Tab 50 Mg PO DAILY Duloxetine DR (Duloxetine HCl) 60 Mg Capdr 60 Mg PO DAILY Baclofen 20 Mg Tab 20 Mg PO BID . Allergies: Coded Allergies: bee venom protein (honey bee) (Unverified Allergy, Severe, SWELLING, ) Active Ordered Medications Current Medications Sodium Chloride (NS Flush) 2 ml UNSCH PRN IV FLUSH FLUSH AFTER USING IV ACCESS ; Start 05/02/17 at 19:00 Sodium Chloride (NS Flush) 2 ml BID IV FLUSH Last administered on 05/02/17 20 :40; Start 05/02/17 at 21:00 Ondansetron HCl (Zofran Inj) 4 mg Q6H PRN IVP NAUSEA OR VOMITING; Start at 19:00 Acetaminophen (Tylenol) 650 mg Q6H PRN PO FEVER/PAIN SCALE 1 TO 4; Start 05/02 at 19:00 Acetaminophen/ Hydrocodone Bitart ([place] 5-325 Mg) 1 tab Q4H PRN PO PAIN SCALE 3 TO 5; Start 05/02/17 at 19:00; Stop 05/02/17 at 21:17; Status DC Morphine Sulfate (Morphine Inj) 2 mg Q3H PRN IV PAIN 6-10 Last administered on 05/02/17 21:11; Start 05/02/17 at 19:15; Stop 05/02/17 at 21:18; Status DC Senna/Docusate Sodium (Neeta-Colace) 1 tab BID PO Last administered on 20:41; Start 05/02/17 at 21:00 Magnesium Hydroxide (Milk Of Magnesia Liq) 30 ml Q12H PRN PO Mild constipation ; Start 05/02/17 at 19:00 Sennosides (Senokot) 17.2 mg Q12H PRN PO Moderate constipation; Start at 19:00 Bisacodyl (Dulcolax Supp) 10 mg DAILY PRN RECTAL SEVERE CONSITIPATION; Start 05/02/17 at 19:00 Lactulose (Lactulose Liq) 30 ml DAILY PRN PO SEVERE CONSITIPATION; Start 05/02 at 19:00 Heparin Sodium/ Dextrose 250 ml @ 0 mls/hr TITRATE PRN IV Coagulation Management; Start 05/02/17 at 19:00; Status UNV Amlodipine Besylate (Norvasc) 5 mg DAILY PO ; Start 05/03/17 at 09:00 Atorvastatin Calcium (Lipitor) 40 mg HS PO Last administered on 05/02/17 20: 41; Start 05/02/17 at 21:00 Duloxetine HCl (Cymbalta Dr) 60 mg DAILY PO ; Start 05/03/17 at 09:00 Gabapentin (Neurontin) 300 mg TID PO ; Start 05/03/17 at 09:00 Lorazepam (Ativan) 0.5 mg Q8H PRN PO anxiety Last administered on 05/02/17 22 :43; Start 05/02/17 at 19:00 Metoprolol Succinate (Toprol Xl) 50 mg DAILY PO ; Start 05/03/17 at 09:00 Pantoprazole Sodium (Protonix) 40 mg DAILY PO ; Start 05/03/17 at 09:00 Non-Formulary Medication 1 tab DAILY PO ; Start 05/03/17 at 09:00; Status UNV Multivitamins (Theragran) 1 tab DAILY PO ; Start 05/03/17 at 09:00 Heparin Sodium/ Dextrose 250 ml @ 6 mls/hr TITRATE PRN IV Coagulation Management Last administered on 05/02/17 20:48; Start 05/02/17 at 19:30 Piperacillin Sod/ Tazobactam Sod 50 ml @ 100 mls/hr Q6H IV ; Start 05/02/17 at 22:00; Stop 05/02/17 at 22:00; Status DC Pharmacy Profile Note 0 ml @ 0 mls/hr UNSCH OTHER ; Start 05/02/17 at 21:15 Morphine Sulfate (Morphine Inj) 4 mg Q3H PRN IV breakthrough pain; Start 05/02 at 22:15 Oxycodone HCl (Roxicodone) 10 mg Q4H PRN PO pain > 5 Last administered on 05/02 22:44; Start 05/02/17 at 21:30 Piperacillin Sod/ Tazobactam Sod 3.375 gm/Sodium Chloride 100 ml @ 200 mls/hr Q6H IV Last administered on 05/03/17 00:29; Start 05/02/17 at 22:00 Vancomycin HCl 850 mg/Sodium Chloride 258.5 ml @ 250 mls/hr Q18H IV Last administered on 05/03/17 00:29; Start 05/02/17 at 23:00 Miscellaneous Information SPECIFIC LAB TO BE DRAWN:[facility]... ONCE ONCE .XX ; Start 05/05/17 at 04:45; Stop 05/05/17 at 04:46 , Family History Mother with "lymph node cancer"; no family history of peripheral artery disease or heart disease . Social History Tobacco: Smokes cigarettes for the past 40 years - currently smokes 15 cigarettes per day Alcohol: Not a daily drinker; drinks to 4 packs per week Illicit Drugs: Smokes marijuana "as much as I can; if I have it, I will smoke it " . Physical Exam Vital Signs Vital Signs Date Time Temp Pulse Resp B/P (MAP) Pulse Ox O2 Delivery O2 Flow Rate FiO2 05/02/17 21:19 98.1 64 16 137/78 (97) 92 Physical Exam GENERAL: This is a pale, cachectic, chronically ill-appearing male patient, in no apparent distress. SKIN: Cool and dry. Right lower extremity with fasciotomy wound to the medial and lateral sides of the calf with muscle exposed, serous was some purulent drainage and areas of necrosis noted. Right first toe with distal area of necrosis noted. Right groin with slightly dehisced but healing surgical wound approximately an inch and a half long. No signs of infection there. Right distal 5 with incision that is healing and covered by Steri-Strips. No signs of infection there either. HEAD: Atraumatic. Normocephalic. EYES: No scleral icterus. No injection or drainage. ENT: Nose without bleeding, purulent drainage. NECK: Trachea midline. No JVD. CARDIOVASCULAR: Regular rate and rhythm without murmurs, gallops, or rubs. Right calf is swollen in appearance but there is no fluctuance. I was able to obtain dorsalis pedis bilaterally with bedside doppler only. Unable to palpate. RESPIRATORY: Breath sounds with diminished bibasilar air exchange, equal bilaterally. No wheezes, rales, or rhonchi. GASTROINTESTINAL: Abdomen soft, non-tender, nondistended. No guarding. MUSCULOSKELETAL: Extremities without clubbing, cyanosis, or edema. No calf tenderness. NEUROLOGICAL: Awake and alert. Motor and sensory grossly within normal limits. Normal speech. . Laboratory Laboratory Tests Test 05/02/17 19:29 White Blood Count 15.2 Red Blood Count 3.23 Hemoglobin 10.3 Hematocrit 31.2 Mean Corpuscular Volume 96.7 Mean Corpuscular Hemoglobin 31.8 Mean Corpuscular Hemoglobin Concent 32.9 Red Cell Distribution Width 14.2 Platelet Count 643 Mean Platelet Volume 6.4 Prothrombin Time 10.3 Prothromb Time International Ratio 1.0 Activated Partial Thromboplast Time 27.2 Result Diagram: 05/02/171928 Caprini VTE Risk Assessment Caprini VTE Risk Assessment: Mod/High Risk (score >= 2) Caprini Risk Assessment Model Point Value = 1 Point Value = 2 Point Value = 3 Point Value = 5 Age 41-60 Minor surgery BMI > 25 kg/m2 Swollen legs Varicose veins or History of unexplained or recurrent spontaneous Oral contraceptives or hormone replacement Sepsis (< 1 month) Serious lung disease, including pneumonia (< 1 month) Abnormal pulmonary function Acute myocardial infarction Congestive heart failure (< 1 month) History of inflammatory bowel disease Medical patient at bed rest Age 61-74 Arthroscopic surgery Major open surgery (> 45 min) Laparoscopic surgery (> 45 min) Malignancy Confined to bed (> 72 hours) Immobilizing plaster cast Central venous access Age >= 75 History of VTE Family history of VTE Factor V Leiden Prothrombin [id number] Lupus anticoagulant Anticardiolipin antibodies Elevated serum homocysteine Heparin-induced thrombocytopenia Other congenital or acquired thrombophilia Stroke (< 1 month) Elective arthroplasty Hip, pelvis, or leg fracture Acute spinal cord injury (< 1 month) Prophylaxis Regimen Total Risk Factor Score Risk Level Prophylaxis Regimen 0-1 Low Early ambulation 2 Moderate Order ONE of the following: *Sequential Compression Device (SCD) *Heparin 5000 units SQ BID 3-4 Higher Order ONE of the following medications: *Heparin 5000 units SQ TID *Enoxaparin/Lovenox 40 mg SQ daily (WT < 150 kg, CrCl > 30 mL/min) *Enoxaparin/Lovenox 30 mg SQ daily (WT < 150 kg, CrCl > 10-29 mL/min) *Enoxaparin/Lovenox 30 mg SQ BID (WT < 150 kg, CrCl > 30 mL/min) AND/OR *Sequential Compression Device (SCD) 5 or more Highest Order ONE of the following medications: *Heparin 5000 units SQ TID (Preferred with Epidurals) *Enoxaparin/Lovenox 40 mg SQ daily (WT < 150 kg, CrCl > 30 mL/min) *Enoxaparin/Lovenox 30 mg SQ daily (WT < 150 kg, CrCl > 10-29 mL/min) *Enoxaparin/Lovenox 30 mg SQ BID (WT < 150 kg, CrCl > 30 mL/min) AND *Sequential Compression Device (SCD) Assessment and Plan Problem List: (1) Peripheral arterial occlusive disease ICD Code: I77.9 - Disorder of arteries and arterioles, unspecified (2) Lower limb ischemia ICD Code: I99.8 - Other disorder of circulatory system Assessment and Plan Mr. Brower is a 51 y/o male with a history of PAD with multiple reperfusion surgeries performed by Dr. Guerra and Dr. Gandhi, hypertension, hyperlipidemia, GERD, anxiety/depression, nonadherence with medical regimen, and tobacco abuse who was transferred from the [facility] on for right lower leg ischemia and necrosis to be evaluated by vascular surgeon Dr. Guerra. The patient is admitted to [facility] service to manage medical problems prior to surgical intervention. Peripheral arterial occlusive disease Right lower limb ischemia/necrosis - Consult vascular surgery - patient well known to Dr. 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 Physician Certification 2 Midnight Certification Type: Admission for Inpatient Services Order for Inpatient Services The services are ordered in accordance with Medicare regulations or non- Medicare payer requirements, as applicable. In the case of services not specified as inpatient-only, they are appropriately provided as inpatient services in accordance with the 2-midnight benchmark. Estimated LOS (days): 5 days is the estimated time the patient will need to remain in the hospital, assuming treatment plan goals are met and no additional complications. Post-Hospital Plan: Not yet determined Cat Carey May 02, 2017 22:12
[2017-05-02] MEDS: LORazepam 0.5 MG TAB PO PRN (22:43)
[2017-05-02] MEDS ORDERED: VANCOMYCIN INJ 850 MG in SODIUM CHLOR 0.9% 250 ML INJ 250 ML IV SCH (23:00)
[2017-05-03] VITALS: BP 125/73; PULSE 77; RESP 18; TEMP 97.9; O2SAT 95
[2017-05-03] MEDS: PIPERACILLIN/TAZ 3.375 GM VIAL 3.375 GM in SODIUM CHLORIDE 0.9% INJ 100 ML IV SCH ×3 (00:29→09:58)
[2017-05-03 02:40] VITALS: BP 125/73; PULSE 77; RESP 18; TEMP 97.9; O2SAT 95
[2017-05-03 03:48] LABS: AUTOMATED NEUTROPHIL # 9.6 TH/MM3 (1.8-7.7); BASOPHIL # 0.1 TH/MM3 (0-0.2); BASOPHIL % 0.6 % (0.0-2.0); EOSINOPHIL # 0.4 TH/MM3 (0-0.4); HEMATOCRIT 29.9 % (39.0-51.0); HEMO FLAGS DIFF FINAL; LYMPH % 21.9 % (9.0-44.0); LYMPHOCYTE # 3.1 TH/MM3 (1.0-4.8); MEAN CELL VOLUME 95.8 FL (80.0-100.0); MEAN CORPUSCULAR HEMOGLOBIN 31.8 PG (27.0-34.0); MEAN CORPUSCULAR HGB CONC 33.2 % (32.0-36.0); NEUT % 68.5 % (16.0-70.0); PLATELET COUNT 631 TH/MM3 (150-450); RED BLOOD COUNT 3.12 MIL/MM3 (4.50-5.90); RED CELL DISTRIBUTION WIDTH 14.4 % (11.6-17.2)
[2017-05-03 04:01] LABS: ALT (GPT) 24 U/L (12-78); ANION GAP 6 MEQ/L (5-15); APTT (PATIENT) 31.2 SEC (24.3-30.1); AST (GOT) 42 U/L (15-37); BICARBONATE 27.5 MEQ/L (21.0-32.0); BLOOD UREA NITROGEN 7 MG/DL (7-18); CHLORIDE 106 MEQ/L (98-107); GLOMERULAR FILTRATION RATE 116 ML/MIN (>89); POTASSIUM 3.9 MEQ/L (3.5-5.1); SODIUM (NA) 139 MEQ/L (136-145)
[2017-05-03 04:03] LABS: ALKALINE PHOSPHATASE 80 U/L (45-117); TOTAL BILIRUBIN ADULT 0.3 MG/DL (0.2-1.0)
[2017-05-03] MEDS: MORPHINE SULFATE 2 MG/ML INJ IV PRN ×5 (04:41→23:32)
[2017-05-03] MEDS ORDERED: HEPARIN SODIUM - IV 10,000 UNITS/10 ML VIAL IV PUSH PRN ×2 (06:30)
[2017-05-03 08:00] VITALS: BP 131/71; PULSE 73; RESP 17; TEMP 97; O2SAT 91
[2017-05-03] MEDS ORDERED: NON-FORMULARY DRUG (Multiple Vitamin (Multi Vitamin Daily) 1 TAB) PO SCH (09:00)
[2017-05-03] MEDS: PANTOPRAZOLE SOD 40 MG DELAYED RELEASE TAB PO SCH (09:54)
[2017-05-03] MEDS: METOPROLOL SUCCINATE 50 MG EXTENDED RELEASE TAB PO SCH (09:54)
[2017-05-03] MEDS: DOCUSATE SODIUM 50 MG/SENNA 8.6 MG TAB PO SCH ×2 (09:54→22:10)
[2017-05-03] MEDS: DULoxetine HCl DR 60 MG CAP PO SCH (09:54)
[2017-05-03] MEDS: amLODIPine BESYLATE 5 MG TAB PO SCH (09:54)
[2017-05-03] MEDS: GABAPENTIN 300 MG CAP PO SCH ×3 (09:54→17:23)
[2017-05-03] MEDS: MULTIVITAMIN TAB PO SCH (09:54)
[2017-05-03] MEDS: SODIUM CHLORIDE 0.9% FLUSH 10 ML FLUSH IV FLUSH SCH ×2 (09:55→19:47)
--- NOTE | 2017-05-03 11:10 | HHI.PR ---
Subjective Remarks Mr. Brower is a 51 y/o male with a history of PAD with multiple reperfusion surgeries performed by Dr. Guerra and Dr. Gandhi, hypertension, hyperlipidemia, GERD, anxiety/depression, nonadherence with medical regimen, and tobacco abuse who was transferred from the [facility] in [place] on for right lower leg ischemia and necrosis to be evaluated by vascular surgeon Dr. Guerra. The patient is admitted to [facility] service to manage medical problems prior to surgical intervention. The patient is seen in his room complaining of severe 8/10 aching pain to right lower extremity and paresthesias in right foot. The patient states the pain has been ongoing since his discharge (AMA) from the hospital on 04/27/17 but it progressively worsened until he sought treatment for the pain at the [facility] in [place] on 05/01/17. He also reports exudate to right calf fasciotomy sites - purulent at times. He reports chills, sweats, and nausea with vomiting since last Wednesday. Last episode of vomiting was 4 PM yesterday. Denies any recorded fevers. The patient had following surgeries with Dr. Gandhi: 04/14/2016 - Aorto bifemoral bypass, right iliofemoral bypass, left femoropopliteal bypass The patient had following surgeries with Dr. Guerra: 12/06/16 - declotting/ revision of right limb aortobifemoral graft and right femoral popliteal bypass; 04/20/17 - iliofemoral embolectomy, Femoral popliteal embolectomy, revision of iliofemoral anastomosis graft, revision of femoral popliteal graft with popliteal artery endarterectomy and bovine patch angioplasty. The patient had following surgeries with Dr. Kimball: 04/21/17 - 4 compartment fasciotomy below the right knee for compartment syndrome. Records were personally reviewed from the [facility] - the patient was on vancomycin and Zosyn for right lower extremity cellulitis. 05-[address] GUERRA today AWAIT IS EVALUATION PATIENT STATES HE WANTS RIGHT BKA SINCE HIS WOUND IS NOT HEALING STILL ACTIVELY SMOKING AT HOME DW RN AND PT AND CASE MANAGEMENT DURING ROUNDS Objective Vitals Vital Signs Date Time Temp Pulse Resp B/P (MAP) Pulse Ox O2 Delivery O2 Flow Rate FiO2 05/03/17 08:00 97.0 73 17 131/71 (91) 91 05/03/17 04:26 05/03/17 00:00 97.9 77 18 125/73 (90) 95 05/02/17 21:19 98.1 64 16 137/78 (97) 92 I/O 05/02/17 05/02/17 05/02/17 05/03/17 05/03/17 05/03/17 07:00 15:00 23:00 07:00 15:00 23:00 Intake Total 350 ml Output Total 1000 ml Balance -650 ml Intake IV Total 350 ml Output Urine Total 1000 ml Drainage Total 0 ml # Bowel Movements 0 Result Diagram: 05/03/17 0333 05/03/17 0333 Other Results Laboratory Tests Test 05/02/17 19:29 05/03/17 03:33 White Blood Count 15.2 TH/MM3 14.0 TH/MM3 Red Blood Count 3.23 MIL/MM3 3.12 MIL/MM3 Hemoglobin 10.3 GM/DL 9.9 GM/DL Hematocrit 31.2 % 29.9 % Mean Corpuscular Volume 96.7 FL 95.8 FL Mean Corpuscular Hemoglobin 31.8 PG 31.8 PG Mean Corpuscular Hemoglobin Concent 32.9 % 33.2 % Red Cell Distribution Width 14.2 % 14.4 % Platelet Count 643 TH/MM3 631 TH/MM3 Mean Platelet Volume 6.4 FL 6.1 FL Prothrombin Time 10.3 SEC Prothromb Time International Ratio 1.0 RATIO Activated Partial Thromboplast Time 27.2 SEC 31.2 SEC Neutrophils (%) (Auto) 68.5 % Lymphocytes (%) (Auto) 21.9 % Monocytes (%) (Auto) 6.0 % Eosinophils (%) (Auto) 3.0 % Basophils (%) (Auto) 0.6 % Neutrophils # (Auto) 9.6 TH/MM3 Lymphocytes # (Auto) 3.1 TH/MM3 Monocytes # (Auto) 0.8 TH/MM3 Eosinophils # (Auto) 0.4 TH/MM3 Basophils # (Auto) 0.1 TH/MM3 CBC Comment DIFF FINAL Differential Comment Blood Urea Nitrogen 7 MG/DL Creatinine 0.71 MG/DL Random Glucose 85 MG/DL Total Protein 5.5 GM/DL Albumin 2.1 GM/DL Calcium Level 7.9 MG/DL Alkaline Phosphatase 80 U/L Aspartate Amino Transf (AST/SGOT) 42 U/L Alanine Aminotransferase (ALT/SGPT) 24 U/L Total Bilirubin 0.3 MG/DL Sodium Level 139 MEQ/L Potassium Level 3.9 MEQ/L Chloride Level 106 MEQ/L Carbon Dioxide Level 27.5 MEQ/L Anion Gap 6 MEQ/L Estimat Glomerular Filtration Rate 116 ML/MIN Objective Remarks GENERAL: Pale, cachectic, chronicly ill-appearing male in no apparent distress SKIN: Cool and dry. Right lower extremity with fasciotomy wound to the medial and lateral sides With muscle exposed with some serious with some purulent drainage and areas of necrosis noted. Right first toe with distal area of necrosis noted. Right groin was slightly dehisced but healing surgical wound approximately an inch and a half long. No signs of infection there. Right distal fifth with incision that is healing covered by Steri-Strips. No sign of infection there either HEAD: Atraumatic. Normocephalic. EYES: Pupils equal and round. No scleral icterus. No injection or drainage. ENT: No nasal bleeding or discharge. Mucous membranes pink and moist. Tongue is midline NECK: Trachea midline. No JVD. Supple CARDIOVASCULAR: Regular rate and rhythm. S1-S2 no S3 or S4 no heave or thrill or rub or gallop RESPIRATORY: No accessory muscle use. Clear to auscultation. Breath sounds equal bilaterally. No rhonchi wheezes or rales GASTROINTESTINAL: Abdomen soft, non-tender, nondistended. Hepatic and splenic margins not palpable. Soft nontender nondistended no rebound rigidity or guarding MUSCULOSKELETAL: Extremities without clubbing, cyanosis, or edema. No obvious deformities. Right calf is swollen in appearance but there is no fluctuance. I was able to obtain dorsalis pedis bilaterally with bedside doppler only. Unable to palpate right lower extremity with decreased pedal pulses NEUROLOGICAL: Awake and alert. No obvious cranial nerve deficits. Motor grossly within normal limits. 4 out of 5 muscle strength in the left and right arms and left leg. Weakness in right lower extremity wounds dressed Normal speech. PSYCHIATRIC: Appropriate mood and affect; insight and judgment normal. Normal speech Medications and IVs Current Medications Sodium Chloride (NS Flush) 2 ml UNSCH PRN IV FLUSH FLUSH AFTER USING IV ACCESS ; Start 05/02/17 at 19:00 Sodium Chloride (NS Flush) 2 ml BID IV FLUSH Last administered on 05/03/17 09 :55; Start 05/02/17 at 21:00 Ondansetron HCl (Zofran Inj) 4 mg Q6H PRN IVP NAUSEA OR VOMITING; Start at 19:00 Acetaminophen (Tylenol) 650 mg Q6H PRN PO FEVER/PAIN SCALE 1 TO 4; Start 05/02 at 19:00 Acetaminophen/ Hydrocodone Bitart ([place] 5-325 Mg) 1 tab Q4H PRN PO PAIN SCALE 3 TO 5; Start 05/02/17 at 19:00; Stop 05/02/17 at 21:17; Status DC Morphine Sulfate (Morphine Inj) 2 mg Q3H PRN IV PAIN 6-10 Last administered on 05/02/17 21:11; Start 05/02/17 at 19:15; Stop 05/02/17 at 21:18; Status DC Senna/Docusate Sodium (Neeta-Colace) 1 tab BID PO Last administered on 09:54; Start 05/02/17 at 21:00 Magnesium Hydroxide (Milk Of Magnesia Liq) 30 ml Q12H PRN PO Mild constipation ; Start 05/02/17 at 19:00 Sennosides (Senokot) 17.2 mg Q12H PRN PO Moderate constipation; Start at 19:00 Bisacodyl (Dulcolax Supp) 10 mg DAILY PRN RECTAL SEVERE CONSITIPATION; Start 05/02/17 at 19:00 Lactulose (Lactulose Liq) 30 ml DAILY PRN PO SEVERE CONSITIPATION; Start 05/02 at 19:00 Heparin Sodium/ Dextrose 250 ml @ 0 mls/hr TITRATE PRN IV Coagulation Management; Start 05/02/17 at 19:00; Status UNV Amlodipine Besylate (Norvasc) 5 mg DAILY PO Last administered on 05/03/17 09: 54; Start 05/03/17 at 09:00 Atorvastatin Calcium (Lipitor) 40 mg HS PO Last administered on 05/02/17 20: 41; Start 05/02/17 at 21:00 Duloxetine HCl (Cymbalta Dr) 60 mg DAILY PO Last administered on 05/03/17 09: 54; Start 05/03/17 at 09:00 Gabapentin (Neurontin) 300 mg TID PO Last administered on 05/03/17 09:54; Start 05/03/17 at 09:00 Lorazepam (Ativan) 0.5 mg Q8H PRN PO anxiety Last administered on 05/02/17 22 :43; Start 05/02/17 at 19:00 Metoprolol Succinate (Toprol Xl) 50 mg DAILY PO Last administered on 09:54; Start 05/03/17 at 09:00 Pantoprazole Sodium (Protonix) 40 mg DAILY PO Last administered on 05/03/17 09:54; Start 05/03/17 at 09:00 Non-Formulary Medication 1 tab DAILY PO ; Start 05/03/17 at 09:00; Status UNV Multivitamins (Theragran) 1 tab DAILY PO Last administered on 05/03/17 09:54 ; Start 05/03/17 at 09:00 Heparin Sodium/ Dextrose 250 ml @ 6 mls/hr TITRATE PRN IV Coagulation Management Last administered on 05/02/17 20:48; Start 05/02/17 at 19:30 Piperacillin Sod/ Tazobactam Sod 50 ml @ 100 mls/hr Q6H IV ; Start 05/02/17 at 22:00; Stop 05/02/17 at 22:00; Status DC Pharmacy Profile Note 0 ml @ 0 mls/hr UNSCH OTHER ; Start 05/02/17 at 21:15 Morphine Sulfate (Morphine Inj) 4 mg Q3H PRN IV breakthrough pain Last administered on 05/03/17 09:57; Start 05/02/17 at 22:15 Oxycodone HCl (Roxicodone) 10 mg Q4H PRN PO pain > 5 Last administered on 05/03 06:59; Start 05/02/17 at 21:30 Piperacillin Sod/ Tazobactam Sod 3.375 gm/Sodium Chloride 100 ml @ 200 mls/hr Q6H IV Last administered on 05/03/17 09:58; Start 05/02/17 at 22:00 Vancomycin HCl 850 mg/Sodium Chloride 258.5 ml @ 250 mls/hr Q18H IV Last administered on 05/03/17 00:29; Start 05/02/17 at 23:00 Miscellaneous Information SPECIFIC LAB TO BE DRAWN:VA... ONCE ONCE .XX ; Start 05/05/17 at 04:45; Stop 05/05/17 at 04:46 Heparin Sodium (Porcine) (Heparin Inj) 5,000 units UNSCH PRN IV PUSH aPTT less than 25; Start 05/03/17 at 06:30 Heparin Sodium (Porcine) (Heparin Inj) 2,500 units UNSCH PRN IV PUSH aPTT 25 to 39 Last administered on 05/03/17t 06:22; Start 05/03/17 at 06:30 A/P Problem List: (1) Peripheral arterial occlusive disease ICD Code: I77.9 - Disorder of arteries and arterioles, unspecified (2) Lower limb ischemia ICD Code: I99.8 - Other disorder of circulatory system Assessment and Plan Mr. Brower is a 51 y/o male with a history of PAD with multiple reperfusion surgeries performed by Dr. Guerra and Dr. Gandhi, hypertension, hyperlipidemia, GERD, anxiety/depression, nonadherence with medical regimen, and tobacco abuse who was transferred from the [facility] in [place] on for right lower leg ischemia and necrosis to be evaluated by vascular surgeon Dr. Guerra. The patient is admitted to [facility] service to manage medical problems prior to surgical intervention. Peripheral arterial occlusive disease Right lower limb ischemia/necrosis - Consult vascular surgery - patient well known to Dr. Strauss - appreciate assistance - Oxycodone 10 mg by mouth every 4 hours when necessary pain greater than 5; morphine 4 mg IV every 3 hours as needed for breakthrough pain - Antibiotics: continue IV Zosyn and Vancomycin Extensive history of thromboembolism - Heparin drip for now Hypertension, anxiety, depression, GERD, Hyperlipidemia - Resume home medications and monitor - monitor VS q4h and on continuous cardiac telemetry for arrhythmias Tobacco Abuse - told patient he must quit; discussed how smoking contributes to PAD Complete and utter medical noncompliance MALIGNANT MEDICAL NONCOMPLIANCE AM LABS Discharge Planning PENDING CLEARANCE BY VASCULAR SURGERY WILL NEED SNF AT [facility] Dick DO May 03, 2017 11:10
[2017-05-03] MEDS ORDERED: NICOTINE 14 MG/24 HR PATCH T-DERMAL ONE (11:15)
[2017-05-03] MEDS: NICOTINE 14 MG/24 HR PATCH T-DERMAL SCH (11:15)
--- NOTE | 2017-05-03 11:42 | PD.CAR.PN ---
CVT Progress Note Subjective/Hospital Course: Patient seen Full consult dictated Thanks J Objective: Vital Signs Date Time Temp Pulse Resp B/P (MAP) Pulse Ox O2 Delivery O2 Flow Rate FiO2 05/03/17 08:00 97.0 73 17 131/71 (91) 91 05/03/17 04:26 05/03/17 00:00 97.9 77 18 125/73 (90) 95 05/02/17 21:19 98.1 64 16 137/78 (97) 92 Labs: Laboratory Tests Test 05/03/17 03:33 White Blood Count 14.0 TH/MM3 (4.0-11.0) Red Blood Count 3.12 MIL/MM3 (4.50-5.90) Hemoglobin 9.9 GM/DL (13.0-17.0) Hematocrit 29.9 % (39.0-51.0) Mean Corpuscular Volume 95.8 FL (80.0-100.0) Mean Corpuscular Hemoglobin 31.8 PG (27.0-34.0) Mean Corpuscular Hemoglobin Concent 33.2 % (32.0-36.0) Red Cell Distribution Width 14.4 % (11.6-17.2) Platelet Count 631 TH/MM3 (150-450) Mean Platelet Volume 6.1 FL (7.0-11.0) Neutrophils (%) (Auto) 68.5 % (16.0-70.0) Lymphocytes (%) (Auto) 21.9 % (9.0-44.0) Monocytes (%) (Auto) 6.0 % (0.0-8.0) Eosinophils (%) (Auto) 3.0 % (0.0-4.0) Basophils (%) (Auto) 0.6 % (0.0-2.0) Neutrophils # (Auto) 9.6 TH/MM3 (1.8-7.7) Lymphocytes # (Auto) 3.1 TH/MM3 (1.0-4.8) Monocytes # (Auto) 0.8 TH/MM3 (0-0.9) Eosinophils # (Auto) 0.4 TH/MM3 (0-0.4) Basophils # (Auto) 0.1 TH/MM3 (0-0.2) CBC Comment DIFF FINAL Differential Comment Activated Partial Thromboplast Time 31.2 SEC (24.3-30.1) Blood Urea Nitrogen 7 MG/DL (7-18) Creatinine 0.71 MG/DL (0.60-1.30) Random Glucose 85 MG/DL (74-106) Total Protein 5.5 GM/DL (6.4-8.2) Albumin 2.1 GM/DL (3.4-5.0) Calcium Level 7.9 MG/DL (8.5-10.1) Alkaline Phosphatase 80 U/L (45-117) Aspartate Amino Transf (AST/SGOT) 42 U/L (15-37) Alanine Aminotransferase (ALT/SGPT) 24 U/L (12-78) Total Bilirubin 0.3 MG/DL (0.2-1.0) Sodium Level 139 MEQ/L (136-145) Potassium Level 3.9 MEQ/L (3.5-5.1) Chloride Level 106 MEQ/L (98-107) Carbon Dioxide Level 27.5 MEQ/L (21.0-32.0) Anion Gap 6 MEQ/L (5-15) Estimat Glomerular Filtration Rate 116 ML/MIN (>89) Result Diagram: 05/03/17 0333 05/03/17 0333 Raad Guerra MD May 03, 2017 11:42
[2017-05-03 12:00] VITALS: BP 113/66; PULSE 68; RESP 17; TEMP 98.4; O2SAT 97
--- NOTE | 2017-05-03 12:13 | MB ---
cc: RAAD GUERRA MD DATE OF CONSULTATION 05/03/[address] Guerra, Vascular Surgery. REASON FOR CONSULTATION Ischemia of the right leg, status post bypass and gangrene of the hallux. HISTORY OF PRESENT DISEASE This 50-year-old male with severe peripheral vascular disease and multiple surgeries including aortobifemoral and right iliofemoral bypass, femoral-popliteal bypass and declotting of the vessel with revision and then fasciotomy was admitted about 10 days ago to our hospital. He ent underwent the above-noted procedures and was discharged to rehab and then signed out AMA. The next thing he shows up on in the [facility] in [place] on May 02 and for to me unclear reasons. The patient could not explain why he went there and I was asked to take him back. The patient was readily accepted. The patient arrives late last night. PAST SURGICAL HISTORY As above-noted, complex. Past medical history is that of - 1. Hypertension. 2. Noncompliance. 3. Heavy alcohol and tobacco abuse. MEDICATIONS can be found on the record. However, am not sure what the patient is taking and what he is not taking. 1. He was discharged on Plavix which he did not take. 2. He was discharged on aspirin which he did not take and then a few more. PHYSICAL EXAMINATION GENERAL: A 51-year-old male. HEENT: Normocephalic. No trauma to the head. Pupils equally reactive. Extraocular muscles intact. NECK: Bilateral carotid pulses and bilateral carotid bruits that had been checked before. The patient only has mild stenosis. CHEST: Bilateral breath sounds decreased over both lung rodriguez consistent with moderate degree of COPD and some degree of pulmonary cachexia. HEART: Regular rhythm. ABDOMEN: Soft. Active bowel sounds. No rebound. No guarding. No masses. EXTREMITIES: The patient at this point has palpable femoral pulses and strong dopplerable popliteal, dorsalis pedis and posterior tibial pulses on the right and weaker on the left. The right leg had recent surgery. Incision is clean and dry in the groin and so is the one in the popliteal space, although the patient keeps picking on it all the time. He has a fasciotomy below the knee, lateral and medial, performed by Dr. Kimball and this appears to be clean. RECOMMENDATIONS At this point my recommendation would be for the patient to be ambulating, wound care orders will be written and I will consult Podiatry for the gangrenous right greater toe. The patient is toying with the idea of having below-knee amputation but in the face of successful surgery I believe this is something that should at least be postponed if not completely abandoned as a thought. If the patient occludes again, then maybe this would be the way to go. Further care per clinical indices. The patient will be transferred to rehab after podiatry is done with him. I thank you much for the referral. Raad ANTOINE/SSB /11:26 AM /11:56 AM
[2017-05-03 12:42] LABS: APTT (PATIENT) 27.3 SEC (24.3-30.1)
[2017-05-03 16:00] VITALS: BP 106/68; PULSE 71; RESP 17; TEMP 98.4; O2SAT 97
--- NOTE | 2017-05-03 17:32 | PD.CONS ---
History of Present Illness Service Podiatry Consult Requested By Dr Guerra Reason for Consult R hallux gangrene Primary Care Physician [facility] Diagnoses: History of Present Illness Patient has history of PAD with multiple surgeries to perfuse Right limb. He has had gangrenous changes to distal right hallux. Consulted to evaluate for amputation. Past Family Social History Allergies: Coded Allergies: bee venom protein (honey bee) (Unverified Allergy, Severe, SWELLING, ) Past Medical History PAD with multiple reperfusion surgeries performed by Dr. Guerra and Dr. Gandhi Hypertension Hyperlipidemia GERD Anxiety/depression Nonadherence with medical regimen Tobacco abuse Past Surgical History Cervical fusion Bilateral inguinal hernia repair The patient had following surgeries with Dr. Gandhi: 04/14/2016 - Aorto bifemoral bypass, right iliofemoral bypass, left femoropopliteal bypass The patient had following surgeries with Dr. Guerra: 12/06/16 - declotting/ revision of right limb aortobifemoral graft and right femoral popliteal bypass; 04/20/17 - iliofemoral embolectomy, Femoral popliteal embolectomy, revision of iliofemoral anastomosis graft, revision of femoral popliteal graft with popliteal artery endarterectomy and bovine patch angioplasty. The patient had following surgeries with Dr. Kimball: 04/21/17 - 4 compartment fasciotomy below the right knee for compartment syndrome. Dental extractions Active Ordered Medications Current Medications Medications (Trade) Dose Ordered Sig/Erica Route Start Time Stop Time Status Last Admin (NS Flush) 2 ml UNSCH PRN IV FLUSH 05/02/17 19:00 (NS Flush) 2 ml BID IV FLUSH 05/02/17 21:00 05/03/17 09:55 (Zofran Inj) 4 mg Q6H PRN IVP 05/02/17 19:00 (Tylenol) 650 mg Q6H PRN PO 05/02/17 19:00 (Neeta-Colace) 1 tab BID PO 05/02/17 21:00 05/03/17 09:54 (Milk Of Magnesia Liq) 30 ml Q12H PRN PO 05/02/17 19:00 (Senokot) 17.2 mg Q12H PRN PO 05/02/17 19:00 (Dulcolax Supp) 10 mg DAILY PRN RECTAL 05/02/17 19:00 (Lactulose Liq) 30 ml DAILY PRN PO 05/02/17 19:00 (Norvasc) 5 mg DAILY PO 05/03/17 09:00 05/03/17 09:54 (Lipitor) 40 mg HS PO 05/02/17 21:00 05/02/17 20:41 (Cymbalta Dr) 60 mg DAILY PO 05/03/17 09:00 05/03/17 09:54 (Neurontin) 300 mg TID PO 05/03/17 09:00 05/03/17 13:22 (Ativan) 0.5 mg Q8H PRN PO 05/02/17 19:00 05/02/17 22:43 (Toprol Xl) 50 mg DAILY PO 05/03/17 09:00 05/03/17 09:54 (Protonix) 40 mg DAILY PO 05/03/17 09:00 05/03/17 09:54 (Theragran) 1 tab DAILY PO 05/03/17 09:00 05/03/17 09:54 (Morphine Inj) 4 mg Q3H PRN IV 05/02/17 22:15 05/03/17 16:21 (Roxicodone) 10 mg Q4H PRN PO 05/02/17 21:30 05/03/17 13:22 Miscellaneous Information SPECIFIC LAB TO BE DRAWN:VA... ONCE ONCE .XX 05/05/17 04:45 05/05/17 04:46 (Habitrol 14 Mg Patch.24 Hr) 1 patch DAILY T-DERMAL 05/03/17 11:15 Miscellaneous Information 1 DAILY T-DERMAL 05/04/17 09:00 (Lioresal) 20 mg BID PO 05/03/17 21:00 Family History Mother with "lymph node cancer"; no family history of peripheral artery disease or heart disease Social History Tobacco: Smokes cigarettes for the past 40 years - currently smokes 15 cigarettes per day Alcohol: Not a daily drinker; drinks to 4 packs per week Illicit Drugs: Smokes marijuana "as much as I can; if I have it, I will smoke it " Physical Exam Vital Signs Vital Signs Date Time Temp Pulse Resp B/P (MAP) Pulse Ox O2 Delivery O2 Flow Rate FiO2 05/03/17 16:00 98.4 71 17 106/68 (81) 97 12/18/17 12:00 98.4 68 17 113/66 (82) 97 05/03/17 08:00 97.0 73 17 131/71 (91) 91 05/03/17 04:26 05/03/17 00:00 97.9 77 18 125/73 (90) 95 05/02/17 21:19 98.1 64 16 137/78 (97) 92 Physical Exam R foot warm. Dry stable gangrenous changes to distal Right hallux. Margins dry. No purulence, no sign of infection present. Mild pain present. Distal R 2nd digit nail bed area with very small stable eschar present. No sign of infection. Sensation intact to light touch. Laboratory Laboratory Tests Test 05/02/17 19:29 05/03/17 03:33 05/03/17 12:20 White Blood Count 15.2 14.0 Red Blood Count 3.23 3.12 Hemoglobin 10.3 9.9 Hematocrit 31.2 29.9 Mean Corpuscular Volume 96.7 95.8 Mean Corpuscular Hemoglobin 31.8 31.8 Mean Corpuscular Hemoglobin Concent 32.9 33.2 Red Cell Distribution Width 14.2 14.4 Platelet Count 643 631 Mean Platelet Volume 6.4 6.1 Prothrombin Time 10.3 Prothromb Time International Ratio 1.0 Activated Partial Thromboplast Time 27.2 31.2 27.3 Neutrophils (%) (Auto) 68.5 Lymphocytes (%) (Auto) 21.9 Monocytes (%) (Auto) 6.0 Eosinophils (%) (Auto) 3.0 Basophils (%) (Auto) 0.6 Neutrophils # (Auto) 9.6 Lymphocytes # (Auto) 3.1 Monocytes # (Auto) 0.8 Eosinophils # (Auto) 0.4 Basophils # (Auto) 0.1 CBC Comment DIFF FINAL Differential Comment Blood Urea Nitrogen 7 Creatinine 0.71 Random Glucose 85 Total Protein 5.5 Albumin 2.1 Calcium Level 7.9 Alkaline Phosphatase 80 Aspartate Amino Transf (AST/SGOT) 42 Alanine Aminotransferase (ALT/SGPT) 24 Total Bilirubin 0.3 Sodium Level 139 Potassium Level 3.9 Chloride Level 106 Carbon Dioxide Level 27.5 Anion Gap 6 Estimat Glomerular Filtration Rate 116 Date/Time Source Procedure Growth Status 05/03/17 08:50 Stool Stool Stool Occult Blood ([facility]) - Final HEMOCCULT NEGATIVE Complete Result Diagram: 05/03/17 0333 05/03/17 0333 Imaging XR pending R foot Assessment and Plan Assessment and Plan Gangrene Right foot, distal hallux Plan to OR tomorrow evening for attempt at amputation distal right hallux, with possibility of removing it entirely. NPO after breakfast tomorrow Alida Tovar DPM May 03, 2017 17:32
[2017-05-03 20:00] VITALS: BP 113/65; PULSE 71; RESP 18; TEMP 96.5; O2SAT 96
[2017-05-03] MEDS ORDERED: SODIUM CHLORID 0.9% 500 ML IV PRN (20:00)
[2017-05-03] MEDS ORDERED: LACTATED RINGER'S 1000 ML IV PRN (20:00)
[2017-05-03] MEDS ORDERED: POVIDONE IODINE 5% (ANTISEPSIS KIT) 4 APPLICATIONS EACH NARE PRN (20:00)
[2017-05-03] MEDS ORDERED: CHLORHEXIDINE GLUCONATE 2 % 1 PACK (2 CLOTHS) TOPICAL PRN (20:00)
[2017-05-03] MEDS: BACLOFEN 20 MG TAB PO SCH (22:10)
[2017-05-03] MEDS: ATORVASTATIN 40 MG TAB PO SCH (22:11)
--- NOTE | 2017-05-03 22:48 | RADRPT ---
EXAM DATE/TIME: 05/03/2017 19:14 [place] COMPARISON: No previous studies available for comparison. INDICATIONS : Right foot pain. Necrosis in great and second toe. MEDICAL HISTORY : Hypertension. Arthritis. Hiatal hernia. Inguinal hernia. SURGICAL HISTORY : Hernia,aortofemoral bypass,left femoral popiteal ENCOUNTER: Initial ACUITY: 4 - 6 days PAIN SCORE: 4/10 LOCATION: Right foot, great toe FINDINGS: Three view examination of the right foot demonstrates no soft tissue swelling, dislocation, or fractu re. The tarsal bones appear intact. The interphalangeal and metatarsophalangeal joints are intact. The calcaneus is intact. Bony mineralization is mildly decreased. CONCLUSION: No significant arthropathy. No evidence of recent bony injury. Edgar Plaza MD on May 03, 2017 at 22:45 Board Certified Radiologist. This report was verified electronically.
[2017-05-04] VITALS: BP 110/69; PULSE 68; RESP 18; TEMP 96.2; O2SAT 96
[2017-05-04] MEDS: MORPHINE SULFATE 2 MG/ML INJ IV PRN ×5 (03:49→23:08)
[2017-05-04 04:00] VITALS: BP 112/70; PULSE 65; RESP 18; TEMP 96.2; O2SAT 97
[2017-05-04 08:00] VITALS: BP 104/63; PULSE 61; RESP 17; TEMP 96; O2SAT 96
[2017-05-04] MEDS: NICOTINE 14 MG/24 HR PATCH T-DERMAL SCH (08:02)
[2017-05-04] MEDS: DULoxetine HCl DR 60 MG CAP PO SCH (08:02)
[2017-05-04] MEDS: DOCUSATE SODIUM 50 MG/SENNA 8.6 MG TAB PO SCH ×2 (08:03→23:07)
[2017-05-04] MEDS: BACLOFEN 20 MG TAB PO SCH ×2 (08:03→23:07)
[2017-05-04] MEDS: amLODIPine BESYLATE 5 MG TAB PO SCH (08:03)
[2017-05-04] MEDS: GABAPENTIN 300 MG CAP PO SCH ×3 (08:03→16:34)
[2017-05-04] MEDS: METOPROLOL SUCCINATE 50 MG EXTENDED RELEASE TAB PO SCH (08:03)
[2017-05-04] MEDS: MULTIVITAMIN TAB PO SCH (08:03)
[2017-05-04] MEDS: PANTOPRAZOLE SOD 40 MG DELAYED RELEASE TAB PO SCH (08:03)
[2017-05-04] MEDS: REMOVE OLD PATCH T-DERMAL SCH (08:04)
[2017-05-04] MEDS: SODIUM CHLORIDE 0.9% FLUSH 10 ML FLUSH IV FLUSH SCH ×2 (08:04→23:07)
[2017-05-04 09:05] LABS: AUTOMATED NEUTROPHIL # 12.9 TH/MM3 (1.8-7.7); BASOPHIL # 0.1 TH/MM3 (0-0.2); BASOPHIL % 0.3 % (0.0-2.0); EOSINOPHIL # 0.5 TH/MM3 (0-0.4); EOSINOPHIL % 2.7 % (0.0-4.0); HEMATOCRIT 33.4 % (39.0-51.0); HEMO FLAGS DIFF FINAL; LYMPHOCYTE # 3.4 TH/MM3 (1.0-4.8); MEAN CELL VOLUME 96.8 FL (80.0-100.0); MEAN CORPUSCULAR HEMOGLOBIN 32.6 PG (27.0-34.0); MEAN CORPUSCULAR HGB CONC 33.7 % (32.0-36.0); MONO % 4.8 % (0.0-8.0); NEUT % 73.2 % (16.0-70.0); PLATELET COUNT 806 TH/MM3 (150-450); RED BLOOD COUNT 3.44 MIL/MM3 (4.50-5.90); RED CELL DISTRIBUTION WIDTH 14.4 % (11.6-17.2); WHITE BLOOD COUNT 17.7 TH/MM3 (4.0-11.0)
[2017-05-04 09:26] LABS: ANION GAP 8 MEQ/L (5-15); AST (GOT) 40 U/L (15-37); BLOOD UREA NITROGEN 9 MG/DL (7-18); CHLORIDE 102 MEQ/L (98-107); GLOMERULAR FILTRATION RATE 104 ML/MIN (>89); MAGNESIUM 2.1 MG/DL (1.5-2.5); POTASSIUM 3.9 MEQ/L (3.5-5.1); SODIUM (NA) 136 MEQ/L (136-145)
[2017-05-04 09:37] LABS: ALKALINE PHOSPHATASE 95 U/L (45-117); ALT (GPT) 28 U/L (12-78); FREE T4 1.02 NG/DL (0.76-1.46); TOTAL BILIRUBIN ADULT 0.2 MG/DL (0.2-1.0)
--- NOTE | 2017-05-04 10:22 | HHI.PR ---
Subjective Remarks Mr. Brower is a 51 y/o male with a history of PAD with multiple reperfusion surgeries performed by Dr. Guerra and Dr. Gandhi, hypertension, hyperlipidemia, GERD, anxiety/depression, nonadherence with medical regimen, and tobacco abuse who was transferred from the [facility] in [place] on for right lower leg ischemia and necrosis to be evaluated by vascular surgeon Dr. Guerra. The patient is [facility] to manage medical problems prior to surgical intervention. The patient is seen in his room complaining of severe 8/10 aching pain to right lower extremity and paresthesias in right foot. The patient states the pain has been ongoing since his discharge (AMA) from the hospital on 04/27/17 but it progressively worsened until he sought treatment for the pain at the [facility] in [place] on 05/01/17. He also reports exudate to right calf fasciotomy sites - purulent at times. He reports chills, sweats, and nausea with vomiting since last Wednesday. Last episode of vomiting was 4 PM yesterday. Denies any recorded fevers. The patient had following surgeries with Dr. Gandhi: 04/14/2016 - Aorto bifemoral bypass, right iliofemoral bypass, left femoropopliteal bypass The patient had following surgeries with Dr. Guerra: 12/06/16 - declotting/ revision of right limb aortobifemoral graft and right femoral popliteal bypass; 04/20/17 - iliofemoral embolectomy, Femoral popliteal embolectomy, revision of iliofemoral anastomosis graft, revision of femoral popliteal graft with popliteal artery endarterectomy and bovine patch angioplasty. The patient had following surgeries with Dr. Kimball: 04/21/17 - 4 compartment fasciotomy below the right knee for compartment syndrome. Records were personally reviewed from the [facility] - the patient was on vancomycin and Zosyn for right lower extremity cellulitis. 12-[address] GUERRA today AWAIT IS EVALUATION PATIENT STATES HE WANTS RIGHT BKA SINCE HIS WOUND IS NOT HEALING STILL ACTIVELY SMOKING AT HOME DW RN AND PT AND CASE MANAGEMENT DURING ROUNDS 12-19 patient is to go for surgery regarding his foot today with podiatry this evening Objective Vitals Vital Signs Date Time Temp Pulse Resp B/P (MAP) Pulse Ox O2 Delivery O2 Flow Rate FiO2 05/04/17 08:00 96.0 61 17 104/63 (77) 96 05/04/17 04:00 96.2 65 18 112/70 (84) 97 05/04/17 00:00 96.2 68 18 110/69 (83) 96 05/03/17 20:00 96.5 71 18 113/65 (81) 96 05/03/17 16:00 98.4 71 17 106/68 (81) 97 05/03/17 12:00 98.4 68 17 113/66 (82) 97 I/O 05/03/17 05/03/17 05/03/17 05/04/17 05/04/17 05/04/17 07:00 15:00 23:00 07:00 15:00 23:00 Intake Total 350 ml 236 ml 2144 ml 240 ml Output Total 1000 ml 1400 ml 100 ml Balance -650 ml 236 ml 744 ml 140 ml Intake Oral 2144 ml 240 ml IV Total 350 ml 236 ml Output Urine Total 1000 ml 1400 ml 100 ml Drainage Total 0 ml # Voids 1 # Bowel Movements 0 2 Result Diagram: 05/04/17 0707 05/04/17 0707 Other Results Laboratory Tests Test 05/02/17 19:29 05/03/17 03:33 05/03/17 12:20 05/04/17 07:07 White Blood Count 15.2 TH/MM3 14.0 TH/MM3 17.7 TH/MM3 Red Blood Count 3.23 MIL/MM3 3.12 MIL/MM3 3.44 MIL/MM3 Hemoglobin 10.3 GM/DL 9.9 GM/DL 11.2 GM/DL Hematocrit 31.2 % 29.9 % 33.4 % Mean Corpuscular Volume 96.7 FL 95.8 FL 96.8 FL Mean Corpuscular Hemoglobin 31.8 PG 31.8 PG 32.6 PG Mean Corpuscular Hemoglobin Concent 32.9 % 33.2 % 33.7 % Red Cell Distribution Width 14.2 % 14.4 % 14.4 % Platelet Count 643 TH/MM3 631 TH/MM3 806 TH/MM3 Mean Platelet Volume 6.4 FL 6.1 FL 6.6 FL Prothrombin Time 10.3 SEC Prothromb Time International Ratio 1.0 RATIO Activated Partial Thromboplast Time 27.2 SEC 31.2 SEC 27.3 SEC Neutrophils (%) (Auto) 68.5 % 73.2 % Lymphocytes (%) (Auto) 21.9 % 19.0 % Monocytes (%) (Auto) 6.0 % 4.8 % Eosinophils (%) (Auto) 3.0 % 2.7 % Basophils (%) (Auto) 0.6 % 0.3 % Neutrophils # (Auto) 9.6 TH/MM3 12.9 TH/MM3 Lymphocytes # (Auto) 3.1 TH/MM3 3.4 TH/MM3 Monocytes # (Auto) 0.8 TH/MM3 0.8 TH/MM3 Eosinophils # (Auto) 0.4 TH/MM3 0.5 TH/MM3 Basophils # (Auto) 0.1 TH/MM3 0.1 TH/MM3 CBC Comment DIFF FINAL DIFF FINAL Differential Comment Blood Urea Nitrogen 7 MG/DL 9 MG/DL Creatinine 0.71 MG/DL 0.78 MG/DL Random Glucose 85 MG/DL 89 MG/DL Total Protein 5.5 GM/DL 6.9 GM/DL Albumin 2.1 GM/DL 2.6 GM/DL Calcium Level 7.9 MG/DL 8.6 MG/DL Alkaline Phosphatase 80 U/L 95 U/L Aspartate Amino Transf (AST/SGOT) 42 U/L 40 U/L Alanine Aminotransferase (ALT/SGPT) 24 U/L 28 U/L Total Bilirubin 0.3 MG/DL 0.2 MG/DL Sodium Level 139 MEQ/L 136 MEQ/L Potassium Level 3.9 MEQ/L 3.9 MEQ/L Chloride Level 106 MEQ/L 102 MEQ/L Carbon Dioxide Level 27.5 MEQ/L 26.0 MEQ/L Anion Gap 6 MEQ/L 8 MEQ/L Estimat Glomerular Filtration Rate 116 ML/MIN 104 ML/MIN Phosphorus Level 3.6 MG/DL Magnesium Level 2.1 MG/DL Free Thyroxine 1.02 NG/DL Thyroid Stimulating Hormone 3rd Gen 2.150 uIU/ML Imaging Last Impressions Foot X-Ray 05/03/17 0000 Signed Impressions: Service Date/Time: Wednesday, May 03, 2017 19:14 - CONCLUSION: No significant arthropathy. No evidence of recent bony injury. Edgar Plaza MD Objective Remarks GENERAL: Pale, cachectic, chronicly ill-appearing male in no apparent distress SKIN: Cool and dry. Right lower extremity with fasciotomy wound to the medial and lateral sides With muscle exposed with some serious with some purulent drainage and areas of necrosis noted. Right first toe with distal area of necrosis noted. Right groin was slightly dehisced but healing surgical wound approximately an inch and a half long. No signs of infection there. Right distal fifth with incision that is healing covered by Steri-Strips. No sign of infection there either HEAD: Atraumatic. Normocephalic. EYES: Pupils equal and round. No scleral icterus. No injection or drainage. ENT: No nasal bleeding or discharge. Mucous membranes pink and moist. Tongue is midline NECK: Trachea midline. No JVD. Supple CARDIOVASCULAR: Regular rate and rhythm. S1-S2 no S3 or S4 no heave or thrill or rub or gallop RESPIRATORY: No accessory muscle use. Clear to auscultation. Breath sounds equal bilaterally. No rhonchi wheezes or rales GASTROINTESTINAL: Abdomen soft, non-tender, nondistended. Hepatic and splenic margins not palpable. Soft nontender nondistended no rebound rigidity or guarding MUSCULOSKELETAL: Extremities without clubbing, cyanosis, or edema. No obvious deformities. Right calf is swollen in appearance but there is no fluctuance. I was able to obtain dorsalis pedis bilaterally with bedside doppler only. Unable to palpate right lower extremity with decreased pedal pulses NEUROLOGICAL: Awake and alert. No obvious cranial nerve deficits. Motor grossly within normal limits. 4 out of 5 muscle strength in the left and right arms and left leg. Weakness in right lower extremity wounds dressed Normal speech. PSYCHIATRIC: Appropriate mood and affect; insight and judgment normal. Normal speech Medications and IVs Current Medications Sodium Chloride (NS Flush) 2 ml UNSCH PRN IV FLUSH FLUSH AFTER USING IV ACCESS ; Start 05/02/17 at 19:00 Sodium Chloride (NS Flush) 2 ml BID IV FLUSH Last administered on 05/04/17t 08 :04; Start 05/02/17 at 21:00 Ondansetron HCl (Zofran Inj) 4 mg Q6H PRN IVP NAUSEA OR VOMITING; Start at 19:00 Acetaminophen (Tylenol) 650 mg Q6H PRN PO FEVER/PAIN SCALE 1 TO 4; Start 05/02 at 19:00 Acetaminophen/ Hydrocodone Bitart ([place] 5-325 Mg) 1 tab Q4H PRN PO PAIN SCALE 3 TO 5; Start 05/02/17 at 19:00; Stop 05/02/17 at 21:17; Status DC Morphine Sulfate (Morphine Inj) 2 mg Q3H PRN IV PAIN 6-10 Last administered on 05/02/17 21:11; Start 05/02/17 at 19:15; Stop 05/02/17 at 21:18; Status DC Senna/Docusate Sodium (Neeta-Colace) 1 tab BID PO Last administered on 08:03; Start 05/02/17 at 21:00 Magnesium Hydroxide (Milk Of Magnesia Liq) 30 ml Q12H PRN PO Mild constipation ; Start 05/02/17 at 19:00 Sennosides (Senokot) 17.2 mg Q12H PRN PO Moderate constipation; Start at 19:00 Bisacodyl (Dulcolax Supp) 10 mg DAILY PRN RECTAL SEVERE CONSITIPATION; Start 05/02/17 at 19:00 Lactulose (Lactulose Liq) 30 ml DAILY PRN PO SEVERE CONSITIPATION; Start 05/02 at 19:00 Heparin Sodium/ Dextrose 250 ml @ 0 mls/hr TITRATE PRN IV Coagulation Management; Start 05/02/17 at 19:00; Status UNV Amlodipine Besylate (Norvasc) 5 mg DAILY PO Last administered on 05/04/17 08: 03; Start 05/03/17 at 09:00 Atorvastatin Calcium (Lipitor) 40 mg HS PO Last administered on 05/03/17 22: 11; Start 05/02/17 at 21:00 Duloxetine HCl (Cymbalta Dr) 60 mg DAILY PO Last administered on 05/04/17 08: 02; Start 05/03/17 at 09:00 Gabapentin (Neurontin) 300 mg TID PO Last administered on 05/04/17 08:03; Start 05/03/17 at 09:00 Lorazepam (Ativan) 0.5 mg Q8H PRN PO anxiety Last administered on 05/02/17 22 :43; Start 05/02/17 at 19:00 Metoprolol Succinate (Toprol Xl) 50 mg DAILY PO Last administered on 08:03; Start 05/03/17 at 09:00 Pantoprazole Sodium (Protonix) 40 mg DAILY PO Last administered on 05/04/17 08:03; Start 05/03/17 at 09:00 Non-Formulary Medication 1 tab DAILY PO ; Start 05/03/17 at 09:00; Status UNV Multivitamins (Theragran) 1 tab DAILY PO Last administered on 05/04/17 08:03 ; Start 05/03/17 at 09:00 Heparin Sodium/ Dextrose 250 ml @ 6 mls/hr TITRATE PRN IV Coagulation Management Last administered on 05/02/17 20:48; Start 05/02/17 at 19:30; Stop 05/03/17 at 11:24; Status DC Piperacillin Sod/ Tazobactam Sod 50 ml @ 100 mls/hr Q6H IV ; Start 05/02/17 at 22:00; Stop 05/02/17 at 22:00; Status DC Pharmacy Profile Note 0 ml @ 0 mls/hr UNSCH OTHER ; Start 05/02/17 at 21:15; Stop 05/03/17 at 11:24; Status DC Morphine Sulfate (Morphine Inj) 4 mg Q3H PRN IV breakthrough pain Last administered on 05/04/17 08:03; Start 05/02/17 at 22:15 Oxycodone HCl (Roxicodone) 10 mg Q4H PRN PO pain > 5 Last administered on 05/04 06:49; Start 05/02/17 at 21:30 Piperacillin Sod/ Tazobactam Sod 3.375 gm/Sodium Chloride 100 ml @ 200 mls/hr Q6H IV Last administered on 05/03/17 09:58; Start 05/02/17 at 22:00; Stop 05/03/17 at 11:24; Status DC Vancomycin HCl 850 mg/Sodium Chloride 258.5 ml @ 250 mls/hr Q18H IV Last administered on 05/03/17 00:29; Start 05/02/17 at 23:00; Stop 05/03/17 at 11 :24; Status DC Miscellaneous Information SPECIFIC LAB TO BE DRAWN:VA... ONCE ONCE .XX ; Start 05/05/17 at 04:45; Stop 05/05/17 at 04:46 Heparin Sodium (Porcine) (Heparin Inj) 5,000 units UNSCH PRN IV PUSH aPTT less than 25; Start 05/03/17 at 06:30; Stop 05/03/17 at 11:24; Status DC Heparin Sodium (Porcine) (Heparin Inj) 2,500 units UNSCH PRN IV PUSH aPTT 25 to 39 Last administered on 05/03/17 06:22; Start 05/03/17 at 06:30; Stop at 11:25; Status DC Nicotine (Habitrol 14 Mg Patch.24 Hr) 1 patch ONCE ONCE T-DERMAL Last administered on 05/03/17 13:24; Start 05/03/17 at 11:15; Stop 05/03/17 at 11 :57; Status DC Nicotine (Habitrol 14 Mg Patch.24 Hr) 1 patch DAILY T-DERMAL Last administered on 05/04/17 08:02; Start 05/03/17 at 11:15 Miscellaneous Information 1 DAILY T-DERMAL Last administered on 05/04/17 08: 04; Start 05/04/17 at 09:00 Baclofen (Lioresal) 20 mg BID PO Last administered on 05/04/17 08:03; Start 05/03/17 at 21:00 Lactated Ringer's 1,000 ml @ 30 mls/hr Q24H PRN IV SEE LABEL COMMENTS; Start 05/03/17 at 20:00; Stop 05/06/17 at 19:59 Sodium Chloride 500 ml @ 30 mls/hr [id number] PRN IV SEE LABEL COMMENTS; Start at 20:00; Stop 05/06/17 at 19:59 Povidone Iodine (Betadine 5% Antisepsis Kit) 1 applic [employer] PRN EACH NARE SEE LABEL COMMENTS; Start 05/03/17 at 20:00; Stop 05/06/17 at 19:59 Chlorhexidine Gluconate (Chlorhexidine 2% Cloth) 3 pack [employer] PRN TOPICAL SEE LABEL COMMENTS; Start 05/03/17 at 20:00; Stop 05/06/17 at 19:59 A/P Problem List: (1) Peripheral arterial occlusive disease ICD Code: I77.9 - Disorder of arteries and arterioles, unspecified (2) Lower limb ischemia ICD Code: I99.8 - Other disorder of circulatory system Assessment and Plan Mr. Brower is a 51 y/o male with a history of PAD with multiple reperfusion surgeries performed by Dr. Guerra and Dr. Gandhi, hypertension, hyperlipidemia, GERD, anxiety/depression, nonadherence with medical regimen, and tobacco abuse who was transferred from the [facility] in [place] on for right lower leg ischemia and necrosis to be evaluated by vascular surgeon Dr. Guerra. The patient is admitted to [facility] to manage medical problems prior to surgical intervention. Peripheral arterial occlusive disease Right lower limb ischemia/necrosis - Consult vascular surgery - patient well known to Dr. Strauss - appreciate assistance - Oxycodone 10 mg by mouth every 4 hours when necessary pain greater than 5; morphine 4 mg IV every 3 hours as needed for breakthrough pain - Antibiotics: continue IV Zosyn and Vancomycin -Patient to go surgery regarding the right foot later today with podiatry Extensive history of thromboembolism - Heparin drip for now Hypertension, anxiety, depression, GERD, Hyperlipidemia - Resume home medications and monitor - monitor VS q4h and on continuous cardiac telemetry for arrhythmias Tobacco Abuse - told patient he must quit; discussed how smoking contributes to PAD Complete and utter medical noncompliance MALIGNANT MEDICAL NONCOMPLIANCE AM LABS Discharge Planning To have surgery today with podiatry regarding right foot WILL NEED SNF [facility] [place] Santi Hernandez DO May 04, 2017 10:22
[2017-05-04 12:00] VITALS: BP 122/70; PULSE 62; RESP 17; TEMP 98; O2SAT 98
[2017-05-04] MEDS ORDERED: GLYCOPYRROLATE 1 MG/5 ML SYRINGE IV PUSH ONE (12:00)
[2017-05-04] MEDS ORDERED: ceFAZolin INJ 1,000 MG VIAL IV ONE (12:00)
[2017-05-04] MEDS ORDERED: PROPOFOL 200 MG/20 ML AMP IV ONE (12:00)
[2017-05-04 16:00] VITALS: BP 113/67; PULSE 67; RESP 17; TEMP 97.4; O2SAT 97
[2017-05-04 16:36] LABS: HEMOGLOBIN A1a 1.1 %; HEMOGLOBIN A1b 0.8 %; HEMOGLOBIN Ao 85.3 %; HEMOGLOBIN F 1.1 %; HEMOGLOBIN P3 3.6 %
--- NOTE | 2017-05-04 21:13 | HHI.PR ---
Immediate Post Op Note Procedure Date: May 04, 2017 Pre Op Diagnosis: Gangrene right distal hallux Post Op Diagnosis: same Surgeon: Alida Tovar DPM Button Grader(s): Staff Procedure: Amputation right distal hallux Findings: Consistent with diagnosis. Right distal aspect of hallux hard, necrotic with viable tissue at level of IP joint. Distal right hallux disarticulated at IP joint to level of viable skin, and rongeur utilized to remove distal aspect of proximal phalanx. Culture taken prior to irrigation and closure with 2-0 nylon followed by xeroform, 4x4 cast padding, rico R foot with no compression. Mild bleeding noted to tissue. Healthy appearance to residual bone of hallux proximal phalanx. No further necrotic tissue noted. No tourniquet utilized. 2g ancef IV preop WBAT to R foot in surgical shoe PT to evaluate Additional Information: n/a Complications: none Specimen(s) removed: 1. Right distal hallux 2. culture right hallux Estimated blood loss: Minimal Anesthesia: MAC, Local (10mL 0.5% marcaine plain) Drains: None IVF Tourniquet time (min at mmHg) n/a Patient to: PACU Patient Condition: Good Date/Time of Procedure: SEE SURGICAL CARE RECORD Alida Tovar DPM May 04, 2017 21:13
[2017-05-04] MEDS ORDERED: DO NOT ADM ANY ANTICOAGULANT DRUGS PRN (21:45)
--- NOTE | 2017-05-04 21:50 | RADRPT ---
EXAM DATE/TIME: 05/04/2017 21:26 [facility] COMPARISON: FOOT RIGHT COMPLETE ([id number]), May 03, 2017, 19:14. INDICATIONS : Post operative right foot. MEDICAL HISTORY : Hypertension. Arthritis. Hiatal hernia. Inguinal hernia. SURGICAL HISTORY : Hernia,aortofemoral bypass,left femoral popiteal ENCOUNTER: Subsequent ACUITY: 4 - 6 days PAIN SCORE: Non-responsive. LOCATION: Right foot. FINDINGS: Three-view examination status post amputation 1st digit at the mid proximal phalanx. No radiopaque f oreign bodies seen. Normal alignment of the osseous structures of the forefoot. CONCLUSION: Expected postsurgical findings from amputation at the mid proximal phalanx 1st digit. Edgar Plaza MD on May 04, 2017 at 21:46 Board Certified Radiologist. This report was verified electronically.
[2017-05-04] MEDS: ATORVASTATIN 40 MG TAB PO SCH (23:07)
[2017-05-05] VITALS: BP 131/71; PULSE 64; RESP 16; TEMP 96.7; O2SAT 94
[2017-05-05 04:00] VITALS: BP 100/66; PULSE 69; RESP 18; TEMP 97.1; O2SAT 96
[2017-05-05] MEDS ORDERED: PHARMACY ORDERED LAB ONE (04:45)
[2017-05-05] MEDS: MORPHINE SULFATE 2 MG/ML INJ IV PRN ×5 (07:20→22:14)
[2017-05-05 07:34] VITALS: BP 119/69; PULSE 74; RESP 19; TEMP 97.9; O2SAT 98
[2017-05-05] MEDS: REMOVE OLD PATCH T-DERMAL SCH (09:00)
[2017-05-05] MEDS: BACLOFEN 20 MG TAB PO SCH ×2 (09:00→20:49)
[2017-05-05] MEDS: MULTIVITAMIN TAB PO SCH (09:00)
[2017-05-05] MEDS: SODIUM CHLORIDE 0.9% FLUSH 10 ML FLUSH IV FLUSH SCH ×2 (09:00→20:49)
[2017-05-05] MEDS: METOPROLOL SUCCINATE 50 MG EXTENDED RELEASE TAB PO SCH (09:01)
[2017-05-05] MEDS: DOCUSATE SODIUM 50 MG/SENNA 8.6 MG TAB PO SCH ×2 (09:01→20:49)
[2017-05-05] MEDS: GABAPENTIN 300 MG CAP PO SCH ×3 (09:01→16:59)
[2017-05-05] MEDS: DULoxetine HCl DR 60 MG CAP PO SCH (09:01)
[2017-05-05] MEDS: PANTOPRAZOLE SOD 40 MG DELAYED RELEASE TAB PO SCH (09:01)
[2017-05-05] MEDS: amLODIPine BESYLATE 5 MG TAB PO SCH (09:01)
[2017-05-05] MEDS: NICOTINE 14 MG/24 HR PATCH T-DERMAL SCH (09:01)
[2017-05-05] MEDS ORDERED: VANCOMYCIN INJ 1,000 MG in SODIUM CHLOR 0.9% 250 ML INJ 250 ML IV ONE (10:00)
[2017-05-05] MEDS ORDERED: Vancomycin Consult Pharmacy 1 EA OTHER SCH (10:00)
--- NOTE | 2017-05-05 10:00 | HHI.PR ---
Subjective Remarks Mr. Brower is a 51 y/o male with a history of PAD with multiple reperfusion surgeries performed by Dr. Guerra and Dr. Gandhi, hypertension, hyperlipidemia, GERD, anxiety/depression, nonadherence with medical regimen, and tobacco abuse who was transferred from the [facility] in [place] on for right lower leg ischemia and necrosis to be evaluated by vascular surgeon Dr. Guerra. The patient is admitted to [facility] to manage medical problems prior to surgical intervention. The patient is seen in his room complaining of severe 8/10 aching pain to right lower extremity and paresthesias in right foot. The patient states the pain has been ongoing since his discharge (AMA) from the hospital on 04/27/17 but it progressively worsened until he sought treatment for the pain at the [facility] in [place] on 05/01/17. He also reports exudate to right calf fasciotomy sites - purulent at times. He reports chills, sweats, and nausea with vomiting since last Wednesday. Last episode of vomiting was 4 PM yesterday. Denies any recorded fevers. The patient had following surgeries with Dr. Gandhi: 04/14/2016 - Aorto bifemoral bypass, right iliofemoral bypass, left femoropopliteal bypass The patient had following surgeries with Dr. Guerra: 12/06/16 - declotting/ revision of right limb aortobifemoral graft and right femoral popliteal bypass; 04/20/17 - iliofemoral embolectomy, Femoral popliteal embolectomy, revision of iliofemoral anastomosis graft, revision of femoral popliteal graft with popliteal artery endarterectomy and bovine patch angioplasty. The patient had following surgeries with Dr. Kimball: 04/21/17 - 4 compartment fasciotomy below the right knee for compartment syndrome. Records were personally reviewed from the [facility] - the patient was on vancomycin and Zosyn for right lower extremity cellulitis. 12-[address] GUERRA today AWAIT IS EVALUATION PATIENT STATES HE WANTS RIGHT BKA SINCE HIS WOUND IS NOT HEALING STILL ACTIVELY SMOKING AT HOME DW RN AND PT AND CASE MANAGEMENT DURING ROUNDS 12-19 patient is to go for surgery regarding his foot today with podiatry this evening 12-20 had podiatry surgery yesterday evening. Patient had amputation of right distal phalanx by podiatry ON MAY 04 Continue current antibiotics per infectious disease A.m. labs Needs to stop smoking Objective Vitals Vital Signs Date Time Temp Pulse Resp B/P (MAP) Pulse Ox O2 Delivery O2 Flow Rate FiO2 05/05/17 07:34 97.9 74 19 119/69 (86) 98 05/05/17 04:00 97.1 69 18 100/66 (77) 96 05/05/17 00:00 96.7 64 16 131/71 (91) 94 05/04/17 22:30 53 16 119/68 (85) 99 Nasal Cannula 2 05/04/17 22:15 54 14 121/65 (83) 98 Nasal Cannula 2 05/04/17 22:00 58 14 134/72 (92) 98 Nasal Cannula 2 05/04/17 21:45 73 14 111/68 (82) 99 Nasal Cannula 2 05/04/17 21:30 71 26 109/77 (88) 99 Nasal Cannula 2 05/04/17 21:15 76 16 109/72 (84) 100 Nasal Cannula 2 05/04/17 21:06 97.6 74 16 113/82 (92) 100 Nasal Cannula 2 05/04/17 16:00 97.4 67 17 113/67 (82) 97 05/04/17 12:00 98.0 62 17 122/70 (87) 98 I/O 05/04/17 05/04/17 05/04/17 05/05/17 05/05/17 05/05/17 07:00 15:00 23:00 07:00 15:00 23:00 Intake Total 240 ml 1200 ml 360 ml 120 ml Output Total 100 ml 1425 ml 1200 ml Balance 140 ml -225 ml -840 ml 120 ml Intake Oral 240 ml 1200 ml 360 ml 120 ml Output Urine Total 100 ml 1425 ml 1200 ml # Voids 1 # Bowel Movements 1 0 Result Diagram: 05/04/17 0707 05/04/17 0707 Other Results Laboratory Tests Test 05/02/17 19:29 05/03/17 03:33 05/03/17 12:20 05/04/17 07:07 White Blood Count 15.2 TH/MM3 14.0 TH/MM3 17.7 TH/MM3 Red Blood Count 3.23 MIL/MM3 3.12 MIL/MM3 3.44 MIL/MM3 Hemoglobin 10.3 GM/DL 9.9 GM/DL 11.2 GM/DL Hematocrit 31.2 % 29.9 % 33.4 % Mean Corpuscular Volume 96.7 FL 95.8 FL 96.8 FL Mean Corpuscular Hemoglobin 31.8 PG 31.8 PG 32.6 PG Mean Corpuscular Hemoglobin Concent 32.9 % 33.2 % 33.7 % Red Cell Distribution Width 14.2 % 14.4 % 14.4 % Platelet Count 643 TH/MM3 631 TH/MM3 806 TH/MM3 Mean Platelet Volume 6.4 FL 6.1 FL 6.6 FL Prothrombin Time 10.3 SEC Prothromb Time International Ratio 1.0 RATIO Activated Partial Thromboplast Time 27.2 SEC 31.2 SEC 27.3 SEC Neutrophils (%) (Auto) 68.5 % 73.2 % Lymphocytes (%) (Auto) 21.9 % 19.0 % Monocytes (%) (Auto) 6.0 % 4.8 % Eosinophils (%) (Auto) 3.0 % 2.7 % Basophils (%) (Auto) 0.6 % 0.3 % Neutrophils # (Auto) 9.6 TH/MM3 12.9 TH/MM3 Lymphocytes # (Auto) 3.1 TH/MM3 3.4 TH/MM3 Monocytes # (Auto) 0.8 TH/MM3 0.8 TH/MM3 Eosinophils # (Auto) 0.4 TH/MM3 0.5 TH/MM3 Basophils # (Auto) 0.1 TH/MM3 0.1 TH/MM3 CBC Comment DIFF FINAL DIFF FINAL Differential Comment Blood Urea Nitrogen 7 MG/DL 9 MG/DL Creatinine 0.71 MG/DL 0.78 MG/DL Random Glucose 85 MG/DL 89 MG/DL Total Protein 5.5 GM/DL 6.9 GM/DL Albumin 2.1 GM/DL 2.6 GM/DL Calcium Level 7.9 MG/DL 8.6 MG/DL Alkaline Phosphatase 80 U/L 95 U/L Aspartate Amino Transf (AST/SGOT) 42 U/L 40 U/L Alanine Aminotransferase (ALT/SGPT) 24 U/L 28 U/L Total Bilirubin 0.3 MG/DL 0.2 MG/DL Sodium Level 139 MEQ/L 136 MEQ/L Potassium Level 3.9 MEQ/L 3.9 MEQ/L Chloride Level 106 MEQ/L 102 MEQ/L Carbon Dioxide Level 27.5 MEQ/L 26.0 MEQ/L Anion Gap 6 MEQ/L 8 MEQ/L Estimat Glomerular Filtration Rate 116 ML/MIN 104 ML/MIN Phosphorus Level 3.6 MG/DL Magnesium Level 2.1 MG/DL Hemoglobin A1c 5.4 % Free Thyroxine 1.02 NG/DL Thyroid Stimulating Hormone 3rd Gen 2.150 uIU/ML Imaging Last Impressions Foot X-Ray 05/04/17 0000 Signed Impressions: Service Date/Time: Thursday, May 04, 2017 21:26 - CONCLUSION: Expected postsurgical findings from amputation at the mid proximal phalanx 1st digit. Edgar Plaza MD Objective Remarks GENERAL: Pale, cachectic, chronicly ill-appearing male in no apparent distress SKIN: Cool and dry. Right lower extremity with fasciotomy wound to the medial and lateral sides With muscle exposed with some serious with some purulent drainage and areas of necrosis noted. Right first toe with distal area of necrosis noted. Right groin was slightly dehisced but healing surgical wound approximately an inch and a half long. No signs of infection there. Right distal fifth with incision that is healing covered by Steri-Strips. No sign of infection there either HEAD: Atraumatic. Normocephalic. EYES: Pupils equal and round. No scleral icterus. No injection or drainage. ENT: No nasal bleeding or discharge. Mucous membranes pink and moist. Tongue is midline NECK: Trachea midline. No JVD. Supple CARDIOVASCULAR: Regular rate and rhythm. S1-S2 no S3 or S4 no heave or thrill or rub or gallop RESPIRATORY: No accessory muscle use. Clear to auscultation. Breath sounds equal bilaterally. No rhonchi wheezes or rales GASTROINTESTINAL: Abdomen soft, non-tender, nondistended. Hepatic and splenic margins not palpable. Soft nontender nondistended no rebound rigidity or guarding MUSCULOSKELETAL: Extremities without clubbing, cyanosis, or edema. No obvious deformities. Right calf is swollen in appearance but there is no fluctuance. I was able to obtain dorsalis pedis bilaterally with bedside doppler only. Unable to palpate right lower extremity with decreased pedal pulses NEUROLOGICAL: Awake and alert. No obvious cranial nerve deficits. Motor grossly within normal limits. 4 out of 5 muscle strength in the left and right arms and left leg. Weakness in right lower extremity wounds dressed Normal speech. PSYCHIATRIC: Appropriate mood and affect; insight and judgment normal. Normal speech Procedures Procedure Date: May 04, 2017 Pre Op Diagnosis: Gangrene right distal hallux Post Op Diagnosis: same Surgeon: Alida Tovar DPM Jeep Mechanic(s): Staff Procedure: Amputation right distal hallux Findings: Consistent with diagnosis. Right distal aspect of hallux hard, necrotic with viable tissue at level of IP joint. Distal right hallux disarticulated at IP joint to level of viable skin, and rongeur utilized to remove distal aspect of proximal phalanx. Culture taken prior to irrigation and closure with 2-0 nylon followed by xeroform, 4x4 cast padding, rico R foot with no compression. Mild bleeding noted to tissue. Healthy appearance to residual bone of hallux proximal phalanx. No further necrotic tissue noted. No tourniquet utilized. 2g ancef IV preop WBAT to R foot in surgical shoe PT to evaluate Additional Information: n/a Complications: none Specimen(s) removed: 1. Right distal hallux 2. culture right hallux Estimated blood loss: Minimal Anesthesia: MAC, Local (10mL 0.5% marcaine plain) Drains: None IVF Tourniquet time (min at mmHg) n/a Patient to: PACU Patient Condition: Good Date/Time of Procedure: SEE SURGICAL CARE RECORD Medications and IVs Laboratory Tests Test 05/02/17 19:29 05/03/17 03:33 05/03/17 12:20 05/04/17 07:07 White Blood Count 15.2 TH/MM3 14.0 TH/MM3 17.7 TH/MM3 Red Blood Count 3.23 MIL/MM3 3.12 MIL/MM3 3.44 MIL/MM3 Hemoglobin 10.3 GM/DL 9.9 GM/DL 11.2 GM/DL Hematocrit 31.2 % 29.9 % 33.4 % Mean Corpuscular Volume 96.7 FL 95.8 FL 96.8 FL Mean Corpuscular Hemoglobin 31.8 PG 31.8 PG 32.6 PG Mean Corpuscular Hemoglobin Concent 32.9 % 33.2 % 33.7 % Red Cell Distribution Width 14.2 % 14.4 % 14.4 % Platelet Count 643 TH/MM3 631 TH/MM3 806 TH/MM3 Mean Platelet Volume 6.4 FL 6.1 FL 6.6 FL Prothrombin Time 10.3 SEC Prothromb Time International Ratio 1.0 RATIO Activated Partial Thromboplast Time 27.2 SEC 31.2 SEC 27.3 SEC Neutrophils (%) (Auto) 68.5 % 73.2 % Lymphocytes (%) (Auto) 21.9 % 19.0 % Monocytes (%) (Auto) 6.0 % 4.8 % Eosinophils (%) (Auto) 3.0 % 2.7 % Basophils (%) (Auto) 0.6 % 0.3 % Neutrophils # (Auto) 9.6 TH/MM3 12.9 TH/MM3 Lymphocytes # (Auto) 3.1 TH/MM3 3.4 TH/MM3 Monocytes # (Auto) 0.8 TH/MM3 0.8 TH/MM3 Eosinophils # (Auto) 0.4 TH/MM3 0.5 TH/MM3 Basophils # (Auto) 0.1 TH/MM3 0.1 TH/MM3 CBC Comment DIFF FINAL DIFF FINAL Differential Comment Blood Urea Nitrogen 7 MG/DL 9 MG/DL Creatinine 0.71 MG/DL 0.78 MG/DL Random Glucose 85 MG/DL 89 MG/DL Total Protein 5.5 GM/DL 6.9 GM/DL Albumin 2.1 GM/DL 2.6 GM/DL Calcium Level 7.9 MG/DL 8.6 MG/DL Alkaline Phosphatase 80 U/L 95 U/L Aspartate Amino Transf (AST/SGOT) 42 U/L 40 U/L Alanine Aminotransferase (ALT/SGPT) 24 U/L 28 U/L Total Bilirubin 0.3 MG/DL 0.2 MG/DL Sodium Level 139 MEQ/L 136 MEQ/L Potassium Level 3.9 MEQ/L 3.9 MEQ/L Chloride Level 106 MEQ/L 102 MEQ/L Carbon Dioxide Level 27.5 MEQ/L 26.0 MEQ/L Anion Gap 6 MEQ/L 8 MEQ/L Estimat Glomerular Filtration Rate 116 ML/MIN 104 ML/MIN Phosphorus Level 3.6 MG/DL Magnesium Level 2.1 MG/DL Hemoglobin A1c 5.4 % Free Thyroxine 1.02 NG/DL Thyroid Stimulating Hormone 3rd Gen 2.150 uIU/ML A/P Problem List: (1) Peripheral arterial occlusive disease ICD Code: I77.9 - Disorder of arteries and arterioles, unspecified (2) Lower limb ischemia ICD Code: I99.8 - Other disorder of circulatory system Assessment and Plan Mr. Brower is a 51 y/o male with a history of PAD with multiple reperfusion surgeries performed by Dr. Guerra and Dr. Gandhi, hypertension, hyperlipidemia, GERD, anxiety/depression, nonadherence with medical regimen, and tobacco abuse who was transferred from the [facility] in [place] on for right lower leg ischemia and necrosis to be evaluated by vascular surgeon Dr. Guerra. The patient is admitted to [facility] to manage medical problems prior to surgical intervention. Peripheral arterial occlusive disease Right lower limb ischemia/necrosis - Consult vascular surgery - patient well known to Dr. Strauss - appreciate assistance - Oxycodone 10 mg by mouth every 4 hours when necessary pain greater than 5; morphine 4 mg IV every 3 hours as needed for breakthrough pain - Antibiotics: continue IV Zosyn and Vancomycin -Patient WENT TO surgery regarding the right foot MAY 04 with podiatry--status post right great hallux amputation Extensive history of thromboembolism - Heparin drip for now Hypertension, anxiety, depression, GERD, Hyperlipidemia - Resume home medications and monitor - monitor VS q4h and on continuous cardiac telemetry for arrhythmias Tobacco Abuse - told patient he must quit; discussed how smoking contributes to PAD Complete and utter medical noncompliance MALIGNANT MEDICAL NONCOMPLIANCE CONSULT ID - START ON VANCO AND ZOSYN AM LABS Discharge Planning HAD SURGERY ON 05-04 WILL NEED SNF AT [facility] Dick DO May 05, 2017 10:00
--- NOTE | 2017-05-05 10:34 | PD.CAR.PN ---
CVT Progress Note Subjective/Hospital Course: Patient seen Full consult elsi Strauss 05/05/17 Patient is post aortofemoral femoropopliteal vascular reconstruction and fasciotomy of the right lower leg Good distal pulses very well perfused foot and lower leg Patient underwent successful hallux amputation yesterday Vascular surgery incisions are clean and dry and most of the muscle is viable in the fasciotomy sites, but surface of muscles is dark involved in dry gangrene and needs debridement before grafting We'll consult plastic surgery to see the patient because it'll need skin grafts on this and plastic surgeon will be the best eyelet riveter as how to debride and leave most of the viable muscle intact Other than the above nothing to add to care at this time Objective: Vital Signs Date Time Temp Pulse Resp B/P (MAP) Pulse Ox O2 Delivery O2 Flow Rate FiO2 05/05/17 07:34 97.9 74 19 119/69 (86) 98 05/05/17 04:00 97.1 69 18 100/66 (77) 96 05/05/17 00:00 96.7 64 16 131/71 (91) 94 05/04/17 22:30 53 16 119/68 (85) 99 Nasal Cannula 2 05/04/17 22:15 54 14 121/65 (83) 98 Nasal Cannula 2 05/04/17 22:00 58 14 134/72 (92) 98 Nasal Cannula 2 05/04/17 21:45 73 14 111/68 (82) 99 Nasal Cannula 2 05/04/17 21:30 71 26 109/77 (88) 99 Nasal Cannula 2 05/04/17 21:15 76 16 109/72 (84) 100 Nasal Cannula 2 05/04/17 21:06 97.6 74 16 113/82 (92) 100 Nasal Cannula 2 05/04/17 16:00 97.4 67 17 113/67 (82) 97 05/04/17 12:00 98.0 62 17 122/70 (87) 98 Result Diagram: 05/04/1707 05/04/1707 Raad Guerra MD May 05, 2017 10:34
[2017-05-05] MEDS: PIPERACIL-TAZO 4.5 GM PREMIX 100 ML IV SCH ×2 (11:00→16:59)
[2017-05-05 12:00] VITALS: BP 127/75; PULSE 73; RESP 20; TEMP 98.8; O2SAT 98; O2SAT 99
[2017-05-05] MEDS ORDERED: RIVAROXABAN 10 MG TAB PO ONE (12:00)
[2017-05-05 12:14] LABS: AUTOMATED NEUTROPHIL # 13.9 TH/MM3 (1.8-7.7); BASOPHIL % 0.2 % (0.0-2.0); EOSINOPHIL # 0.4 TH/MM3 (0-0.4); EOSINOPHIL % 2.4 % (0.0-4.0); HEMATOCRIT 31.4 % (39.0-51.0); HEMO FLAGS DIFF FINAL; MEAN CELL VOLUME 96.2 FL (80.0-100.0); MEAN CORPUSCULAR HEMOGLOBIN 32.6 PG (27.0-34.0); MEAN CORPUSCULAR HGB CONC 33.8 % (32.0-36.0); MONO % 5.8 % (0.0-8.0); NEUT % 75.6 % (16.0-70.0); PLATELET COUNT 655 TH/MM3 (150-450); RED BLOOD COUNT 3.26 MIL/MM3 (4.50-5.90); WHITE BLOOD COUNT 18.4 TH/MM3 (4.0-11.0)
[2017-05-05 12:44] LABS: ANION GAP 8 MEQ/L (5-15); AST (GOT) 38 U/L (15-37); BICARBONATE 25.2 MEQ/L (21.0-32.0); BLOOD UREA NITROGEN 11 MG/DL (7-18); CHLORIDE 102 MEQ/L (98-107); GLOMERULAR FILTRATION RATE 118 ML/MIN (>89); MAGNESIUM 1.8 MG/DL (1.5-2.5); POTASSIUM 4.3 MEQ/L (3.5-5.1); SODIUM (NA) 135 MEQ/L (136-145)
[2017-05-05 12:48] LABS: ALKALINE PHOSPHATASE 89 U/L (45-117); ALT (GPT) 23 U/L (12-78); TOTAL BILIRUBIN ADULT 0.2 MG/DL (0.2-1.0)
--- NOTE | 2017-05-05 15:56 | PD.ID.CON ---
History of Present Illness Service ID Consult Requested By Dr Holcomb Reason for Consult Leukocytosis Primary Care Physician [facility] Diagnoses: History of Present Illness Patient has history of PAD with multiple surgeries to perfuse Right limb. He has had gangrenous changes to distal right hallux. Sp R hallux amputation yday Noted to have worsening leukocytosis, up to 18 k today Pt told me that his RLE wounds getting dark discoloration and his R lower leg persistently swollen and painful no fever Patient is post aortofemoral femoropopliteal vascular reconstruction and fasciotomy of the right lower leg on Apr 18 Past Family Social History Allergies: Coded Allergies: bee venom protein (honey bee) (Unverified Allergy, Severe, SWELLING, ) Past Medical History PVD ETOHism tobaccoism Past Surgical History Iliofemoral embolectomy, femoral-popliteal embolectomy, revision of the iliofemoral anastomosis graft, revision of femoral-popliteal graft with popliteal artery endarterectomy and bovine patch angioplasty Apr 18 Aortobifemoral bypass in March last year, fem-pop in October this year. Active Ordered Medications Medications where reviewed in EMR Antibiotics Include: vanco gustavosyn Family History reviewed non contributoruy Social History + Tobacco. 1ppd x 40 yrs + ETOH. No Illicit Drugs. Physical Exam Vital Signs Vital Signs Date Time Temp Pulse Resp B/P (MAP) Pulse Ox O2 Delivery O2 Flow Rate FiO2 05/05/17 12:00 98.8 73 20 127/75 (92) 98 05/05/17 12:00 99 05/05/17 07:34 97.9 74 19 119/69 (86) 98 05/05/17 04:00 97.1 69 18 100/66 (77) 96 05/05/17 00:00 96.7 64 16 131/71 (91) 94 05/04/17 22:30 53 16 119/68 (85) 99 Nasal Cannula 2 05/04/17 22:15 54 14 121/65 (83) 98 Nasal Cannula 2 05/04/17 22:00 58 14 134/72 (92) 98 Nasal Cannula 2 05/04/17 21:45 73 14 111/68 (82) 99 Nasal Cannula 2 05/04/17 21:30 71 26 109/77 (88) 99 Nasal Cannula 2 05/04/17 21:15 76 16 109/72 (84) 100 Nasal Cannula 2 05/04/17 21:06 97.6 74 16 113/82 (92) 100 Nasal Cannula 2 05/04/17 16:00 97.4 67 17 113/67 (82) 97 Physical Exam CONSTITUTIONAL/GENERAL: This is a thin cachectic appearing patient, in no apparent distress. TUBES/LINES/DRAINS: SKIN: No jaundice, rashes, or lesions. Skin temperature appropriate. Not diaphoretic. HEAD: Atraumatic. Normocephalic. EYES: Pupils equal and round and reactive. Extraocular motions intact. No scleral icterus. No injection or drainage. Fundi not examined. ENT: Hearing grossly normal. Nose without bleeding or purulent drainage. Throat without visible erythema, exudates, masses, or lesions. POor dentition NECK: Trachea midline. Supple, nontender. CARDIOVASCULAR: Regular rate and rhythm without murmurs, gallops, or rubs. No JVD. Peripheral pulses symmetric. RESPIRATORY/CHEST: Symmetric, unlabored respirations. Clear to auscultation. Breath sounds equal bilaterally. No wheezes, rales, or rhonchi. GASTROINTESTINAL: Abdomen soft, non-tender, nondistended. No hepato-splenomegaly , or palpable masses. No guarding. Bowel sounds present. GENITOURINARY: Without palpable bladder distension. MUSCULOSKELETAL: RLE with R foot dressing in place leg is edematous, erythematous Necrotic muscels within both fasciotimy incisions RLE Inciions in groin, thigh - dry LLE w/o palpable pedal pulses, but no signs of acute ischemia NEUROLOGICAL: Awake and alert. Motor and sensory grossly within normal limits. Follows commands. Cognitively sharp. Moves all extremities. PSYCHIATRIC: No obvious anxiety/depression. no apparent hallucinations or other psychotic thought process. Laboratory Laboratory Tests Test 05/05/17 11:20 White Blood Count 18.4 Red Blood Count 3.26 Hemoglobin 10.6 Hematocrit 31.4 Mean Corpuscular Volume 96.2 Mean Corpuscular Hemoglobin 32.6 Mean Corpuscular Hemoglobin Concent 33.8 Red Cell Distribution Width 14.0 Platelet Count 655 Mean Platelet Volume 6.3 Neutrophils (%) (Auto) 75.6 Lymphocytes (%) (Auto) 16.0 Monocytes (%) (Auto) 5.8 Eosinophils (%) (Auto) 2.4 Basophils (%) (Auto) 0.2 Neutrophils # (Auto) 13.9 Lymphocytes # (Auto) 3.0 Monocytes # (Auto) 1.1 Eosinophils # (Auto) 0.4 Basophils # (Auto) 0.0 CBC Comment DIFF FINAL Differential Comment Blood Urea Nitrogen 11 Creatinine 0.70 Random Glucose 105 Total Protein 6.4 Albumin 2.4 Calcium Level 8.3 Phosphorus Level 3.4 Magnesium Level 1.8 Alkaline Phosphatase 89 Aspartate Amino Transf (AST/SGOT) 38 Alanine Aminotransferase (ALT/SGPT) 23 Total Bilirubin 0.2 Sodium Level 135 Potassium Level 4.3 Chloride Level 102 Carbon Dioxide Level 25.2 Anion Gap 8 Estimat Glomerular Filtration Rate 118 Date/Time Source Procedure Growth Status 05/03/17 08:50 Stool Stool Stool Occult Blood (ZORAN) - Final HEMOCCULT NEGATIVE Complete 05/04/17 20:45 Wound Foot Fungal Smear - Final NO FUNGAL ELEMENTS SEEN. Resulted 05/04/17 20:45 Wound Foot Fungal Culture Pending Resulted Result Diagram: 05/05/17 1120 05/05/17 1120 Imaging Last Impressions Foot X-Ray 05/04/17 0000 Signed Impressions: Service Date/Time: Thursday, May 04, 2017 21:26 - CONCLUSION: Expected postsurgical findings from amputation at the mid proximal phalanx 1st digit. 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 MD May 05, 2017 15:56
[2017-05-05 16:00] VITALS: BP 112/64; PULSE 65; RESP 20; TEMP 98.8; O2SAT 98
[2017-05-05 20:00] VITALS: BP 132/74; PULSE 71; RESP 18; TEMP 98.8; O2SAT 94
[2017-05-05] MEDS: ATORVASTATIN 40 MG TAB PO SCH (20:49)
[2017-05-05] MEDS: VANCOMYCIN 1,000 MG/NS 250 ML IV SCH ×2 (20:50)
[2017-05-05] MEDS: LORazepam 0.5 MG TAB PO PRN (20:52)
--- NOTE | 2017-05-05 21:00 | PD.POD ---
Subjective Podiatric Problems s/p Right hallux partial amputation 05/04/17 Dr Tovar Past Med/Surg/Social History Social History Smoking Status: Current Every Day Smoker Objective Vital Signs Vital Signs Date Time Temp Pulse Resp B/P (MAP) Pulse Ox O2 Delivery O2 Flow Rate FiO2 05/05/17 16:00 98.8 65 20 112/64 (80) 98 05/05/17 12:00 98.8 73 20 127/75 (92) 98 05/05/17 12:00 99 05/05/17 07:34 97.9 74 19 119/69 (86) 98 05/05/17 04:00 97.1 69 18 100/66 (77) 96 05/05/17 00:00 96.7 64 16 131/71 (91) 94 05/04/17 22:30 53 16 119/68 (85) 99 Nasal Cannula 2 05/04/17 22:15 54 14 121/65 (83) 98 Nasal Cannula 2 05/04/17 22:00 58 14 134/72 (92) 98 Nasal Cannula 2 05/04/17 21:45 73 14 111/68 (82) 99 Nasal Cannula 2 05/04/17 21:30 71 26 109/77 (88) 99 Nasal Cannula 2 05/04/17 21:15 76 16 109/72 (84) 100 Nasal Cannula 2 05/04/17 21:06 97.6 74 16 113/82 (92) 100 Nasal Cannula 2 Coded Allergies: bee venom protein (honey bee) (Unverified Allergy, Severe, SWELLING, ) Other Results Last 72 hours Impressions Foot X-Ray 05/04/17 0000 Signed Impressions: Service Date/Time: Thursday, May 04, 2017 21:26 - CONCLUSION: Expected postsurgical findings from amputation at the mid proximal phalanx 1st digit. Edgar Plaza MD Foot X-Ray 05/03/17 0000 Signed Impressions: Service Date/Time: Wednesday, May 03, 2017 19:14 - CONCLUSION: No significant arthropathy. No evidence of recent bony injury. Edgar Plaza MD Objective Remarks Microbiology Date/Time Source Procedure Growth Status 05/03/17 08:50 Stool Stool Stool Occult Blood (ZORAN) - Final HEMOCCULT NEGATIVE Complete 05/04/17 20:45 Wound Foot Fungal Smear - Final NO FUNGAL ELEMENTS SEEN. Resulted 05/04/17 20:45 Wound Foot Fungal Culture Pending Resulted Exam-Podiatry Remarks Bandage right foot clean, dry, intact. Assessment & Plan A/P s/p Right hallux partial amputation 05/04/17 Dr Tovar Keep bandage Right foot clean, dry, intact and ambulate WBAT R foot in surgical shoe Follow up appointment next week in clinic for dressing change, then will monitor surgical site weekly to assess healing for suture removal vs further surgery No further treatment planned R foot. Alida Tovar DPM May 05, 2017 21:00
[2017-05-06] VITALS (7 sets, daily range): BP systolic 102–132; BP diastolic 66–74; PULSE 65–72; RESP 16–21; TEMP 98.3–98.7; O2SAT 95–98
[2017-05-06] MEDS: PIPERACIL-TAZO 4.5 GM PREMIX 100 ML IV SCH ×5 (01:11→23:17)
[2017-05-06] MEDS: MORPHINE SULFATE 2 MG/ML INJ IV PRN ×5 (02:34→21:44)
[2017-05-06 07:17] LABS: BASOPHIL % 0.2 % (0.0-2.0); EOSINOPHIL # 0.5 TH/MM3 (0-0.4); EOSINOPHIL % 3.7 % (0.0-4.0); HEMATOCRIT 31.3 % (39.0-51.0); HEMO FLAGS DIFF FINAL; LYMPH % 22.5 % (9.0-44.0); LYMPHOCYTE # 3.1 TH/MM3 (1.0-4.8); MEAN CELL VOLUME 95.2 FL (80.0-100.0); MEAN CORPUSCULAR HEMOGLOBIN 32.8 PG (27.0-34.0); MEAN CORPUSCULAR HGB CONC 34.4 % (32.0-36.0); MONO % 7.5 % (0.0-8.0); NEUT % 66.1 % (16.0-70.0); PLATELET COUNT 681 TH/MM3 (150-450); RED BLOOD COUNT 3.28 MIL/MM3 (4.50-5.90); RED CELL DISTRIBUTION WIDTH 14.2 % (11.6-17.2); WHITE BLOOD COUNT 13.6 TH/MM3 (4.0-11.0)
[2017-05-06 07:25] LABS: ANION GAP 9 MEQ/L (5-15); AST (GOT) 30 U/L (15-37); BICARBONATE 27.3 MEQ/L (21.0-32.0); BLOOD UREA NITROGEN 10 MG/DL (7-18); CHLORIDE 100 MEQ/L (98-107); GLOMERULAR FILTRATION RATE 100 ML/MIN (>89); MAGNESIUM 1.9 MG/DL (1.5-2.5); POTASSIUM 3.8 MEQ/L (3.5-5.1); SODIUM (NA) 136 MEQ/L (136-145)
[2017-05-06 07:28] LABS: ALKALINE PHOSPHATASE 94 U/L (45-117); ALT (GPT) 23 U/L (12-78); TOTAL BILIRUBIN ADULT 0.3 MG/DL (0.2-1.0)
[2017-05-06] MEDS: METOPROLOL SUCCINATE 50 MG EXTENDED RELEASE TAB PO SCH (08:07)
[2017-05-06] MEDS: DOCUSATE SODIUM 50 MG/SENNA 8.6 MG TAB PO SCH ×2 (08:07→20:27)
[2017-05-06] MEDS: GABAPENTIN 300 MG CAP PO SCH ×3 (08:07→16:21)
[2017-05-06] MEDS: PANTOPRAZOLE SOD 40 MG DELAYED RELEASE TAB PO SCH (08:07)
[2017-05-06] MEDS: DULoxetine HCl DR 60 MG CAP PO SCH (08:07)
[2017-05-06] MEDS: amLODIPine BESYLATE 5 MG TAB PO SCH (08:07)
[2017-05-06] MEDS: MULTIVITAMIN TAB PO SCH (08:07)
[2017-05-06] MEDS: RIVAROXABAN 10 MG TAB PO SCH (08:07)
[2017-05-06] MEDS: BACLOFEN 20 MG TAB PO SCH ×2 (08:07→20:26)
[2017-05-06] MEDS: SODIUM CHLORIDE 0.9% FLUSH 10 ML FLUSH IV FLUSH SCH ×2 (08:08→20:26)
[2017-05-06] MEDS: REMOVE OLD PATCH T-DERMAL SCH (08:08)
[2017-05-06] MEDS: NICOTINE 14 MG/24 HR PATCH T-DERMAL SCH (08:08)
[2017-05-06] MEDS: VANCOMYCIN 1,000 MG/NS 250 ML IV SCH ×4 (09:38→20:27)
[2017-05-06] MEDS ORDERED: PHARMACY ORDERED LAB ONE (09:45)
--- NOTE | 2017-05-06 10:13 | HHI.PR ---
Subjective Remarks Mr. Brower is a 51 y/o male with a history of PAD with multiple reperfusion surgeries performed by Dr. Guerra and Dr. Gandhi, hypertension, hyperlipidemia, GERD, anxiety/depression, nonadherence with medical regimen, and tobacco abuse who was transferred from the [facility] in [place] on for right lower leg ischemia and necrosis to be evaluated by vascular surgeon Dr. Guerra. The patient is admitted to [facility] service to manage medical problems prior to surgical intervention. The patient is seen in his room complaining of severe 8/10 aching pain to right lower extremity and paresthesias in right foot. The patient states the pain has been ongoing since his discharge (AMA) from the hospital on 04/27/17 but it progressively worsened until he sought treatment for the pain at the [facility] in [place] on 05/01/17. He also reports exudate to right calf fasciotomy sites - purulent at times. He reports chills, sweats, and nausea with vomiting since last Wednesday. Last episode of vomiting was 4 PM yesterday. Denies any recorded fevers. The patient had following surgeries with Dr. Gandhi: 04/14/2016 - Aorto bifemoral bypass, right iliofemoral bypass, left femoropopliteal bypass The patient had following surgeries with Dr. Guerra: 12/06/16 - declotting/ revision of right limb aortobifemoral graft and right femoral popliteal bypass; 04/20/17 - iliofemoral embolectomy, Femoral popliteal embolectomy, revision of iliofemoral anastomosis graft, revision of femoral popliteal graft with popliteal artery endarterectomy and bovine patch angioplasty. The patient had following surgeries with Dr. Kimball: 04/21/17 - 4 compartment fasciotomy below the right knee for compartment syndrome. Records were personally reviewed from the [facility] - the patient was on vancomycin and Zosyn for right lower extremity cellulitis. 12-[address] GUERRA today AWAIT IS EVALUATION PATIENT STATES HE WANTS RIGHT BKA SINCE HIS WOUND IS NOT HEALING STILL ACTIVELY SMOKING AT HOME DW RN AND PT AND CASE MANAGEMENT DURING ROUNDS 12-19 patient is to go for surgery regarding his foot today with podiatry this evening 12-20 had podiatry surgery yesterday evening. Patient had amputation of right distal phalanx by podiatry ON MAY 04 Continue current antibiotics per infectious disease A.m. labs Needs to stop smoking 05-06 ANTIBIOTICS ADJUSTED BY ID WILL NEED DEBRIDEMENT OF RIGHT LE WOUNDS FROM FASCIOTOMY NO NEW COMPLAINTS AT THIS TIME Objective Vitals Vital Signs Date Time Temp Pulse Resp B/P (MAP) Pulse Ox O2 Delivery O2 Flow Rate FiO2 05/06/17 09:37 97 21 05/06/17 08:00 98.6 70 21 132/73 (92) 97 05/06/17 00:00 98.4 72 19 102/70 (81) 95 05/05/17 22:20 22 05/05/17 20:00 98.8 71 18 132/74 (93) 94 05/05/17 16:00 98.8 65 20 112/64 (80) 98 05/05/17 12:00 98.8 73 20 127/75 (92) 98 05/05/17 12:00 99 I/O 05/05/17 05/05/17 05/05/17 05/06/17 05/06/17 05/06/17 07:00 15:00 23:00 07:00 15:00 23:00 Intake Total 360 ml 120 ml 1200 ml 1050 ml 240 ml Output Total 1200 ml 900 ml 525 ml Balance -840 ml 120 ml 300 ml 525 ml 240 ml Intake Oral 360 ml 120 ml 1200 ml 600 ml 240 ml IV Total 450 ml Output Urine Total 1200 ml 900 ml 525 ml # Bowel Movements 0 3 Result Diagram: 05/06/17 0532 05/06/17 0532 Other Results Laboratory Tests Test 05/03/17 12:20 05/04/17 07:07 05/05/17 11:20 05/06/17 05:32 Activated Partial Thromboplast Time 27.3 SEC White Blood Count 17.7 TH/MM3 18.4 TH/MM3 13.6 TH/MM3 Red Blood Count 3.44 MIL/MM3 3.26 MIL/MM3 3.28 MIL/MM3 Hemoglobin 11.2 GM/DL 10.6 GM/DL 10.8 GM/DL Hematocrit 33.4 % 31.4 % 31.3 % Mean Corpuscular Volume 96.8 FL 96.2 FL 95.2 FL Mean Corpuscular Hemoglobin 32.6 PG 32.6 PG 32.8 PG Mean Corpuscular Hemoglobin Concent 33.7 % 33.8 % 34.4 % Red Cell Distribution Width 14.4 % 14.0 % 14.2 % Platelet Count 806 TH/MM3 655 TH/MM3 681 TH/MM3 Mean Platelet Volume 6.6 FL 6.3 FL 6.6 FL Neutrophils (%) (Auto) 73.2 % 75.6 % 66.1 % Lymphocytes (%) (Auto) 19.0 % 16.0 % 22.5 % Monocytes (%) (Auto) 4.8 % 5.8 % 7.5 % Eosinophils (%) (Auto) 2.7 % 2.4 % 3.7 % Basophils (%) (Auto) 0.3 % 0.2 % 0.2 % Neutrophils # (Auto) 12.9 TH/MM3 13.9 TH/MM3 9.0 TH/MM3 Lymphocytes # (Auto) 3.4 TH/MM3 3.0 TH/MM3 3.1 TH/MM3 Monocytes # (Auto) 0.8 TH/MM3 1.1 TH/MM3 1.0 TH/MM3 Eosinophils # (Auto) 0.5 TH/MM3 0.4 TH/MM3 0.5 TH/MM3 Basophils # (Auto) 0.1 TH/MM3 0.0 TH/MM3 0.0 TH/MM3 CBC Comment DIFF FINAL DIFF FINAL DIFF FINAL Differential Comment Blood Urea Nitrogen 9 MG/DL 11 MG/DL 10 MG/DL Creatinine 0.78 MG/DL 0.70 MG/DL 0.81 MG/DL Random Glucose 89 MG/DL 105 MG/DL 103 MG/DL Total Protein 6.9 GM/DL 6.4 GM/DL 6.9 GM/DL Albumin 2.6 GM/DL 2.4 GM/DL 2.7 GM/DL Calcium Level 8.6 MG/DL 8.3 MG/DL 8.7 MG/DL Phosphorus Level 3.6 MG/DL 3.4 MG/DL 4.1 MG/DL Magnesium Level 2.1 MG/DL 1.8 MG/DL 1.9 MG/DL Alkaline Phosphatase 95 U/L 89 U/L 94 U/L Aspartate Amino Transf (AST/SGOT) 40 U/L 38 U/L 30 U/L Alanine Aminotransferase (ALT/SGPT) 28 U/L 23 U/L 23 U/L Total Bilirubin 0.2 MG/DL 0.2 MG/DL 0.3 MG/DL Sodium Level 136 MEQ/L 135 MEQ/L 136 MEQ/L Potassium Level 3.9 MEQ/L 4.3 MEQ/L 3.8 MEQ/L Chloride Level 102 MEQ/L 102 MEQ/L 100 MEQ/L Carbon Dioxide Level 26.0 MEQ/L 25.2 MEQ/L 27.3 MEQ/L Anion Gap 8 MEQ/L 8 MEQ/L 9 MEQ/L Estimat Glomerular Filtration Rate 104 ML/MIN 118 ML/MIN 100 ML/MIN Hemoglobin A1c 5.4 % Free Thyroxine 1.02 NG/DL Thyroid Stimulating Hormone 3rd Gen 2.150 uIU/ML Test 05/06/17 09:15 Vancomycin Level Trough 13.1 MCG/ML Imaging Current Medications Sodium Chloride (NS Flush) 2 ml UNSCH PRN IV FLUSH FLUSH AFTER USING IV ACCESS ; Start 05/02/17 at 19:00 Sodium Chloride (NS Flush) 2 ml BID IV FLUSH Last administered on 05/06/17 08 :08; Start 05/02/17 at 21:00 Ondansetron HCl (Zofran Inj) 4 mg Q6H PRN IVP NAUSEA OR VOMITING; Start at 19:00 Acetaminophen (Tylenol) 650 mg Q6H PRN PO FEVER/PAIN SCALE 1 TO 4; Start 05/02 at 19:00 Acetaminophen/ Hydrocodone Bitart (Bradshaw 5-325 Mg) 1 tab Q4H PRN PO PAIN SCALE 3 TO 5; Start 05/02/17 at 19:00; Stop 05/02/17 at 21:17; Status DC Morphine Sulfate (Morphine Inj) 2 mg Q3H PRN IV PAIN 6-10 Last administered on 05/02/17 21:11; Start 05/02/17 at 19:15; Stop 05/02/17 at 21:18; Status DC Senna/Docusate Sodium (Neeta-Colace) 1 tab BID PO Last administered on 08:07; Start 05/02/17 at 21:00 Magnesium Hydroxide (Milk Of Magnesia Liq) 30 ml Q12H PRN PO Mild constipation ; Start 05/02/17 at 19:00 Sennosides (Senokot) 17.2 mg Q12H PRN PO Moderate constipation; Start at 19:00 Bisacodyl (Dulcolax Supp) 10 mg DAILY PRN RECTAL SEVERE CONSITIPATION; Start 05/02/17 at 19:00 Lactulose (Lactulose Liq) 30 ml DAILY PRN PO SEVERE CONSITIPATION; Start 05/02 at 19:00 Heparin Sodium/ Dextrose 250 ml @ 0 mls/hr TITRATE PRN IV Coagulation Management; Start 05/02/17 at 19:00; Status UNV Amlodipine Besylate (Norvasc) 5 mg DAILY PO Last administered on 05/06/17 08: 07; Start 05/03/17 at 09:00 Atorvastatin Calcium (Lipitor) 40 mg HS PO Last administered on 05/05/17 20: 49; Start 05/02/17 at 21:00 Duloxetine HCl (Cymbalta Dr) 60 mg DAILY PO Last administered on 05/06/17 08: 07; Start 05/03/17 at 09:00 Gabapentin (Neurontin) 300 mg TID PO Last administered on 05/06/17 08:07; Start 05/03/17 at 09:00 Lorazepam (Ativan) 0.5 mg Q8H PRN PO anxiety Last administered on 05/05/17 20 :52; Start 05/02/17 at 19:00 Metoprolol Succinate (Toprol Xl) 50 mg DAILY PO Last administered on 08:07; Start 05/03/17 at 09:00 Pantoprazole Sodium (Protonix) 40 mg DAILY PO Last administered on 05/06/17 08:07; Start 05/03/17 at 09:00 Non-Formulary Medication 1 tab DAILY PO ; Start 05/03/17 at 09:00; Status UNV Multivitamins (Theragran) 1 tab DAILY PO Last administered on 05/06/17 08:07 ; Start 05/03/17 at 09:00 Heparin Sodium/ Dextrose 250 ml @ 6 mls/hr TITRATE PRN IV Coagulation Management Last administered on 05/02/17 20:48; Start 05/02/17 at 19:30; Stop 05/03/17 at 11:24; Status DC Piperacillin Sod/ Tazobactam Sod 50 ml @ 100 mls/hr Q6H IV ; Start 05/02/17 at 22:00; Stop 05/02/17 at 22:00; Status DC Pharmacy Profile Note 0 ml @ 0 mls/hr UNSCH OTHER ; Start 05/02/17 at 21:15; Stop 05/03/17 at 11:24; Status DC Morphine Sulfate (Morphine Inj) 4 mg Q3H PRN IV breakthrough pain Last administered on 05/06/17 05:36; Start 05/02/17 at 22:15 Oxycodone HCl (Roxicodone) 10 mg Q4H PRN PO pain > 5 Last administered on 05/06 08:14; Start 05/02/17 at 21:30 Piperacillin Sod/ Tazobactam Sod 3.375 gm/Sodium Chloride 100 ml @ 200 mls/hr Q6H IV Last administered on 05/03/17 09:58; Start 05/02/17 at 22:00; Stop 05/03/17 at 11:24; Status DC Vancomycin HCl 850 mg/Sodium Chloride 258.5 ml @ 250 mls/hr Q18H IV Last administered on 05/03/17 00:29; Start 05/02/17 at 23:00; Stop 05/03/17 at 11 :24; Status DC Miscellaneous Information SPECIFIC LAB TO BE DRAWN:VA... ONCE ONCE .XX ; Start 05/05/17 at 04:45; Stop 05/05/17 at 04:46; Status DC Heparin Sodium (Porcine) (Heparin Inj) 5,000 units UNSCH PRN IV PUSH aPTT less than 25; Start 05/03/17 at 06:30; Stop 05/03/17 at 11:24; Status DC Heparin Sodium (Porcine) (Heparin Inj) 2,500 units UNSCH PRN IV PUSH aPTT 25 to 39 Last administered on 05/03/17 06:22; Start 05/03/17 at 06:30; Stop at 11:25; Status DC Nicotine (Habitrol 14 Mg Patch.24 Hr) 1 patch ONCE ONCE T-DERMAL Last administered on 05/03/17 13:24; Start 05/03/17 at 11:15; Stop 05/03/17 at 11 :57; Status DC Nicotine (Habitrol 14 Mg Patch.24 Hr) 1 patch DAILY T-DERMAL Last administered on 05/05/17 09:01; Start 05/03/17 at 11:15 Miscellaneous Information 1 DAILY T-DERMAL Last administered on 05/05/17 09: 00; Start 05/04/17 at 09:00 Baclofen (Lioresal) 20 mg BID PO Last administered on 05/06/17 08:07; Start 05/03/17 at 21:00 Lactated Ringer's 1,000 ml @ 30 mls/hr Q24H PRN IV SEE LABEL COMMENTS; Start 05/03/17 at 20:00; Stop 05/06/17 at 19:59 Sodium Chloride 500 ml @ 30 mls/hr [id number] PRN IV SEE LABEL COMMENTS; Start at 20:00; Stop 05/06/17 at 19:59 Povidone Iodine (Betadine 5% Antisepsis Kit) 1 applic TITLE INSURANCE SALES REPRESENTATIVE PRN EACH NARE SEE LABEL COMMENTS; Start 05/03/17 at 20:00; Stop 05/06/17 at 19:59 Chlorhexidine Gluconate (Chlorhexidine 2% Cloth) 3 pack TITLE INSURANCE SALES REPRESENTATIVE PRN TOPICAL SEE LABEL COMMENTS; Start 05/03/17 at 20:00; Stop 05/06/17 at 19:59 Miscellaneous Information ALL NURSING DEPARTME... UNSCH PRN .XX SEE LABEL COMMENTS; Start 05/04/17 at 21:45; Stop 05/05/17 at 21:44; Status DC Vancomycin HCl 1000 mg/Sodium Chloride 250 ml @ 250 mls/hr ONCE ONCE IV Last administered on 05/05/17 10:21; Start 05/05/17 at 10:00; Stop 05/05/17 at 11 :04; Status DC Pharmacy Profile Note 0 ml @ 0 mls/hr UNSCH OTHER ; Start 05/05/17 at 10:00 Piperacillin Sod/ Tazobactam Sod 100 ml @ 200 mls/hr Q6H IV Last administered on 05/06/17 09:38; Start 05/05/17 at 11:00 Rivaroxaban (Xarelto) 10 mg DAILY PO Last administered on 05/06/17 08:07; Start 05/06/17 at 09:00 Rivaroxaban (Xarelto) 10 mg ONCE ONCE PO Last administered on 05/05/17 13:12 ; Start 05/05/17 at 12:00; Stop 05/05/17 at 12:01; Status DC Vancomycin HCl 1000 mg/Sodium Chloride 250 ml @ 250 mls/hr Q12H IV Last administered on 05/06/17 09:38; Start 05/05/17 at 22:00 Miscellaneous Information SPECIFIC LAB TO BE DRAWN:[facility] MICHELLE DATE TO BE . ONCE ONCE .XX Last administered on 05/06/17 09:38; Start 05/06/17 at 09:45; Stop 05/06/17 at 09:46; Status DC Objective Remarks GENERAL: Pale, cachectic, chronicly ill-appearing male in no apparent distress SKIN: Cool and dry. Right lower extremity with fasciotomy wound to the medial and lateral sides With muscle exposed with some serious with some purulent drainage and areas of necrosis noted. Right first toe with distal area of necrosis noted. Right groin was slightly dehisced but healing surgical wound approximately an inch and a half long. No signs of infection there. Right distal fifth with incision that is healing covered by Steri-Strips. No sign of infection there either HEAD: Atraumatic. Normocephalic. EYES: Pupils equal and round. No scleral icterus. No injection or drainage. ENT: No nasal bleeding or discharge. Mucous membranes pink and moist. Tongue is midline NECK: Trachea midline. No JVD. Supple CARDIOVASCULAR: Regular rate and rhythm. S1-S2 no S3 or S4 no heave or thrill or rub or gallop RESPIRATORY: No accessory muscle use. Clear to auscultation. Breath sounds equal bilaterally. No rhonchi wheezes or rales GASTROINTESTINAL: Abdomen soft, non-tender, nondistended. Hepatic and splenic margins not palpable. Soft nontender nondistended no rebound rigidity or guarding MUSCULOSKELETAL: Extremities without clubbing, cyanosis, or edema. No obvious deformities. Right calf is swollen in appearance but there is no fluctuance. I was able to obtain dorsalis pedis bilaterally with bedside doppler only. Unable to palpate right lower extremity with decreased pedal pulses NEUROLOGICAL: Awake and alert. No obvious cranial nerve deficits. Motor grossly within normal limits. 4 out of 5 muscle strength in the left and right arms and left leg. Weakness in right lower extremity wounds dressed Normal speech. PSYCHIATRIC: Appropriate mood and affect; insight and judgment normal. Normal speech Procedures Procedure Date: May 04, 2017 Pre Op Diagnosis: Gangrene right distal hallux Post Op Diagnosis: same Surgeon: Alida Tovar DPSahil Chick Room Supervisor(s): Staff Procedure: Amputation right distal hallux Findings: Consistent with diagnosis. Right distal aspect of hallux hard, necrotic with viable tissue at level of IP joint. Distal right hallux disarticulated at IP joint to level of viable skin, and rongeur utilized to remove distal aspect of proximal phalanx. Culture taken prior to irrigation and closure with 2-0 nylon followed by xeroform, 4x4 cast padding, rico R foot with no compression. Mild bleeding noted to tissue. Healthy appearance to residual bone of hallux proximal phalanx. No further necrotic tissue noted. No tourniquet utilized. 2g ancef IV preop WBAT to R foot in surgical shoe PT to evaluate Additional Information: n/a Complications: none Specimen(s) removed: 1. Right distal hallux 2. culture right hallux Estimated blood loss: Minimal Anesthesia: MAC, Local (10mL 0.5% marcaine plain) Drains: None IVF Tourniquet time (min at mmHg) n/a Patient to: PACU Patient Condition: Good Date/Time of Procedure: SEE SURGICAL CARE RECORD Medications and IVs Current Medications Sodium Chloride (NS Flush) 2 ml UNSCH PRN IV FLUSH FLUSH AFTER USING IV ACCESS ; Start 05/02/17 at 19:00 Sodium Chloride (NS Flush) 2 ml BID IV FLUSH Last administered on 05/06/17t 08 :08; Start 05/02/17 at 21:00 Ondansetron HCl (Zofran Inj) 4 mg Q6H PRN IVP NAUSEA OR VOMITING; Start at 19:00 Acetaminophen (Tylenol) 650 mg Q6H PRN PO FEVER/PAIN SCALE 1 TO 4; Start 05/02 at 19:00 Acetaminophen/ Hydrocodone Bitart (Bradshaw 5-325 Mg) 1 tab Q4H PRN PO PAIN SCALE 3 TO 5; Start 05/02/17 at 19:00; Stop 05/02/17 at 21:17; Status DC Morphine Sulfate (Morphine Inj) 2 mg Q3H PRN IV PAIN 6-10 Last administered on 05/02/17t 21:11; Start 05/02/17 at 19:15; Stop 05/02/17 at 21:18; Status DC Senna/Docusate Sodium (Neeta-Colace) 1 tab BID PO Last administered on 08:07; Start 05/02/17 at 21:00 Magnesium Hydroxide (Milk Of Magnesia Liq) 30 ml Q12H PRN PO Mild constipation ; Start 05/02/17 at 19:00 Sennosides (Senokot) 17.2 mg Q12H PRN PO Moderate constipation; Start at 19:00 Bisacodyl (Dulcolax Supp) 10 mg DAILY PRN RECTAL SEVERE CONSITIPATION; Start 05/02/17 at 19:00 Lactulose (Lactulose Liq) 30 ml DAILY PRN PO SEVERE CONSITIPATION; Start 05/02 at 19:00 Heparin Sodium/ Dextrose 250 ml @ 0 mls/hr TITRATE PRN IV Coagulation Management; Start 05/02/17 at 19:00; Status UNV Amlodipine Besylate (Norvasc) 5 mg DAILY PO Last administered on 05/06/17 08: 07; Start 05/03/17 at 09:00 Atorvastatin Calcium (Lipitor) 40 mg HS PO Last administered on 05/05/17 20: 49; Start 05/02/17 at 21:00 Duloxetine HCl (Cymbalta Dr) 60 mg DAILY PO Last administered on 05/06/17 08: 07; Start 05/03/17 at 09:00 Gabapentin (Neurontin) 300 mg TID PO Last administered on 05/06/17 08:07; Start 05/03/17 at 09:00 Lorazepam (Ativan) 0.5 mg Q8H PRN PO anxiety Last administered on 05/05/17 20 :52; Start 05/02/17 at 19:00 Metoprolol Succinate (Toprol Xl) 50 mg DAILY PO Last administered on 08:07; Start 05/03/17 at 09:00 Pantoprazole Sodium (Protonix) 40 mg DAILY PO Last administered on 05/06/17 08:07; Start 05/03/17 at 09:00 Non-Formulary Medication 1 tab DAILY PO ; Start 05/03/17 at 09:00; Status UNV Multivitamins (Theragran) 1 tab DAILY PO Last administered on 05/06/17 08:07 ; Start 05/03/17 at 09:00 Heparin Sodium/ Dextrose 250 ml @ 6 mls/hr TITRATE PRN IV Coagulation Management Last administered on 05/02/17 20:48; Start 05/02/17 at 19:30; Stop 05/03/17 at 11:24; Status DC Piperacillin Sod/ Tazobactam Sod 50 ml @ 100 mls/hr Q6H IV ; Start 05/02/17 at 22:00; Stop 05/02/17 at 22:00; Status DC Pharmacy Profile Note 0 ml @ 0 mls/hr UNSCH OTHER ; Start 05/02/17 at 21:15; Stop 05/03/17 at 11:24; Status DC Morphine Sulfate (Morphine Inj) 4 mg Q3H PRN IV breakthrough pain Last administered on 05/06/17 05:36; Start 05/02/17 at 22:15 Oxycodone HCl (Roxicodone) 10 mg Q4H PRN PO pain > 5 Last administered on 05/06 08:14; Start 05/02/17 at 21:30 Piperacillin Sod/ Tazobactam Sod 3.375 gm/Sodium Chloride 100 ml @ 200 mls/hr Q6H IV Last administered on 05/03/17 09:58; Start 05/02/17 at 22:00; Stop 05/03/17 at 11:24; Status DC Vancomycin HCl 850 mg/Sodium Chloride 258.5 ml @ 250 mls/hr Q18H IV Last administered on 05/03/17 00:29; Start 05/02/17 at 23:00; Stop 05/03/17 at 11 :24; Status DC Miscellaneous Information SPECIFIC LAB TO BE DRAWN:VA... ONCE ONCE .XX ; Start 05/05/17 at 04:45; Stop 05/05/17 at 04:46; Status DC Heparin Sodium (Porcine) (Heparin Inj) 5,000 units UNSCH PRN IV PUSH aPTT less than 25; Start 05/03/17 at 06:30; Stop 05/03/17 at 11:24; Status DC Heparin Sodium (Porcine) (Heparin Inj) 2,500 units UNSCH PRN IV PUSH aPTT 25 to 39 Last administered on 05/03/17 06:22; Start 05/03/17 at 06:30; Stop at 11:25; Status DC Nicotine (Habitrol 14 Mg Patch.24 Hr) 1 patch ONCE ONCE T-DERMAL Last administered on 05/03/17 13:24; Start 05/03/17 at 11:15; Stop 05/03/17 at 11 :57; Status DC Nicotine (Habitrol 14 Mg Patch.24 Hr) 1 patch DAILY T-DERMAL Last administered on 05/05/17 09:01; Start 05/03/17 at 11:15 Miscellaneous Information 1 DAILY T-DERMAL Last administered on 05/05/17 09: 00; Start 05/04/17 at 09:00 Baclofen (Lioresal) 20 mg BID PO Last administered on 05/06/17 08:07; Start 05/03/17 at 21:00 Lactated Ringer's 1,000 ml @ 30 mls/hr Q24H PRN IV SEE LABEL COMMENTS; Start 05/03/17 at 20:00; Stop 05/06/17 at 19:59 Sodium Chloride 500 ml @ 30 mls/hr [id number] PRN IV SEE LABEL COMMENTS; Start at 20:00; Stop 05/06/17 at 19:59 Povidone Iodine (Betadine 5% Antisepsis Kit) 1 applic TITLE INSURANCE SALES REPRESENTATIVE PRN EACH NARE SEE LABEL COMMENTS; Start 05/03/17 at 20:00; Stop 05/06/17 at 19:59 Chlorhexidine Gluconate (Chlorhexidine 2% Cloth) 3 pack TITLE INSURANCE SALES REPRESENTATIVE PRN TOPICAL SEE LABEL COMMENTS; Start 05/03/17 at 20:00; Stop 05/06/17 at 19:59 Miscellaneous Information ALL NURSING DEPARTME... UNSCH PRN .XX SEE LABEL COMMENTS; Start 05/04/17 at 21:45; Stop 05/05/17 at 21:44; Status DC Vancomycin HCl 1000 mg/Sodium Chloride 250 ml @ 250 mls/hr ONCE ONCE IV Last administered on 05/05/17 10:21; Start 05/05/17 at 10:00; Stop 05/05/17 at 11 :04; Status DC Pharmacy Profile Note 0 ml @ 0 mls/hr UNSCH OTHER ; Start 05/05/17 at 10:00 Piperacillin Sod/ Tazobactam Sod 100 ml @ 200 mls/hr Q6H IV Last administered on 05/06/17 09:38; Start 05/05/17 at 11:00 Rivaroxaban (Xarelto) 10 mg DAILY PO Last administered on 05/06/17 08:07; Start 05/06/17 at 09:00 Rivaroxaban (Xarelto) 10 mg ONCE ONCE PO Last administered on 05/05/17 13:12 ; Start 05/05/17 at 12:00; Stop 05/05/17 at 12:01; Status DC Vancomycin HCl 1000 mg/Sodium Chloride 250 ml @ 250 mls/hr Q12H IV Last administered on 05/06/17 09:38; Start 05/05/17 at 22:00 Miscellaneous Information SPECIFIC LAB TO BE DRAWN:VANCO TROUGH DATE TO BE DR... ONCE ONCE .XX Last administered on 05/06/17 09:38; Start 05/06/17 at 09:45; Stop 05/06/17 at 09:46; Status DC A/P Problem List: (1) Peripheral arterial occlusive disease ICD Code: I77.9 - Disorder of arteries and arterioles, unspecified (2) Lower limb ischemia ICD Code: I99.8 - Other disorder of circulatory system Assessment and Plan Mr. Brower is a 51 y/o male with a history of PAD with multiple reperfusion surgeries performed by Dr. Guerra and Dr. Gandhi, hypertension, hyperlipidemia, GERD, anxiety/depression, nonadherence with medical regimen, and tobacco abuse who was transferred from the [facility] in [place] on for right lower leg ischemia and necrosis to be evaluated by vascular surgeon Dr. Guerra. The patient is admitted to [facility] service to manage medical problems prior to surgical intervention. Peripheral arterial occlusive disease Right lower limb ischemia/necrosis - Consult vascular surgery - patient well known to Dr. Strauss - appreciate assistance - Oxycodone 10 mg by mouth every 4 hours when necessary pain greater than 5; morphine 4 mg IV every 3 hours as needed for breakthrough pain - Antibiotics: continue IV Zosyn and Vancomycin -Patient WENT TO surgery regarding the right foot MAY 04 with podiatry--status post right great hallux amputation Extensive history of thromboembolism - Heparin drip for now Hypertension, anxiety, depression, GERD, Hyperlipidemia - Resume home medications and monitor - monitor VS q4h and on continuous cardiac telemetry for arrhythmias Tobacco Abuse - told patient he must quit; discussed how smoking contributes to PAD Complete and utter medical noncompliance MALIGNANT MEDICAL NONCOMPLIANCE RIGHT LOWER EXTREMITY FASCIOTOMY WOUNDS WITH NECROSIS OF MUSCLE- CONTINUE VANCO AND ZOSYN PER ID CONSULT ID - START ON VANCO AND ZOSYN AM LABS Discharge Planning HAD SURGERY ON 05-04 WILL NEED SNF AT DC NOT CLEARED BY ID OR PLASTICS DUE TO RIGHT LE WOUNDS Santi Hernandez DO May 06, 2017 10:13
--- NOTE | 2017-05-06 17:16 | PD.CAR.PN ---
CVT Progress Note Subjective/Hospital Course: Patient seen Full consult elsi Strauss 05/05/17 Patient is post aortofemoral femoropopliteal vascular reconstruction and fasciotomy of the right lower leg Good distal pulses very well perfused foot and lower leg Patient underwent successful hallux amputation yesterday Vascular surgery incisions are clean and dry and most of the muscle is viable in the fasciotomy sites, but surface of muscles is dark involved in dry gangrene and needs debridement before grafting We'll consult plastic surgery to see the patient because it'll need skin grafts on this and plastic surgeon will be the best home health travel pt as how to debride and leave most of the viable muscle intact Other than the above nothing to add to care at this time 05/06/17 Groin incision is healed well and patient still has above-noted fasciotomy sites which need debridement and care by plastic surgery I have spoken to Dr. Mac yesterday and he was going see the patient but I do not see the note yet in the computer From vascular point that nothing to add to care Objective: Vital Signs Date Time Temp Pulse Resp B/P (MAP) Pulse Ox O2 Delivery O2 Flow Rate FiO2 05/06/17 12:00 98.3 69 20 116/70 (85) 98 05/06/17 09:37 97 21 05/06/17 08:00 98.6 70 21 132/73 (92) 97 05/06/17 00:00 98.4 72 19 102/70 (81) 95 05/05/17 22:20 22 05/05/17 20:00 98.8 71 18 132/74 (93) 94 Labs: Laboratory Tests Test 05/06/17 05:32 05/06/17 09:15 White Blood Count 13.6 TH/MM3 (4.0-11.0) Red Blood Count 3.28 MIL/MM3 (4.50-5.90) Hemoglobin 10.8 GM/DL (13.0-17.0) Hematocrit 31.3 % (39.0-51.0) Mean Corpuscular Volume 95.2 FL (80.0-100.0) Mean Corpuscular Hemoglobin 32.8 PG (27.0-34.0) Mean Corpuscular Hemoglobin Concent 34.4 % (32.0-36.0) Red Cell Distribution Width 14.2 % (11.6-17.2) Platelet Count 681 TH/MM3 (150-450) Mean Platelet Volume 6.6 FL (7.0-11.0) Neutrophils (%) (Auto) 66.1 % (16.0-70.0) Lymphocytes (%) (Auto) 22.5 % (9.0-44.0) Monocytes (%) (Auto) 7.5 % (0.0-8.0) Eosinophils (%) (Auto) 3.7 % (0.0-4.0) Basophils (%) (Auto) 0.2 % (0.0-2.0) Neutrophils # (Auto) 9.0 TH/MM3 (1.8-7.7) Lymphocytes # (Auto) 3.1 TH/MM3 (1.0-4.8) Monocytes # (Auto) 1.0 TH/MM3 (0-0.9) Eosinophils # (Auto) 0.5 TH/MM3 (0-0.4) Basophils # (Auto) 0.0 TH/MM3 (0-0.2) CBC Comment DIFF FINAL Differential Comment Blood Urea Nitrogen 10 MG/DL (7-18) Creatinine 0.81 MG/DL (0.60-1.30) Random Glucose 103 MG/DL (74-106) Total Protein 6.9 GM/DL (6.4-8.2) Albumin 2.7 GM/DL (3.4-5.0) Calcium Level 8.7 MG/DL (8.5-10.1) Phosphorus Level 4.1 MG/DL (2.5-4.9) Magnesium Level 1.9 MG/DL (1.5-2.5) Alkaline Phosphatase 94 U/L (45-117) Aspartate Amino Transf (AST/SGOT) 30 U/L (15-37) Alanine Aminotransferase (ALT/SGPT) 23 U/L (12-78) Total Bilirubin 0.3 MG/DL (0.2-1.0) Sodium Level 136 MEQ/L (136-145) Potassium Level 3.8 MEQ/L (3.5-5.1) Chloride Level 100 MEQ/L (98-107) Carbon Dioxide Level 27.3 MEQ/L (21.0-32.0) Anion Gap 9 MEQ/L (5-15) Estimat Glomerular Filtration Rate 100 ML/MIN (>89) Vancomycin Level Trough 13.1 MCG/ML (5.0-10.0) Result Diagram: 05/06/17 0532 05/06/17 0532 Raad Guerra MD May 06, 2017 17:16
[2017-05-06] MEDS: ATORVASTATIN 40 MG TAB PO SCH (20:27)
--- NOTE | 2017-05-06 23:04 | MB ---
cc: HERNAN MILLS MD DATE OF CONSULTATION 05/06/[address] Guerra REASON FOR CONSULTATION Fasciotomies requiring closure. HISTORY OF PRESENT ILLNESS The patient is a 51-year-old male with a history of peripheral arterial disease and had multiple surgeries, recently had a toe amputation. The patient had a fasciotomy several weeks ago and has recently been admitted. During this admission, he did have another toe amputated. Consultation is requested regarding evaluation and treatment of the wounds for possible closure. REVIEW OF SYSTEMS Negative except as noted in History of Present Illness PAST MEDICAL HISTORY 1. Peripheral artery disease with multiple reperfusion surgeries performed by Dr. Guerra and Dr. Gandhi. 2. Hypertension, 3. Hyperlipidemia. 4. Gastroesophageal reflux disease 5. Anxiety depression 6. Non-adherence with medical regimen 7. Tobacco abuse. PAST SURGICAL HISTORY 1. Cervical fusion 2. Bilateral inguinal hernia repair, 3. Multiple vascular surgeries 4. Dental extractions MEDICATIONS Listed on the chart. ALLERGIES BEE VENOM PROTEIN FAMILY HISTORY The patient's mother has lymph node cancer. No family history of peripheral arterial disease. SOCIAL HISTORY The patient smokes cigarettes and has done so for the last four years. He smokes approximately 3/4 of a pack of cigarettes per day. The patient consumes four six packs per week. He smokes marijuana if he has it. PHYSICAL EXAMINATION GENERAL: The patient is lying comfortably in bed. VITAL SIGNS: Temperature 98.3, pulse 69, respirations 20, blood pressure 116/70, pulse oximetry 98 on t room air. HEENT: Extraocular muscles are intact. His pupils are equal, round and reactive to light. Mouth is clear. NECK: Supple without masses. HEART: Regular rate and rhythm. EXTREMITIES: Examination of his right calf reveals the open wounds. The fasciotomies are on both sides ,the one on the lateral side is approximately 20 cm in length and 8 cm in width. There is some necrotic material across the edges as well as some necrosis of the superficial aspect of the muscle. The one on the medial side is slightly smaller at 15 cm x 7 cm with evidence of also superficial necrosis. The patient has a wet to dry dressing on there. There is no evidence of the surrounding cellulitis. LABORATORY DATA His latest H&H shows a white count of 13.6 with a hemoglobin of 10.8, hematocrit of 31.3,is platelets are 681,000. His latest albumin is 2.7. His fasting blood sugar is 103. His coagulation INR on admission was 1.0. IMPRESSION The patient has open wounds which are not ready for skin grafting and do require additional debridement. I will place him on Silvadene and a non-adherent dressing to be changed once a day. The patient may benefit from additional surgical debridement. Please reconsult when the wounds are granulating. MD SIDNEY Chambers/ /3:23 PM /10:28 PM
[2017-05-07] VITALS: BP 106/62; PULSE 72; RESP 16; TEMP 97.9; O2SAT 95
[2017-05-07] MEDS: MORPHINE SULFATE 2 MG/ML INJ IV PRN ×6 (02:01→20:53)
[2017-05-07] MEDS: PIPERACIL-TAZO 4.5 GM PREMIX 100 ML IV SCH ×4 (05:13→22:45)
[2017-05-07 08:00] VITALS: BP 106/57; PULSE 61; RESP 20; TEMP 98.2; O2SAT 97
[2017-05-07] MEDS: GABAPENTIN 300 MG CAP PO SCH ×3 (08:55→17:03)
[2017-05-07] MEDS: RIVAROXABAN 10 MG TAB PO SCH (08:55)
[2017-05-07] MEDS: PANTOPRAZOLE SOD 40 MG DELAYED RELEASE TAB PO SCH (08:55)
[2017-05-07] MEDS: amLODIPine BESYLATE 5 MG TAB PO SCH (08:55)
[2017-05-07] MEDS: DULoxetine HCl DR 60 MG CAP PO SCH (08:55)
[2017-05-07] MEDS: METOPROLOL SUCCINATE 50 MG EXTENDED RELEASE TAB PO SCH (08:55)
[2017-05-07] MEDS: MULTIVITAMIN TAB PO SCH (08:55)
[2017-05-07] MEDS: DOCUSATE SODIUM 50 MG/SENNA 8.6 MG TAB PO SCH ×2 (08:56→21:00)
[2017-05-07] MEDS: BACLOFEN 20 MG TAB PO SCH ×2 (08:56→21:01)
[2017-05-07] MEDS: SODIUM CHLORIDE 0.9% FLUSH 10 ML FLUSH IV FLUSH SCH ×2 (08:56→20:54)
[2017-05-07] MEDS: NICOTINE 14 MG/24 HR PATCH T-DERMAL SCH (08:56)
[2017-05-07] MEDS: REMOVE OLD PATCH T-DERMAL SCH (08:57)
--- NOTE | 2017-05-07 11:12 | HHI.PR ---
Subjective Remarks Patient resting in bed reported pain in his leg more than 7 out of 10 Discussed with the nurse was at the bedside she reported some type of drug seeking behavior , patient is afebrile W BC dropped today to 13.6 Objective Vitals Vital Signs Date Time Temp Pulse Resp B/P (MAP) Pulse Ox O2 Delivery O2 Flow Rate FiO2 05/07/17 08:00 98.2 61 20 106/57 (73) 97 05/07/17 00:00 97.9 72 16 106/62 (77) 95 05/06/17 20:00 98.7 65 16 114/66 (82) 96 05/06/17 19:29 98 05/06/17 16:00 98.6 70 20 119/74 (89) 98 05/06/17 12:00 98.3 69 20 116/70 (85) 98 I/O 05/06/17 05/06/17 05/06/17 05/07/17 05/07/17 05/07/17 07:00 15:00 23:00 07:00 15:00 23:00 Intake Total 1050 ml 1070 ml 1210 ml 200 ml 480 ml Output Total 525 ml 900 ml 700 ml 1550 ml Balance 525 ml 170 ml 510 ml -1350 ml 480 ml Intake Oral 600 ml 720 ml 960 ml 480 ml IV Total 450 ml 350 ml 250 ml 200 ml Output Urine Total 525 ml 900 ml 700 ml 1550 ml # Bowel Movements 0 Result Diagram: 05/06/1753105/06/1732 Objective Remarks GENERAL: This is a well-nourished, well-developed patient, in no apparent distress. SKIN: No rashes, warm and dry HEAD: Atraumatic. Normocephalic. EYES: Pupils equal round and reactive. Extraocular motions intact. No scleral icterus. ENT: Nose without bleeding, or drainage, Airway patent. NECK: Trachea midline. Supple CARDIOVASCULAR: Regular rate and rhythm without murmurs, gallops, or rubs. RESPIRATORY: Fair air entry bilaterally. No wheezes, rales, or rhonchi. GASTROINTESTINAL: Abdomen soft, non-tender, nondistended. Positive bowel sounds MUSCULOSKELETAL: Right Lower extremity and right foot in gauze NEUROLOGICAL: Awake and alert. Moves all extremity. Normal speech.no focal neurological deficit Procedures Procedure Date: May 04, 2017 Pre Op Diagnosis: Gangrene right distal hallux Post Op Diagnosis: same Surgeon: Alida Tovar DPSahil Rayon Coner(s): Staff Procedure: Amputation right distal hallux Findings: Consistent with diagnosis. Right distal aspect of hallux hard, necrotic with viable tissue at level of IP joint. Distal right hallux disarticulated at IP joint to level of viable skin, and rongeur utilized to remove distal aspect of proximal phalanx. Culture taken prior to irrigation and closure with 2-0 nylon followed by xeroform, 4x4 cast padding, rico R foot with no compression. Mild bleeding noted to tissue. Healthy appearance to residual bone of hallux proximal phalanx. No further necrotic tissue noted. No tourniquet utilized. 2g ancef IV preop WBAT to R foot in surgical shoe PT to evaluate Additional Information: n/a Complications: none Specimen(s) removed: 1. Right distal hallux 2. 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 status post aortofemoral femoropopliteal vascular reconstruction and fasciotomy of the right lower leg Status post right hallux partial amputation 05/04/17 due to necrosis lesion Extensive history of TE Hypertension/hyperlipidemia Anxiety/depression/GERD Tobacco abuse Noncompliance DVT prophylaxis patient on Xarelto Plan: [facility] consult appreciated their help status post right femoropopliteal with reconstruction ID consulted on [facility] [place] Appreciate podiatry help status post right hallux amputation Plastic surgery consulted for fasciectomy debridement and closure, appreciated their input, the wound is not ready for skin grafting at this point continue with Silvadene and nonadherent dressing changed once a day. 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
--- NOTE | 2017-05-07 11:37 | PD.CAR.PN ---
CVT Progress Note Subjective/Hospital Course: Patient seen Full consult elsi Strauss 05/05/17 Patient is post aortofemoral femoropopliteal vascular reconstruction and fasciotomy of the right lower leg Good distal pulses very well perfused foot and lower leg Patient underwent successful hallux amputation yesterday Vascular surgery incisions are clean and dry and most of the muscle is viable in the fasciotomy sites, but surface of muscles is dark involved in dry gangrene and needs debridement before grafting We'll consult plastic surgery to see the patient because it'll need skin grafts on this and plastic surgeon will be the best acupuncture physician as how to debride and leave most of the viable muscle intact Other than the above nothing to add to care at this time 05/06/17 Groin incision is healed well and patient still has above-noted fasciotomy sites which need debridement and care by plastic surgery I have spoken to Dr. Mac yesterday and he was going see the patient but I do not see the note yet in the computer From vascular point that nothing to add to care 05/07/17 Nothing to add to care Agree with Dr. Mac's consultation and conclusions Patient would benefit from additional debridement. Patient would probably benefit from debridement most if it was done by plastic surgeon for This would allow them to form bed for the skin graft and clearly evaluated the wounds If plastic surgery does not want to debride the patient I'll taken to the OR myself Objective: Vital Signs Date Time Temp Pulse Resp B/P (MAP) Pulse Ox O2 Delivery O2 Flow Rate FiO2 05/07/17 08:00 98.2 61 20 106/57 (73) 97 05/07/17 00:00 97.9 72 16 106/62 (77) 95 05/06/17 20:00 98.7 65 16 114/66 (82) 96 05/06/17 19:29 98 05/06/17 16:00 98.6 70 20 119/74 (89) 98 05/06/17 12:00 98.3 69 20 116/70 (85) 98 Result Diagram: 05/06/17 0532 05/06/17 0532 Raad Guerra MD May 07, 2017 11:37
[2017-05-07 12:00] VITALS: BP 114/66; PULSE 60; RESP 20; TEMP 98.2; O2SAT 96
[2017-05-07 12:23] LABS: ALT (GPT) 20 U/L (12-78); ANION GAP 6 MEQ/L (5-15); AST (GOT) 33 U/L (15-37); BICARBONATE 29.9 MEQ/L (21.0-32.0); BLOOD UREA NITROGEN 8 MG/DL (7-18); CHLORIDE 101 MEQ/L (98-107); GLOMERULAR FILTRATION RATE 106 ML/MIN (>89); MAGNESIUM 2.1 MG/DL (1.5-2.5); SODIUM (NA) 137 MEQ/L (136-145)
[2017-05-07 12:26] LABS: ALKALINE PHOSPHATASE 87 U/L (45-117); TOTAL BILIRUBIN ADULT 0.3 MG/DL (0.2-1.0)
[2017-05-07 12:39] LABS: AUTOMATED NEUTROPHIL # 10.3 TH/MM3 (1.8-7.7); BASOPHIL # 0.1 TH/MM3 (0-0.2); BASOPHIL % 0.4 % (0.0-2.0); EOSINOPHIL # 0.5 TH/MM3 (0-0.4); EOSINOPHIL % 3.5 % (0.0-4.0); HEMATOCRIT 31.9 % (39.0-51.0); HEMO FLAGS DIFF FINAL; LYMPH % 17.9 % (9.0-44.0); LYMPHOCYTE # 2.6 TH/MM3 (1.0-4.8); MEAN CELL VOLUME 96.8 FL (80.0-100.0); MEAN CORPUSCULAR HEMOGLOBIN 32.6 PG (27.0-34.0); MEAN CORPUSCULAR HGB CONC 33.6 % (32.0-36.0); MONO % 7.1 % (0.0-8.0); NEUT % 71.1 % (16.0-70.0); PLATELET COUNT 598 TH/MM3 (150-450); RED CELL DISTRIBUTION WIDTH 14.2 % (11.6-17.2); WHITE BLOOD COUNT 14.5 TH/MM3 (4.0-11.0)
[2017-05-07] MEDS: VANCOMYCIN 1,000 MG/NS 250 ML IV SCH ×4 (15:37→20:58)
[2017-05-07] MEDS: SILVER SULFADIAZINE 1% CR 50 GM JAR TOP SCH (15:38)
[2017-05-07 16:00] VITALS: BP 133/70; PULSE 79; RESP 20; TEMP 98.7; O2SAT 96
--- NOTE | 2017-05-07 16:45 | PD.POD ---
Subjective Podiatric Problems s/p Right hallux partial amputation 05/04/17 Dr Tovar Past Med/Surg/Social History Social History Smoking Status: Current Every Day Smoker Objective Vital Signs Vital Signs Date Time Temp Pulse Resp B/P (MAP) Pulse Ox O2 Delivery O2 Flow Rate FiO2 05/07/17 16:00 98.7 79 20 133/70 (91) 96 05/07/17 12:00 98.2 60 20 114/66 (82) 96 05/07/17 08:00 98.2 61 20 106/57 (73) 97 05/07/17 00:00 97.9 72 16 106/62 (77) 95 05/06/17 20:00 98.7 65 16 114/66 (82) 96 05/06/17 19:29 98 Coded Allergies: bee venom protein (honey bee) (Unverified Allergy, Severe, SWELLING, ) Objective Remarks Microbiology Date/Time Source Procedure Growth Status 05/03/17 08:50 Stool Stool Stool Occult Blood ([facility]ORAN) - Final HEMOCCULT NEGATIVE Complete 05/04/17 20:45 Wound Foot Fungal Smear - Final NO FUNGAL ELEMENTS SEEN. Resulted 05/04/17 20:45 Wound Foot Fungal Culture Pending Resulted Exam-Podiatry Remarks R foot with sutures intact to distal hallux. No active drainage Assessment & Plan A/P s/p Right hallux partial amputation 05/04/17 Dr Tovar Bandage changed R foot. Keep bandage Right foot clean, dry, intact and ambulate WBAT R foot in surgical shoe Follow up appointment next week in clinic for dressing change, then will monitor surgical site weekly to assess healing for suture removal vs further surgery No further treatment planned R foot. Alida Tovar DPM May 07, 2017 16:45
[2017-05-07 20:00] VITALS: BP 117/76; PULSE 74; RESP 16; TEMP 99.4; O2SAT 98
[2017-05-07] MEDS: ATORVASTATIN 40 MG TAB PO SCH (21:01)
[2017-05-07] MEDS ORDERED: LACTATED RINGER'S 1000 ML IV PRN (22:00)
[2017-05-07] MEDS ORDERED: SODIUM CHLORID 0.9% 500 ML IV PRN (22:00)
[2017-05-08] VITALS: BP 102/63; PULSE 62; RESP 16; TEMP 97.7; O2SAT 96
[2017-05-08] MEDS: LORazepam 0.5 MG TAB PO PRN ×2 (00:54→21:37)
[2017-05-08] MEDS: PIPERACIL-TAZO 4.5 GM PREMIX 100 ML IV SCH ×4 (05:13→22:38)
[2017-05-08] MEDS: MORPHINE SULFATE 2 MG/ML INJ IV PRN ×3 (05:13→22:39)
[2017-05-08 08:00] VITALS: BP 99/57; PULSE 67; RESP 19; TEMP 97.5; O2SAT 91
[2017-05-08 08:18] LABS: HEMATOCRIT 27.9 % (39.0-51.0); MEAN CELL VOLUME 95.2 FL (80.0-100.0); MEAN CORPUSCULAR HEMOGLOBIN 32.8 PG (27.0-34.0); MEAN CORPUSCULAR HGB CONC 34.5 % (32.0-36.0); PLATELET COUNT 559 TH/MM3 (150-450); RED BLOOD COUNT 2.93 MIL/MM3 (4.50-5.90); RED CELL DISTRIBUTION WIDTH 13.9 % (11.6-17.2); REVIEW FLAG FINAL; WHITE BLOOD COUNT 12.8 TH/MM3 (4.0-11.0)
[2017-05-08] MEDS: PANTOPRAZOLE SOD 40 MG DELAYED RELEASE TAB PO SCH (09:00)
[2017-05-08] MEDS: BACLOFEN 20 MG TAB PO SCH ×2 (09:00→20:40)
[2017-05-08] MEDS: GABAPENTIN 300 MG CAP PO SCH ×3 (09:00→18:19)
[2017-05-08] MEDS: RIVAROXABAN 10 MG TAB PO SCH (09:00)
[2017-05-08] MEDS: DULoxetine HCl DR 60 MG CAP PO SCH (09:00)
[2017-05-08] MEDS: REMOVE OLD PATCH T-DERMAL SCH (09:00)
[2017-05-08] MEDS: DOCUSATE SODIUM 50 MG/SENNA 8.6 MG TAB PO SCH ×2 (09:00→21:00)
[2017-05-08] MEDS: NICOTINE 14 MG/24 HR PATCH T-DERMAL SCH (09:00)
[2017-05-08] MEDS: SILVER SULFADIAZINE 1% CR 50 GM JAR TOP SCH (09:00)
[2017-05-08] MEDS: amLODIPine BESYLATE 5 MG TAB PO SCH (09:00)
[2017-05-08] MEDS: METOPROLOL SUCCINATE 50 MG EXTENDED RELEASE TAB PO SCH (09:00)
[2017-05-08] MEDS: MULTIVITAMIN TAB PO SCH (09:00)
[2017-05-08] MEDS ORDERED: PHARMACY ORDERED LAB ONE (09:45)
[2017-05-08] MEDS: VANCOMYCIN 1,000 MG/NS 250 ML IV SCH ×4 (10:00→20:41)
[2017-05-08 11:45] VITALS: BP 116/64; PULSE 69; RESP 16; TEMP 98.7; O2SAT 94
[2017-05-08] MEDS ORDERED: oxyCODONE/ACETAMINOPHEN 5 MG/325 MG TAB PO PRN (12:30)
[2017-05-08] MEDS ORDERED: PILL SPLITTER OTHER PRN (13:00)
[2017-05-08] MEDS ORDERED: DO NOT ADM ANY ANTICOAGULANT DRUGS PRN (14:00)
[2017-05-08] MEDS ORDERED: *morphine SULFATE 8 MG/ML PERIprocedure ONLY ONE (14:01)
--- NOTE | 2017-05-08 15:08 | HHI.PR ---
Subjective Remarks Patient requesting increasing his pain medication, I discussed with the nurse his blood pressure is going below 100 systolic, and he is getting more sedated so I applied some changes on his pain regimen on discussed with him extensively Holding parameter placed on amlodipine and we decreased the daily dose to 2.5 mg Objective Vitals Vital Signs Date Time Temp Pulse Resp B/P (MAP) Pulse Ox O2 Delivery O2 Flow Rate FiO2 05/08/17 14:15 97.8 62 14 129/67 (87) 100 Nasal Cannula 2 05/08/17 14:00 62 14 119/69 (86) 100 Nasal Cannula 2 05/08/17 13:45 97.8 71 14 142/70 (94) 100 Nasal Cannula 4 05/08/17 11:45 98.7 69 16 116/64 (81) 05/08/17 11:45 94 05/08/17 08:00 97.5 67 19 99/57 (71) 91 05/08/17 00:00 97.7 62 16 102/63 (76) 96 05/07/17 20:00 99.4 74 16 117/76 (90) 98 05/07/17 16:00 98.7 79 20 133/70 (91) 96 I/O 05/07/17 05/07/17 05/07/17 05/08/17 05/08/17 05/08/17 06:59 14:59 22:59 06:59 14:59 22:59 Intake Total 200 ml 580 ml 1550 ml 600 ml Output Total 1550 ml 1000 ml 1300 ml 100 ml Balance -1350 ml 580 ml 550 ml -1300 ml 500 ml Intake Oral 480 ml 1200 ml IV Total 200 ml 100 ml 350 ml 600 ml Output Urine Total 1550 ml 1000 ml 1300 ml Estimated Blood Loss 100 ml # Bowel Movements 1 Result Diagram: 05/08/17 0610 05/07/17 1057 Objective Remarks GENERAL: This is a well-nourished, well-developed patient, in no apparent distress. SKIN: No rashes, warm and dry HEAD: Atraumatic. Normocephalic. EYES: Pupils equal round and reactive. Extraocular motions intact. No scleral icterus. ENT: Nose without bleeding, or drainage, Airway patent. NECK: Trachea midline. Supple CARDIOVASCULAR: Regular rate and rhythm without murmurs, gallops, or rubs. RESPIRATORY: Fair air entry bilaterally. No wheezes, rales, or rhonchi. GASTROINTESTINAL: Abdomen soft, non-tender, nondistended. Positive bowel sounds MUSCULOSKELETAL: Right Lower extremity and right foot in gauze NEUROLOGICAL: Awake and alert. Moves all extremity. Normal speech.no focal neurological deficit Procedures Procedure Date: May 04, 2017 Pre Op Diagnosis: Gangrene right distal hallux Post Op Diagnosis: same Surgeon: Alida Tovar DPM Seedling Puller(s): Staff Procedure: Amputation right distal hallux Findings: Consistent with diagnosis. Right distal aspect of hallux hard, necrotic with viable tissue at level of IP joint. Distal right hallux disarticulated at IP joint to level of viable skin, and rongeur utilized to remove distal aspect of proximal phalanx. Culture taken prior to irrigation and closure with 2-0 nylon followed by xeroform, 4x4 cast padding, rico R foot with no compression. Mild bleeding noted to tissue. Healthy appearance to residual bone of hallux proximal phalanx. No further necrotic tissue noted. No tourniquet utilized. 2g ancef IV preop WBAT to R foot in surgical shoe PT to evaluate Additional Information: n/a Complications: none Specimen(s) removed: 1. Right distal hallux 2. culture right hallux Estimated blood loss: Minimal Anesthesia: MAC, Local (10mL 0.5% marcaine plain) Drains: None IVF Tourniquet time (min at mmHg) n/a Patient to: PACU Patient Condition: Good Date/Time of Procedure: SEE SURGICAL CARE RECORD A/P Problem List: (1) Peripheral arterial occlusive disease ICD Code: I77.9 - Disorder of arteries and arterioles, unspecified (2) Lower limb ischemia ICD Code: I99.8 - Other disorder of circulatory system Assessment and Plan 05/08: Holding parameter for amlodipine, decrease dose to 12.5, change pain medication to Percocet 5/10 for pain scale, morphine 3 mg every 4 hours for breakthrough, further surgical intervention per Dr. 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
[2017-05-08] MEDS: oxyCODONE/ACETAMINOPHEN 10 MG/325 MG TAB PO PRN ×2 (15:40→21:38)
[2017-05-08 16:00] VITALS: BP 119/68; PULSE 60; RESP 17; TEMP 97.6; O2SAT 99
[2017-05-08 20:00] VITALS: BP 109/68; PULSE 80; RESP 17; TEMP 98.6; O2SAT 91
[2017-05-08] MEDS: ATORVASTATIN 40 MG TAB PO SCH (20:40)
[2017-05-08] MEDS: SODIUM CHLORIDE 0.9% FLUSH 10 ML FLUSH IV FLUSH SCH (21:00)
[2017-05-09] VITALS: BP 104/59; PULSE 80; RESP 17; TEMP 98.3; O2SAT 91
[2017-05-09] MEDS: oxyCODONE/ACETAMINOPHEN 10 MG/325 MG TAB PO PRN ×3 (01:40→16:12)
[2017-05-09] MEDS: MORPHINE SULFATE 2 MG/ML INJ IV PRN ×4 (02:42→17:09)
[2017-05-09 04:00] VITALS: BP 111/66; PULSE 72; RESP 17; TEMP 98; O2SAT 94
[2017-05-09] MEDS: PIPERACIL-TAZO 4.5 GM PREMIX 100 ML IV SCH ×3 (05:03→17:09)
[2017-05-09 08:00] VITALS: BP 104/57; PULSE 60; RESP 18; TEMP 98; O2SAT 97
[2017-05-09] MEDS: REMOVE OLD PATCH T-DERMAL SCH (09:00)
[2017-05-09] MEDS: NICOTINE 14 MG/24 HR PATCH T-DERMAL SCH (09:00)
[2017-05-09] MEDS: DOCUSATE SODIUM 50 MG/SENNA 8.6 MG TAB PO SCH (09:00)
[2017-05-09] MEDS ORDERED: amLODIPine BESYLATE 5 MG TAB PO SCH (09:00)
[2017-05-09] MEDS: SODIUM CHLORIDE 0.9% FLUSH 10 ML FLUSH IV FLUSH SCH (09:00)
[2017-05-09] MEDS: METOPROLOL SUCCINATE 50 MG EXTENDED RELEASE TAB PO SCH (09:00)
[2017-05-09] MEDS: SILVER SULFADIAZINE 1% CR 50 GM JAR TOP SCH (09:00)
[2017-05-09] MEDS: VANCOMYCIN 1,000 MG/NS 250 ML IV SCH ×2 (09:12)
[2017-05-09] MEDS: GABAPENTIN 300 MG CAP PO SCH ×3 (09:12→17:09)
[2017-05-09] MEDS: DULoxetine HCl DR 60 MG CAP PO SCH (09:12)
[2017-05-09] MEDS: BACLOFEN 20 MG TAB PO SCH (09:13)
[2017-05-09] MEDS: MULTIVITAMIN TAB PO SCH (09:13)
[2017-05-09] MEDS: RIVAROXABAN 10 MG TAB PO SCH (09:13)
[2017-05-09] MEDS: PANTOPRAZOLE SOD 40 MG DELAYED RELEASE TAB PO SCH (09:16)
--- NOTE | 2017-05-09 09:54 | PD.CAR.PN ---
CVT Progress Note Subjective/Hospital Course: Patient seen Full consult elsi Strauss 05/05/17 Patient is post aortofemoral femoropopliteal vascular reconstruction and fasciotomy of the right lower leg Good distal pulses very well perfused foot and lower leg Patient underwent successful hallux amputation yesterday Vascular surgery incisions are clean and dry and most of the muscle is viable in the fasciotomy sites, but surface of muscles is dark involved in dry gangrene and needs debridement before grafting We'll consult plastic surgery to see the patient because it'll need skin grafts on this and plastic surgeon will be the best tub rider as how to debride and leave most of the viable muscle intact Other than the above nothing to add to care at this time 05/06/17 Groin incision is healed well and patient still has above-noted fasciotomy sites which need debridement and care by plastic surgery I have spoken to Dr. Mac yesterday and he was going see the patient but I do not see the note yet in the computer From vascular point that nothing to add to care 05/07/17 Nothing to add to care Agree with Dr. Mac's consultation and conclusions Patient would benefit from additional debridement. Patient would probably benefit from debridement most if it was done by plastic surgeon for This would allow them to form bed for the skin graft and clearly evaluated the wounds If plastic surgery does not want to debride the patient I'll taken to the OR myself 05/09/17 Patient doing well this morning Status post debridement of the right leg devitalized muscle Wounds are clean and dressing is intact We will leave it this way for another day and then start changing wet-to-dry again I've discussed this with the patient at length and possibly patient will require right above-knee amputation at this point due to muscle necrosis and loss that he suffered after he signed out AMA Will go to the patient in few days after I see how the fasciotomy wounds looks like It old sort itself out in next few days depending on how the muscle granulation progresses Objective: Vital Signs Date Time Temp Pulse Resp B/P (MAP) Pulse Ox O2 Delivery O2 Flow Rate FiO2 05/09/17 08:00 98.0 60 18 104/57 (73) 97 05/09/17 06:41 18 05/09/17 04:00 98.0 72 17 111/66 (81) 94 05/09/17 02:40 17 05/09/17 00:00 98.3 80 17 104/59 (74) 91 05/08/17 20:00 98.6 80 17 109/68 (82) 91 05/08/17 16:00 97.6 60 17 119/68 (85) 99 05/08/17 14:15 97.8 62 14 129/67 (87) 100 Nasal Cannula 2 05/08/17 14:00 62 14 119/69 (86) 100 Nasal Cannula 2 05/08/17 13:45 97.8 71 14 142/70 (94) 100 Nasal Cannula 4 05/08/17 11:45 98.7 69 16 116/64 (81) 05/08/17 11:45 94 Result Diagram: 05/08/17 0610 05/07/17 1057 Raad Guerra MD May 09, 2017 09:54
[2017-05-09 12:00] VITALS: BP 121/71; PULSE 84; RESP 16; TEMP 98.4; O2SAT 97
[2017-05-09 16:00] VITALS: BP 116/61; PULSE 62; RESP 18; TEMP 97; O2SAT 97
--- NOTE | 2017-05-09 17:02 | HHI.PR ---
Subjective Remarks I had a lengthy discussion with the patient and the nurse today He wants to increase his iv medication for pain "working "in dose and frequency , I explained to him that his blood pressure is extremely low and increasing narcotic we'll put him in risk of vascular collapse Patient threatened to leave AMA, he also tried to get his mother to request increasing his pain medication which the mother wasn't and agree with as she mentioned to the nurse Objective Vitals Vital Signs Date Time Temp Pulse Resp B/P (MAP) Pulse Ox O2 Delivery O2 Flow Rate FiO2 05/09/17 12:00 98.4 84 16 121/71 (88) 97 05/09/17 08:00 98.0 60 18 104/57 (73) 97 05/09/17 06:41 18 05/09/17 04:00 98.0 72 17 111/66 (81) 94 05/09/17 02:40 17 05/09/17 00:00 98.3 80 17 104/59 (74) 91 05/08/17 20:00 98.6 80 17 109/68 (82) 91 I/O 05/08/17 05/08/17 05/08/17 05/09/17 05/09/17 05/09/17 07:00 15:00 23:00 07:00 15:00 23:00 Intake Total 200 ml 600 ml 650 ml 680 ml Output Total 1300 ml 100 ml 1100 ml 800 ml Balance -1100 ml 500 ml -450 ml -120 ml Intake Oral 300 ml 480 ml IV Total 200 ml 600 ml 350 ml 200 ml Output Urine Total 1300 ml 1100 ml 800 ml Estimated Blood Loss 100 ml # Voids 2 # Bowel Movements 1 Result Diagram: 05/08/17 0610 05/07/17 1057 Objective Remarks GENERAL: This is a well-nourished, well-developed patient, in no apparent distress. SKIN: No rashes, warm and dry HEAD: Atraumatic. Normocephalic. EYES: Pupils equal round and reactive. Extraocular motions intact. No scleral icterus. ENT: Nose without bleeding, or drainage, Airway patent. NECK: Trachea midline. Supple CARDIOVASCULAR: Regular rate and rhythm without murmurs, gallops, or rubs. RESPIRATORY: Fair air entry bilaterally. No wheezes, rales, or rhonchi. GASTROINTESTINAL: Abdomen soft, non-tender, nondistended. Positive bowel sounds MUSCULOSKELETAL: Right Lower extremity and right foot in gauze NEUROLOGICAL: Awake and alert. Moves all extremity. Normal speech.no focal neurological deficit Procedures Procedure Date: May 04, 2017 Pre Op Diagnosis: Gangrene right distal hallux Post Op Diagnosis: same Surgeon: Alida Tovar DPM Car Retarder Operator(s): Staff Procedure: Amputation right distal hallux Findings: Consistent with diagnosis. Right distal aspect of hallux hard, necrotic with viable tissue at level of IP joint. Distal right hallux disarticulated at IP joint to level of viable skin, and rongeur utilized to remove distal aspect of proximal phalanx. Culture taken prior to irrigation and closure with 2-0 nylon followed by xeroform, 4x4 cast padding, rico R foot with no compression. Mild bleeding noted to tissue. Healthy appearance to residual bone of hallux proximal phalanx. No further necrotic tissue noted. No tourniquet utilized. 2g ancef IV preop WBAT to R foot in surgical shoe PT to evaluate Additional Information: n/a Complications: none Specimen(s) removed: 1. Right distal hallux 2. culture right hallux Estimated blood loss: Minimal Anesthesia: MAC, Local (10mL 0.5% marcaine plain) Drains: None IVF Tourniquet time (min at mmHg) n/a Patient to: PACU Patient Condition: Good Date/Time of Procedure: SEE SURGICAL CARE RECORD A/P Problem List: (1) Peripheral arterial occlusive disease ICD Code: I77.9 - Disorder of arteries and arterioles, unspecified (2) Lower limb ischemia ICD Code: I99.8 - Other disorder of circulatory system Assessment and Plan 05/08: Holding parameter for amlodipine, decrease dose to 12.5, change pain medication to Percocet 5/10 for pain scale, morphine 3 mg every 4 hours for breakthrough, further surgical intervention per Dr. Strauss 05/09: Blood pressure still low, I will DC Norvasc, reduce Lopressor to 25 mg, no increase of narcotic patient has been notified, discussed with the nurse, continue current care, Dr. 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 On Xarelto for history of TE PT continue for evaluation and treatment manager supply chain working for SNF placement Crystal Sanon MD May 09, 2017 17:02
--- NOTE | 2017-05-09 21:14 | MP ---
cc: MD PRISCILLA,RAAD DATE OF SURGERY: 05/08/2017. PREOPERATIVE DIAGNOSIS: 1. Peripheral vascular disease. 2. Ischemia of the right leg. 3. Necrosis of the muscles of the right lower leg. POSTOPERATIVE DIAGNOSIS: 1. Peripheral vascular disease. 2. Ischemia of the right leg. 3. Necrosis of the muscles of the right lower leg. OPERATIVE PROCEDURE PERFORMED: Debridement of the muscles of the right leg. SURGEON: Raad Guerra M.D. DESCRIPTION OF THE PROCEDURE IN DETAIL: The patient was prepped and draped in the usual sterile fashion. Both fasciotomy sites were exposed. The lateral fasciotomy site had a large amount of necrotic muscle. This was debrided sharply with a #10 blade and once bleeding was encountered, this was controlled with cautery. The same was done with the medial incision. The area was now irrigated with copious amounts of saline, and once more hemostasis assured. Then dressing applied. The patient tolerated the procedure well. Raad ANTOINE/BRITANY /2:36 PM /8:56 PM
[2017-05-10] MEDS ORDERED: METOPROLOL SUCCINATE 25 MG EXTENDED RELEASE TAB PO SCH (09:00)
== END 2017-05-09 19:38 | disposition left against medical advice (07) | DRG 256 ==
LOC: N07A 18:41
PROVIDERS: ADMIT Hospitalist; ATTEND Hospitalist
PROC: 0Y6P0Z3 Detachment at Right 1st Toe, Low, Open Approach (ICD-10-PCS; principal; 2017-05-04 20:23)
PROC: 0KDS0ZZ Extraction of Right Lower Leg Muscle, Open Approach (ICD-10-PCS; 2017-05-08)
DX: I77.89 Other specified disorders of arteries and arterioles (principal); I96 Gangrene, not elsewhere classified; R64 Cachexia; T81.31XA Disruption of external operation (surgical) wound, not elsewhere classified, initial encounter; Z68.1 Body mass index [BMI] 19.9 or less, adult; I10 Essential (primary) hypertension; I99.8 Other disorder of circulatory system; K21.9 Gastro-esophageal reflux disease without esophagitis; E78.5 Hyperlipidemia, unspecified; F17.210 Nicotine dependence, cigarettes, uncomplicated; F12.90 Cannabis use, unspecified, uncomplicated; F32.9 Major depressive disorder, single episode, unspecified; F41.9 Anxiety disorder, unspecified; F10.20 Alcohol dependence, uncomplicated; Z79.01 Long term (current) use of anticoagulants; Z86.718 Personal history of other venous thrombosis and embolism; Z91.030 Bee allergy status; Z91.19 Patient's noncompliance with other medical treatment and regimen; Z95.828 Presence of other vascular implants and grafts; Z98.1 Arthrodesis status
CPT/HCPCS: 73630; 80053; 80202; 82272; 83036; 83735; 84100; 84439; 84443; 85025; 85027; 85610; 85730; 87015; 87070; 87102; 87116; 87205; 87206; 88305; 88307; 88311; J0690; J1644; J2270; J2543; J3370; J7050; L3260

== ENCOUNTER 2017-05-25 11:57 | Inpatient (IN) | payer OTHER, MEDICARE ==
[~2017-05-25] VITALS: Ht 167.6 cm; Wt 44.1 kg
[2017-05-25 11:59] VITALS: BP 163/87; PULSE 97; RESP 18; TEMP 98.2; O2SAT 98
[2017-05-25] MEDS ORDERED: ASPI-516 CHEW (16:40)
--- NOTE | 2017-05-25 17:13 | PD ---
HPI Chief Complaint: Medical Clearance Time Seen by Provider: 16:35 Travel History International Travel<30 days: No Contact w/Intl Traveler<30days: No Traveled to known affect area: No History of Present Illness HPI 51-year-old male presents to the emergency department sent by Dr. Guerra for amputation of the right lower extremity. Patient states that he saw him today in his office and he referred him for admission, amputation. The patient reports history PVD, right leg ischemia for several years with wounds that have been worsening. He states that he has been wanting" for quite some time. Pain is 10/10, aching and throbbing without radiation. No associated symptoms. No other complaints. Moderate severity. PFSH Past Medical History Hx Anticoagulant Therapy: Yes (UNSURE THE NAME ) Arthritis: Yes Asthma: Yes Anxiety: Yes Depression: Yes Heart Rhythm Problems: No Cancer: No Cardiovascular Problems: Yes (HTN) Chemotherapy: No Chest Pain: No Congestive Heart Failure: Yes Cerebrovascular Accident: Yes (sometimes ) Diabetes: No Diminished Hearing: No Endocrine: No Gastrointestinal Disorders: Yes GERD: Yes (very bad) Genitourinary: No Headaches: Yes (patient states due to neck) Hiatal Hernia: Yes Hypertension: Yes Immune Disorder: No Inguinal Hernia: Yes Implanted Vascular Access Dvce: No Kidney Stones: No Musculoskeletal: Yes Neurologic: No Psychiatric: Yes (PTSD) Reproductive: No Respiratory: Yes (patient states due to smoking he has a lot of breath problems ) Migraines: Yes Radiation Therapy: No Renal Failure: No Seizures: No Sickle Cell Disease: No Thyroid Disease: No Past Surgical History Abdominal Surgery: Yes (hernia surgery 1988 ) Cardiac Surgery: No Ear Surgery: No Endocrine Surgery: No Eye Surgery: No Genitourinary Surgery: No Gynecologic Surgery: No Oral Surgery: Yes (removal of teeth) Thoracic Surgery: Yes (titanium plate in neck) Other Surgery: Yes (VASCULAR SX BILATERAL LEGS) Social History Alcohol Use: Yes (2-4 packs a week) Tobacco Use: Yes (16 CIGS DAILY) Substance Use: No Allergies-Medications (Allergen,Severity, Reaction): Coded Allergies: bee venom protein (honey bee) (Unverified Allergy, Severe, SWELLING, ) Reported Meds & Prescriptions Reported Meds & Active Scripts Active Multi Vitamin Daily (Multiple Vitamin) 1 Tab Tab 1 Tab PO DAILY 30 Days Xarelto (Rivaroxaban) 10 Mg Tab 10 Mg PO DAILY 30 Days Norvasc (Amlodipine Besylate) 5 Mg Tab 5 Mg PO DAILY 30 Days Lipitor (Atorvastatin Calcium) 40 Mg Tab 40 Mg PO HS 30 Days Reported Aspirin 81 Mg Chew 81 Mg CHEW DAILY Pantoprazole (Pantoprazole Sodium) 40 Mg Tab 40 Mg PO DAILY Metoprolol Succinate ER 24 HR (Metoprolol Succinate) 50 Mg Tab 50 Mg PO DAILY Duloxetine DR (Duloxetine HCl) 60 Mg Capdr 60 Mg PO DAILY Baclofen 20 Mg Tab 20 Mg PO BID Review of Systems Except as stated in HPI: all other systems reviewed are Neg Physical Exam Narrative GENERAL: Well-nourished, well-developed male patient, afebrile. SKIN: Focused skin assessment warm/dry. Patient has large chronic wounds to the right medial and lateral calf without drainage. HEAD: Normocephalic. Atraumatic. EYES: No scleral icterus. No injection or drainage. NECK: Supple, trachea midline. No JVD or lymphadenopathy. CARDIOVASCULAR: Regular rate and rhythm without murmurs, gallops, or rubs. RESPIRATORY: Breath sounds equal bilaterally. No accessory muscle use. Lungs sounds are clear to auscultation. GASTROINTESTINAL: Abdomen soft, non-tender, nondistended. MUSCULOSKELETAL: No cyanosis, or edema. BACK: Nontender without obvious deformity. No CVA tenderness. Data Data Last Documented VS Vital Signs Date Time Temp Pulse Resp B/P (MAP) Pulse Ox O2 Delivery O2 Flow Rate FiO2 05/25/17 11:59 98.2 97 18 163/87 (112) 98 Orders Orders Iv Access Insert/Monitor (05/25/17 17:06) Complete Blood Count With Diff (05/25/17 17:06) Comprehensive Metabolic Panel (05/25/17 17:06) Prothrombin Time / Inr (Pt) (05/25/17 17:06) Act Partial Throm Time (Ptt) (05/25/17 17:06) Electrocardiogram (05/25/17 ) Chest, Single Ap (05/25/17 ) Morphine Inj (Morphine Inj) (05/25/17 17:15) Ondansetron Inj (Zofran Inj) (05/25/17 17:15) Admit Order (Ed Use Only) (05/25/17 17:12) Labs Laboratory Tests Test 1/9/18 17:13 MDM Medical Decision Making Medical Screen Exam Complete: Yes Emergency Medical Condition: Yes Medical Record Reviewed: Yes Differential Diagnosis Right leg ischemia versus PVD versus arterial occlusion Narrative Course 51-year-old male presents to the emergency department [address] Blackburn for right leg BKA. I spoke to Dr. Guerra was states patient was supposed to be a direct admit. However, the patient states that they do not have the paperwork referred to the emergency department. Preop orders are placed. EKG and chest x-ray are ordered. Dr. Guerra is notified and will place orders. Diagnosis Primary Impression: Lower limb ischemia Additional Impression: Peripheral arterial occlusive disease Admitting Information Admitting Physician Requests: Admit Nae Brandon May 25, 2017 17:13
[2017-05-25] MEDS ORDERED: MORPHINE SULFATE 2 MG/ML INJ IV PUSH ONE (17:15)
[2017-05-25] MEDS ORDERED: ONDANSETRON HCL 4 MG/2 ML VIAL IV PUSH ONE (17:15)
--- NOTE | 2017-05-25 17:45 | RADRPT ---
EXAM DATE/TIME: 05/25/2017 17:34 [facility] COMPARISON: CHEST SINGLE AP, April 18, 2017, 21:33. INDICATIONS : Evaluate for pneumothorax, pneumonia and communicable diseases. Pre-op for right leg surgery. MEDICAL HISTORY : Cardiovascular disease. Hypertension SURGICAL HISTORY : Inguinal hernia repair. Fusion, cervical. ENCOUNTER: Initial ACUITY: 1 day PAIN SCORE: 0/10 LOCATION: Bilateral chest FINDINGS: A single view of the chest demonstrates the lungs to be symmetrically aerated without evidence of mas s, infiltrate or effusion. The cardiomediastinal contours are unremarkable. Osseous structures are intact. There is a stable calcified granuloma in the right upper lobe. Patient is status post lower c ervical fusion with screw-plate fixation device. CONCLUSION: No acute disease. Jaylen Page MD on May 25, 2017 at 17:41 Board Certified Radiologist. This report was verified electronically.
[2017-05-25 18:25] LABS: AUTOMATED NEUTROPHIL # 9.9 TH/MM3 (1.8-7.7); BASOPHIL # 0.1 TH/MM3 (0-0.2); BASOPHIL % 0.5 % (0.0-2.0); EOSINOPHIL # 0.2 TH/MM3 (0-0.4); EOSINOPHIL % 1.3 % (0.0-4.0); HEMATOCRIT 34.5 % (39.0-51.0); HEMOGLOBIN 11.5 GM/DL (13.0-17.0); LYMPH % 16.8 % (9.0-44.0); LYMPHOCYTE # 2.2 TH/MM3 (1.0-4.8); MEAN CELL VOLUME 95.8 FL (80.0-100.0); MEAN CORPUSCULAR HEMOGLOBIN 31.9 PG (27.0-34.0); MEAN CORPUSCULAR HGB CONC 33.3 % (32.0-36.0); MEAN PLATELET VOLUME 6.7 FL (7.0-11.0); MONO % 5.8 % (0.0-8.0); MONOCYTE # 0.8 TH/MM3 (0-0.9); NEUT % 75.6 % (16.0-70.0); PLATELET COUNT 408 TH/MM3 (150-450); RED BLOOD COUNT 3.61 MIL/MM3 (4.50-5.90); RED CELL DISTRIBUTION WIDTH 15.4 % (11.6-17.2); WHITE BLOOD COUNT 13.1 TH/MM3 (4.0-11.0)
[2017-05-25 18:34] LABS: PROTHROMBIN TIME - PATIENT 9.8 SEC (9.8-11.6)
[2017-05-25 18:45] LABS: ALBUMIN 3.3 GM/DL (3.4-5.0); ALKALINE PHOSPHATASE 136 U/L (45-117); ALT (GPT) 15 U/L (12-78); AST (GOT) 17 U/L (15-37); BICARBONATE 22.2 MEQ/L (21.0-32.0); BLOOD UREA NITROGEN 9 MG/DL (7-18); CALCIUM 8.6 MG/DL (8.5-10.1); CHLORIDE 105 MEQ/L (98-107); CREATININE 0.66 MG/DL (0.60-1.30); GLOMERULAR FILTRATION RATE 126 ML/MIN (>89); GLUCOSE,RANDOM 82 MG/DL (74-106); SODIUM (NA) 135 MEQ/L (136-145); TOTAL BILIRUBIN ADULT 0.3 MG/DL (0.2-1.0); TOTAL PROTEIN 8.1 GM/DL (6.4-8.2)
[2017-05-25 20:12] VITALS: BP 154/98; PULSE 100; RESP 18; O2SAT 100
[2017-05-25] MEDS ORDERED: ONDANSETRON HCL 4 MG/2 ML VIAL IV PUSH PRN (20:30)
[2017-05-25] MEDS ORDERED: ceFAZolin 2 GM PREMIX 50 ML IV SCH (20:30)
[2017-05-25] MEDS ORDERED: Post-op Orders (for Pharmacy) XX ONE (20:30)
[2017-05-25] MEDS: SODIUM CHLOR 0.9% 1000 ML INJ 1,000 ML IV SCH (21:32)
[2017-05-25] MEDS: SODIUM CHLORIDE 0.9% FLUSH 10 ML FLUSH IV FLUSH SCH (21:33)
[2017-05-25] MEDS: MORPHINE SULFATE 2 MG/ML INJ IV PUSH PRN ×2 (21:42→23:06)
[2017-05-25 22:13] VITALS: BP 148/91; PULSE 97; RESP 22; TEMP 99.6; O2SAT 100
[2017-05-25] MEDS ORDERED: LACTATED RINGER'S 1000 ML IV PRN (23:45)
[2017-05-26] VITALS: BP 138/84; PULSE 99; RESP 22; TEMP 100.1; O2SAT 99
[2017-05-26] MEDS: MORPHINE SULFATE 2 MG/ML INJ IV PUSH PRN ×9 (01:01→22:53)
[2017-05-26 04:00] VITALS: BP 177/95; PULSE 99; RESP 22; TEMP 98.7; O2SAT 99
[2017-05-26] MEDS: SODIUM CHLOR 0.9% 1000 ML INJ 1,000 ML IV SCH ×2 (06:19→18:18)
[2017-05-26] MEDS: PANTOPRAZOLE SOD 40 MG DELAYED RELEASE TAB PO SCH (07:40)
[2017-05-26] MEDS: MULTIVITAMIN TAB PO SCH (07:40)
[2017-05-26] MEDS: amLODIPine BESYLATE 5 MG TAB PO SCH (07:41)
[2017-05-26] MEDS: ASPIRIN 81 MG CHEW TAB CHEW SCH (07:41)
[2017-05-26] MEDS: METOPROLOL SUCCINATE 50 MG EXTENDED RELEASE TAB PO SCH (07:41)
[2017-05-26] MEDS: SODIUM CHLORIDE 0.9% FLUSH 10 ML FLUSH IV FLUSH SCH ×2 (07:45→20:41)
[2017-05-26 08:00] VITALS: BP 156/96; PULSE 93; RESP 20; TEMP 98.7; O2SAT 100
[2017-05-26] MEDS: DULoxetine HCl DR 60 MG CAP PO SCH (09:00)
[2017-05-26 09:14] LABS: AUTOMATED NEUTROPHIL # 9.6 TH/MM3 (1.8-7.7); BASOPHIL % 0.1 % (0.0-2.0); EOSINOPHIL # 0.3 TH/MM3 (0-0.4); EOSINOPHIL % 1.9 % (0.0-4.0); HEMATOCRIT 27.9 % (39.0-51.0); HEMOGLOBIN 9.3 GM/DL (13.0-17.0); LYMPH % 21.6 % (9.0-44.0); LYMPHOCYTE # 2.9 TH/MM3 (1.0-4.8); MEAN CELL VOLUME 94.2 FL (80.0-100.0); MEAN CORPUSCULAR HEMOGLOBIN 31.4 PG (27.0-34.0); MEAN CORPUSCULAR HGB CONC 33.3 % (32.0-36.0); MEAN PLATELET VOLUME 6.5 FL (7.0-11.0); MONO % 6.4 % (0.0-8.0); MONOCYTE # 0.9 TH/MM3 (0-0.9); PLATELET COUNT 376 TH/MM3 (150-450); RED BLOOD COUNT 2.96 MIL/MM3 (4.50-5.90); WHITE BLOOD COUNT 13.7 TH/MM3 (4.0-11.0)
[2017-05-26 09:38] LABS: BICARBONATE 25.6 MEQ/L (21.0-32.0); CALCIUM 8.2 MG/DL (8.5-10.1); CREATININE 0.64 MG/DL (0.60-1.30)
[2017-05-26] MEDS ORDERED: INFLUENZA VIRUS VACCINE (QUADRIVALENT) 0.5 ML SYR IM ONE (10:00)
[2017-05-26] MEDS ORDERED: PNEUMOCOCCAL POLYVALENT INJ 25 MCG/0.5 ML SYR IM ONE (10:00)
--- NOTE | 2017-05-26 10:09 | PD.CAR.PN ---
CVT Progress Note Subjective/Hospital Course: 51-year-old male who is a vasculopath noncompliance with care. Signed out AGAINST MEDICAL ADVICE on May 07 and could not be reached since Showed up in my office yesterday with the dressing that was applied that day and had not been changed since May 07. At this point has gangrenous muscles in the lower leg and will require above- knee amputation Continue to smoke about 2 packs a day Scheduled for above-knee amputation today Objective: Vital Signs Date Time Temp Pulse Resp B/P (MAP) Pulse Ox O2 Delivery O2 Flow Rate FiO2 05/26/17 08:00 98.7 93 20 156/96 (116) 100 05/26/17 04:00 98.7 99 22 177/95 (122) 99 05/26/17 00:00 100.1 99 22 138/84 (102) 99 05/25/17 22:13 99.6 97 22 148/91 (110) 100 05/25/17 21:47 05/25/17 20:43 18 05/25/17 20:12 100 18 154/98 (116) 100 Room Air 05/25/17 11:59 98.2 97 18 163/87 (112) 98 Labs: Laboratory Tests Test 05/26/17 08:06 White Blood Count 13.7 TH/MM3 (4.0-11.0) Red Blood Count 2.96 MIL/MM3 (4.50-5.90) Hemoglobin 9.3 GM/DL (13.0-17.0) Hematocrit 27.9 % (39.0-51.0) Mean Corpuscular Volume 94.2 FL (80.0-100.0) Mean Corpuscular Hemoglobin 31.4 PG (27.0-34.0) Mean Corpuscular Hemoglobin Concent 33.3 % (32.0-36.0) Red Cell Distribution Width 15.0 % (11.6-17.2) Platelet Count 376 TH/MM3 (150-450) Mean Platelet Volume 6.5 FL (7.0-11.0) Neutrophils (%) (Auto) 70.0 % (16.0-70.0) Lymphocytes (%) (Auto) 21.6 % (9.0-44.0) Monocytes (%) (Auto) 6.4 % (0.0-8.0) Eosinophils (%) (Auto) 1.9 % (0.0-4.0) Basophils (%) (Auto) 0.1 % (0.0-2.0) Neutrophils # (Auto) 9.6 TH/MM3 (1.8-7.7) Lymphocytes # (Auto) 2.9 TH/MM3 (1.0-4.8) Monocytes # (Auto) 0.9 TH/MM3 (0-0.9) Eosinophils # (Auto) 0.3 TH/MM3 (0-0.4) Basophils # (Auto) 0.0 TH/MM3 (0-0.2) CBC Comment DIFF FINAL Differential Comment Blood Urea Nitrogen 8 MG/DL (7-18) Creatinine 0.64 MG/DL (0.60-1.30) Random Glucose 97 MG/DL (74-106) Calcium Level 8.2 MG/DL (8.5-10.1) Sodium Level 136 MEQ/L (136-145) Potassium Level 3.9 MEQ/L (3.5-5.1) Chloride Level 104 MEQ/L (98-107) Carbon Dioxide Level 25.6 MEQ/L (21.0-32.0) Anion Gap 6 MEQ/L (5-15) Estimat Glomerular Filtration Rate 131 ML/MIN (>89) Result Diagram: 05/26/1780505/26/17805 Raad Guerra MD May 26, 2017 10:09
[2017-05-26] MEDS ORDERED: HYDROmorphone HCL PF 2 MG/ML VIAL ONE (10:11)
[2017-05-26] MEDS ORDERED: PROPOFOL 200 MG/20 ML AMP IV ONE (12:00)
[2017-05-26] MEDS ORDERED: ONDANSETRON HCL 4 MG/2 ML VIAL IV ONE (12:00)
[2017-05-26] MEDS ORDERED: LIDOCAINE HCL 1% PF 5 ML SYRINGE OTHER ONE (12:00)
[2017-05-26] MEDS ORDERED: MORPHINE SULFATE 4 MG/ML INJ ONE (13:11)
[2017-05-26] MEDS ORDERED: *morphine SULFATE 10 MG/ML PERIprocedure ONLY ONE ×2 (15:12→15:26)
[2017-05-26] MEDS ORDERED: DO NOT ADM ANY ANTICOAGULANT DRUGS PRN (15:30)
--- NOTE | 2017-05-26 16:22 | MH ---
cc: PRISCILLA GRIFFITH DATE OF ADMISSION: 05/25/2017 ADMITTING DIAGNOSIS: Gangrene of the right leg. HISTORY OF PRESENT DISEASE: This 51-year-old male who is noncompliant with medical care presented to my office today. He previously underwent vascular construction of his right leg and fasciotomy for prolonged ischemia. He signed out AMA on the 07 of May. He now came back to my office with a dressing that had not been removed, changed since the 07 of May. He could not be reached all along. Apparently the phone was disconnected. At this point the patient is admitted for emergent IV fluids and then amputation. PAST MEDICAL HISTORY: 1. Hypertension. 2. Coronary artery disease. 3. Stroke. 4. Congestive heart failure. 5. Gastroesophageal reflux. 6. Hiatal hernia. 7. Hypertension. 8. Severe COPD. PAST SURGICAL HISTORY: 1. Hernia repair. 2. Several vascular constructions of both legs. 3. Neck fusion. SOCIAL HISTORY: The patient smokes about one pack per day and drinks. ALLERGIES: NONE KNOWN. PHYSICAL EXAMINATION: Reveals a 51 year-old male appearing much older than his actual age. HEENT: Normocephalic. No trauma to head. Pupils equal and reactive. Extraocular movements intact. NECK: Bilateral carotid pulses, bilateral bruits. CHEST: Decreased breath sounds over both lung rodriguez. The patient has severe COPD and muscle wasting. HEART: Regular rhythm. ABDOMEN: Soft, patulous. EXTREMITIES: The patient has no palpable pulses anywhere in the left or right leg. He has dopplerable pulses in the left groin, left popliteal space and posterior tibial, dorsalis pedis is not detectable. On the right side, the patient has dopplerable femoral pulse and that is it. Nothing below that. Fasciotomy sites are gangrenous and the patient essentially has no viable muscle visible in either fasciotomy site. This is clearly inflamed and has not been taken care of for the last two weeks. At this point the patient will be admitted and will go to the operating room. Raad ANTOINE/MAXINE /3:38 PM /4:03 PM
[2017-05-26 20:00] VITALS: BP 125/74; PULSE 68; RESP 18; TEMP 99; O2SAT 95
--- NOTE | 2017-05-26 21:53 | EKG ---
Date Performed: 05/25/2017 Time Performed: 17:47:56 PTAGE: 51 years EKG: Sinus rhythm NORMAL ECG PREVIOUS TRACING : 04/18/2017 21.26 Compared to prior tracing no significant change DOCTOR: Xochitl Escobar Interpretating Date/Time 05/26/2017 21:52:48
[2017-05-26] MEDS: oxyCODONE/ACETAMINOPHEN 5 MG/325 MG TAB PO PRN (22:00)
[2017-05-26] MEDS: ATORVASTATIN 40 MG TAB PO SCH (22:01)
[2017-05-26] MEDS: SODIUM CHLORIDE 0.9% FLUSH 10 ML FLUSH IV FLUSH PRN (22:53)
[2017-05-27] VITALS: BP 124/74; PULSE 76; RESP 18; TEMP 98.6; O2SAT 99
[2017-05-27] MEDS: SODIUM CHLORIDE 0.9% FLUSH 10 ML FLUSH IV FLUSH PRN ×2 (01:08→04:02)
[2017-05-27] MEDS: MORPHINE SULFATE 2 MG/ML INJ IV PUSH PRN ×11 (01:08→23:21)
[2017-05-27] MEDS: oxyCODONE/ACETAMINOPHEN 5 MG/325 MG TAB PO PRN ×4 (02:20→17:27)
[2017-05-27] MEDS: SODIUM CHLOR 0.9% 1000 ML INJ 1,000 ML IV SCH ×3 (02:21→20:53)
[2017-05-27 04:00] VITALS: BP 149/81; PULSE 73; RESP 18; TEMP 97.7; O2SAT 95
--- NOTE | 2017-05-27 07:41 | MP ---
cc: RAAD WELLS MD DATE OF SURGERY 05/26/2017 PREOPERATIVE DIAGNOSIS 1. Gangrene of the right foot 2. Peripheral vascular disease 3. Hypertension 4. Severe COPD POSTOPERATIVE DIAGNOSIS 1. Gangrene of the right foot 2. Peripheral vascular disease 3. Hypertension 4. Severe COPD OPERATIVE PROCEDURE Right above-knee amputation. SURGEON Raad Wells MD ANESTHESIA General ESTIMATED BLOOD LOSS 100 cc, maybe 50 cc. PROCEDURE NOTE The patient prepped and draped in the usual fashion and the anterior portion of the incision made in a [place] fashion and then skin incised with a 10 blade posteriorly as well. The incision deepened anteriorly down through the quadriceps tendon and into the tissues down to the femur. This was taken laterally. The graft is occluded and this is transected and then pulled out and then allowed to retract so it would not be in the wound. The periosteum was elevated up and then transected with an oscillating saw. The posterior flap was created with an amputation knife. Small bleeders were ligated with 2-0 Vicryl stick ties. The patient's [place] vessels are all occluded including the vein. The area is irrigated with copious amounts of saline, the femur rasped down and then the incision closed in layers with 0 Vicryl in the deep fascia to deep fascia, superficial fascia to superficial fascia. Skin is closed with gilbert. Dressing applied. The patient tolerated the procedure well. Raad ANTOINE/OLVINL /3:36 PM /7:32 AM
[2017-05-27 07:45] VITALS: BP 153/82; PULSE 78; RESP 18; TEMP 99.7; O2SAT 93
[2017-05-27] MEDS: DULoxetine HCl DR 60 MG CAP PO SCH (08:31)
[2017-05-27] MEDS: MULTIVITAMIN TAB PO SCH (08:32)
[2017-05-27] MEDS: SODIUM CHLORIDE 0.9% FLUSH 10 ML FLUSH IV FLUSH SCH ×2 (08:32→20:53)
[2017-05-27] MEDS: PANTOPRAZOLE SOD 40 MG DELAYED RELEASE TAB PO SCH (08:32)
[2017-05-27] MEDS: ASPIRIN 81 MG CHEW TAB CHEW SCH (08:32)
[2017-05-27] MEDS: METOPROLOL SUCCINATE 50 MG EXTENDED RELEASE TAB PO SCH (08:33)
[2017-05-27] MEDS: amLODIPine BESYLATE 5 MG TAB PO SCH (08:33)
[2017-05-27 11:54] VITALS: BP 112/66; PULSE 78; RESP 16; TEMP 99.1; O2SAT 93
--- NOTE | 2017-05-27 14:47 | PD.CONS ---
[facility] By Dr[facility] Kinsey Reason for Consult Medical management history of chronic pain hyperlipidemia peripheral vascular disease Primary Care Physician [facility] Diagnoses: History of Present Illness Patient is a 51-year-old male with history of peripheral arterial disease, hypertension who is admitted under vascular surgery service due to right gangrene right lower extremity. Patient underwent AKA. Patient continues to smoke. [facility] consulted for medical management of history of chronic pain. And hyperlipidemia. Hypertension. Patient states that she is trying to quit. Poor by mouth appetite and complained of some weight loss Review of records- patient underwent multiple revascularization procedure/ fasciotomy and amputation last admission from April 2017. As stated patient left AMA. Review of Systems Constitutional: DENIES: Diaphoretic episodes, Fatigue, Fever, Weight gain, Weight loss, Chills, Dizziness, Change in appetite, Night Sweats Endocrine: DENIES: Heat/cold intolerance, Polydipsia, Polyuria, Polyphagia Eyes: DENIES: Blurred vision, Diplopia, Eye inflammation, Eye pain, Vision loss , Photosensitivity, Double Vision Ears, nose, mouth, throat: DENIES: Tinnitus, Hearing loss, Vertigo, Nasal discharge, Oral lesions, Throat pain, Hoarseness, Ear Pain, Running Nose, Epistaxis, Sinus Pain, Toothache, Odynophagia Respiratory: DENIES: Apneas, Cough, Snoring, Wheezing, Hemoptysis, Sputum production, Shortness of breath Cardiovascular: DENIES: Chest pain, Palpitations, Syncope, Dyspnea on Exertion , PND, Lower Extremity Edema, Orthopnea, Claudication Gastrointestinal: DENIES: Abdominal pain, Black stools, Bloody stools, Constipation, Diarrhea, Nausea, Vomiting, Difficulty Swallowing, Anorexia Genitourinary: DENIES: Sexual dysfunction, Urinary frequency, Urinary incontinence, Urgency, Hematuria, Dysuria, Nocturia, Penile Discharge, Testicular Pain, Testicular Swelling Musculoskeletal: COMPLAINS OF: Back pain Integumentary: DENIES: Abnormal pigmentation, Nail changes, Pruritus, Rash Hematologic/lymphatic: DENIES: Bruising, Lymphadenopathy Immunologic/allergic: DENIES: Eczema, Urticaria Neurologic: DENIES: Abnormal gait, Headache, Localized weakness, Paresthesias, Seizures, Speech Problems, Tremor, Poor Balance Psychiatric: DENIES: Anxiety, Confusion, Mood changes, Depression, Hallucinations, Agitation, Suicidal Ideation, Homicidal Ideation, Delusions Past Family Social History Allergies: Coded Allergies: bee venom protein (honey bee) (Unverified Allergy, Severe, SWELLING, ) Past Medical History Hypertension Hypertension hyperlipidemia Peripheral arterial disease Chronic pain Past Surgical History Right hallux amputation with partial amputation on April 2017. Multiple revascularization procedures iliofemoral embolectomy. Last year. Fasciotomy/debridement of the right lower extremity Reported Medications Cefazolin 8 atorvastatin Amlodipine Aspirin Toprol Protonix Active Ordered Medications See EMR Family History Noncontributory Physical Exam Vital Signs Vital Signs Date Time Temp Pulse Resp B/P (MAP) Pulse Ox O2 Delivery O2 Flow Rate FiO2 05/27/17 11:54 99.1 78 16 112/66 (81) 93 05/27/17 11:20 21 05/27/17 07:45 99.7 78 18 153/82 (105) 93 05/27/17 04:00 97.7 73 18 149/81 (103) 95 05/27/17 00:00 98.6 76 18 124/74 (91) 99 05/26/17 20:00 99.0 68 18 125/74 (91) 95 05/26/17 15:50 76 16 95 Room Air 05/26/17 15:45 97.9 78 16 142/84 (103) 95 Room Air 05/26/17 15:31 15 05/26/17 15:30 82 16 147/85 (105) 94 Room Air 05/26/17 15:17 15 05/26/17 15:15 88 16 150/88 (108) 95 Room Air 05/26/17 15:05 98.8 93 16 167/92 (117) 96 Room Air Physical Exam GENERAL: This is a well-nourished, well-developed patient, in no apparent distress. SKIN: No rashes, ecchymoses or lesions. Cool and dry. HEAD: Atraumatic. Normocephalic. No temporal or scalp tenderness. EYES: Pupils equal round and reactive. Extraocular motions intact. No scleral icterus. No injection or drainage. ENT: Nose without bleeding, cachectic looking Throat without erythema, tonsillar hypertrophy or exudate. Uvula midline. Airway patent. NECK: Trachea midline. No JVD or lymphadenopathy. Supple, nontender, no meningeal signs. CARDIOVASCULAR: Regular rate and rhythm without murmurs, gallops, or rubs. RESPIRATORY: Clear to auscultation. Breath sounds equal bilaterally. No wheezes , rales, or rhonchi. GASTROINTESTINAL: Abdomen soft, non-tender, nondistended. No hepato-splenomegaly , or palpable masses. No guarding. MUSCULOSKELETAL: Right lower extremity postop status post AKA postop dressing in place. Left lower extremity no edema NEUROLOGICAL: Awake and alert. Cranial nerves II through XII intact. Motor and sensory grossly within normal limits. Normal speech. Result Diagram: 05/26/17 0806 05/26/17 0806 Imaging Last Impressions Chest X-Ray 05/25/17 0000 Signed Impressions: Service Date/Time: Thursday, May 25, 2017 17:34 - CONCLUSION: No acute disease. Jaylen Page MD Assessment and Plan Assessment and Plan 51-year-old male with history of PAD 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 - April 2017 He recent history of fasciotomy and debridement Vascular surgery following. Continue on current pain meds Regimen PT consult in am Hypertension Continue on metoprolol and amlodipine aspirin History of hyperlipidemia continue on atorvastatin History of chronic pain continue pain meds postop. continue cymbalta Cachexia. We'll consult our nutrition department. ensure with each tray Thank you for this consult we'll follow patient in-house with you Bethanie Pizano MD May 27, 2017 14:47
[2017-05-27 16:00] VITALS: BP 132/77; PULSE 78; RESP 16; TEMP 99.2; O2SAT 97
--- NOTE | 2017-05-27 19:48 | PD.CAR.PN ---
CVT Progress Note Subjective/Hospital Course: 51-year-old male who is a vasculopath noncompliance with care. Signed out AGAINST MEDICAL ADVICE on May 07 and could not be reached since Showed up in my office yesterday with the dressing that was applied that day and had not been changed since May 07. At this point has gangrenous muscles in the lower leg and will require above- knee amputation Continue to smoke about 2 packs a day Scheduled for above-knee amputation today 05/27/17 Dressing intact Analgesia management under control medicine consult appreciated Continue dressing till Wednesday patient will be able to be Dc Wednesday Objective: Vital Signs Date Time Temp Pulse Resp B/P (MAP) Pulse Ox O2 Delivery O2 Flow Rate FiO2 05/27/17 16:00 99.2 78 16 132/77 (95) 97 05/27/17 11:54 99.1 78 16 112/66 (81) 93 05/27/17 11:20 21 05/27/17 07:45 99.7 78 18 153/82 (105) 93 05/27/17 04:00 97.7 73 18 149/81 (103) 95 05/27/17 00:00 98.6 76 18 124/74 (91) 99 05/26/17 20:00 99.0 68 18 125/74 (91) 95 Result Diagram: 05/26/1780505/26/17805 Raad Guerra MD May 27, 2017 19:48
[2017-05-27 20:00] VITALS: BP 113/74; PULSE 80; RESP 18; TEMP 99.3; O2SAT 99
[2017-05-27] MEDS: ATORVASTATIN 40 MG TAB PO SCH (20:53)
[2017-05-27] MEDS ORDERED: HYDROmorphone HCL PF 2 MG/ML VIAL IV PUSH ONE (22:15)
[2017-05-28] VITALS (7 sets, daily range): BP systolic 118–154; BP diastolic 70–84; PULSE 69–88; RESP 16–20; TEMP 97.8–100.1; O2SAT 97–100
[2017-05-28] MEDS ORDERED: HYDROmorphone HCL PF 2 MG/ML VIAL IV PUSH ONE (01:00)
[2017-05-28] MEDS: MORPHINE SULFATE 2 MG/ML INJ IV PUSH PRN ×10 (02:16→23:00)
[2017-05-28] MEDS: SODIUM CHLORIDE 0.9% FLUSH 10 ML FLUSH IV FLUSH SCH ×2 (08:29→21:00)
[2017-05-28] MEDS: SODIUM CHLOR 0.9% 1000 ML INJ 1,000 ML IV SCH ×2 (08:30→16:49)
[2017-05-28] MEDS: DULoxetine HCl DR 60 MG CAP PO SCH (08:31)
[2017-05-28] MEDS: METOPROLOL SUCCINATE 50 MG EXTENDED RELEASE TAB PO SCH (08:32)
[2017-05-28] MEDS: PANTOPRAZOLE SOD 40 MG DELAYED RELEASE TAB PO SCH (08:32)
[2017-05-28] MEDS: ASPIRIN 81 MG CHEW TAB CHEW SCH (08:32)
[2017-05-28] MEDS: amLODIPine BESYLATE 5 MG TAB PO SCH (08:32)
[2017-05-28] MEDS: MULTIVITAMIN TAB PO SCH (08:33)
--- NOTE | 2017-05-28 11:35 | HHI.PR ---
Subjective Remarks pain controlled good po appetitie no BM since 2 days-+ flatus Objective Vitals Vital Signs Date Time Temp Pulse Resp B/P (MAP) Pulse Ox O2 Delivery O2 Flow Rate FiO2 05/28/17 08:00 99.9 88 18 129/76 (93) 100 05/28/17 06:33 99.2 05/28/17 05:07 20 05/28/17 04:00 100.1 81 20 154/84 (107) 99 05/28/17 00:00 99.9 83 18 121/79 (93) 97 05/27/17 23:00 20 05/27/17 20:00 99.3 80 18 113/74 (87) 99 05/27/17 16:00 99.2 78 16 132/77 (95) 97 05/27/17 11:54 99.1 78 16 112/66 (81) 93 I/O 05/27/17 05/27/17 05/27/17 05/28/17 05/28/17 05/28/17 07:00 15:00 23:00 07:00 15:00 23:00 Intake Total 1320 ml 100 ml 840 ml 360 ml Output Total 1500 ml 1950 ml 850 ml Balance -180 ml 100 ml -1110 ml -490 ml Intake Oral 220 ml 840 ml 360 ml IV Total 1100 ml 100 ml Output Urine Total 1500 ml 1950 ml 850 ml # Bowel Movements 0 0 0 Result Diagram: 05/26/17 0806 05/26/17 0806 Imaging Last Impressions Chest X-Ray 05/25/17 0000 Signed Impressions: Service Date/Time: Thursday, May 25, 2017 17:34 - CONCLUSION: No acute disease. 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 - April 2017 He recent history of fasciotomy and debridement Vascular surgery following. Continue on current pain meds Regimen PT consult - per patient uses a cane prior to amputation Hypertension Continue on metoprolol and amlodipine aspirin History of hyperlipidemia continue on atorvastatin History of chronic pain continue pain meds postop. continue cymbalta Cachexia. dietitian ff. ensure with each tray Bethanie Pizano MD May 28, 2017 11:35
[2017-05-28] MEDS ORDERED: fentaNYL 50 MCG/HR PATCH T-DERMAL SCH (14:00)
--- NOTE | 2017-05-28 19:15 | PD.CAR.PN ---
CVT Progress Note Subjective/Hospital Course: 51-year-old male who is a vasculopath noncompliance with care. Signed out AGAINST MEDICAL ADVICE on May 07 and could not be reached since Showed up in my office yesterday with the dressing that was applied that day and had not been changed since May 07. At this point has gangrenous muscles in the lower leg and will require above- knee amputation Continue to smoke about 2 packs a day Scheduled for above-knee amputation today 05/27/17 Dressing intact Analgesia management under control medicine consult appreciated Continue dressing till Wednesday patient will be able to be Dc Wednesday05/28/17 Patient doing well Incision is clean and dry Dressing has been removed and replaced Pain management adjusted but patient always requesting more pain meds Objective: Vital Signs Date Time Temp Pulse Resp B/P (MAP) Pulse Ox O2 Delivery O2 Flow Rate FiO2 05/28/17 16:00 98.2 69 16 123/74 (90) 100 05/28/17 12:00 97.8 75 16 118/70 (86) 100 05/28/17 08:00 99.9 88 18 129/76 (93) 100 05/28/17 06:33 99.2 05/28/17 05:07 20 05/28/17 04:00 100.1 81 20 154/84 (107) 99 05/28/17 00:00 99.9 83 18 121/79 (93) 97 05/27/17 23:00 20 05/27/17 20:00 99.3 80 18 113/74 (87) 99 Result Diagram: 05/26/1780505/26/17805 Raad Guerra MD May 28, 2017 19:15
[2017-05-28] MEDS: ATORVASTATIN 40 MG TAB PO SCH (21:04)
[2017-05-29] VITALS: BP 109/72; PULSE 80; RESP 20; TEMP 99.7; O2SAT 97
[2017-05-29] MEDS: MORPHINE SULFATE 2 MG/ML INJ IV PUSH PRN ×5 (01:12→11:23)
[2017-05-29] MEDS: SODIUM CHLOR 0.9% 1000 ML INJ 1,000 ML IV SCH (01:55)
[2017-05-29 08:00] VITALS: BP 118/61; PULSE 75; RESP 20; TEMP 99.1; O2SAT 97
[2017-05-29] MEDS: SODIUM CHLORIDE 0.9% FLUSH 10 ML FLUSH IV FLUSH SCH (09:00)
[2017-05-29] MEDS: MULTIVITAMIN TAB PO SCH (09:04)
[2017-05-29] MEDS: ASPIRIN 81 MG CHEW TAB CHEW SCH (09:04)
[2017-05-29] MEDS: amLODIPine BESYLATE 5 MG TAB PO SCH (09:04)
[2017-05-29] MEDS: METOPROLOL SUCCINATE 50 MG EXTENDED RELEASE TAB PO SCH (09:04)
[2017-05-29] MEDS: PANTOPRAZOLE SOD 40 MG DELAYED RELEASE TAB PO SCH (09:04)
--- NOTE | 2017-05-29 10:26 | PD.CAR.PN ---
CVT Progress Note Subjective/Hospital Course: 51-year-old male who is a vasculopath noncompliance with care. Signed out AGAINST MEDICAL ADVICE on May 07 and could not be reached since Showed up in my office yesterday with the dressing that was applied that day and had not been changed since May 07. At this point has gangrenous muscles in the lower leg and will require above- knee amputation Continue to smoke about 2 packs a day Scheduled for above-knee amputation today 05/27/17 Dressing intact Analgesia management under control medicine consult appreciated Continue dressing till Wednesday patient will be able to be Dc Wednesday05/28/17 Patient doing well Incision is clean and dry Dressing has been removed and replaced Pain management adjusted but patient always requesting more pain meds 05/29/17 Patient is doing well Above-knee amputation incision is clean and dry Discharge patient today Follow-up with me in 3 weeks in the office Objective: Vital Signs Date Time Temp Pulse Resp B/P (MAP) Pulse Ox O2 Delivery O2 Flow Rate FiO2 05/29/17 08:00 99.1 75 20 118/61 (80) 97 05/29/17 00:00 99.7 80 20 109/72 (84) 97 05/28/17 20:00 98.9 73 20 119/74 (89) 99 05/28/17 16:00 98.2 69 16 123/74 (90) 100 05/28/17 12:00 97.8 75 16 118/70 (86) 100 Result Diagram: 05/26/1706 05/26/17805 Raad Guerra MD May 29, 2017 10:26
[2017-05-29] MEDS ORDERED: OXYC1TAB63 PO (10:30)
--- NOTE | 2017-05-29 10:44 | HHI.PR ---
Subjective Remarks patient with no complains good po Objective Vitals Vital Signs Date Time Temp Pulse Resp B/P (MAP) Pulse Ox O2 Delivery O2 Flow Rate FiO2 05/29/17 08:00 99.1 75 20 118/61 (80) 97 05/29/17 00:00 99.7 80 20 109/72 (84) 97 05/28/17 20:00 98.9 73 20 119/74 (89) 99 05/28/17 16:00 98.2 69 16 123/74 (90) 100 05/28/17 12:00 97.8 75 16 118/70 (86) 100 I/O 05/28/17 05/28/17 05/28/17 05/29/17 05/29/17 05/29/17 07:00 15:00 23:00 07:00 15:00 23:00 Intake Total 360 ml 820 ml 1670 ml Output Total 850 ml 850 ml 1650 ml Balance -490 ml -30 ml 20 ml Intake Oral 360 ml 720 ml 720 ml IV Total 100 ml 950 ml Output Urine Total 850 ml 850 ml 1650 ml # Bowel Movements 0 0 0 Result Diagram: 05/26/17 0806 05/26/17 0806 Imaging Last Impressions Chest X-Ray 05/25/17 0000 Signed Impressions: Service Date/Time: Thursday, May 25, 2017 17:34 - CONCLUSION: No acute disease. 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 - April 2017 He recent history of fasciotomy and debridement Vascular surgery - ff - cleared for DC Continue on current pain meds Regimen PT consult - per patient uses a cane prior to amputation Hypertension Continue on metoprolol and amlodipine aspirin History of hyperlipidemia continue on atorvastatin History of chronic pain continue pain meds postop. continue cymbalta Cachexia. dietitian ff. ensure with each tray- good po DC today advise patient to ff up with PCP[facility] with [facility] - Bethanie Oakley MD May 29, 2017 10:44
[2017-05-29 10:58] VITALS: O2SAT 97
[2017-05-29 12:00] VITALS: BP 112/60; PULSE 76; RESP 18; TEMP 98.5; O2SAT 100
[2017-05-29] MEDS ORDERED: WHEEMIS3 (12:29)
--- NOTE | 2017-05-29 12:32 | HHI.FF ---
Face to Face Verification Diagnosis: (1) right AKA Physical Therapy Order: Evaluate and Treat, Improve ambulation Occupational Therapy Order: Evaluate and Treat, Improve ADL Home Health Nursing Order: Medical education Signs/symptoms of disease process Wound care and dressing changes Nursing assessment with vital signs [employer] Order: To Evaluate: Living conditions/environment I have seen patient Bradley Brower, III on 05/29/17. My clinical findings support the need for the requested home health care services because: Deconditioned w/ increased weakness Need for psychosocial assistance High risk of falls I certify that my clinical findings support that this patient is homebound because: Post-op weakness Unsteady gait/balance Need for psychosocial assistance [id number] bed/chair Bethanie Pizano MD May 29, 2017 12:32
[2017-05-29] MEDS: DULoxetine HCl DR 60 MG CAP PO SCH (12:44)
[2017-05-29] MEDS: oxyCODONE/ACETAMINOPHEN 5 MG/325 MG TAB PO PRN (14:23)
[2017-05-31] MEDS ORDERED: REMOVE OLD DURAGESIC (FENTANYL) PATCH T-DERMAL SCH (14:00)
== END 2017-05-29 15:19 | disposition home health service (06) | DRG 240 ==
LOC: NEPE 11:57 → NEDA 17:14 → N07A 21:49
PROVIDERS: ADMIT Surgery; ATTEND Surgery
PROC: 0Y6C0Z3 Detachment at Right Upper Leg, Low, Open Approach (ICD-10-PCS; principal; 2017-05-26 14:01)
DX: I70.261 Atherosclerosis of native arteries of extremities with gangrene, right leg (principal); R64 Cachexia; Z91.19 Patient's noncompliance with other medical treatment and regimen; I11.0 Hypertensive heart disease with heart failure; I50.9 Heart failure, unspecified; F32.9 Major depressive disorder, single episode, unspecified; F41.9 Anxiety disorder, unspecified; M19.90 Unspecified osteoarthritis, unspecified site; K21.9 Gastro-esophageal reflux disease without esophagitis; K44.9 Diaphragmatic hernia without obstruction or gangrene; F17.210 Nicotine dependence, cigarettes, uncomplicated; F43.10 Post-traumatic stress disorder, unspecified; G43.909 Migraine, unspecified, not intractable, without status migrainosus; J44.9 Chronic obstructive pulmonary disease, unspecified; I25.10 Atherosclerotic heart disease of native coronary artery without angina pectoris; E78.5 Hyperlipidemia, unspecified; G89.29 Other chronic pain; Z79.01 Long term (current) use of anticoagulants; Z86.73 Personal history of transient ischemic attack (TIA), and cerebral infarction without residual deficits; Z98.1 Arthrodesis status
CPT/HCPCS: 71045; 80048; 80053; 85025; 85610; 85730; 86850; 86900; 86901; 86920; 88307; 88311; 93005; 99285; J0690; J1170; J2270; J2405; J3010; J7030

== ENCOUNTER 2017-07-14 17:15 | Inpatient (IN) | payer MEDICARE, OTHER ==
[~2017-07-14] VITALS: Ht 167.6 cm; Wt 49.7 kg
[~2017-07-14 17:15] MED LIST changes: +ASPI-516 CHEW; -BACL20TA PO; -LORA-392 PO; -NEUR300C PO; -NORC5TAB PO; +OXYC1TAB63 PO; +WHEEMIS3; -XARE10TA PO
[2017-07-14 17:35] VITALS: BP 128/71; PULSE 108; RESP 17; TEMP 100; O2SAT 100
[2017-07-14] MEDS ORDERED: SODIUM CHLOR 0.9% 1000 ML INJ 1,000 ML IV SCH (18:10)
--- NOTE | 2017-07-14 18:13 | PD ---
HPI Chief Complaint: Medical Clearance Time Seen by Provider: 17:57 Travel History International Travel<30 days: No Contact w/Intl Traveler<30days: No Traveled to known affect area: No History of Present Illness HPI This is a 51-year-old male with history of peripheral vascular disease, hypertension, coronary artery disease, CVA, recent right leg amputation, presents for evaluation. He reports that the right leg amputation wounds are not healing correctly. He has had increased pain, foul smell, intermittent low- grade fevers over the past 1-2 weeks. [facility] and referred here for further evaluation and treatment. His surgeon is Dr. Guerra. Symptoms are moderate, no aggravating or alleviating factors. No other complaints at this time. PFSH Past Medical History Hx Anticoagulant Therapy: Yes (UNSURE THE NAME ) AAA: No ADD: No ADHD: No Alzheimer's Disease: No Anemia: No Arthritis: Yes Asthma: Yes (Inhalers.. switched to new med) Atrial Fibrillation: No Autoimmune Disease: No Blood Disorders: No Bipolar Disorder: No Anxiety: Yes Depression: Yes Heart Rhythm Problems: No Cancer: No Cardiac Catheterization: No Cardiomyopathy: No Cardiovascular Problems: No Cerebral Palsy: No Chemotherapy: No Chest Pain: No Congestive Heart Failure: No COPD: Yes Cerebrovascular Accident: Yes (sometimes ) Cystic Fibrosis: No Dementia: No Developmental Delay: No Diabetes: No Patient Takes Glucophage: No Dialysis: No Diminished Hearing: Yes (right side worse than left. use to have hearing aids) Diverticulitis: No Deep Vein Thrombosis: No Endocrine: No Fibromyalgia: No Gastrointestinal Disorders: No Genetic Disorder: No GERD: No Glaucoma: No Gout: No Genitourinary: No Headaches: No Hepatitis: No Hiatal Hernia: Yes Heparin Induced Thrombocytopen: No Herniated Disk: No Hypertension: Yes Immune Disorder: No Inguinal Hernia: No (bilateral) Implanted Vascular Access Dvce: No Insomnia: Yes (very much.. pain induced) Kidney Stones: No Medical other: No Musculoskeletal: Yes Neurologic: Yes Parkinson's Disease: No Psychiatric: Yes Reproductive: No Respiratory: Yes Resp. Syncytial Virus (RSV): No Integumentary: Yes Immunizations Current: Yes Migraines: Yes (no medications) Myocardial Infarction: No Pancreatitis: No Pneumonia: No Radiation Therapy: No Renal Failure: No Schizophrenia: No Seizures: No Shingles: No Sickle Cell Disease: No Sleep Apnea: No Thyroid Disease: No Triglycerides - High: Yes Ulcer: Yes (leg) Tetanus Vaccination: Unknown Influenza Vaccination: Yes ?: Not Past Surgical History Abdominal Aneurysm Repair: No Abdominal Surgery: Yes (vascular repair) AICD: No Appendectomy: No Arteriovenous Shunt: No Cardiac Surgery: No Cholecystectomy: No Coronary Artery Bypass Graft: No Coronary Stent: No Ear Surgery: No Endocrine Surgery: No Eye Surgery: No Genitourinary Surgery: No Gynecologic Surgery: No Insulin Pump: No Joint Replacement: No Mastectomy: No Neurologic Surgery: No Oral Surgery: No Pacemaker: No Prostatectomy: No Thoracic Surgery: No Tonsillectomy: No Tympanostomy Tube: No Valve Replacement: No Other Surgery: Yes (Right leg amputation due to poor circulation) Family History Family Breast Cancer: No Family Myocardial Infarction: No Social History Alcohol Use: Yes (beer, 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) Tobacco Use: Yes (15 a day) Substance Use: Yes (marijuana every so often) Allergies-Medications (Allergen,Severity, Reaction): Coded Allergies: bee venom protein (honey bee) (Unverified Allergy, Severe, SWELLING, ) lisinopril (Verified Adverse Reaction, Intermediate, ITCHING, 07/14/17) Reported Meds & Prescriptions Reported Meds & Active Scripts Active Wheelchair (Device) 1 Mis Mis Ea .ROUTE DIRECTED Oxycodone-Acetaminophen 5-325 (Oxycodone HCl/Acetaminophen) 5 Mg-325 Mg Tablet 1 Tab PO Q4H PRN Multi Vitamin Daily (Multiple Vitamin) 1 Tab Tab 1 Tab PO DAILY 30 Days Norvasc (Amlodipine Besylate) 5 Mg Tab 5 Mg PO DAILY 30 Days Lipitor (Atorvastatin Calcium) 40 Mg Tab 40 Mg PO HS 30 Days Reported Aspirin 81 Mg Chew 81 Mg CHEW DAILY Pantoprazole (Pantoprazole Sodium) 40 Mg Tab 40 Mg PO DAILY Metoprolol Succinate ER 24 HR (Metoprolol Succinate) 50 Mg Tab 50 Mg PO DAILY Duloxetine DR (Duloxetine HCl) 60 Mg Capdr 60 Mg PO DAILY Review of Systems Except as stated in HPI: all other systems reviewed are Neg Physical Exam Narrative GENERAL: Thin chronically ill appearing male in no acute distress SKIN: Warm and dry. Examination of the right thigh surgical site reveals necrotic foul-smelling tissue. HEAD: Atraumatic. Normocephalic. EYES: Pupils equal and round. No scleral icterus. No injection or drainage. ENT: No nasal bleeding or discharge. Mucous membranes pink and moist. NECK: Trachea midline. No JVD. CARDIOVASCULAR: Regular rate and rhythm. No murmur appreciated. RESPIRATORY: No accessory muscle use. Clear to auscultation. Breath sounds equal bilaterally. GASTROINTESTINAL: Abdomen soft, non-tender, nondistended. MUSCULOSKELETAL: Skin as noted above. Right leg amputation. NEUROLOGICAL: Awake and alert. No obvious cranial nerve deficits. Motor grossly within normal limits. Normal speech. Data Data Last Documented VS Vital Signs Date Time Temp Pulse Resp B/P (MAP) Pulse Ox O2 Delivery O2 Flow Rate FiO2 07/14/17 17:35 100.0 108 17 128/71 (90) 100 Orders Orders Sepsis Workup Initiated (07/14/17 ) Complete Blood Count With Diff (07/14/17 18:10) Comprehensive Metabolic Panel (07/14/17 18:10) Prothrombin Time / Inr (Pt) (07/14/17 18:10) Act Partial Throm Time (Ptt) (07/14/17 18:10) Lactic Acid Sepsis Protocol (07/14/17 18:10) Blood Culture (07/14/17 18:10) Wound Culture And Gram Stain (07/14/17 18:10) Sodium Chlor 0.9% 1000 Ml Inj (Ns 1000 M (07/14/17 18:10) Piperacil-Tazo 3.375 Gm Premix (Zosyn 3. (07/14/17 18:30) Vancomycin Inj (Vancomycin Inj) (07/14/17 18:30) Acetamin-Hydrocod 325-5 Mg (Lindstrom 5-325 (07/14/17 19:00) Labs Laboratory Tests Test 07/14/17 18:14 White Blood Count 20.5 TH/MM3 Red Blood Count 3.46 MIL/MM3 Hemoglobin 9.9 GM/DL Hematocrit 28.9 % Mean Corpuscular Volume 83.6 FL Mean Corpuscular Hemoglobin 28.5 PG Mean Corpuscular Hemoglobin Concent 34.1 % Red Cell Distribution Width 18.1 % Platelet Count 724 TH/MM3 Mean Platelet Volume 6.1 FL Neutrophils (%) (Auto) 78.9 % Lymphocytes (%) (Auto) 13.4 % Monocytes (%) (Auto) 6.1 % Eosinophils (%) (Auto) 1.3 % Basophils (%) (Auto) 0.3 % Neutrophils # (Auto) 16.2 TH/MM3 Lymphocytes # (Auto) 2.7 TH/MM3 Monocytes # (Auto) 1.2 TH/MM3 Eosinophils # (Auto) 0.3 TH/MM3 Basophils # (Auto) 0.1 TH/MM3 CBC Comment DIFF FINAL Differential Comment Prothrombin Time 10.7 SEC Prothromb Time International Ratio 1.1 RATIO Activated Partial Thromboplast Time 27.3 SEC Lactic Acid Level 1.7 mmol/L MDM Medical Decision Making Medical Screen Exam Complete: Yes Emergency Medical Condition: Yes Medical Record Reviewed: Yes Interpretation(s) CBC WBC count 20.5, hemoglobin 9.9. Platelet count 724. Lactic acid within normal limits. CMP Differential Diagnosis Gangrene, cellulitis, osteomyelitis, myositis, sepsis Narrative Course I discussed with Dr. Guerra who would like the patient admitted to the hospitalist team and he will consult. Lab work, blood cultures, wound culture have been ordered. The patient will be given IV fluids and broad-spectrum antibiotics. Lab work reveals leukocytosis with a WBC count of 20.5. The patient meets sepsis criteria. Sepsis Criteria SIRS Criteria (2 or more): Heart rate over 90, WBC > 73628, < 4000 or > 10% bands Sepsis Criteria (SIRS+source): Infect source susp/known Diagnosis Primary Impression: Surgical site infection Additional Impression: Sepsis Admitting Information Admitting Physician Requests: Admit Manish Mac Jul 14, 2017 18:13
[2017-07-14] MEDS ORDERED: PIPERACIL-TAZO 3.375 GM PREMIX 50 ML IV ONE (18:30)
[2017-07-14] MEDS ORDERED: VANCOMYCIN INJ 1,000 MG in SODIUM CHLOR 0.9% 250 ML INJ 250 ML IV ONE (18:30)
[2017-07-14 18:41] LABS: AUTOMATED NEUTROPHIL # 16.2 TH/MM3 (1.8-7.7); BASOPHIL # 0.1 TH/MM3 (0-0.2); BASOPHIL % 0.3 % (0.0-2.0); EOSINOPHIL # 0.3 TH/MM3 (0-0.4); EOSINOPHIL % 1.3 % (0.0-4.0); HEMATOCRIT 28.9 % (39.0-51.0); HEMOGLOBIN 9.9 GM/DL (13.0-17.0); LYMPH % 13.4 % (9.0-44.0); LYMPHOCYTE # 2.7 TH/MM3 (1.0-4.8); MEAN CELL VOLUME 83.6 FL (80.0-100.0); MEAN CORPUSCULAR HEMOGLOBIN 28.5 PG (27.0-34.0); MEAN CORPUSCULAR HGB CONC 34.1 % (32.0-36.0); MEAN PLATELET VOLUME 6.1 FL (7.0-11.0); MONO % 6.1 % (0.0-8.0); MONOCYTE # 1.2 TH/MM3 (0-0.9); NEUT % 78.9 % (16.0-70.0); PLATELET COUNT 724 TH/MM3 (150-450); RED BLOOD COUNT 3.46 MIL/MM3 (4.50-5.90); RED CELL DISTRIBUTION WIDTH 18.1 % (11.6-17.2); WHITE BLOOD COUNT 20.5 TH/MM3 (4.0-11.0)
[2017-07-14 18:47] LABS: INTERNATIONAL NORMALIZED RATIO 1.1 RATIO; PROTHROMBIN TIME - PATIENT 10.7 SEC (9.8-11.6)
[2017-07-14] MEDS ORDERED: ACETAMINOPHEN/HYDROcodone 325 MG/5 MG TAB PO ONE (19:00)
[2017-07-14 19:03] LABS: ALBUMIN 2.7 GM/DL (3.4-5.0); AST (GOT) 9 U/L (15-37); BLOOD UREA NITROGEN 10 MG/DL (7-18); CALCIUM 8.9 MG/DL (8.5-10.1); CHLORIDE 96 MEQ/L (98-107); GLOMERULAR FILTRATION RATE 141 ML/MIN (>89); GLUCOSE,RANDOM 82 MG/DL (74-106); SODIUM (NA) 132 MEQ/L (136-145)
[2017-07-14 19:04] LABS: ALT (GPT) 17 U/L (12-78)
[2017-07-14 19:06] LABS: ALKALINE PHOSPHATASE 103 U/L (45-117); TOTAL BILIRUBIN ADULT 0.1 MG/DL (0.2-1.0)
[2017-07-14] MEDS ORDERED: NALOXONE HCL 0.4 MG/ML AMP IV PUSH PRN (19:15)
[2017-07-14] MEDS ORDERED: Vancomycin Consult Pharmacy 1 EA OTHER SCH (19:15)
--- NOTE | 2017-07-14 19:27 | HHI.HP ---
[facility] Admission Diagnosis surgical site infection, sepsis Diagnoses: Travel History International Travel<30 Days: No Contact w/Intl Traveler <30 Da: No Traveled to Known Affected Are: No History of Present Illness went to [facility] yesterday for pain in his right amputated stamp and was told that he needs to do more amputation and was sent back to his prior surgeon here Dr Strauss was getting gangrene at the stump area pain is worsening have had fevers has been living at rehab facility and think he is still on antibiotics there but he cant be sure no trauma Review of Systems Except as stated in HPI: all other systems reviewed are Neg Past Family Social History Past Medical History HTN 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 - April 2017 He recent history of fasciotomy and debridement History of hyperlipidemia History of chronic pain continue pain meds postop. continue cymbalta COPD on inhalors CAD [facility] Past Surgical History right AKA right fasciotomy of RLE bilateral hernia Allergies: Coded Allergies: bee venom protein (honey bee) (Unverified Allergy, Severe, SWELLING, ) lisinopril (Verified Adverse Reaction, Intermediate, ITCHING, 07/14/17) Family History mom- lymphoma Social History smokes about 15 cigarrettes a day usually 4 pack every 3 or 4 days; lately has not been drinking at all since he has been at rehab for at least one month marijuana only - no other drugs Physical Exam Vital Signs Vital Signs Date Time Temp Pulse Resp B/P (MAP) Pulse Ox O2 Delivery O2 Flow Rate FiO2 07/14/17 17:35 100.0 108 17 128/71 (90) 100 Physical Exam GENERAL: This is a thin gentleman, in distress from pain SKIN: right aka site stump with surgical wound dehiescence, foul smelling discharge, eschar formation all around HEAD: Atraumatic. Normocephalic. No temporal or scalp tenderness. EYES: No scleral icterus. No injection or drainage. ENT: Nose without bleeding, purulent drainage or septal hematoma. Airway patent. NECK: Trachea midline. No JVD . Supple, nontender, no meningeal signs. CARDIOVASCULAR: Regular rate and rhythm without murmurs, gallops, or rubs. RESPIRATORY: bilateral mild expiratory wheezing GASTROINTESTINAL: Abdomen soft, non-tender, nondistended. No guarding. MUSCULOSKELETAL: Extremities without clubbing, cyanosis, or edema. . No calf tenderness. NEUROLOGICAL: Awake and alert.. Motor and sensory grossly within normal limits. Normal speech Laboratory Laboratory Tests Test 07/14/17 18:14 White Blood Count 20.5 Red Blood Count 3.46 Hemoglobin 9.9 Hematocrit 28.9 Mean Corpuscular Volume 83.6 Mean Corpuscular Hemoglobin 28.5 Mean Corpuscular Hemoglobin Concent 34.1 Red Cell Distribution Width 18.1 Platelet Count 724 Mean Platelet Volume 6.1 Neutrophils (%) (Auto) 78.9 Lymphocytes (%) (Auto) 13.4 Monocytes (%) (Auto) 6.1 Eosinophils (%) (Auto) 1.3 Basophils (%) (Auto) 0.3 Neutrophils # (Auto) 16.2 Lymphocytes # (Auto) 2.7 Monocytes # (Auto) 1.2 Eosinophils # (Auto) 0.3 Basophils # (Auto) 0.1 CBC Comment DIFF FINAL Differential Comment Prothrombin Time 10.7 Prothromb Time International Ratio 1.1 Activated Partial Thromboplast Time 27.3 Blood Urea Nitrogen 10 Creatinine 0.60 Random Glucose 82 Total Protein 8.0 Albumin 2.7 Calcium Level 8.9 Alkaline Phosphatase 103 Aspartate Amino Transf (AST/SGOT) 9 Alanine Aminotransferase (ALT/SGPT) 17 Total Bilirubin 0.1 Sodium Level 132 Potassium Level 3.7 Chloride Level 96 Carbon Dioxide Level 30.0 Anion Gap 6 Estimat Glomerular Filtration Rate 141 Lactic Acid Level 1.7 Date/Time Source Procedure Growth Status 07/14/17 18:14 Blood Peripheral Aerobic Blood Culture Pending Received 07/14/17 18:14 Blood Peripheral Anaerobic Blood Culture Pending Received 07/14/17 18:14 Wound Leg Gram Stain Pending Received 07/14/17 18:14 Wound Leg Wound Culture Pending Received Result Diagram: 07/14/17181307/14/171813 Caprini VTE Risk Assessment Caprini VTE Risk Assessment: Mod/High Risk (score >= 2) Caprini Risk Assessment Model Point Value = 1 Point Value = 2 Point Value = 3 Point Value = 5 Age 41-60 Minor surgery BMI > 25 kg/m2 Swollen legs Varicose veins or History of unexplained or recurrent spontaneous Oral contraceptives or hormone replacement Sepsis (< 1 month) Serious lung disease, including pneumonia (< 1 month) Abnormal pulmonary function Acute myocardial infarction Congestive heart failure (< 1 month) History of inflammatory bowel disease Medical patient at bed rest Age 61-74 Arthroscopic surgery Major open surgery (> 45 min) Laparoscopic surgery (> 45 min) Malignancy Confined to bed (> 72 hours) Immobilizing plaster cast Central venous access Age >= 75 History of VTE Family history of VTE Factor V Leiden Prothrombin [id number] Lupus anticoagulant Anticardiolipin antibodies Elevated serum homocysteine Heparin-induced thrombocytopenia Other congenital or acquired thrombophilia Stroke (< 1 month) Elective arthroplasty Hip, pelvis, or leg fracture Acute spinal cord injury (< 1 month) Prophylaxis Regimen Total Risk Factor Score Risk Level Prophylaxis Regimen 0-1 Low Early ambulation 2 Moderate Order ONE of the following: *Sequential Compression Device (SCD) *Heparin 5000 units SQ BID 3-4 Higher Order ONE of the following medications: *Heparin 5000 units SQ TID *Enoxaparin/Lovenox 40 mg SQ daily (WT < 150 kg, CrCl > 30 mL/min) *Enoxaparin/Lovenox 30 mg SQ daily (WT < 150 kg, CrCl > 10-29 mL/min) *Enoxaparin/Lovenox 30 mg SQ BID (WT < 150 kg, CrCl > 30 mL/min) AND/OR *Sequential Compression Device (SCD) 5 or more Highest Order ONE of the following medications: *Heparin 5000 units SQ TID (Preferred with Epidurals) *Enoxaparin/Lovenox 40 mg SQ daily (WT < 150 kg, CrCl > 30 mL/min) *Enoxaparin/Lovenox 30 mg SQ daily (WT < 150 kg, CrCl > 10-29 mL/min) *Enoxaparin/Lovenox 30 mg SQ BID (WT < 150 kg, CrCl > 30 mL/min) AND *Sequential Compression Device (SCD) Assessment and Plan Assessment and Plan Impression: R AKA wound dehesicence with foul smelling discharge/ eschar formation- per patient, started a few days ago- over the weekend sepsis- tachycardia, leukocytosis, fever Plan : pain control vanco per crcl and levels zosyn for pseudomonas Vascualr sx is aware of pt here will need amputation/ revision to avoid further septic shock home meds resumed but some will still need to [facility] with [facility]- orders written dvt prophylaxis with lovenox Physician Certification Order for Inpatient Services The services are ordered in accordance with Medicare regulations or non- Medicare payer requirements, as applicable. In the case of services not specified as inpatient-only, they are appropriately provided as inpatient services in accordance with the 2-midnight benchmark. days is the estimated time the patient will need to remain in the hospital, assuming treatment plan goals are met and no additional complications. Stefano Salvador MD Jul 14, 2017 19:27
[2017-07-14] MEDS ORDERED: HYDROmorphone HCL PF 1 MG/ML VIAL IV PUSH PRN (19:30)
[2017-07-14] MEDS ORDERED: RESP: IPRATROPIUM 0.5 MG/2.5 ML NEB NEB PRN (20:00)
[2017-07-14] MEDS: ATORVASTATIN 40 MG TAB PO SCH (21:24)
[2017-07-14] MEDS: MORPHINE SULFATE 60 MG CONTROLLED RELEASE TAB PO SCH (21:25)
[2017-07-14] MEDS: HYDROmorphone HCL PF 2 MG/ML VIAL IV PUSH PRN (22:28)
[2017-07-14] MEDS: SODIUM CHLORIDE 0.9% FLUSH 10 ML FLUSH IV FLUSH SCH (22:31)
[2017-07-15] VITALS (8 sets, daily range): BP systolic 100–142; BP diastolic 64–81; PULSE 81–92; RESP 16–21; TEMP 98–99.4; O2SAT 95–99
[2017-07-15] MEDS: PIPERACIL-TAZO 4.5 GM PREMIX 100 ML IV SCH ×5 (00:22→22:26)
[2017-07-15] MEDS: HYDROmorphone HCL PF 2 MG/ML VIAL IV PUSH PRN ×2 (04:59→15:37)
[2017-07-15] MEDS: SODIUM CHLORIDE 0.9% FLUSH 10 ML FLUSH IV FLUSH PRN ×2 (04:59→23:38)
[2017-07-15] MEDS ORDERED: VANCOMYCIN INJ 600 MG in SODIUM CHLOR 0.9% 250 ML INJ 250 ML IV SCH (08:00)
[2017-07-15 08:21] LABS: BASOPHIL # 0.1 TH/MM3 (0-0.2); BASOPHIL % 0.5 % (0.0-2.0); EOSINOPHIL # 0.2 TH/MM3 (0-0.4); EOSINOPHIL % 1.3 % (0.0-4.0); HEMATOCRIT 25.3 % (39.0-51.0); HEMOGLOBIN 8.4 GM/DL (13.0-17.0); LYMPH % 11.7 % (9.0-44.0); LYMPHOCYTE # 1.9 TH/MM3 (1.0-4.8); MEAN CELL VOLUME 82.8 FL (80.0-100.0); MEAN CORPUSCULAR HEMOGLOBIN 27.4 PG (27.0-34.0); MEAN CORPUSCULAR HGB CONC 33.1 % (32.0-36.0); MEAN PLATELET VOLUME 6.1 FL (7.0-11.0); MONO % 7.1 % (0.0-8.0); MONOCYTE # 1.2 TH/MM3 (0-0.9); NEUT % 79.4 % (16.0-70.0); PLATELET COUNT 603 TH/MM3 (150-450); RED BLOOD COUNT 3.06 MIL/MM3 (4.50-5.90); RED CELL DISTRIBUTION WIDTH 18.2 % (11.6-17.2); WHITE BLOOD COUNT 16.4 TH/MM3 (4.0-11.0)
[2017-07-15 08:36] LABS: BICARBONATE 24.2 MEQ/L (21.0-32.0); CALCIUM 8.4 MG/DL (8.5-10.1); CREATININE 0.48 MG/DL (0.60-1.30)
[2017-07-15] MEDS: SODIUM CHLORIDE 0.9% FLUSH 10 ML FLUSH IV FLUSH SCH ×2 (09:00→22:25)
[2017-07-15] MEDS: ENOXAPARIN SODIUM 40 MG/0.4 ML SYRINGE SQ SCH (09:00)
[2017-07-15] MEDS: PANTOPRAZOLE SOD 40 MG DELAYED RELEASE TAB PO SCH (09:00)
[2017-07-15] MEDS: ASPIRIN 81 MG CHEW TAB CHEW SCH (09:00)
[2017-07-15] MEDS: LACTOBACILLUS ACIDOPHILUS TAB PO SCH ×3 (09:00→17:35)
[2017-07-15] MEDS: MULTIVITAMIN TAB PO SCH (09:00)
[2017-07-15] MEDS: MORPHINE SULFATE 60 MG CONTROLLED RELEASE TAB PO SCH ×2 (09:47→22:25)
[2017-07-15] MEDS ORDERED: MIDAZOLAM HCL 2 MG/2 ML VIAL IV PUSH ONE (10:45)
[2017-07-15] MEDS ORDERED: HYDROmorphone HCL PF 2 MG/ML VIAL IV PUSH ONE (10:45)
[2017-07-15] MEDS ORDERED: FAMOTIDINE 20 MG/2 ML VIAL IV PUSH ONE (10:45)
[2017-07-15] MEDS ORDERED: CHLORHEXIDINE GLUCONATE 2 % 1 PACK (2 CLOTHS) TOPICAL PRN (11:00)
[2017-07-15] MEDS ORDERED: SODIUM CHLORID 0.9% 500 ML IV PRN (11:00)
[2017-07-15] MEDS ORDERED: LACTATED RINGER'S 1000 ML IV PRN (11:00)
[2017-07-15] MEDS ORDERED: INSULIN HUMAN REGULAR 1,000 UNITS/10 ML VIAL SQ PRN (11:00)
[2017-07-15] MEDS ORDERED: METOPROLOL TARTRATE 25 MG TAB PO PRN (11:00)
[2017-07-15] MEDS ORDERED: POVIDONE IODINE 5% (ANTISEPSIS KIT) 4 APPLICATIONS EACH NARE PRN (11:00)
--- NOTE | 2017-07-15 11:09 | EKG ---
Date Performed: 07/14/2017 Time Performed: 22:04:16 PTAGE: 51 years EKG: SINUS TACHYCARDIA ABNORMAL RHYTHM ECG Since the prior tracing, there has been no significan t change PREVIOUS TRACING : 05/25/2017 17.47 DOCTOR: Fredy Jansen Interpretating Date/Time 07/15/2017 11:07:02
[2017-07-15] MEDS ORDERED: HYDROmorphone HCL PF 2 MG/ML VIAL ONE (11:46)
[2017-07-15] MEDS ORDERED: PROPOFOL 200 MG/20 ML AMP IV ONE (12:00)
[2017-07-15] MEDS ORDERED: PHENYLEPH/NS 1000 MCG/10 ML SYR IV ONE (12:00)
[2017-07-15] MEDS ORDERED: LIDOCAINE HCL 1% PF 5 ML SYRINGE OTHER ONE (12:00)
[2017-07-15] MEDS ORDERED: SUCCINYLCHOLINE CHLORIDE 200 MG/10 ML VIAL IV ONE (12:00)
--- NOTE | 2017-07-15 14:42 | MP ---
cc: Raad Guerra MD DATE OF OPERATION: 07/15/2017 PREOPERATIVE DIAGNOSIS: Gangrene of the above-knee amputation stump, noncompliance with medical care, sepsis. POSTOPERATIVE DIAGNOSIS: Gangrene of the above-knee amputation stump, noncompliance with medical care, sepsis. OPERATIVE PROCEDURE: Re-resection of above-knee amputation to a higher level. SURGEON: Dr. Guerra ANESTHESIA: General ESTIMATED BLOOD LOSS: 100 mL INDICATION FOR PROCEDURE: This is a 51-year-old male who appears much older than his actual age, had multiple surgeries for his vascular problems on the right leg and he continues to smoke about a pack to pack and a half a day of cigarettes. Recently apparently, the patient fell in [facility] and was transferred to the [facility]. This thing broke open and now it is completely necrotic. The patient initially refused to come back to the hospital, then signed out AMA once or twice, so things kept going back and forth. Now the patient comes back with gangrene of the above-knee stump and systemic sepsis. PROCEDURE: The patient is now taken to the operating room for this procedure. The patient is prepped and draped in the usual fashion and area of the necrosis is very carefully covered with Ioban and excluded from the field, then the stump is reprepped. Incision is now made about 3 inches above this circumferentially with a 15 blade, deepened anteriorly with cautery down to the femur. Periosteum is elevated from the femur to about 2 inches above the original level of incision, then the femur is transected. The posterior flap is created with amputation knife and specimen removed. The patient has a right fem-pop graft which is of course occluded. This one is pulled as much as we can and then transected and allowed to retract. The sciatic nerve is transected and allowed to retract. Meticulous hemostasis is obtained placing hemostats to areas bleeding point and then tying these vessels off with 2-0 Vicryl stick ties [id number]. Once this is done the area is irrigated with copious amounts of saline. The muscle is inspected, the muscle appears to be viable so incision is now closed with 0-Vicryl for fascia and then 2-0 Prolene for skin. Dressing was applied. The patient tolerated the procedure well. Raad Guerra MD SJ/TL/rr , 02:09 PM , 02:29 PM
[2017-07-15] MEDS ORDERED: DO NOT ADM ANY ANTICOAGULANT DRUGS PRN (15:00)
--- NOTE | 2017-07-15 15:32 | HHI.PR ---
Subjective Remarks The patient was seen following surgery. He was in significant pain. He said that he has not received pain medicine in a while. He had no other acute complaints. Discussed with nursing. Objective Vitals Vital Signs Date Time Temp Pulse Resp B/P (MAP) Pulse Ox O2 Delivery O2 Flow Rate FiO2 07/15/17 13:30 82 16 117/73 (88) 95 Room Air 07/15/17 13:15 88 16 126/79 (95) 95 Room Air 07/15/17 13:00 86 16 136/82 (100) 95 Room Air 07/15/17 12:45 92 16 126/78 (94) 96 Room Air 07/15/17 12:38 97.9 88 16 139/80 (99) 100 07/15/17 10:14 83 07/15/17 08:00 99.2 83 16 100/64 (76) 95 07/15/17 04:00 99.1 92 21 108/68 (81) 97 07/15/17 00:00 99.2 89 18 118/65 (82) 97 07/14/17 17:35 100.0 108 17 128/71 (90) 100 I/O 07/14/17 07/14/17 07/14/17 07/15/17 07/15/17 07/15/17 07:00 15:00 23:00 07:00 15:00 23:00 Intake Total 1300 ml 820 ml Output Total 500 ml 200 ml Balance 1300 ml -500 ml 620 ml Intake IV Total 1300 ml 20 ml Other 800 ml Output Urine Total 500 ml Estimated Blood Loss 200 ml # Bowel Movements 0 Result Diagram: 07/15/17 0700 07/15/17 0700 Objective Remarks GENERAL: This is a thin gentleman, appearing uncomfortable. HEAD: Atraumatic. Normocephalic. No temporal or scalp tenderness. EYES: No scleral icterus. No injection or drainage. ENT: Nose without bleeding, purulent drainage or septal hematoma. Airway patent. NECK: Trachea midline. No JVD . Supple, nontender, no meningeal signs. CARDIOVASCULAR: Regular rate and rhythm without murmurs, gallops, or rubs. RESPIRATORY: Bilateral mild expiratory wheezing. GASTROINTESTINAL: Abdomen soft, non-tender, nondistended. No guarding. MUSCULOSKELETAL: Right AKA site is bandaged. NEUROLOGICAL: Awake and alert.. Motor and sensory grossly within normal limits. Normal speech Procedures Resection of AKA to higher level Medications and IVs Current Medications Medications (Trade) Dose Ordered Sig/Erica Route Start Time Stop Time Status Last Admin (NS Flush) 2 ml UNSCH PRN IV FLUSH 07/14/17 19:15 07/15/17 04:59 (NS Flush) 2 ml BID IV FLUSH 07/14/17 21:00 07/14/17 22:31 (Narcan Inj) 0.4 mg UNSCH PRN IV PUSH 07/14/17 19:15 Pharmacy Profile Note 0 ml @ 0 mls/hr UNSCH OTHER 07/14/17 19:15 (Lactinex) 1 tab TID PO 07/15/17 09:00 (Aspirin Chew) 81 mg DAILY CHEW 07/15/17 09:00 (Lipitor) 40 mg HS PO 07/14/17 21:00 07/14/17 21:24 (Protonix) 40 mg DAILY PO 07/15/17 09:00 (Theragran) 1 tab DAILY PO 07/15/17 09:00 (Oramorph Sr) 60 mg Q12HR PO 07/14/17 21:00 07/15/17 09:47 (Lovenox Inj) 40 mg Q24H SQ 07/15/17 09:00 (Atrovent Neb) 0.5 mg Q2HR NEB PRN NEB 07/14/17 20:00 07/14/17 20:23 Miscellaneous Information SPECIFIC LAB TO BE ... ONCE ONCE .XX 07/17/17 05:45 07/17/17 05:46 (Dilaudid Pf Inj) 1 mg Q4H PRN IV PUSH 07/14/17 22:30 07/15/17 04:59 Vancomycin HCl 1000 mg/Sodium Chloride 250 ml @ 250 mls/hr Q12H IV 07/15/17 18:00 Lactated Ringer's 1,000 ml @ 30 mls/hr Q24H PRN IV 07/15/17 11:00 07/18/17 10:59 Sodium Chloride 500 ml @ 30 mls/hr [id number] PRN IV 07/15/17 11:00 07/18/17 10:59 (Lopressor) 25 mg DISPENSER OPERATOR PRN PO 07/15/17 11:00 07/18/17 10:59 (Betadine 5% Antisepsis Kit) 1 applic DISPENSER OPERATOR PRN EACH NARE 07/15/17 11:00 07/18/17 10:59 (Chlorhexidine 2% Cloth) 3 pack DISPENSER OPERATOR PRN TOPICAL 07/15/17 11:00 07/18/17 10:59 (NovoLIN R INJ) See Protocol Table ... DISPENSER OPERATOR PRN SQ 07/15/17 11:00 07/18/17 10:59 Miscellaneous Information ALL NURSING DEPARTME... UNSCH PRN .XX 07/15/17 15:00 07/16/17 14:59 Piperacillin Sod/ Tazobactam Sod 100 ml @ 200 mls/hr Q6H IV 07/15/17 17:00 A/P Assessment and Plan Right AKA wound dehiscence/ Sepsis With foul smelling discharge/ eschar formation- per patient, started a few days prior to admission. The pt had leukocytosis and tachycardia. Wound culture growing GNR. Vascular surgery consult appreciated. S/p resection of previous AKA to a higher level 07/15. - pain control with a bowel regimen. - vanco and Zosyn IV. - Vascular sx following. - home meds resumed. Anemia Normocytic. - Check iron studies, B12, folate levels and Hemoccult. - Follow CBC and transfuse as needed. Thrombocytosis Likely reactive. - Follow CBC. Tobaccoism The patient continues to smoke. - Cessation instruction. PPx: Jaylen Coburn DO Jul 15, 2017 15:32
[2017-07-15 16:32] LABS: % SATURATION IRON PROFILE 6.1 % (20-50); IRON (FE) 16 MCG/DL (65-175); TOTAL IRON BINDING CAPACITY 262 MCG/DL (250-450)
[2017-07-15 16:57] LABS: FERRITIN 113 NG/ML (26-388)
[2017-07-15 16:59] LABS: FOLATE GREATER THAN 20.0 NG/ML (3.1-17.5)
[2017-07-15] MEDS: VANCOMYCIN 1,000 MG/NS 250 ML IV SCH ×2 (17:34)
[2017-07-15] MEDS: ATORVASTATIN 40 MG TAB PO SCH (22:25)
[2017-07-16] VITALS (8 sets, daily range): BP systolic 96–141; BP diastolic 55–78; PULSE 68–89; RESP 18–19; TEMP 98.3–99.5; O2SAT 97–100
[2017-07-16] MEDS: PIPERACIL-TAZO 4.5 GM PREMIX 100 ML IV SCH ×4 (05:34→23:00)
[2017-07-16] MEDS: VANCOMYCIN 1,000 MG/NS 250 ML IV SCH ×4 (05:46→18:00)
[2017-07-16 08:35] LABS: HEMATOCRIT 23.3 % (39.0-51.0); HEMOGLOBIN 7.7 GM/DL (13.0-17.0); MEAN CELL VOLUME 82.8 FL (80.0-100.0); MEAN CORPUSCULAR HEMOGLOBIN 27.5 PG (27.0-34.0); MEAN CORPUSCULAR HGB CONC 33.2 % (32.0-36.0); MEAN PLATELET VOLUME 6.1 FL (7.0-11.0); PLATELET COUNT 609 TH/MM3 (150-450); RED BLOOD COUNT 2.82 MIL/MM3 (4.50-5.90); RED CELL DISTRIBUTION WIDTH 18.2 % (11.6-17.2); WHITE BLOOD COUNT 14.9 TH/MM3 (4.0-11.0)
[2017-07-16] MEDS: SODIUM CHLORIDE 0.9% FLUSH 10 ML FLUSH IV FLUSH SCH ×2 (09:00→21:49)
[2017-07-16] MEDS: ASPIRIN 81 MG CHEW TAB CHEW SCH (09:00)
[2017-07-16] MEDS: ENOXAPARIN SODIUM 40 MG/0.4 ML SYRINGE SQ SCH (09:00)
[2017-07-16 09:12] LABS: BICARBONATE 22.8 MEQ/L (21.0-32.0); CALCIUM 8.4 MG/DL (8.5-10.1); CREATININE 0.37 MG/DL (0.60-1.30); MAGNESIUM 2.1 MG/DL (1.5-2.5)
[2017-07-16] MEDS: LACTOBACILLUS ACIDOPHILUS TAB PO SCH ×3 (09:24→18:00)
[2017-07-16] MEDS: DULoxetine HCl DR 60 MG CAP PO SCH (09:24)
[2017-07-16] MEDS: amLODIPine BESYLATE 5 MG TAB PO SCH (09:24)
[2017-07-16] MEDS: PANTOPRAZOLE SOD 40 MG DELAYED RELEASE TAB PO SCH (09:24)
[2017-07-16] MEDS: MORPHINE SULFATE 60 MG CONTROLLED RELEASE TAB PO SCH ×2 (09:26→21:49)
[2017-07-16] MEDS: METOPROLOL SUCCINATE 50 MG EXTENDED RELEASE TAB PO SCH (09:27)
[2017-07-16] MEDS: MULTIVITAMIN TAB PO SCH (09:27)
--- NOTE | 2017-07-16 11:44 | HHI.PR ---
Subjective Remarks The patient was nauseous. He said his pain was better controlled. He said he has been having a hard time sleeping. Discussed with nursing. Objective Vitals Vital Signs Date Time Temp Pulse Resp B/P (MAP) Pulse Ox O2 Delivery O2 Flow Rate FiO2 07/16/17 08:00 99.5 87 18 111/65 (80) 97 07/16/17 04:00 98.3 85 18 116/65 (82) 97 07/16/17 04:00 84 07/16/17 00:00 99.5 89 18 141/78 (99) 98 07/16/17 00:00 83 07/15/17 20:16 98.0 87 16 142/81 (101) 97 07/15/17 20:00 84 07/15/17 20:00 84 07/15/17 17:58 88 07/15/17 16:00 99.4 81 17 141/80 (100) 99 07/15/17 13:30 82 16 117/73 (88) 95 Room Air 07/15/17 13:15 88 16 126/79 (95) 95 Room Air 07/15/17 13:00 86 16 136/82 (100) 95 Room Air 07/15/17 12:45 92 16 126/78 (94) 96 Room Air 07/15/17 12:38 97.9 88 16 139/80 (99) 100 I/O 07/15/17 07/15/17 07/15/17 07/16/17 07/16/17 07/16/17 07:00 15:00 23:00 07:00 15:00 23:00 Intake Total 820 ml 100 ml 100 ml Output Total 500 ml 200 ml Balance -500 ml 620 ml 100 ml 100 ml Intake IV Total 20 ml 100 ml 100 ml Other 800 ml Output Urine Total 500 ml Estimated Blood Loss 200 ml # Voids 2 # Bowel Movements 0 Result Diagram: 07/16/1730 07/16/17 0730 Objective Remarks GENERAL: This is a thin gentleman, appearing uncomfortable. HEAD: Atraumatic. Normocephalic. No temporal or scalp tenderness. EYES: No scleral icterus. No injection or drainage. ENT: Nose without bleeding, purulent drainage or septal hematoma. Airway patent. NECK: Trachea midline. No JVD . Supple, nontender, no meningeal signs. CARDIOVASCULAR: Regular rate and rhythm without murmurs, gallops, or rubs. RESPIRATORY: Bilateral mild expiratory wheezing. GASTROINTESTINAL: Abdomen soft, non-tender, nondistended. No guarding. MUSCULOSKELETAL: Right AKA site is bandaged. NEUROLOGICAL: Awake and alert. Motor and sensory grossly within normal limits. Normal speech Procedures Resection of AKA to higher level Medications and IVs Current Medications Medications (Trade) Dose Ordered Sig/Erica Route Start Time Stop Time Status Last Admin (NS Flush) 2 ml UNSCH PRN IV FLUSH 07/14/17 19:15 07/15/17 23:38 (NS Flush) 2 ml BID IV FLUSH 07/14/17 21:00 07/16/17 09:00 (Narcan Inj) 0.4 mg UNSCH PRN IV PUSH 07/14/17 19:15 Pharmacy Profile Note 0 ml @ 0 mls/hr UNSCH OTHER 07/14/17 19:15 (Lactinex) 1 tab TID PO 07/15/17 09:00 07/16/17 09:24 (Aspirin Chew) 81 mg DAILY CHEW 07/15/17 09:00 (Lipitor) 40 mg HS PO 07/14/17 21:00 07/15/17 22:25 (Protonix) 40 mg DAILY PO 07/15/17 09:00 07/16/17 09:24 (Theragran) 1 tab DAILY PO 07/15/17 09:00 07/16/17 09:27 (Oramorph Sr) 60 mg Q12HR PO 07/14/17 21:00 07/16/17 09:26 (Lovenox Inj) 40 mg Q24H SQ 07/15/17 09:00 (Atrovent Neb) 0.5 mg Q2HR NEB PRN NEB 07/14/17 20:00 07/14/17 20:23 Miscellaneous Information SPECIFIC LAB TO BE PRINCE... ONCE ONCE .XX 07/17/17 05:45 07/17/17 05:46 (Dilaudid Pf Inj) 1 mg Q4H PRN IV PUSH 07/14/17 22:30 07/15/17 15:37 Vancomycin HCl 1000 mg/Sodium Chloride 250 ml @ 250 mls/hr Q12H IV 07/15/17 18:00 07/16/17 05:46 Lactated Ringer's 1,000 ml @ 30 mls/hr Q24H PRN IV 07/15/17 11:00 07/18/17 10:59 Sodium Chloride 500 ml @ 30 mls/hr [id number] PRN IV 07/15/17 11:00 07/18/17 10:59 (Lopressor) 25 mg PEN MAKER PRN PO 07/15/17 11:00 07/18/17 10:59 (Betadine 5% Antisepsis Kit) 1 applic PEN MAKER PRN EACH NARE 07/15/17 11:00 07/18/17 10:59 (Chlorhexidine 2% Cloth) 3 pack PEN MAKER PRN TOPICAL 07/15/17 11:00 07/18/17 10:59 (NovoLIN R INJ) See Protocol Table ... PEN MAKER PRN SQ 07/15/17 11:00 07/18/17 10:59 Miscellaneous Information ALL NURSING DEPARTME... UNSCH PRN .XX 07/15/17 15:00 07/16/17 14:59 Piperacillin Sod/ Tazobactam Sod 100 ml @ 200 mls/hr Q6H IV 07/15/17 17:00 07/16/17 10:48 (Norvasc) 5 mg DAILY PO 07/16/17 09:00 07/16/17 09:24 (Cymbalta Dr) 60 mg DAILY PO 07/16/17 09:00 07/16/17 09:24 (Toprol Xl) 50 mg DAILY PO 07/16/17 09:00 07/16/17 09:27 (Roxicodone) 10 mg Q4H PRN PO 07/15/17 17:45 07/16/17 05:34 (Vitamin B12 Inj) 1,000 mcg ONCE ONCE IM 07/16/17 11:15 07/16/17 11:16 UNV (Zofran Inj) 4 mg ONCE ONCE IV PUSH 07/16/17 11:45 07/16/17 11:46 UNV (Zofran Inj) 4 mg Q8HR PRN IV PUSH 07/16/17 11:45 UNV A/P Assessment and Plan Right AKA wound dehiscence/ Sepsis With foul smelling discharge/ eschar formation- per patient, started a few days prior to admission. The pt had leukocytosis and tachycardia. Wound culture growing GNR. Vascular surgery consult appreciated. S/p resection of previous AKA to a higher level 07/15. - pain control with a bowel regimen. - vanco and Zosyn IV. - Vascular sx following. - home meds resumed. - PT/ OT. N/V New onset 07/16. - check LFTs, lipase. - Zofran as needed. - continue PPI. Cough Pt states s/t nausea. - CXR. Anemia Normocytic. Hemoccult negative. Acute blood loss from surgery exacerbating anemia. - B12 IM x1. - Follow CBC and transfuse as needed. Thrombocytosis Likely reactive. - Follow CBC. Tobaccoism The patient continues to smoke. - Cessation instruction. PPx: Jaylen Coburn DO Jul 16, 2017 11:44
[2017-07-16] MEDS ORDERED: ONDANSETRON HCL 4 MG/2 ML VIAL IV PUSH PRN (11:45)
[2017-07-16] MEDS ORDERED: ONDANSETRON HCL 4 MG/2 ML VIAL IV PUSH ONE (11:45)
[2017-07-16] MEDS ORDERED: CYANOCOBALAMIN 1000 MCG/ML VIAL IM ONE ×2 (12:25→22:00)
[2017-07-16 13:26] LABS: ALBUMIN 2.1 GM/DL (3.4-5.0); DIRECT BILIRUBIN ADULT 0.1 MG/DL (0.0-0.2); INDIRECT BILIRUBIN 0.2 MG/DL (0.0-0.8); TOTAL BILIRUBIN ADULT 0.3 MG/DL (0.2-1.0); TOTAL PROTEIN 6.2 GM/DL (6.4-8.2)
--- NOTE | 2017-07-16 13:40 | RADRPT ---
EXAM DATE/TIME: 07/16/2017 13:03 [place] COMPARISON: CHEST SINGLE AP, May 25, 2017, 17:34. INDICATIONS : Cough. MEDICAL HISTORY : Hypertension. Arthritis. Hiatal hernia. Inguinal hernia SURGICAL HISTORY : Hernia,aortofemoral bypass,left femoral popliteal ENCOUNTER: Initial ACUITY: 1 day PAIN SCORE: 0/10 LOCATION: Bilateral chest FINDINGS: Stable calcified granuloma in the right upper lobe. No new focal pleural-parenchymal opacities. The c ardiomediastinal contours are unremarkable. Remainder of the exam is unchanged. CONCLUSION: 1. No acute abnormality or significant interval change. Conrado Lynn MD on July 16, 2017 at 13:38 Board Certified Radiologist. This report was verified electronically.
--- NOTE | 2017-07-16 15:09 | PD.CAR.PN ---
CVT Progress Note Subjective/Hospital Course: Status post right AKA reresection Dressing is dry and clean Hemoglobin down to 7.7 g/dL and I would not hesitate to give patient 1 unit of blood considering his general cardiovascular status Nothing to add to care at this time We will keep dressing on for another day or so then see what it looks like and after that patient can return to the care home Objective: Vital Signs Date Time Temp Pulse Resp B/P (MAP) Pulse Ox O2 Delivery O2 Flow Rate FiO2 07/16/17 12:00 99.2 80 18 135/75 (95) 97 07/16/17 08:00 99.5 87 18 111/65 (80) 97 07/16/17 04:00 98.3 85 18 116/65 (82) 97 07/16/17 04:00 84 07/16/17 00:00 99.5 89 18 141/78 (99) 98 07/16/17 00:00 83 07/15/17 20:16 98.0 87 16 142/81 (101) 97 07/15/17 20:00 84 07/15/17 20:00 84 07/15/17 17:58 88 07/15/17 16:00 99.4 81 17 141/80 (100) 99 Labs: Laboratory Tests Test 07/16/17 07:30 White Blood Count 14.9 TH/MM3 (4.0-11.0) Red Blood Count 2.82 MIL/MM3 (4.50-5.90) Hemoglobin 7.7 GM/DL (13.0-17.0) Hematocrit 23.3 % (39.0-51.0) Mean Corpuscular Volume 82.8 FL (80.0-100.0) Mean Corpuscular Hemoglobin 27.5 PG (27.0-34.0) Mean Corpuscular Hemoglobin Concent 33.2 % (32.0-36.0) Red Cell Distribution Width 18.2 % (11.6-17.2) Platelet Count 609 TH/MM3 (150-450) Mean Platelet Volume 6.1 FL (7.0-11.0) Blood Urea Nitrogen 5 MG/DL (7-18) Creatinine 0.37 MG/DL (0.60-1.30) Random Glucose 92 MG/DL (74-106) Calcium Level 8.4 MG/DL (8.5-10.1) Magnesium Level 2.1 MG/DL (1.5-2.5) Sodium Level 135 MEQ/L (136-145) Potassium Level 3.5 MEQ/L (3.5-5.1) Chloride Level 100 MEQ/L (98-107) Carbon Dioxide Level 22.8 MEQ/L (21.0-32.0) Anion Gap 12 MEQ/L (5-15) Estimat Glomerular Filtration Rate 246 ML/MIN (>89) Total Bilirubin 0.3 MG/DL (0.2-1.0) Direct Bilirubin 0.1 MG/DL (0.0-0.2) Indirect Bilirubin 0.2 MG/DL (0.0-0.8) Aspartate Amino Transf (AST/SGOT) 26 U/L (15-37) Alanine Aminotransferase (ALT/SGPT) 13 U/L (12-78) Alkaline Phosphatase 73 U/L (45-117) Total Protein 6.2 GM/DL (6.4-8.2) Albumin 2.1 GM/DL (3.4-5.0) Lipase 43 U/L (73-393) Result Diagram: 07/16/17 0730 07/16/17 0730 Raad Guerra MD Jul 16, 2017 15:09
[2017-07-16] MEDS: ATORVASTATIN 40 MG TAB PO SCH (21:48)
[2017-07-16] MEDS ORDERED: TRAZ100T10 PO (23:03)
[2017-07-17] VITALS (8 sets, daily range): BP systolic 88–109; BP diastolic 53–59; PULSE 57–79; RESP 17–20; TEMP 97.8–99.1; O2SAT 96–100
[2017-07-17] MEDS: traZODone HCL 100 MG TAB PO SCH ×2 (00:35→22:28)
[2017-07-17] MEDS: PIPERACIL-TAZO 4.5 GM PREMIX 100 ML IV SCH ×4 (05:00→22:28)
[2017-07-17] MEDS ORDERED: PHARMACY ORDERED LAB ONE (05:45)
[2017-07-17] MEDS: VANCOMYCIN 1,000 MG/NS 250 ML IV SCH ×4 (06:02→17:10)
[2017-07-17 06:03] LABS: HEMATOCRIT 27.2 % (39.0-51.0); HEMOGLOBIN 9.1 GM/DL (13.0-17.0); MEAN CELL VOLUME 82.9 FL (80.0-100.0); MEAN CORPUSCULAR HEMOGLOBIN 27.6 PG (27.0-34.0); MEAN CORPUSCULAR HGB CONC 33.3 % (32.0-36.0); MEAN PLATELET VOLUME 6.1 FL (7.0-11.0); PLATELET COUNT 658 TH/MM3 (150-450); RED BLOOD COUNT 3.28 MIL/MM3 (4.50-5.90); WHITE BLOOD COUNT 13.9 TH/MM3 (4.0-11.0)
[2017-07-17 06:30] LABS: BICARBONATE 24.1 MEQ/L (21.0-32.0); CALCIUM 8.8 MG/DL (8.5-10.1); CREATININE 0.64 MG/DL (0.60-1.30)
[2017-07-17] MEDS: MULTIVITAMIN TAB PO SCH (08:53)
[2017-07-17] MEDS: ASPIRIN 81 MG CHEW TAB CHEW SCH (08:53)
[2017-07-17] MEDS: LACTOBACILLUS ACIDOPHILUS TAB PO SCH ×3 (08:53→17:01)
[2017-07-17] MEDS: MORPHINE SULFATE 60 MG CONTROLLED RELEASE TAB PO SCH ×2 (08:54→22:30)
[2017-07-17] MEDS: DULoxetine HCl DR 60 MG CAP PO SCH (08:54)
[2017-07-17] MEDS: PANTOPRAZOLE SOD 40 MG DELAYED RELEASE TAB PO SCH (08:54)
[2017-07-17] MEDS: ENOXAPARIN SODIUM 40 MG/0.4 ML SYRINGE SQ SCH (08:56)
[2017-07-17] MEDS: METOPROLOL SUCCINATE 50 MG EXTENDED RELEASE TAB PO SCH (08:57)
[2017-07-17] MEDS: amLODIPine BESYLATE 5 MG TAB PO SCH (08:57)
[2017-07-17] MEDS: SODIUM CHLORIDE 0.9% FLUSH 10 ML FLUSH IV FLUSH SCH ×2 (08:58→22:30)
[2017-07-17] MEDS ORDERED: POTASSIUM CHLORIDE 25 MEQ EFFERVESCENT TAB PO ONE (13:00)
--- NOTE | 2017-07-17 13:59 | HHI.PR ---
Subjective Remarks The patient was complaining of pain. He had no other acute complaints. Discussed with nursing, who reports the patient has had bradycardia and a pause on telemetry. Objective Vitals Vital Signs Date Time Temp Pulse Resp B/P (MAP) Pulse Ox O2 Delivery O2 Flow Rate FiO2 07/17/17 12:00 98.3 57 17 99/58 (72) 99 07/17/17 08:00 97.8 79 18 109/59 (76) 100 07/17/17 04:00 99.1 75 17 106/53 (70) 96 07/17/17 00:30 98.7 74 18 105/53 98 07/17/17 00:00 73 07/16/17 22:54 98.3 75 18 107/69 99 07/16/17 22:20 98.3 79 18 114/69 100 07/16/17 20:00 68 07/16/17 20:00 98.9 77 19 96/55 (69) 97 07/16/17 16:00 98.4 74 18 103/59 (74) 97 I/O 07/16/17 07/16/17 07/16/17 07/17/17 07/17/17 07/17/17 07:00 15:00 23:00 07:00 15:00 23:00 Intake Total 100 ml 460 ml 1329 ml Output Total 500 ml 750 ml Balance 100 ml -40 ml 579 ml Intake Oral 840 ml IV Total 100 ml 450 ml 100 ml Packed Cells 389 ml Blood Product IV Normal Saline Flush 10 ml Output Urine Total 500 ml 750 ml # Voids 2 1 # Bowel Movements 0 Result Diagram: 07/17/17 0530 07/17/17 0530 Imaging Last Impressions Chest X-Ray 07/16/17 0000 Signed Impressions: Service Date/Time: Sunday, July 16, 2017 13:03 - CONCLUSION: 1. No acute abnormality or significant interval change. Conrado Lynn MD Objective Remarks GENERAL: This is a thin gentleman, appearing uncomfortable. SKIN: Pale. HEAD: Atraumatic. Normocephalic. No temporal or scalp tenderness. EYES: No scleral icterus. No injection or drainage. ENT: Nose without bleeding, purulent drainage or septal hematoma. Airway patent. NECK: Trachea midline. No JVD . Supple, nontender, no meningeal signs. CARDIOVASCULAR: Regular rate and rhythm without murmurs, gallops, or rubs. RESPIRATORY: Bilateral mild expiratory wheezing. GASTROINTESTINAL: Abdomen soft, non-tender, nondistended. No guarding. MUSCULOSKELETAL: Right AKA site is bandaged. NEUROLOGICAL: Awake and alert. Motor and sensory grossly within normal limits. Normal speech Procedures Resection of AKA to higher level Medications and IVs Current Medications Medications (Trade) Dose Ordered Sig/Erica Route Start Time Stop Time Status Last Admin (NS Flush) 2 ml UNSCH PRN IV FLUSH 07/14/17 19:15 07/15/17 23:38 (NS Flush) 2 ml BID IV FLUSH 07/14/17 21:00 07/17/17 08:58 (Narcan Inj) 0.4 mg UNSCH PRN IV PUSH 07/14/17 19:15 Pharmacy Profile Note 0 ml @ 0 mls/hr UNSCH OTHER 07/14/17 19:15 (Lactinex) 1 tab TID PO 07/15/17 09:00 07/17/17 12:16 (Aspirin Chew) 81 mg DAILY CHEW 07/15/17 09:00 07/17/17 08:53 (Lipitor) 40 mg HS PO 07/14/17 21:00 07/16/17 21:48 (Protonix) 40 mg DAILY PO 07/15/17 09:00 07/17/17 08:54 (Theragran) 1 tab DAILY PO 07/15/17 09:00 07/17/17 08:53 (Oramorph Sr) 60 mg Q12HR PO 07/14/17 21:00 07/17/17 08:54 (Lovenox Inj) 40 mg Q24H SQ 07/15/17 09:00 07/17/17 08:56 (Atrovent Neb) 0.5 mg Q2HR NEB PRN NEB 07/14/17 20:00 07/14/17 20:23 (Dilaudid Pf Inj) 1 mg Q4H PRN IV PUSH 07/14/17 22:30 07/15/17 15:37 Vancomycin HCl 1000 mg/Sodium Chloride 250 ml @ 250 mls/hr Q12H IV 07/15/17 18:00 07/17/17 06:02 Lactated Ringer's 1,000 ml @ 30 mls/hr Q24H PRN IV 07/15/17 11:00 07/18/17 10:59 Sodium Chloride 500 ml @ 30 mls/hr [id number] PRN IV 07/15/17 11:00 07/18/17 10:59 (Lopressor) 25 mg PLATING DEPARTMENT HELPER PRN PO 07/15/17 11:00 07/18/17 10:59 (Betadine 5% Antisepsis Kit) 1 applic PLATING DEPARTMENT HELPER PRN EACH NARE 07/15/17 11:00 07/18/17 10:59 (Chlorhexidine 2% Cloth) 3 pack PLATING DEPARTMENT HELPER PRN TOPICAL 07/15/17 11:00 07/18/17 10:59 (NovoLIN R INJ) See Protocol Table ... PLATING DEPARTMENT HELPER PRN SQ 07/15/17 11:00 07/18/17 10:59 Piperacillin Sod/ Tazobactam Sod 100 ml @ 200 mls/hr Q6H IV 07/15/17 17:00 07/17/17 12:16 (Norvasc) 5 mg DAILY PO 07/16/17 09:00 Future Hold 07/16/17 09:24 (Cymbalta Dr) 60 mg DAILY PO 07/16/17 09:00 07/17/17 08:54 (Toprol Xl) 50 mg DAILY PO 07/16/17 09:00 Future Hold 07/16/17 09:27 (Roxicodone) 10 mg Q4H PRN PO 07/15/17 17:45 07/17/17 12:17 (Zofran Inj) 4 mg Q8HR PRN IV PUSH 07/16/17 11:45 (Desyrel) 100 mg HS PO 07/16/17 23:30 07/17/17 00:35 Miscellaneous Information SPECIFIC LAB TO BE DRAWN:VA... ONCE ONCE .XX 07/19/17 05:45 07/19/17 05:46 A/P Assessment and Plan Right AKA wound dehiscence/ Sepsis With foul smelling discharge/ eschar formation- per patient, started a few days prior to admission. The pt had leukocytosis and tachycardia. Wound culture growing MRSA, Proteus mirabilis and group D enterococcus. Vascular surgery consult appreciated. S/p resection of previous AKA to a higher level 07/15. - pain control with a bowel regimen. - vanco and Zosyn IV. Follow culture data. - Vascular sx following. - home meds resumed. - PT/ OT. Bradycardia HR in the 30s, along with one pause noted on telemetry. - d/c Toprol XL. - telemetry. - atropine if needed. - cardiology consult if persists. - check a TSH. N/V New onset 3/2. Seems resolved. LFTs, lipase normal. - Zofran as needed. - continue PPI. Cough Pt states s/t nausea. Chest x-ray unremarkable. - Seems resolved. Anemia Normocytic. Hemoccult negative. Acute blood loss from surgery exacerbating anemia. Status post transfusion of 1 unit 3/2 by surgery with good response. - B12 IM x1. - Follow CBC and transfuse as needed. Thrombocytosis Likely reactive. - Follow CBC. Tobaccoism The patient continues to smoke. - Cessation instruction. PPx: Lovenox Discharge Planning Hopefully discharge to SNF in 1-2 days Jaylen Sanders DO Jul 17, 2017 13:59
--- NOTE | 2017-07-17 14:42 | PD.CAR.PN ---
CVT Progress Note Subjective/Hospital Course: Status post right AKA reresection Dressing is dry and clean Hemoglobin down to 7.7 g/dL and I would not hesitate to give patient 1 unit of blood considering his general cardiovascular status Nothing to add to care at this time We will keep dressing on for another day or so then see what it looks like and after that patient can return to the [facility] 07/17/2017 Right AKA stump is nice clean and dry Apply light dressing to the same for patient does not get stool or urine on it and he seems to be fidgeting around with the incision While from vascular point patient is okay to transfer to usp, apparently had several pauses on EKG so question arises about cardiac status and possible block Nothing further to add from my point Objective: Vital Signs Date Time Temp Pulse Resp B/P (MAP) Pulse Ox O2 Delivery O2 Flow Rate FiO2 07/17/17 12:00 98.3 57 17 99/58 (72) 99 07/17/17 08:00 97.8 79 18 109/59 (76) 100 07/17/17 04:00 99.1 75 17 106/53 (70) 96 07/17/17 00:30 98.7 74 18 105/53 98 07/17/17 00:00 73 07/16/17 22:54 98.3 75 18 107/69 99 07/16/17 22:20 98.3 79 18 114/69 100 07/16/17 20:00 68 07/16/17 20:00 98.9 77 19 96/55 (69) 97 07/16/17 16:00 98.4 74 18 103/59 (74) 97 Labs: Laboratory Tests Test 07/17/17 05:30 White Blood Count 13.9 TH/MM3 (4.0-11.0) Red Blood Count 3.28 MIL/MM3 (4.50-5.90) Hemoglobin 9.1 GM/DL (13.0-17.0) Hematocrit 27.2 % (39.0-51.0) Mean Corpuscular Volume 82.9 FL (80.0-100.0) Mean Corpuscular Hemoglobin 27.6 PG (27.0-34.0) Mean Corpuscular Hemoglobin Concent 33.3 % (32.0-36.0) Red Cell Distribution Width 17.0 % (11.6-17.2) Platelet Count 658 TH/MM3 (150-450) Mean Platelet Volume 6.1 FL (7.0-11.0) Blood Urea Nitrogen 6 MG/DL (7-18) Creatinine 0.64 MG/DL (0.60-1.30) Random Glucose 93 MG/DL (74-106) Calcium Level 8.8 MG/DL (8.5-10.1) Sodium Level 136 MEQ/L (136-145) Potassium Level 3.4 MEQ/L (3.5-5.1) Chloride Level 100 MEQ/L (98-107) Carbon Dioxide Level 24.1 MEQ/L (21.0-32.0) Anion Gap 12 MEQ/L (5-15) Estimat Glomerular Filtration Rate 131 ML/MIN (>89) Magnesium Level 1.9 MG/DL (1.5-2.5) Thyroid Stimulating Hormone 3rd Gen 0.584 uIU/ML (0.358-3.740) Vancomycin Level Trough 13.5 MCG/ML (5.0-10.0) Result Diagram: 07/17/17 0530 07/17/17 0530 Raad Guerra MD Jul 17, 2017 14:42
[2017-07-17] MEDS: ATORVASTATIN 40 MG TAB PO SCH (22:29)
[2017-07-18 00:28] VITALS: BP 106/55; PULSE 70; RESP 20; TEMP 98.4; O2SAT 97
[2017-07-18 05:13] VITALS: BP 100/58; PULSE 64; RESP 20; TEMP 98; O2SAT 97
[2017-07-18] MEDS: VANCOMYCIN 1,000 MG/NS 250 ML IV SCH ×2 (05:14)
[2017-07-18] MEDS: PIPERACIL-TAZO 4.5 GM PREMIX 100 ML IV SCH ×2 (05:14→11:50)
[2017-07-18] MEDS: HYDROmorphone HCL PF 2 MG/ML VIAL IV PUSH PRN (06:20)
[2017-07-18 08:00] VITALS: BP 78/51; PULSE 47; PULSE 67; RESP 17; TEMP 97.7; O2SAT 97
[2017-07-18] MEDS: LACTOBACILLUS ACIDOPHILUS TAB PO SCH ×3 (08:07→17:05)
[2017-07-18] MEDS: MULTIVITAMIN TAB PO SCH (08:08)
[2017-07-18] MEDS: DULoxetine HCl DR 60 MG CAP PO SCH (08:08)
[2017-07-18] MEDS: PANTOPRAZOLE SOD 40 MG DELAYED RELEASE TAB PO SCH (08:08)
[2017-07-18] MEDS: ASPIRIN 81 MG CHEW TAB CHEW SCH (08:09)
[2017-07-18] MEDS: ENOXAPARIN SODIUM 40 MG/0.4 ML SYRINGE SQ SCH (08:09)
[2017-07-18] MEDS: MORPHINE SULFATE 60 MG CONTROLLED RELEASE TAB PO SCH (08:10)
[2017-07-18] MEDS: SODIUM CHLORIDE 0.9% FLUSH 10 ML FLUSH IV FLUSH SCH (08:10)
[2017-07-18] MEDS ORDERED: SODIUM CHLOR 0.9% 1000 ML INJ 1,000 ML IV STA (08:35)
[2017-07-18] MEDS ORDERED: MORPHINE SULFATE 30 MG CONTROLLED RELEASE TAB PO SCH (09:00)
[2017-07-18 10:42] LABS: AUTOMATED NEUTROPHIL # 7.2 TH/MM3 (1.8-7.7); BASOPHIL # 0.1 TH/MM3 (0-0.2); BASOPHIL % 0.6 % (0.0-2.0); EOSINOPHIL # 0.3 TH/MM3 (0-0.4); EOSINOPHIL % 2.4 % (0.0-4.0); HEMATOCRIT 29.2 % (39.0-51.0); HEMOGLOBIN 9.7 GM/DL (13.0-17.0); LYMPH % 28.1 % (9.0-44.0); LYMPHOCYTE # 3.2 TH/MM3 (1.0-4.8); MEAN CELL VOLUME 83.9 FL (80.0-100.0); MEAN CORPUSCULAR HEMOGLOBIN 27.7 PG (27.0-34.0); MEAN CORPUSCULAR HGB CONC 33.1 % (32.0-36.0); MEAN PLATELET VOLUME 6.2 FL (7.0-11.0); MONO % 6.2 % (0.0-8.0); MONOCYTE # 0.7 TH/MM3 (0-0.9); NEUT % 62.7 % (16.0-70.0); PLATELET COUNT 641 TH/MM3 (150-450); RED BLOOD COUNT 3.48 MIL/MM3 (4.50-5.90); RED CELL DISTRIBUTION WIDTH 17.1 % (11.6-17.2); WHITE BLOOD COUNT 11.5 TH/MM3 (4.0-11.0)
[2017-07-18 11:07] LABS: ALBUMIN 2.2 GM/DL (3.4-5.0); ALKALINE PHOSPHATASE 74 U/L (45-117); ALT (GPT) 17 U/L (12-78); AST (GOT) 22 U/L (15-37); BICARBONATE 26.7 MEQ/L (21.0-32.0); BLOOD UREA NITROGEN 9 MG/DL (7-18); CALCIUM 8.7 MG/DL (8.5-10.1); CHLORIDE 108 MEQ/L (98-107); CREATININE 0.62 MG/DL (0.60-1.30); GLOMERULAR FILTRATION RATE 136 ML/MIN (>89); GLUCOSE,RANDOM 94 MG/DL (74-106); SODIUM (NA) 140 MEQ/L (136-145); TOTAL BILIRUBIN ADULT 0.2 MG/DL (0.2-1.0); TOTAL PROTEIN 6.6 GM/DL (6.4-8.2)
[2017-07-18 12:00] VITALS: BP 84/59; PULSE 78; RESP 17; TEMP 97.8; O2SAT 97
[2017-07-18] MEDS ORDERED: SODIUM CHLOR 0.9% 1000 ML INJ 1,000 ML IV ONE (12:00)
--- NOTE | 2017-07-18 13:18 | EKG ---
Date Performed: 07/18/2017 Time Performed: 10:15:13 PTAGE: 51 years EKG: Sinus rhythm POSSIBLE ANTERIOR MYOCARDIAL INFARCTION , OF INDETERMINATE AGE ABNORMAL ECG PREVIOUS TRACING : 07/14/2017 22.04 DOCTOR: Yash Becerril Interpretating Date/Time 07/18/2017 13:17:08
--- NOTE | 2017-07-18 15:05 | HHI.PR ---
Subjective Remarks The patient wanted to go home or go to rehabilitation. He said that his pain level is tolerable. His mother was at the bedside and her questions were answered. The patient was threatening to leave AMA. Objective Vitals Vital Signs Date Time Temp Pulse Resp B/P (MAP) Pulse Ox O2 Delivery O2 Flow Rate FiO2 07/18/17 12:00 97.8 78 17 84/59 (67) 97 07/18/17 08:00 67 07/18/17 08:00 97.7 47 17 78/51 (60) 97 Automatic Cuff 07/18/17 06:51 18 07/18/17 06:17 18 07/18/17 05:13 98.0 64 20 100/58 (72) 97 07/18/17 00:28 98.4 70 20 106/55 (72) 97 07/17/17 23:37 18 07/17/17 20:20 98.6 69 20 88/58 (68) 97 07/17/17 16:00 98.5 66 18 107/58 (74) 98 I/O 07/17/17 07/17/17 07/17/17 07/18/17 07/18/17 07/18/17 07:00 15:00 23:00 07:00 15:00 23:00 Intake Total 1329 ml 200 ml Output Total 750 ml 425 ml 200 ml Balance 579 ml -225 ml -200 ml Intake Oral 840 ml IV Total 100 ml 200 ml Packed Cells 389 ml Output Urine Total 750 ml 425 ml 200 ml # Voids 2 # Bowel Movements 1 Result Diagram: 07/18/17 1016 07/18/17 1016 Imaging Last Impressions Chest X-Ray 07/16/17 0000 Signed Impressions: Service Date/Time: Sunday, July 16, 2017 13:03 - CONCLUSION: 1. No acute abnormality or significant interval change. Conrado Lynn MD Objective Remarks GENERAL: This is a thin gentleman, appearing uncomfortable. SKIN: Pale. HEAD: Atraumatic. Normocephalic. No temporal or scalp tenderness. EYES: No scleral icterus. No injection or drainage. ENT: Nose without bleeding, purulent drainage or septal hematoma. Airway patent. NECK: Trachea midline. No JVD . Supple, nontender, no meningeal signs. CARDIOVASCULAR: Regular rate and rhythm without murmurs, gallops, or rubs. RESPIRATORY: Bilateral mild expiratory wheezing. GASTROINTESTINAL: Abdomen soft, non-tender, nondistended. No guarding. MUSCULOSKELETAL: Right AKA site is bandaged. NEUROLOGICAL: Awake and alert. Motor and sensory grossly within normal limits. Normal speech. PSYCH: Slightly agitated. Procedures Resection of AKA to higher level Medications and IVs Current Medications Medications (Trade) Dose Ordered Sig/Erica Route Start Time Stop Time Status Last Admin (NS Flush) 2 ml UNSCH PRN IV FLUSH 07/14/17 19:15 07/15/17 23:38 (NS Flush) 2 ml BID IV FLUSH 07/14/17 21:00 07/18/17 08:10 (Narcan Inj) 0.4 mg UNSCH PRN IV PUSH 07/14/17 19:15 Pharmacy Profile Note 0 ml @ 0 mls/hr UNSCH OTHER 07/14/17 19:15 (Lactinex) 1 tab TID PO 07/15/17 09:00 07/18/17 11:53 (Aspirin Chew) 81 mg DAILY CHEW 07/15/17 09:00 07/18/17 08:09 (Lipitor) 40 mg HS PO 07/14/17 21:00 07/17/17 22:29 (Protonix) 40 mg DAILY PO 07/15/17 09:00 07/18/17 08:08 (Theragran) 1 tab DAILY PO 07/15/17 09:00 07/18/17 08:08 (Lovenox Inj) 40 mg Q24H SQ 07/15/17 09:00 07/18/17 08:09 (Atrovent Neb) 0.5 mg Q2HR NEB PRN NEB 07/14/17 20:00 07/14/17 20:23 Vancomycin HCl 1000 mg/Sodium Chloride 250 ml @ 250 mls/hr Q12H IV 07/15/17 18:00 07/18/17 05:14 Piperacillin Sod/ Tazobactam Sod 100 ml @ 200 mls/hr Q6H IV 07/15/17 17:00 07/18/17 11:50 (Norvasc) 5 mg DAILY PO 07/16/17 09:00 Future Hold 07/16/17 09:24 (Cymbalta Dr) 60 mg DAILY PO 07/16/17 09:00 07/18/17 08:08 (Toprol Xl) 50 mg DAILY PO 07/16/17 09:00 Future Hold 07/16/17 09:27 (Roxicodone) 10 mg Q4H PRN PO 07/15/17 17:45 07/18/17 05:17 (Zofran Inj) 4 mg Q8HR PRN IV PUSH 07/16/17 11:45 (Desyrel) 100 mg HS PO 07/16/17 23:30 07/17/17 22:28 Miscellaneous Information SPECIFIC LAB TO BE DRAWN:[facility]... ONCE ONCE .XX 07/19/17 05:45 07/19/17 05:46 (Oramorph Sr) 30 mg Q12HR PO 07/18/17 09:00 A/P Assessment and Plan Right AKA wound dehiscence/ Sepsis With foul smelling discharge/ eschar formation- per patient, started a few days prior to admission. The pt had leukocytosis and tachycardia. Wound culture growing MRSA, Proteus mirabilis and group D enterococcus. Vascular surgery consult appreciated. S/p resection of previous AKA to a higher level 07/15. - pain control with a bowel regimen. - change vanco and Zosyn IV to ampicillin, Ceftin and Bactrim PO per sensitivities. - Vascular sx following. Cleared for rehab. - home meds resumed. - PT/ OT. Bradycardia/ Hypotension HR in the 30s, along with one pause noted on telemetry. Also with SBP in the 70s 07/18. EKG without acute ischemia. TSH and lactic acid level WNL. - d/c Toprol XL and hold other blood pressure meds. - NS boluses as needed. - telemetry. - cardiology consult if persists. Anemia Normocytic. Hemoccult negative. Acute blood loss from surgery exacerbating anemia. Status post transfusion of 1 unit 3/2 by surgery with good response. - B12 IM x1. - Follow CBC and transfuse as needed. Thrombocytosis Likely reactive. - Follow CBC. Tobaccoism The patient continues to smoke. - Cessation instruction. PPx: Lovenox Discharge Planning Hopefully discharge to SNF in 1-2 days if blood pressure and heart rate stabilize. Jaylen Sanders DO Jul 18, 2017 15:05
[2017-07-18 16:00] VITALS: BP 118/64; PULSE 65; RESP 18; TEMP 97.7; O2SAT 100
[2017-07-18] MEDS ORDERED: CEFU1TAB20 PO (16:37)
[2017-07-18] MEDS ORDERED: OXYC1TAB63 PO (16:37)
[2017-07-18] MEDS ORDERED: LACT PO (16:37)
[2017-07-18] MEDS ORDERED: SULF1TAB23 PO (16:37)
[2017-07-18] MEDS ORDERED: AMPI500 PO (16:37)
--- NOTE | 2017-07-18 16:39 | HHI.DCPOC ---
Discharge Care Plan Diagnosis: (1) Bradycardia (2) Hypotension (3) Surgical site infection (4) right AKA (5) PVD (peripheral vascular disease) (6) Non-compliance Goals to Promote Your Health * To prevent worsening of your condition and complications * To maintain your health at the optimal level Directions to Meet Your Goals Take your medications as prescribed Follow your dietary instruction Follow activity as directed Keep your appointments as scheduled Take your immunizations and boosters as scheduled If your symptoms worsen call your PCP, if no PCP go to Urgent Care Center or Emergency Room Smoking is Dangerous to Your Health. Avoid second hand smoke Call the 24-hour hour crisis hotline for domestic abuse at Jaylen Sanders DO Jul 18, 2017 16:38
[2017-07-18 16:40] VITALS: PULSE 74
--- NOTE | 2017-07-18 16:47 | HHI.DS ---
Discharge Summary Admission Date Jul 14, 2017 at 19:03 Discharge Date: Jul 18, 2017 Admitting Diagnosis surgical site infection, sepsis (1) Anemia ICD Code: D64.9 - Anemia, unspecified (2) right AKA (3) Non-compliance ICD Code: Z91.19 - Patient's noncompliance with other medical treatment and regimen Status: Acute (4) Hypotension ICD Code: I95.9 - Hypotension, unspecified Diagnosis: Principal (5) PVD (peripheral vascular disease) ICD Code: I73.9 - Peripheral vascular disease, unspecified Diagnosis: Principal (6) Bradycardia ICD Code: R00.1 - Bradycardia, unspecified Diagnosis: Principal (7) Surgical site infection ICD Code: T81.4XXA - Infection following a procedure, initial encounter Diagnosis: Principal Status: Acute Procedures Resection of AKA to higher level Brief History - From Admission went to [facility] yesterday for pain in his right amputated stamp and was told that he needs to do more amputation and was sent back to his prior surgeon here Dr Strauss was getting gangrene at the stump area pain is worsening have had fevers has been living at rehab facility and think he is still on antibiotics there but he cant be sure no trauma CBC/BMP: 07/18/17 1016 07/18/17 1016 Significant Findings Laboratory Tests Test 07/16/17 07:30 07/17/17 05:30 07/18/17 10:16 White Blood Count 14.9 TH/MM3 (4.0-11.0) 13.9 TH/MM3 (4.0-11.0) 11.5 TH/MM3 (4.0-11.0) Red Blood Count 2.82 MIL/MM3 (4.50-5.90) 3.28 MIL/MM3 (4.50-5.90) 3.48 MIL/MM3 (4.50-5.90) Hemoglobin 7.7 GM/DL (13.0-17.0) 9.1 GM/DL (13.0-17.0) 9.7 GM/DL (13.0-17.0) Hematocrit 23.3 % (39.0-51.0) 27.2 % (39.0-51.0) 29.2 % (39.0-51.0) Red Cell Distribution Width 18.2 % (11.6-17.2) Platelet Count 609 TH/MM3 (150-450) 658 TH/MM3 (150-450) 641 TH/MM3 (150-450) Mean Platelet Volume 6.1 FL (7.0-11.0) 6.1 FL (7.0-11.0) 6.2 FL (7.0-11.0) Blood Urea Nitrogen 5 MG/DL (7-18) 6 MG/DL (7-18) Creatinine 0.37 MG/DL (0.60-1.30) Calcium Level 8.4 MG/DL (8.5-10.1) Sodium Level 135 MEQ/L (136-145) Total Protein 6.2 GM/DL (6.4-8.2) Albumin 2.1 GM/DL (3.4-5.0) 2.2 GM/DL (3.4-5.0) Lipase 43 U/L (73-393) Potassium Level 3.4 MEQ/L (3.5-5.1) Vancomycin Level Trough 13.5 MCG/ML (5.0-10.0) Chloride Level 108 MEQ/L (98-107) PE at Discharge GENERAL: This is a thin gentleman, appearing uncomfortable. SKIN: Pale. HEAD: Atraumatic. Normocephalic. No temporal or scalp tenderness. EYES: No scleral icterus. No injection or drainage. ENT: Nose without bleeding, purulent drainage or septal hematoma. Airway patent. NECK: Trachea midline. No JVD . Supple, nontender, no meningeal signs. CARDIOVASCULAR: Regular rate and rhythm without murmurs, gallops, or rubs. RESPIRATORY: Bilateral mild expiratory wheezing. GASTROINTESTINAL: Abdomen soft, non-tender, nondistended. No guarding. MUSCULOSKELETAL: Right AKA site is bandaged. NEUROLOGICAL: Awake and alert. Motor and sensory grossly within normal limits. Normal speech. PSYCH: Slightly agitated. Hospital Course Right AKA wound dehiscence/ Sepsis With foul smelling discharge/ eschar formation- per patient, started a few days prior to admission. The pt had leukocytosis and tachycardia. He was started on IV vancomycin and Zosyn. Wound culture grew MRSA, Proteus mirabilis and group D enterococcus. Vascular surgery was consulted. S/p resection of previous AKA to a higher level 07/15. He received pain control with a bowel regimen. We changed vanco and Zosyn to ampicillin, Ceftin and Bactrim PO per sensitivities. Repeat wound culture growing staph aureus and sensitivities will need to be followed. He worked with PT/ OT. He will follow up with vascular surgery as an outpt. He received smoking cessation instruction. Discharge to rehab was planned and transportation was being arranged but the pt demanded to go home and left AMA. He understood the risks of leaving the hospital against medical advice. He said he will go to the SNF on his own on 07/19/17. Bradycardia/ Hypotension HR in the 30s, along with one pause noted on telemetry. Also with SBP in the 70s 07/18. He responded to fluid boluses. EKG without acute ischemia. TSH and lactic acid level WNL. We d/c Toprol XL and amlodipine. He will not continue those medications upon discharge. We also discontinue morphine SR. He will follow up with his PCP. Anemia Normocytic. Hemoccult negative. Acute blood loss from surgery exacerbating anemia. Status post transfusion of 1 unit 07/16 with good response. He received a B12 injection IM x1. Hemoglobin has been stable. He will repeat a CBC in 3-5 days. Pt Condition on Discharge: Stable Discharge Disposition: Discharge Home Discharge Time: > 30 minutes Discharge Instructions Follow up Referrals: PCP Follow-up - 1 Week Vascular Surgery - 1 Week with Raad Guerra MD New Orders: CBC NO DIFF - 3-5 Days New Medications: Ampicillin (Ampicillin Trihydrate) 500 Mg Capsule 500 MG PO Q6HR for Infection for 5 Days, CAP Cefuroxime (Cefuroxime) 500 Mg Tab 500 MG PO Q12HR for Infection for 5 Days, TAB Lactobacillus Acidophilus (Acidophilus/l-Sporogenes) 35 Million Cell-25 Million Cell Tab 1 TAB PO TID for antibiotics for 5 Days, TAB Sulfamethoxazole-Trimethoprim (Sulfamethoxazole-Trimethoprim) 800-160 Mg Tab 1 TAB PO Q12HR for Infection for 5 Days, TAB Changed Medications: Oxycodone HCl/Acetaminophen (Oxycodone-Acetaminophen 5-325) 5 Mg-325 Mg Tablet 1 TAB PO Q4H PRN for PAIN SCALE 1 TO 10, #20 TAB 0 Refills (Changed from: 30) Continued Medications: Aspirin (Aspirin) 81 Mg Chew 81 MG CHEW DAILY, TAB 0 Refills Atorvastatin (Lipitor) 40 Mg Tab 40 MG PO HS for Cholesterol Management for 30 Days, TAB Duloxetine DR (Duloxetine DR) 60 Mg Capdr 60 MG PO DAILY, #30 CAP 0 Refills Multiple Vitamin (Multi Vitamin Daily) 1 Tab Tab 1 TAB PO DAILY for vitamin for 30 Days, #30 TAB 0 Refills Pantoprazole (Pantoprazole) 40 Mg Tab 40 MG PO DAILY for Reflux, #30 TAB 0 Refills Trazodone (Trazodone) 100 Mg Tablet 100 MG PO HS for Control Depression, #30 TAB 0 Refills Discontinued Medications: Amlodipine (Norvasc) 5 Mg Tab 5 MG PO DAILY for hypertension for 30 Days, #30 TAB 0 Refills Metoprolol Succinate ER 24 HR (Metoprolol Succinate ER 24 HR) 50 Mg Tab 50 MG PO DAILY, #30 TAB 0 Refills Jaylen Sanders DO Jul 18, 2017 16:47
--- NOTE | 2017-07-18 17:06 | PD.AMA ---
Against Medical Advice Note Diagnosis: (1) Anemia (2) right AKA (3) Non-compliance (4) Hypotension (5) PVD (peripheral vascular disease) (6) Bradycardia (7) Surgical site infection Discharge Disposition: Against Medical Advice Pt Condition on Discharge: Stable Recommended Treatment Course Discharge to rehab was planned but the patient demanded to go home. He did not want to wait for transfer to SNF. He did not receive his prescriptions for antibiotics and pain control. AMA Statement Patient Bradley Brower, III has decided to leave the hospital against medical advice. This patient has the capacity to refuse care and understands the risks of leaving, including permanent disability and/or , and has had an opportunity to ask questions about his condition. The patient has been informed that he may return for care at any time, and follow up has been arranged/advised. Jaylen Sanders DO Jul 18, 2017 17:06
[2017-07-18] MEDS ORDERED: AMOXICILLIN (TRIHYDRATE) 500 MG CAP PO SCH (18:00)
[2017-07-18] MEDS ORDERED: CEFUROXIME AXETIL 500 MG TAB PO SCH (21:00)
[2017-07-18] MEDS ORDERED: SULFAMETHOXAZOLE-TRIMETHOPRIM DS 800-160 MG TAB PO SCH (21:00)
[2017-07-19] MEDS ORDERED: PHARMACY ORDERED LAB ONE (05:45)
== END 2017-07-18 17:05 | disposition left against medical advice (07) | DRG 474 ==
LOC: NEPE 17:15 → NEDA 19:03 → N05B 21:01
PROVIDERS: ADMIT Hospitalist; ATTEND Hospitalist
PROC: 0Y6C0Z2 Detachment at Right Upper Leg, Mid, Open Approach (ICD-10-PCS; principal; 2017-07-15 11:05)
PROC: 30233N1 Transfusion of Nonautologous Red Blood Cells into Peripheral Vein, Percutaneous Approach (ICD-10-PCS; 2017-07-16)
DX: T87.43 Infection of amputation stump, right lower extremity (principal); A41.9 Sepsis, unspecified organism; A41.02 Sepsis due to Methicillin resistant Staphylococcus aureus; A41.59 Other Gram-negative sepsis; A41.81 Sepsis due to Enterococcus; I95.9 Hypotension, unspecified; D62 Acute posthemorrhagic anemia; I10 Essential (primary) hypertension; I73.9 Peripheral vascular disease, unspecified; I25.10 Atherosclerotic heart disease of native coronary artery without angina pectoris; T87.81 Dehiscence of amputation stump; M19.90 Unspecified osteoarthritis, unspecified site; H91.93 Unspecified hearing loss, bilateral; E78.5 Hyperlipidemia, unspecified; J44.9 Chronic obstructive pulmonary disease, unspecified; R79.89 Other specified abnormal findings of blood chemistry; R11.2 Nausea with vomiting, unspecified; R00.1 Bradycardia, unspecified; G47.00 Insomnia, unspecified; F12.90 Cannabis use, unspecified, uncomplicated; F17.210 Nicotine dependence, cigarettes, uncomplicated; F41.9 Anxiety disorder, unspecified; F32.9 Major depressive disorder, single episode, unspecified; Z86.73 Personal history of transient ischemic attack (TIA), and cerebral infarction without residual deficits; Z91.030 Bee allergy status; Z91.19 Patient's noncompliance with other medical treatment and regimen
CPT/HCPCS: 36430; 71045; 80048; 80053; 80076; 80202; 82272; 82607; 82728; 82746; 83540; 83550; 83605; 83690; 83735; 84443; 85025; 85027; 85610; 85730; 86403; 86850; 86900; 86901; 86920; 87040; 87070; 87077; 87147; 87176; 87186; 87205; 88305; 93005; 94150; 94664; 96365; J0330; J1170; J1650; J2370; J2405; J2543; J3010; J3370; J3420; J7030; J7050; J7644; P9016

== ENCOUNTER 2017-07-31 23:37 | Inpatient (IN) | payer OTHER ==
[~2017-07-31] VITALS: Ht 167.6 cm; Wt 50.9 kg
[~2017-07-31 23:37] MED LIST changes: +AMPI500 PO; +CEFU1TAB20 PO; +LACT PO; +SULF1TAB23 PO; +TRAZ100T10 PO
[2017-07-31 23:46] VITALS: BP 129/87; PULSE 96; RESP 20; TEMP 98.3; O2SAT 98
[2017-08-01] VITALS (9 sets, daily range): BP systolic 126–156; BP diastolic 84–97; PULSE 65–89; RESP 14–18; TEMP 96.5–98.1; O2SAT 93–100
[2017-08-01] MEDS ORDERED: CEFEPIME INJ 2,000 MG in SODIUM CHLORIDE 0.9% INJ 100 ML IV ONE (02:30)
[2017-08-01] MEDS ORDERED: VANCOMYCIN INJ 1,000 MG in SODIUM CHLOR 0.9% 250 ML INJ 250 ML IV ONE (02:30)
[2017-08-01 03:11] LABS: AUTOMATED NEUTROPHIL # 7.9 TH/MM3 (1.8-7.7); BASOPHIL # 0.2 TH/MM3 (0-0.2); BASOPHIL % 1.5 % (0.0-2.0); EOSINOPHIL # 0.3 TH/MM3 (0-0.4); EOSINOPHIL % 1.9 % (0.0-4.0); HEMATOCRIT 30.8 % (39.0-51.0); HEMOGLOBIN 10.5 GM/DL (13.0-17.0); LYMPH % 29.7 % (9.0-44.0); LYMPHOCYTE # 3.9 TH/MM3 (1.0-4.8); MEAN CELL VOLUME 81.9 FL (80.0-100.0); MEAN CORPUSCULAR HGB CONC 34.2 % (32.0-36.0); MEAN PLATELET VOLUME 5.7 FL (7.0-11.0); MONO % 6.9 % (0.0-8.0); MONOCYTE # 0.9 TH/MM3 (0-0.9); PLATELET COUNT 458 TH/MM3 (150-450); RED BLOOD COUNT 3.76 MIL/MM3 (4.50-5.90); RED CELL DISTRIBUTION WIDTH 17.6 % (11.6-17.2); WHITE BLOOD COUNT 13.2 TH/MM3 (4.0-11.0)
[2017-08-01 03:16] LABS: CHLORIDE 104 MEQ/L (98-107); SODIUM (NA) 139 MEQ/L (136-145)
[2017-08-01 03:20] LABS: ALBUMIN 2.8 GM/DL (3.4-5.0); BICARBONATE 28.6 MEQ/L (21.0-32.0); BLOOD UREA NITROGEN 14 MG/DL (7-18); CALCIUM 8.1 MG/DL (8.5-10.1); GLUCOSE,RANDOM 97 MG/DL (74-106); MAGNESIUM 1.8 MG/DL (1.5-2.5)
[2017-08-01 03:23] LABS: ALT (GPT) 26 U/L (12-78)
[2017-08-01 03:24] LABS: AST (GOT) 10 U/L (15-37); CREATININE 0.68 MG/DL (0.60-1.30); GLOMERULAR FILTRATION RATE 122 ML/MIN (>89)
[2017-08-01 03:25] LABS: TOTAL BILIRUBIN ADULT LESS THAN 0.1 MG/DL (0.2-1.0); TOTAL PROTEIN 6.5 GM/DL (6.4-8.2)
[2017-08-01 03:26] LABS: ALKALINE PHOSPHATASE 133 U/L (45-117)
--- NOTE | 2017-08-01 03:28 | RADRPT ---
EXAM DATE/TIME: 08/01/2017 03:01 [facility] COMPARISON: CHEST SINGLE AP, July 16, 2017, 13:03. INDICATIONS : Fever. MEDICAL HISTORY : Hypertension. Arthritis. Hiatal hernia. Inguinal hernia SURGICAL HISTORY : Fusion, cervical. Hernia, Aortofemoral bypass, Left femoral popliteal, Right leg amputation ENCOUNTER: Initial ACUITY: 4 - 6 days PAIN SCORE: 6/10 LOCATION: Bilateral chest FINDINGS: A single view of the chest demonstrates a stable granulomata calcification in the right upper lung. L ungs are otherwise clear. No effusions. Heart size is normal. Osseous structures are intact with ante rior fixation of the lower cervical spine. CONCLUSION: No acute cardiopulmonary process. No change from prior. Humberto Barba MD on August 01, 2017 at 3:25 Board Certified Radiologist. This report was verified electronically.
--- NOTE | 2017-08-01 03:39 | RADRPT ---
EXAM DATE/TIME: 08/01/2017 03:01 [facility] COMPARISON: No previous studies available for comparison. INDICATIONS : Right femur pain. MEDICAL HISTORY : Hypertension. Arthritis. Hiatal hernia. Inguinal hernia SURGICAL HISTORY : Hernia, Aortofemoral bypass, Left femoral popliteal, Right leg amputation ENCOUNTER: Initial ACUITY: 4 - 6 days PAIN SCORE: 7/10 LOCATION: Right femur FINDINGS: Two view examination of the right femur demonstrates surgical amputation in the proximal diaphysis. R emaining osseous structures and regional soft tissues are radiographically intact. CONCLUSION: 1. Surgical amputation through the proximal right femoral diaphysis. 2. Nothing acute. Humberto Barba MD on August 01, 2017 at 3:36 Board Certified Radiologist. This report was verified electronically.
[2017-08-01] MEDS ORDERED: LACTULOSE SYRUP 20 GM/30 ML CUP PO PRN (04:00)
[2017-08-01] MEDS ORDERED: ONDANSETRON HCL 4 MG/2 ML VIAL IVP PRN (04:00)
[2017-08-01] MEDS ORDERED: SENNOSIDES 8.6 MG TAB PO PRN (04:00)
[2017-08-01] MEDS ORDERED: MAGNESIUM HYDROXIDE SUSP 30 ML CUP PO PRN (04:00)
[2017-08-01] MEDS ORDERED: BISACODYL 10 MG SUPP RECTAL PRN (04:00)
[2017-08-01] MEDS ORDERED: Vancomycin Consult Pharmacy 1 EA OTHER SCH (04:00)
[2017-08-01] MEDS ORDERED: ACETAMINOPHEN 325 MG TAB PO PRN (04:00)
[2017-08-01] MEDS ORDERED: NALOXONE HCL 0.4 MG/ML AMP IV PUSH PRN (04:00)
--- NOTE | 2017-08-01 04:04 | PD ---
HPI Chief Complaint: Pain: Acute or Chronic Time Seen by Provider: 02:29 Travel History International Travel<30 days: No Contact w/Intl Traveler<30days: No Traveled to known affect area: No History of Present Illness HPI 51-year-old male with history of peripheral vascular disease who is primarily managed to the [place] [facility]. Patient presents as he has had increasing pain redness swelling and developed drainage from the wound site where he recently underwent [id number] amputation. Patient on review of medical record signed out AGAINST MEDICAL ADVICE after revision of a previous AKA. Patient states he is not taking any antibiotic. Patient states he was going to see a vascular specialist to the [place] on Wednesday but due to pain decided to come to the emergency room. Patient has had no noted fever but has had chills and generalized weakness according to her. Patient is not diabetic. Patient rates his pain 10/10 in intensity. Patient denies any abdominal pain shortness of breath pleuritic chest pain or chest pain. PFSH Past Medical History Narrative Medical Asthma arthritis COPD CAD peripheral vascular disease above the knee amputation ; alcohol use tobacco use marijuana; nursing notes reviewed Hx Anticoagulant Therapy: Yes (UNSURE THE NAME ) AAA: No ADD: No ADHD: No Alzheimer's Disease: No Anemia: No Arthritis: Yes Asthma: Yes (Inhalers.. switched to new med) Atrial Fibrillation: No Autoimmune Disease: No Blood Disorders: No Bipolar Disorder: No Anxiety: Yes Depression: Yes Heart Rhythm Problems: No Cancer: No Cardiac Catheterization: No Cardiomyopathy: No Cardiovascular Problems: No Cerebral Palsy: No Chemotherapy: No Chest Pain: No Congestive Heart Failure: No Cirrhosis: No COPD: Yes Cerebrovascular Accident: No Coronary Artery Disease: Yes (possible) Cystic Fibrosis: No Dementia: No Developmental Delay: No Diabetes: No Dialysis: No Diminished Hearing: Yes (right side worse than left. use to have hearing aids) Diverticulitis: No Deep Vein Thrombosis: No Endocrine: No Fibromyalgia: No Gastrointestinal Disorders: No Genetic Disorder: No GERD: No Glaucoma: No Gout: No Genitourinary: No Headaches: No Hepatitis: No Hiatal Hernia: Yes Heparin Induced Thrombocytopen: No Herniated Disk: No Hypertension: Yes Immune Disorder: No Implanted Vascular Access Dvce: No Insomnia: Yes (very much.. pain induced) Kidney Stones: No Musculoskeletal: Yes Neurologic: Yes Parkinson's Disease: No Psychiatric: Yes Reproductive: No Respiratory: Yes Resp. Syncytial Virus (RSV): No Integumentary: Yes Immunizations Current: Yes Migraines: Yes Myocardial Infarction: No Pancreatitis: No Pneumonia: No Radiation Therapy: No Renal Failure: No Schizophrenia: No Seizures: No Shingles: No Sickle Cell Disease: No Sleep Apnea: No Thyroid Disease: No Triglycerides - High: Yes Ulcer: Yes (leg) Tetanus Vaccination: < 5 Years Influenza Vaccination: Yes Past Surgical History Abdominal Aneurysm Repair: No Abdominal Surgery: Yes (vascular repair) AICD: No Appendectomy: No Arteriovenous Shunt: No Cardiac Surgery: No Cholecystectomy: No Coronary Artery Bypass Graft: No Coronary Stent: No Ear Surgery: No Endocrine Surgery: No Eye Surgery: No Genitourinary Surgery: No Gynecologic Surgery: No Insulin Pump: No Joint Replacement: No Mastectomy: No Neurologic Surgery: No Oral Surgery: No Pacemaker: No Prostatectomy: No Thoracic Surgery: No Tonsillectomy: No Tympanostomy Tube: No Valve Replacement: No Other Surgery: Yes (Right leg amputation due to poor circulation) Social History Alcohol Use: Yes (beer, 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) Tobacco Use: Yes (15 a day) Substance Use: Yes (marijuana every so often) Allergies-Medications (Allergen,Severity, Reaction): Coded Allergies: bee venom protein (honey bee) (Unverified Allergy, Severe, SWELLING, ) lisinopril (Verified Adverse Reaction, Intermediate, ITCHING, 08/01/17) Reported Meds & Prescriptions Reported Meds & Active Scripts Active Acidophilus/l-Sporogenes (Lactobacillus Acidophilus) 35 Million Cell-25 Million Cell Tab 1 Tab PO TID 5 Days Sulfamethoxazole-Trimethoprim 800-160 Mg Tab 1 Tab PO Q12HR 5 Days Ampicillin Trihydrate (Ampicillin) 500 Mg Capsule 500 Mg PO Q6HR 5 Days Cefuroxime (Cefuroxime Axetil) 500 Mg Tab 500 Mg PO Q12HR 5 Days Oxycodone-Acetaminophen 5-325 (Oxycodone HCl/Acetaminophen) 5 Mg-325 Mg Tablet 1 Tab PO Q4H PRN Wheelchair (Device) 1 Mis Mis Ea .ROUTE DIRECTED Multi Vitamin Daily (Multiple Vitamin) 1 Tab Tab 1 Tab PO DAILY 30 Days Norvasc (Amlodipine Besylate) 5 Mg Tab 5 Mg PO DAILY 30 Days Lipitor (Atorvastatin Calcium) 40 Mg Tab 40 Mg PO HS 30 Days Reported Trazodone (Trazodone HCl) 100 Mg Tablet 100 Mg PO HS Aspirin 81 Mg Chew 81 Mg CHEW DAILY Pantoprazole (Pantoprazole Sodium) 40 Mg Tab 40 Mg PO DAILY Metoprolol Succinate ER 24 HR (Metoprolol Succinate) 50 Mg Tab 50 Mg PO DAILY Duloxetine DR (Duloxetine HCl) 60 Mg Capdr 60 Mg PO DAILY Review of Systems Except as stated in HPI: all other systems reviewed are Neg General / Constitutional: Positive: Chills, No: Fever HENT: No: Congestion Cardiovascular: No: Chest Pain or Discomfort Respiratory: No: Shortness of Breath Gastrointestinal: No: Nausea, Vomiting, Abdominal Pain Genitourinary: No: Dysuria, Flank Pain Musculoskeletal: Positive: Myalgias, Arthralgias, Pain (Right AKA) Skin: Positive Rash (Right AKA), Positive Other Neurologic: Positive: Weakness (Purulent drainage) Psychiatric: No: Anxiety Hematologic/Lymphatic: No: Easy Bruising Physical Exam Narrative GENERAL: Thin male appears older than stated age in no acute respiratory distress SKIN: Warm and dry. HEAD: Normocephalic. EYES: No scleral icterus. No injection or drainage. NECK: Supple, trachea midline. No JVD or lymphadenopathy. CARDIOVASCULAR: Regular rate and rhythm without murmurs, gallops, or rubs. RESPIRATORY: Breath sounds equal bilaterally. No accessory muscle use. GASTROINTESTINAL: Abdomen soft, non-tender, nondistended. MUSCULOSKELETAL: No cyanosis, or edema. Attention right stump status post AKA eschar in place with erythema and purulent drainage from the wound closure suture site as well as dorsal aspect of upper leg. No crepitus. No necrotic tissue. BACK: Nontender without obvious deformity. No CVA tenderness. Data Data Last Documented VS Vital Signs Date Time Temp Pulse Resp B/P (MAP) Pulse Ox O2 Delivery O2 Flow Rate FiO2 08/01/17 03:20 97.2 79 18 132/97 (109) 98 Room Air Orders Orders Sepsis Workup Initiated (08/01/17 ) Complete Blood Count With Diff (08/01/17 02:29) Comprehensive Metabolic Panel (08/01/17 02:29) Prothrombin Time / Inr (Pt) (08/01/17 02:29) Act Partial Throm Time (Ptt) (08/01/17 02:29) Lactic Acid Sepsis Protocol (08/01/17 02:29) Magnesium (Mg) (08/01/17 02:29) Ckmb (Isoenzyme) Profile (08/01/17 02:29) Urinalysis - C+S If Indicated (08/01/17 02:29) Blood Culture (08/01/17 02:29) Wound Culture And Gram Stain (08/01/17 02:29) Chest, Single Ap (08/01/17 02:29) Blood Glucose (08/01/17 02:29) Ecg Monitoring (08/01/17 02:29) Iv Access Insert/Monitor (08/01/17 02:29) Oximetry (08/01/17 02:29) Oxygen Administration (08/01/17 02:29) Femur (Ap & Lat/2vws) (08/01/17 ) Cefepime Inj (Maxipime Inj) (08/01/17 02:30) Vancomycin Inj (Vancomycin Inj) (08/01/17 02:30) Place In Observation (08/01/17 ) Vital Signs (Adult) Q4H (08/01/17 03:48) Activity Oob With Assistance (08/01/17 03:48) Diet Npo (08/01/17 Breakfast) Sodium Chlor 0.9% 1000 Ml Inj (Ns 1000 M (08/01/17 03:48) Sodium Chloride 0.9% Flush (Ns Flush) (08/01/17 04:00) Sodium Chloride 0.9% Flush (Ns Flush) (08/01/17 09:00) Acetaminophen (Tylenol) (08/01/17 04:00) Ondansetron Inj (Zofran Inj) (08/01/17 04:00) Basic Metabolic Panel (Bmp) (08/02/17 06:00) Complete Blood Count With Diff (08/02/17 06:00) Naloxone Inj (Narcan Inj) (08/01/17 04:00) Docusate Sodium-Senna (Neeta-Colace) (08/01/17 09:00) Magnesium Hydroxide Liq (Milk Of Magnesi (08/01/17 04:00) Sennosides (Senokot) (08/01/17 04:00) Bisacodyl Supp (Dulcolax Supp) (08/01/17 04:00) Lactulose Liq (Lactulose Liq) (08/01/17 04:00) Consult Vascular Surgery (08/01/17 ) Vancomycin Consult Pharmacy (Vancomycin (08/01/17 04:00) Vancomycin Inj (Vancomycin Inj) (08/01/17 14:00) Cefepime Inj (Maxipime Inj) (08/01/17 10:00) Admit Order (Ed Use Only) (08/01/17 ) Textile Chemist / Telemetry JIM.[id number] (08/01/17 03:50) Activity Bed Rest (08/01/17 03:50) Notify Dr: Other (08/01/17 03:50) Labs Laboratory Tests Test 08/01/17 03:00 White Blood Count 13.2 TH/MM3 Red Blood Count 3.76 MIL/MM3 Hemoglobin 10.5 GM/DL Hematocrit 30.8 % Mean Corpuscular Volume 81.9 FL Mean Corpuscular Hemoglobin 28.0 PG Mean Corpuscular Hemoglobin Concent 34.2 % Red Cell Distribution Width 17.6 % Platelet Count 458 TH/MM3 Mean Platelet Volume 5.7 FL Neutrophils (%) (Auto) 60.0 % Lymphocytes (%) (Auto) 29.7 % Monocytes (%) (Auto) 6.9 % Eosinophils (%) (Auto) 1.9 % Basophils (%) (Auto) 1.5 % Neutrophils # (Auto) 7.9 TH/MM3 Lymphocytes # (Auto) 3.9 TH/MM3 Monocytes # (Auto) 0.9 TH/MM3 Eosinophils # (Auto) 0.3 TH/MM3 Basophils # (Auto) 0.2 TH/MM3 CBC Comment DIFF FINAL Differential Comment Prothrombin Time 10.0 SEC Prothromb Time International Ratio 1.0 RATIO Activated Partial Thromboplast Time 24.6 SEC Blood Urea Nitrogen 14 MG/DL Creatinine 0.68 MG/DL Random Glucose 97 MG/DL Total Protein 6.5 GM/DL Albumin 2.8 GM/DL Calcium Level 8.1 MG/DL Magnesium Level 1.8 MG/DL Alkaline Phosphatase 133 U/L Aspartate Amino Transf (AST/SGOT) 10 U/L Alanine Aminotransferase (ALT/SGPT) 26 U/L Total Bilirubin LESS THAN 0.1 MG/DL Sodium Level 139 MEQ/L Potassium Level 3.7 MEQ/L Chloride Level 104 MEQ/L Carbon Dioxide Level 28.6 MEQ/L Anion Gap 6 MEQ/L Estimat Glomerular Filtration Rate 122 ML/MIN Lactic Acid Level 0.9 mmol/L Total Creatine Kinase 43 U/L MDM Medical Decision Making Medical Screen Exam Complete: Yes Emergency Medical Condition: Yes Medical Record Reviewed: Yes Interpretation(s) CBC & BMP Diagram 08/01/17 03:00 Total Protein 6.5, Albumin 2.8 L, Calcium Level 8.1 L, Magnesium Level 1.8, Alkaline Phosphatase 133 H, Aspartate Amino Transf (AST/SGOT) 10 L, Alanine Aminotransferase (ALT/SGPT) 26, Total Bilirubin LESS THAN 0.1 L Vital Signs Date Time Temp Pulse Resp B/P (MAP) Pulse Ox O2 Delivery O2 Flow Rate FiO2 08/01/17 03:20 97.2 79 18 132/97 (109) 98 Room Air 07/31/17 23:46 98.3 96 20 129/87 (101) 98 Lactic acid:0.9, not elevated CXR: nad per reading radiologist RLE stump/femur xr: No subcutaneous air or gas in the soft tissue no obvious bony abnormality no radiopaque foreign body per reading radiologist Differential Diagnosis Cellulitis, wound infection, abscess, osteomyelitis, noncompliant, peripheral vascular disease; no findings for necrotizing fasciitis Narrative Course IV access obtained specimens collected and sent for resulting patient administered cefepime and vancomycin after review of medical records and recent culture results. Patient given IV fluids Imaging of the stump identifies no subcu air and there is no crepitance to direct palpation of the soft tissue; culture obtained from the wound site White cell count elevated with lactic acid in normal range as well as bicarb and anion gap Patient's case discussed with on-call medicine for admission for IV antibiotics ; patient's case discussed with vascular surgeon Dr. Guerra -- vascular surgeon that performed patient's previous amputation and revision patient may stay at [facility] for IV antibiotics Sepsis Criteria SIRS Criteria (2 or more): Heart rate over 90, WBC > 34781, < 4000 or > 10% bands Sepsis Criteria (SIRS+source): Infect source susp/known (post op wound infection/cellulitis) Physician Communication Physician Communication discussed with Dr Mcneil; discussed with Dr Guerra--may stay at [facility] Diagnosis Primary Impression: right AKA Additional Impressions: Wound infection Systemic inflammatory response syndrome (SIRS) Sepsis affecting skin Admitting Information Admitting Physician Requests: Admit Julia Tierney MD Aug 01, 2017 04:04
[2017-08-01] MEDS: SODIUM CHLOR 0.9% 1000 ML INJ 1,000 ML IV SCH ×2 (05:16→18:06)
[2017-08-01 05:58] LABS: BILIRUBIN, URINE NEG (NEG); BLOOD, URINE NEG (NEG); GLUCOSE,URINE NEG (NEG); KETONE, URINE NEG (NEG); NITRITE,URINE NEG (NEG); URINE COLOR YELLOW (YELLW/STRAW); URINE LEUKOCYTE ESTERASE NEG (NEG)
[2017-08-01 06:08] LABS: RBC, URINE 0-2 /hpf (0-3); SQUAMOUS EPITHELIAL CELL URINE 0-5 /hpf (0-5); WBC, URINE 0-2 /hpf (0-5)
[2017-08-01] MEDS ORDERED: MORPHINE SULFATE 2 MG/ML INJ IV PUSH ONE (06:15)
[2017-08-01] MEDS ORDERED: SODIUM CHLORID 0.9% 500 ML INJ 500 ML IV ONE (06:15)
[2017-08-01] MEDS ORDERED: ONDANSETRON HCL 4 MG/2 ML VIAL IV PUSH ONE (06:15)
--- NOTE | 2017-08-01 08:26 | HHI.HP ---
[facility] Ad[facility] Diagnosis R AKA wound infection; sirs/sepsis Diagnoses: Chief Complaint: Right ower extremity edema and erythema Travel History International Travel<30 Days: No Contact w/Intl Traveler <30 Da: No Traveled to Known Affected Are: No History of Present Illness This is a pleasant 51 y/o Male with history of Peripheral Vascular disease who is primarily managed by [facility], who came to ER with increased erythema and swelling and drainage from the wound site where he recently underwent [id number] amputation. Patient on review of medical record signed out AGAINST MEDICAL ADVICE after revision of a previous AKA. Patient states he is not taking any antibiotic. Patient states he was going to see a vascular specialist to the [place] on Wednesday but due to pain decided to come to the emergency room. Patient has had no noted fever but has had chills and generalized weakness according to her. Patient is not diabetic. Patient rates his pain 10/ 10 in intensity. Patient denies any abdominal pain shortness of breath pleuritic chest pain or chest pain. Review of Systems Constitutional: DENIES: Fever, Chills, Change in appetite Endocrine: DENIES: Heat/cold intolerance Eyes: DENIES: Blurred vision, Eye pain Except as stated in HPI: all other systems reviewed are Neg Past Family Social History Past Medical History Asthma OA COPD CAD Peripheral Artery Disease Status post AKA Alcohol abuse Tobacco dependence marijuana abuse Anxiety disorder Depression Hypertension Hiatal hernia Hyperlipidemia Past Surgical History Right AKA Reported Medications Reported Meds & Active Scripts Active Acidophilus/l-Sporogenes (Lactobacillus Acidophilus) 35 Million Cell-25 Million Cell Tab 1 Tab PO TID 5 Days Sulfamethoxazole-Trimethoprim 800-160 Mg Tab 1 Tab PO Q12HR 5 Days Ampicillin Trihydrate (Ampicillin) 500 Mg Capsule 500 Mg PO Q6HR 5 Days Cefuroxime (Cefuroxime Axetil) 500 Mg Tab 500 Mg PO Q12HR 5 Days Oxycodone-Acetaminophen 5-325 (Oxycodone HCl/Acetaminophen) 5 Mg-325 Mg Tablet 1 Tab PO Q4H PRN Wheelchair (Device) 1 Mis Mis Ea .ROUTE DIRECTED Multi Vitamin Daily (Multiple Vitamin) 1 Tab Tab 1 Tab PO DAILY 30 Days Norvasc (Amlodipine Besylate) 5 Mg Tab 5 Mg PO DAILY 30 Days Lipitor (Atorvastatin Calcium) 40 Mg Tab 40 Mg PO HS 30 Days Reported Trazodone (Trazodone HCl) 100 Mg Tablet 100 Mg PO HS Aspirin 81 Mg Chew 81 Mg CHEW DAILY Pantoprazole (Pantoprazole Sodium) 40 Mg Tab 40 Mg PO DAILY Metoprolol Succinate ER 24 HR (Metoprolol Succinate) 50 Mg Tab 50 Mg PO DAILY Duloxetine DR (Duloxetine HCl) 60 Mg Capdr 60 Mg PO DAILY Allergies: Coded Allergies: bee venom protein (honey bee) (Unverified Allergy, Severe, SWELLING, ) lisinopril (Verified Adverse Reaction, Intermediate, ITCHING, 08/01/17) Active Ordered Medications Current Medications Medications (Trade) Dose Ordered Sig/Erica Route Start Time Stop Time Status Last Admin Sodium Chloride 1,000 ml @ 70 mls/hr [id number] IV 08/01/17 03:48 08/01/17 05:16 (NS Flush) 2 ml UNSCH PRN IV FLUSH 08/01/17 04:00 (NS Flush) 2 ml BID IV FLUSH 08/01/17 09:00 (Tylenol) 650 mg Q4H PRN PO 08/01/17 04:00 (Zofran Inj) 4 mg Q6H PRN IVP 08/01/17 04:00 (Narcan Inj) 0.4 mg UNSCH PRN IV PUSH 08/01/17 04:00 (Neeta-Colace) 1 tab BID PO 08/01/17 09:00 (Milk Of Magnesia Liq) 30 ml Q12H PRN PO 08/01/17 04:00 (Senokot) 17.2 mg Q12H PRN PO 08/01/17 04:00 (Dulcolax Supp) 10 mg DAILY PRN RECTAL 08/01/17 04:00 (Lactulose Liq) 30 ml DAILY PRN PO 08/01/17 04:00 Pharmacy Profile Note 0 ml @ 0 mls/hr UNSCH OTHER 08/01/17 04:00 Cefepime HCl 2000 mg/Sodium Chloride 100 ml @ 200 mls/hr Q8H IV 08/01/17 10:00 Vancomycin HCl 1250 mg/Sodium Chloride 262.5 ml @ 250 mls/hr Q18H IV 08/01/17 16:00 Miscellaneous Information SPECIFIC LAB TO BE [facility]INCE... ONCE ONCE .XX 08/03/17 03:45 08/03/17 03:46 Family History Asked and denied. Social History Alcohol abuse 4 pack every 3 to 4 days Tobacco dependence 15 a day marijuana abuse Physical Exam Vital Signs Vital Signs Date Time Temp Pulse Resp B/P (MAP) Pulse Ox O2 Delivery O2 Flow Rate FiO2 08/01/17 07:00 72 14 147/96 (113) 100 Room Air 08/01/17 06:17 65 16 150/97 (114) 98 Room Air 08/01/17 05:59 77 16 08/01/17 05:22 97.7 65 16 156/96 (116) 98 Room Air 08/01/17 03:20 97.2 79 18 132/97 (109) 98 Room Air 07/31/17 23:46 98.3 96 20 129/87 (101) 98 Physical Exam GENERAL: Thin male appears older than stated age in no acute respiratory distress SKIN: Right AKA with changes of erythema, edema, calor, drainage of purulent tissue. HEAD: Normocephalic. EYES: No scleral icterus. No injection or drainage. NECK: Supple, trachea midline. No JVD or lymphadenopathy. CARDIOVASCULAR: Regular rate and rhythm without murmurs, gallops, or rubs. RESPIRATORY: Breath sounds equal bilaterally. No accessory muscle use. GASTROINTESTINAL: Abdomen soft, non-tender, nondistended. MUSCULOSKELETAL: No cyanosis, or edema. Attention right stump status post AKA eschar in place with erythema and purulent drainage from the wound closure suture site as well as dorsal aspect of upper leg. No crepitus. No necrotic tissue. BACK: Nontender without obvious deformity. No CVA tenderness. Laboratory Laboratory Tests Test 08/01/17 03:00 08/01/17 05:52 White Blood Count 13.2 Red Blood Count 3.76 Hemoglobin 10.5 Hematocrit 30.8 Mean Corpuscular Volume 81.9 Mean Corpuscular Hemoglobin 28.0 Mean Corpuscular Hemoglobin Concent 34.2 Red Cell Distribution Width 17.6 Platelet Count 458 Mean Platelet Volume 5.7 Neutrophils (%) (Auto) 60.0 Lymphocytes (%) (Auto) 29.7 Monocytes (%) (Auto) 6.9 Eosinophils (%) (Auto) 1.9 Basophils (%) (Auto) 1.5 Neutrophils # (Auto) 7.9 Lymphocytes # (Auto) 3.9 Monocytes # (Auto) 0.9 Eosinophils # (Auto) 0.3 Basophils # (Auto) 0.2 CBC Comment DIFF FINAL Differential Comment Prothrombin Time 10.0 Prothromb Time International Ratio 1.0 Activated Partial Thromboplast Time 24.6 Blood Urea Nitrogen 14 Creatinine 0.68 Random Glucose 97 Total Protein 6.5 Albumin 2.8 Calcium Level 8.1 Magnesium Level 1.8 Alkaline Phosphatase 133 Aspartate Amino Transf (AST/SGOT) 10 Alanine Aminotransferase (ALT/SGPT) 26 Total Bilirubin LESS THAN 0.1 Sodium Level 139 Potassium Level 3.7 Chloride Level 104 Carbon Dioxide Level 28.6 Anion Gap 6 Estimat Glomerular Filtration Rate 122 Lactic Acid Level 0.9 Total Creatine Kinase 43 Urine Color YELLOW Urine Turbidity CLEAR Urine pH 7.0 Urine Specific Wisner LESS/EQUAL 1.005 Urine Protein NEG Urine Glucose (UA) NEG Urine Ketones NEG Urine Occult Blood NEG Urine Nitrite NEG Urine Bilirubin NEG Urine Urobilinogen 0.2 Urine Leukocyte Esterase NEG Urine RBC 0-2 Urine WBC 0-2 Urine Squamous Epithelial Cells 0-5 Urine Bacteria NONE Microscopic Urinalysis Comment CULT NOT INDICATED Date/Time Source Procedure Growth Status 08/01/17 03:00 Blood Peripheral Aerobic Blood Culture Pending Received 08/01/17 03:00 Blood Peripheral Anaerobic Blood Culture Pending Received 08/01/17 02:50 Wound Skin Gram Stain Pending Received 08/01/17 02:50 Wound Skin Wound Culture Pending Received Result Diagram: 08/01/17 0300 08/01/17 0300 Imaging Last Impressions Chest X-Ray 08/01/17 0229 Signed Impressions: Service Date/Time: Tuesday, August 01, 2017 03:01 - CONCLUSION: No acute cardiopulmonary process. No change from prior. Humberto Barba MD Femur X-Ray 08/01/17 0000 Signed Impressions: Service Date/Time: Tuesday, August 01, 2017 03:01 - CONCLUSION: 1. Surgical amputation through the proximal right femoral diaphysis. 2. Nothing acute. Humberto Barba MD [place] VTE Risk Assessment Raysa VTE Risk Assessment: Mod/High Risk (score >= 2) Caprini Risk Assessment Model Point Value = 1 Point Value = 2 Point Value = 3 Point Value = 5 Age 41-60 Minor surgery BMI > 25 kg/m2 Swollen legs Varicose veins or History of unexplained or recurrent spontaneous Oral contraceptives or hormone replacement Sepsis (< 1 month) Serious lung disease, including pneumonia (< 1 month) Abnormal pulmonary function Acute myocardial infarction Congestive heart failure (< 1 month) History of inflammatory bowel disease Medical patient at bed rest Age 61-74 Arthroscopic surgery Major open surgery (> 45 min) Laparoscopic surgery (> 45 min) Malignancy Confined to bed (> 72 hours) Immobilizing plaster cast Central venous access Age >= 75 History of VTE Family history of VTE Factor V Leiden Prothrombin [id number] Lupus anticoagulant Anticardiolipin antibodies Elevated serum homocysteine Heparin-induced thrombocytopenia Other congenital or acquired thrombophilia Stroke (< 1 month) Elective arthroplasty Hip, pelvis, or leg fracture Acute spinal cord injury (< 1 month) Prophylaxis Regimen Total Risk Factor Score Risk Level Prophylaxis Regimen 0-1 Low Early ambulation 2 Moderate Order ONE of the following: *Sequential Compression Device (SCD) *Heparin 5000 units SQ BID 3-4 Higher Order ONE of the following medications: *Heparin 5000 units SQ TID *Enoxaparin/Lovenox 40 mg SQ daily (WT < 150 kg, CrCl > 30 mL/min) *Enoxaparin/Lovenox 30 mg SQ daily (WT < 150 kg, CrCl > 10-29 mL/min) *Enoxaparin/Lovenox 30 mg SQ BID (WT < 150 kg, CrCl > 30 mL/min) AND/OR *Sequential Compression Device (SCD) 5 or more Highest Order ONE of the following medications: *Heparin 5000 units SQ TID (Preferred with Epidurals) *Enoxaparin/Lovenox 40 mg SQ daily (WT < 150 kg, CrCl > 30 mL/min) *Enoxaparin/Lovenox 30 mg SQ daily (WT < 150 kg, CrCl > 10-29 mL/min) *Enoxaparin/Lovenox 30 mg SQ BID (WT < 150 kg, CrCl > 30 mL/min) AND *Sequential Compression Device (SCD) Assessment and Plan Assessment and Plan 1. Acute Cellulitis of right Right Above knee amputation area, he came with Lactic acid non elevated, x ray RLE stump/femur no subcutaneous air or gas in the soft tissue no obvious bony abnormality no radiopaque foreign body, this case was discussed with his primary Vascular surgeon Doctor Charlie, he performed the amputation and recommended to continue antibiotics at [facility], started on Vancomycin and Cefepime. following. Blood cultures wound cultures 2. SIRS continue management 3. COPD non exacerbated will continue Bronchodilator, Mucolytic and incentive spirometry 4. CAD by history 5. Peripheral Artery Disease per history 6. Alcohol abuse strongly recommended to stop drinking habit he states he drinks four beers every 3 days 7. Tobacco dependence smokes one pack a day, giving Nicotine replacement, strongly recommended to stop smoking 8. Anxiety disorder/Depression to continue Home medicines 9. Hypertension continue Home medicines 10. Hyperlipidemia continue Home medicines DVT prophylaxis Lovenox Famotidine for GI prophylaxis wound care consult [employer] to assist with Discharge PT consult. Code Status Full code Discussed Condition With patient Physician Certification 2 Midnight Certification Type: Admission for Inpatient Services Order for Inpatient Services The services are ordered in accordance with Medicare regulations or non- Medicare payer requirements, as applicable. In the case of services not specified as inpatient-only, they are appropriately provided as inpatient services in accordance with the 2-midnight benchmark. Estimated LOS (days): 3 days is the estimated time the patient will need to remain in the hospital, assuming treatment plan goals are met and no additional complications. Post-Hospital Plan: Not yet determined Jeff Croft MD Aug 01, 2017 08:26
[2017-08-01] MEDS ORDERED: oxyCODONE/ACETAMINOPHEN 5 MG/325 MG TAB PO PRN (08:45)
[2017-08-01] MEDS: PANTOPRAZOLE SOD 40 MG DELAYED RELEASE TAB PO SCH (09:00)
[2017-08-01] MEDS: MULTIVITAMIN TAB PO SCH (09:00)
[2017-08-01] MEDS: ASPIRIN 81 MG CHEW TAB CHEW SCH (09:00)
[2017-08-01] MEDS: amLODIPine BESYLATE 5 MG TAB PO SCH (09:00)
[2017-08-01] MEDS: METOPROLOL SUCCINATE 50 MG EXTENDED RELEASE TAB PO SCH (09:00)
[2017-08-01] MEDS: DULoxetine HCl DR 60 MG CAP PO SCH (09:00)
[2017-08-01] MEDS ORDERED: POTASSIUM CHLORIDE 20 MEQ CONTROLLED RELEASE TAB PO ONE (11:00)
[2017-08-01] MEDS ORDERED: MAGNESIUM SULFATE 1 GM PREMIX 100 ML IV ONE (11:00)
[2017-08-01] MEDS: CEFEPIME INJ 2,000 MG in SODIUM CHLORIDE 0.9% INJ 100 ML IV SCH ×2 (11:29→18:25)
[2017-08-01] MEDS: DOCUSATE SODIUM 50 MG/SENNA 8.6 MG TAB PO SCH ×2 (11:29→19:56)
[2017-08-01] MEDS: LACTOBACILLUS ACIDOPHILUS TAB PO SCH ×3 (11:30→18:25)
[2017-08-01] MEDS: oxyCODONE/ACETAMINOPHEN 10 MG/325 MG TAB PO PRN ×3 (11:30→19:58)
[2017-08-01] MEDS: ENOXAPARIN SODIUM 40 MG/0.4 ML SYRINGE SQ SCH (11:30)
[2017-08-01] MEDS: SODIUM CHLORIDE 0.9% FLUSH 10 ML FLUSH IV FLUSH SCH ×2 (11:31→19:57)
[2017-08-01] MEDS ORDERED: RESP: ALBUTEROL 2.5 MG/IPRATROPIUM 0.5 MG NEB (SCH) NEB (12:00)
[2017-08-01] MEDS ORDERED: VANCOMYCIN INJ 1,000 MG in SODIUM CHLOR 0.9% 250 ML INJ 250 ML IV SCH (14:00)
[2017-08-01] MEDS: VANCOMYCIN INJ 1,250 MG in SODIUM CHLOR 0.9% 250 ML INJ 250 ML IV SCH (15:23)
[2017-08-01] MEDS: RESP: ALBUTEROL 2.5 MG/IPRATROPIUM 0.5 MG NEB (SCH) NEB (15:52)
--- NOTE | 2017-08-01 19:25 | PD.CAR.PN ---
CVT Progress Note Subjective/Hospital Course: Referral received full consult to follow Objective: Vital Signs Date Time Temp Pulse Resp B/P (MAP) Pulse Ox O2 Delivery O2 Flow Rate FiO2 08/01/17 16:44 18 08/01/17 16:00 98.1 86 18 126/84 (98) 95 08/01/17 12:00 97.5 88 18 132/84 (100) 93 08/01/17 08:00 08/01/17 08:00 96.5 75 16 156/84 (108) 96 08/01/17 08:00 96.5 89 16 156/84 (108) 96 08/01/17 07:00 72 14 147/96 (113) 100 Room Air 08/01/17 06:17 65 16 150/97 (114) 98 Room Air 08/01/17 05:59 77 16 08/01/17 05:22 97.7 65 16 156/96 (116) 98 Room Air 08/01/17 03:20 97.2 79 18 132/97 (109) 98 Room Air 07/31/17 23:46 98.3 96 20 129/87 (101) 98 Result Diagram: 08/01/17 0300 08/01/17 0300 Raad Guerra MD Aug 01, 2017 19:25
[2017-08-01] MEDS: guaiFENesin E.R. 600 MG TAB PO SCH (19:56)
[2017-08-01] MEDS: traZODone HCL 100 MG TAB PO SCH (19:56)
[2017-08-01] MEDS: ATORVASTATIN 40 MG TAB PO SCH (19:56)
[2017-08-01] MEDS: RESP: ALBUTEROL 2.5 MG/IPRATROPIUM 0.5 MG NEB (PRN) NEB (19:57)
[2017-08-02] VITALS (7 sets, daily range): BP systolic 122–138; BP diastolic 74–82; PULSE 57–88; RESP 16–18; TEMP 96.6–98.4; O2SAT 98–100
[2017-08-02] MEDS: SODIUM CHLOR 0.9% 1000 ML INJ 1,000 ML IV SCH ×2 (00:04→16:36)
[2017-08-02] MEDS: oxyCODONE/ACETAMINOPHEN 10 MG/325 MG TAB PO PRN ×6 (00:05→20:45)
[2017-08-02] MEDS: CEFEPIME INJ 2,000 MG in SODIUM CHLORIDE 0.9% INJ 100 ML IV SCH ×3 (02:21→16:36)
[2017-08-02 07:11] LABS: AUTOMATED NEUTROPHIL # 7.5 TH/MM3 (1.8-7.7); BASOPHIL % 0.2 % (0.0-2.0); EOSINOPHIL # 0.4 TH/MM3 (0-0.4); EOSINOPHIL % 3.3 % (0.0-4.0); HEMATOCRIT 31.8 % (39.0-51.0); HEMOGLOBIN 10.1 GM/DL (13.0-17.0); LYMPH % 23.2 % (9.0-44.0); LYMPHOCYTE # 2.6 TH/MM3 (1.0-4.8); MEAN CELL VOLUME 83.1 FL (80.0-100.0); MEAN CORPUSCULAR HEMOGLOBIN 26.3 PG (27.0-34.0); MEAN CORPUSCULAR HGB CONC 31.7 % (32.0-36.0); MEAN PLATELET VOLUME 6.3 FL (7.0-11.0); MONO % 5.8 % (0.0-8.0); MONOCYTE # 0.6 TH/MM3 (0-0.9); NEUT % 67.5 % (16.0-70.0); PLATELET COUNT 425 TH/MM3 (150-450); RED BLOOD COUNT 3.83 MIL/MM3 (4.50-5.90); RED CELL DISTRIBUTION WIDTH 17.5 % (11.6-17.2); WHITE BLOOD COUNT 11.1 TH/MM3 (4.0-11.0)
[2017-08-02 07:25] LABS: CALCIUM 8.1 MG/DL (8.5-10.1)
[2017-08-02 07:26] LABS: BICARBONATE 26.1 MEQ/L (21.0-32.0)
[2017-08-02] MEDS: RESP: ALBUTEROL 2.5 MG/IPRATROPIUM 0.5 MG NEB (SCH) NEB ×3 (07:26→20:00)
[2017-08-02 07:29] LABS: CREATININE 0.57 MG/DL (0.60-1.30)
[2017-08-02] MEDS: SODIUM CHLORIDE 0.9% FLUSH 10 ML FLUSH IV FLUSH SCH ×2 (08:29→20:47)
[2017-08-02] MEDS: LACTOBACILLUS ACIDOPHILUS TAB PO SCH ×3 (08:29→16:36)
[2017-08-02] MEDS: DULoxetine HCl DR 60 MG CAP PO SCH (08:29)
[2017-08-02] MEDS: ASPIRIN 81 MG CHEW TAB CHEW SCH (08:29)
[2017-08-02] MEDS: amLODIPine BESYLATE 5 MG TAB PO SCH (08:30)
[2017-08-02] MEDS: guaiFENesin E.R. 600 MG TAB PO SCH ×2 (08:30→19:44)
[2017-08-02] MEDS: METOPROLOL SUCCINATE 50 MG EXTENDED RELEASE TAB PO SCH (08:31)
[2017-08-02] MEDS: PANTOPRAZOLE SOD 40 MG DELAYED RELEASE TAB PO SCH (08:32)
[2017-08-02] MEDS: MULTIVITAMIN TAB PO SCH (08:32)
[2017-08-02] MEDS: DOCUSATE SODIUM 50 MG/SENNA 8.6 MG TAB PO SCH ×2 (08:33→21:00)
[2017-08-02] MEDS: ENOXAPARIN SODIUM 40 MG/0.4 ML SYRINGE SQ SCH (10:41)
[2017-08-02] MEDS: VANCOMYCIN INJ 1,250 MG in SODIUM CHLOR 0.9% 250 ML INJ 250 ML IV SCH (10:41)
--- NOTE | 2017-08-02 11:14 | HHI.PR ---
Subjective Remarks Patient seen and examined today for follow-up on intractable and uncontrolled pain from right gcsan-ojs-tcrp amputation. Patient denies any actual exudative drainage. States that only been having some clear drainage. Patient has remained afebrile, leukocytosis has significantly improved. Cultures are still pending. Objective Vitals Vital Signs Date Time Temp Pulse Resp B/P (MAP) Pulse Ox O2 Delivery O2 Flow Rate FiO2 08/02/17 09:05 96.6 78 18 125/74 (91) 100 08/02/17 04:00 98.1 73 16 125/82 (96) 98 08/02/17 00:00 97.6 75 18 133/79 (97) 99 08/01/17 20:04 68 08/01/17 20:00 97.8 73 17 133/93 (106) 100 08/01/17 16:44 18 08/01/17 16:00 98.1 86 18 126/84 (98) 95 08/01/17 12:00 97.5 88 18 132/84 (100) 93 I/O 08/01/17 08/01/17 08/01/17 08/02/17 08/02/17 08/02/17 06:59 14:59 22:59 06:59 14:59 22:59 Intake Total 250 ml 500 ml 700 ml 1858 ml 100 ml Output Total 550 ml 775 ml 1225 ml Balance -300 ml 500 ml -75 ml 633 ml 100 ml Intake Oral 600 ml IV Total 250 ml 500 ml 100 ml 1858 ml 100 ml Output Urine Total 550 ml 775 ml 1225 ml # Voids 2 3 # Bowel Movements 1 Result Diagram: 08/02/17 0612 08/02/17 0615 Objective Remarks GENERAL: Well-developed, cachectic, in no acute distress. alert and orientated HEENT: Head is normocephalic without any lesions or masses noted. Facial features are symmetric. Eyes: Extraocular muscles are intact. Conjunctivae were clear. NECK: Supple without any masses. Trachea midline no deviation. No JVD, CARDIAC: Regular rhythm, regular rate. S1/S2 are heard. No murmurs gallops or rubs. LUNGS: Clear to auscultation bilaterally. No wheeze, rhonchi or rales. No use of accessory muscles on inspiration or expiration. ABDOMEN: Soft, nontender. Nondistended. Bowel sounds heard in all 4 quadrants. No organomegaly or masses. Negative rebound, negative guarding EXTREMITIES: No cyanosis or clubbing NEUROLOGY: Mood and affect appear appropriate. Cranial nerves II through XII grossly intact. Moving all extremities, speech is clear RIGHT LOWER EXTREMITY: Incision area has nice pink healing area, it is dry. Lateral sutures in place does have some minimal serosanguineous drainage. There is an open ulceration noted on the anterior surface of the thigh and a previous scar. Has night pink edges. Measuring 4 x 2 cm. No exudates or purulence noted. 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 Could be postsurgical seromas versus abscess, deferred care to vascular surgery Vascular surgery consulted for recommendations Wound care consultation has been requested Continue pain control Physical therapy recommending home with home health care physical therapy Leukocytosis, resolved There is secondary to mild dehydration or infection Continue monitor CBC Chronic obstructive pulmonary disease Continue O2 segmentation maintain O2 sats greater than 92% Continue DuoNeb every 6 hours while awake and every 2 hours as needed Continue incentive spirometry Chronic tobacco and alcohol abuse Patient counseled on cessation Hypertension, hyperlipidemia, coronary disease, anxiety, depression Home medications have been continued DVT prevention Subcutaneous Lovenox Discharge Planning Discharge planning home once cleared by vascular surgery Guillermo Montelongo Aug 02, 2017 11:14
--- NOTE | 2017-08-02 11:15 | HHI.FF ---
Face to Face Verification Diagnosis: (1) right AKA (2) Non-compliance Physical Therapy Order: Evaluate and Treat, Improve ambulation, Strength and gait training Home Health Nursing Order: Medical education Signs/symptoms of disease process Wound care and dressing changes Nursing assessment with vital signs I have seen patient Bradley Brower, III on 08/02/17. My clinical findings support the need for the requested home health care services because: Med compliance is questionable Limited ability to care for self I certify that my clinical findings support that this patient is homebound because: Unsteady gait/balance Unsafe to leave home unassisted Guillermo Montelongo Aug 02, 2017 11:15
--- NOTE | 2017-08-02 12:12 | RADRPT ---
EXAM DATE/TIME: 08/02/2017 11:37 [facility] COMPARISON: No previous studies available for comparison. INDICATIONS : Right leg amputation. Area of redness and pain with drainage at distal amputation, evaluate for flui d collection. MEDICAL HISTORY : CAD. Hypercholesterol. HTN. COPD. Hiatal hernia. SURGICAL HISTORY : Right leg amputation with revision 07/15/17/ Neck surgery. Hernia repair. ENCOUNTER: Subsequent ACUITY: 2 weeks PAIN SCORE: 7/10 LOCATION: Right leg. AREA EVALUATED: Right leg flap of amputation. FINDINGS: MASSES: None. FLUID COLLECTIONS: Several small pockets of fluid are noted in the soft tissues involving the stump amputation. Posterio rly there is a pocket measuring 3.2 x 2.2 cm. There is another pocket posteriorly and laterally measu ring 3.3 x 1.7 cm. Anteriorly/laterally there is a pocket measuring 1.9 x 1.4 cm. Anteriorly/mid is a pocket measuring 3.8 x 3.6 cm. OTHER: Negative. CONCLUSION: Several small pockets of fluid are seen in the soft tissues involving the right stump. Lj Munroe MD on August 02, 2017 at 12:07 Board Certified Radiologist. This report was verified electronically.
--- NOTE | 2017-08-02 19:30 | PD.CAR.PN ---
CVT Progress Note Subjective/Hospital Course: 08/02/2017 Patient underwent on 15 July revision and re-resection of the right above-knee stump because he fell on it was noncompliant and did not come to Dr. and it got necrotic Postoperatively patient did well and was discharged He never showed up in the office for follow-up he had now presents to the [facility] with necrotic area on the medial aspect of the stump On physical examination the lateral portion of the stump is nicely healed and dry while the medial portion reveals about half inch wide strip of necrotic tissue infected and foul-smelling It is also covered with some stool Patient keeps picking on the incision and necrotic area with his fingers although he was told not to do so He continues to smoke and is utterly noncompliant with his care At this point stitches can be removed and I will have to take the patient to the operating room to debride this portion of the stump I will likely take the patient to the OR on In face of patient's noncompliance and poor hygiene I am sort of running out of ideas how to take care of this gentleman and his problems Objective: Vital Signs Date Time Temp Pulse Resp B/P (MAP) Pulse Ox O2 Delivery O2 Flow Rate FiO2 08/02/17 16:44 98.4 73 16 122/79 (93) 99 08/02/17 11:51 97.9 57 18 125/80 (95) 99 08/02/17 09:05 96.6 78 18 125/74 (91) 100 08/02/17 08:04 88 08/02/17 04:00 98.1 73 16 125/82 (96) 98 08/02/17 00:00 97.6 75 18 133/79 (97) 99 08/01/17 20:04 68 08/01/17 20:00 97.8 73 17 133/93 (106) 100 Result Diagram: 08/02/17 0612 08/02/17 0615 Raad Guerra MD Aug 02, 2017 19:30
[2017-08-02] MEDS: ATORVASTATIN 40 MG TAB PO SCH (19:44)
[2017-08-02] MEDS: traZODone HCL 100 MG TAB PO SCH (22:08)
[2017-08-02] MEDS: MORPHINE SULFATE 2 MG/ML INJ IV PUSH PRN (22:09)
[2017-08-02] MEDS: HYDROmorphone HCL PF 2 MG/ML VIAL IV PUSH PRN (23:20)
[2017-08-02] MEDS: SODIUM CHLORIDE 0.9% FLUSH 10 ML FLUSH IV FLUSH PRN (23:20)
[2017-08-03] VITALS (9 sets, daily range): BP systolic 109–133; BP diastolic 66–79; PULSE 61–81; RESP 16–20; TEMP 97.5–98.8; O2SAT 95–99
[2017-08-03] MEDS: oxyCODONE/ACETAMINOPHEN 10 MG/325 MG TAB PO PRN ×6 (00:47→22:43)
[2017-08-03] MEDS: CEFEPIME INJ 2,000 MG in SODIUM CHLORIDE 0.9% INJ 100 ML IV SCH ×3 (01:30→17:31)
[2017-08-03] MEDS: MORPHINE SULFATE 2 MG/ML INJ IV PUSH PRN ×6 (03:21→23:57)
[2017-08-03] MEDS: VANCOMYCIN INJ 1,250 MG in SODIUM CHLOR 0.9% 250 ML INJ 250 ML IV SCH (03:22)
[2017-08-03] MEDS ORDERED: PHARMACY ORDERED LAB ONE (03:45)
[2017-08-03] MEDS: RESP: ALBUTEROL 2.5 MG/IPRATROPIUM 0.5 MG NEB (SCH) NEB ×3 (07:38→20:06)
[2017-08-03] MEDS: amLODIPine BESYLATE 5 MG TAB PO SCH (08:48)
[2017-08-03] MEDS: DOCUSATE SODIUM 50 MG/SENNA 8.6 MG TAB PO SCH ×2 (08:48→19:50)
[2017-08-03] MEDS: LACTOBACILLUS ACIDOPHILUS TAB PO SCH ×3 (08:48→17:31)
[2017-08-03] MEDS: MULTIVITAMIN TAB PO SCH (08:49)
[2017-08-03] MEDS: ASPIRIN 81 MG CHEW TAB CHEW SCH (08:49)
[2017-08-03] MEDS: PANTOPRAZOLE SOD 40 MG DELAYED RELEASE TAB PO SCH (08:49)
[2017-08-03] MEDS: METOPROLOL SUCCINATE 50 MG EXTENDED RELEASE TAB PO SCH (08:49)
[2017-08-03] MEDS: DULoxetine HCl DR 60 MG CAP PO SCH (08:49)
[2017-08-03] MEDS: SODIUM CHLORIDE 0.9% FLUSH 10 ML FLUSH IV FLUSH SCH ×2 (08:49→19:43)
[2017-08-03] MEDS: guaiFENesin E.R. 600 MG TAB PO SCH ×2 (08:50→19:50)
--- NOTE | 2017-08-03 10:25 | PD.WCN.NOT ---
Wound Consult Additional Information: Patient not seen for wound management of R AKA. Doctor Charlie, cardiovascular surgery saw patient for R AKA and wrote orders to remove stitches and apply dry dressing with Kerlix daily. Doctor Charlie plans to take patient to surgery on . Please defer to him for orders for R AKA. Inpatient wound care is signing off. Theresa Nino [facility] Aug 03, 2017 10:25
[2017-08-03] MEDS: ENOXAPARIN SODIUM 40 MG/0.4 ML SYRINGE SQ SCH (10:45)
[2017-08-03] MEDS: SODIUM CHLOR 0.9% 1000 ML INJ 1,000 ML IV SCH ×2 (10:45→23:55)
--- NOTE | 2017-08-03 12:57 | HHI.PR ---
Subjective Remarks Follow-up intractable and uncontrolled pain from right pvgvl-nqn-ijzt amputation. Patient seen and examined, sitting up in bed on computer. Does state that pain is still constant and present. Wound evaluated, showing some yellow coloration drainage. Patient is afebrile overnight, vital signs are stable. Leukocytosis trending down. Objective Vitals Vital Signs Date Time Temp Pulse Resp B/P (MAP) Pulse Ox O2 Delivery O2 Flow Rate FiO2 08/03/17 08:00 97.6 79 16 119/66 (83) 95 08/03/17 07:42 98 Nasal Cannula 2.00 08/03/17 07:38 98 21 08/03/17 06:40 98.2 68 19 109/73 (85) 97 08/03/17 00:00 97.5 81 19 130/72 (91) 97 08/02/17 20:00 97.8 72 18 138/81 (100) 99 08/02/17 16:44 98.4 73 16 122/79 (93) 99 I/O 08/02/17 08/02/17 08/02/17 08/03/17 08/03/17 08/03/17 07:00 15:00 23:00 07:00 15:00 23:00 Intake Total 1858 ml 370 ml 1225 ml 1820 ml Output Total 1225 ml 1800 ml 2550 ml Balance 633 ml 370 ml -575 ml -730 ml Intake Oral 700 ml IV Total 1858 ml 370 ml 1225 ml 1120 ml Output Urine Total 1225 ml 1800 ml 2550 ml # Voids 3 Result Diagram: 08/02/17 0612 08/02/17 0615 Imaging Last Impressions Soft Tissue Ultrasound 08/02/17 0000 Signed Impressions: Service Date/Time: Wednesday, August 02, 2017 11:37 - CONCLUSION: Several small pockets of fluid are seen in the soft tissues involving the right stump. Lj Munroe MD Chest X-Ray 08/01/17 0229 Signed Impressions: Service Date/Time: Tuesday, August 01, 2017 03:01 - CONCLUSION: No acute cardiopulmonary process. No change from prior. Humberto Barba MD Femur X-Ray 08/01/17 0000 Signed Impressions: Service Date/Time: Tuesday, August 01, 2017 03:01 - CONCLUSION: 1. Surgical amputation through the proximal right femoral diaphysis. 2. Nothing acute. Humberto Barba MD Objective Remarks GENERAL: Well-developed, well-nourished patient in NAD. SKIN: Warm and dry. No rash. HEAD: Normocephalic. Atraumatic. EYES: Pupils equal and round. No scleral icterus. No injection or drainage. ENT: No nasal bleeding or discharge. Mucous membranes pink and moist. NECK: Supple. Trachea midline. CARDIOVASCULAR: Regular rate and rhythm. S1, S2 noted. No murmur appreciated. RESPIRATORY: No accessory muscle use. Clear to auscultation. Breath sounds equal bilaterally. GASTROINTESTINAL: Abdomen soft, non-tender, nondistended. Normoactive bowel sounds x4. MUSCULOSKELETAL: Right xbupj-ufk-sdhn amputation. Incision area showing some yellowish drainage. There is an open ulceration noted on the anterior surface of the thigh and a previous scar. Has night pink edges. Measuring 4 x 2 cm. No exudates or purulence noted. NEUROLOGICAL: Awake and alert. No obvious cranial nerve deficits. Motor grossly within normal limits. 5/5 muscle strength in bilateral upper and lower extremities. Normal speech. PSYCHIATRIC: Appropriate mood and affect; insight and judgment normal. 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 Patient with history of peripheral artery disease, chronic tobacco use Blood cultures negative to date. Wound culture growing MRSA and gram- negative anna marie. Sensitivity noted, continue on vancomycin for MRSA coverage. Awaiting gram-negative anna marie sensitivity, follow. Soft tissue ultrasound was performed which did show several small pocket of fluid seen within soft tissue of the right stump. Could be postsurgical seromas versus abscess, deferred care to vascular surgery Vascular surgery consulted for recommendations Wound care consultation has been requested, recommendations to apply dry dressing with Kerlix daily. Continue pain control, IV narcotics. Physical therapy recommending home with home health care physical therapy Leukocytosis, resolved There is secondary to mild dehydration or infection Continue monitor CBC Chronic obstructive pulmonary disease Continue O2 segmentation maintain O2 sats greater than 92% Continue DuoNeb every 6 hours while awake and every 2 hours as needed Continue incentive spirometry Chronic tobacco and alcohol abuse Patient counseled on cessation Hypertension, hyperlipidemia, coronary disease, anxiety, depression Home medications have been continued DVT prevention Subcutaneous Lovenox Discharge Planning Discharge planning home once cleared by vascular surgery. Cuca Cartagena Aug 03, 2017 12:57
[2017-08-03] MEDS: VANCOMYCIN INJ 750 MG in SODIUM CHLOR 0.9% 250 ML INJ 250 ML IV SCH (14:41)
[2017-08-03] MEDS: NICOTINE 14 MG/24 HR PATCH T-DERMAL SCH (15:48)
[2017-08-03] MEDS: GABAPENTIN 100 MG CAP PO SCH (17:31)
[2017-08-03] MEDS: traZODone HCL 100 MG TAB PO SCH (19:50)
[2017-08-03] MEDS: ATORVASTATIN 40 MG TAB PO SCH (19:50)
[2017-08-03] MEDS: REMOVE OLD PATCH T-DERMAL SCH (19:51)
[2017-08-03] MEDS: HYDROmorphone HCL PF 2 MG/ML VIAL IV PUSH PRN (23:29)
[2017-08-03] MEDS: SODIUM CHLORIDE 0.9% FLUSH 10 ML FLUSH IV FLUSH PRN ×2 (23:30→23:57)
[2017-08-04] VITALS: BP 136/87; PULSE 82; RESP 20; TEMP 97.3; O2SAT 98
[2017-08-04] MEDS: CEFEPIME INJ 2,000 MG in SODIUM CHLORIDE 0.9% INJ 100 ML IV SCH ×3 (01:50→17:08)
[2017-08-04] MEDS: SODIUM CHLORIDE 0.9% FLUSH 10 ML FLUSH IV FLUSH PRN ×2 (01:50→04:35)
[2017-08-04] MEDS: VANCOMYCIN INJ 750 MG in SODIUM CHLOR 0.9% 250 ML INJ 250 ML IV SCH ×2 (03:00→15:37)
[2017-08-04] MEDS: oxyCODONE/ACETAMINOPHEN 10 MG/325 MG TAB PO PRN ×5 (03:06→21:13)
[2017-08-04] MEDS: MORPHINE SULFATE 2 MG/ML INJ IV PUSH PRN ×5 (04:35→21:29)
[2017-08-04 06:58] LABS: AUTOMATED NEUTROPHIL # 5.7 TH/MM3 (1.8-7.7); BASOPHIL % 0.3 % (0.0-2.0); EOSINOPHIL # 0.4 TH/MM3 (0-0.4); EOSINOPHIL % 4.6 % (0.0-4.0); HEMATOCRIT 29.5 % (39.0-51.0); HEMOGLOBIN 9.6 GM/DL (13.0-17.0); LYMPH % 26.5 % (9.0-44.0); LYMPHOCYTE # 2.4 TH/MM3 (1.0-4.8); MEAN CELL VOLUME 82.2 FL (80.0-100.0); MEAN CORPUSCULAR HEMOGLOBIN 26.7 PG (27.0-34.0); MEAN CORPUSCULAR HGB CONC 32.5 % (32.0-36.0); MONOCYTE # 0.6 TH/MM3 (0-0.9); NEUT % 61.6 % (16.0-70.0); PLATELET COUNT 405 TH/MM3 (150-450); RED CELL DISTRIBUTION WIDTH 17.2 % (11.6-17.2); WHITE BLOOD COUNT 9.1 TH/MM3 (4.0-11.0)
[2017-08-04] MEDS: RESP: ALBUTEROL 2.5 MG/IPRATROPIUM 0.5 MG NEB (SCH) NEB ×3 (07:23→19:24)
[2017-08-04 07:50] VITALS: BP 113/73; PULSE 80; RESP 20; TEMP 98; O2SAT 97
[2017-08-04] MEDS: SODIUM CHLORIDE 0.9% FLUSH 10 ML FLUSH IV FLUSH SCH ×2 (08:52→23:11)
[2017-08-04] MEDS: ASPIRIN 81 MG CHEW TAB CHEW SCH (08:52)
[2017-08-04] MEDS: guaiFENesin E.R. 600 MG TAB PO SCH ×2 (08:53→23:11)
[2017-08-04] MEDS: DULoxetine HCl DR 60 MG CAP PO SCH (08:53)
[2017-08-04] MEDS: amLODIPine BESYLATE 5 MG TAB PO SCH (08:53)
[2017-08-04] MEDS: PANTOPRAZOLE SOD 40 MG DELAYED RELEASE TAB PO SCH (08:53)
[2017-08-04] MEDS: MULTIVITAMIN TAB PO SCH (08:53)
[2017-08-04] MEDS: GABAPENTIN 100 MG CAP PO SCH ×3 (08:53→17:07)
[2017-08-04] MEDS: LACTOBACILLUS ACIDOPHILUS TAB PO SCH ×3 (08:53→17:07)
[2017-08-04] MEDS: METOPROLOL SUCCINATE 50 MG EXTENDED RELEASE TAB PO SCH (08:54)
[2017-08-04] MEDS: DOCUSATE SODIUM 50 MG/SENNA 8.6 MG TAB PO SCH ×2 (08:57→23:10)
[2017-08-04] MEDS: NICOTINE 14 MG/24 HR PATCH T-DERMAL SCH (09:00)
[2017-08-04] MEDS ORDERED: GETGO ROLLING W1 MI1 (10:35)
[2017-08-04 10:36] LABS: % SATURATION IRON PROFILE 8.9 % (20-50); IRON (FE) 33 MCG/DL (65-175); TOTAL IRON BINDING CAPACITY 371 MCG/DL (250-450)
[2017-08-04 10:38] LABS: FERRITIN 49 NG/ML (26-388)
[2017-08-04 11:50] VITALS: BP 117/67; PULSE 84; RESP 20; TEMP 98; O2SAT 97
[2017-08-04] MEDS: ENOXAPARIN SODIUM 40 MG/0.4 ML SYRINGE SQ SCH (12:00)
--- NOTE | 2017-08-04 12:29 | HHI.PR ---
Subjective Remarks Follow-up intractable and uncontrolled pain from right nzqli-diz-olwg amputation. Patient seen and examined, lying in bed comfortably asleep in no apparent distress. Awakens to voice denies any new acute events overnight. Pain is well controlled with current regimen. Awaiting debridement tomorrow by vascular surgeon. Vital signs are stable. Afebrile. Leukocytosis improved today, mild anemia. Awaiting sensitivity for wound culture. Objective Vitals Vital Signs Date Time Temp Pulse Resp B/P (MAP) Pulse Ox O2 Delivery O2 Flow Rate FiO2 08/04/17 10:22 18 08/04/17 09:55 18 08/04/17 07:50 98.0 80 20 113/73 (86) 97 08/04/17 00:00 97.3 82 20 136/87 (103) 98 08/03/17 20:06 99 21 08/03/17 20:00 98.1 78 20 133/79 (97) 98 08/03/17 16:00 98.8 61 18 119/69 (86) 98 I/O 08/03/17 08/03/17 08/03/17 08/04/17 08/04/17 08/04/17 06:59 14:59 22:59 06:59 14:59 22:59 Intake Total 1820 ml 1100 ml 1530 ml 1994 ml Output Total 2550 ml 1900 ml Balance -730 ml 1100 ml 1530 ml 94 ml Intake Oral 700 ml 600 ml 720 ml IV Total 1120 ml 1100 ml 930 ml 1274 ml Output Urine Total 2550 ml 1900 ml # Voids 3 1 Result Diagram: 08/04/17 0606 08/02/17 0615 Imaging Last Impressions Soft Tissue Ultrasound 08/02/17 0000 Signed Impressions: Service Date/Time: Wednesday, August 02, 2017 11:37 - CONCLUSION: Several small pockets of fluid are seen in the soft tissues involving the right stump. Lj Munroe MD Chest X-Ray 08/01/17 0229 Signed Impressions: Service Date/Time: Tuesday, August 01, 2017 03:01 - CONCLUSION: No acute cardiopulmonary process. No change from prior. Humberto Barba MD Femur X-Ray 08/01/17 0000 Signed Impressions: Service Date/Time: Tuesday, August 01, 2017 03:01 - CONCLUSION: 1. Surgical amputation through the proximal right femoral diaphysis. 2. Nothing acute. Humberto Barba MD Objective Remarks GENERAL: Well-developed, well-nourished patient in NAD. SKIN: Warm and dry. No rash. HEAD: Normocephalic. Atraumatic. EYES: Pupils equal and round. No scleral icterus. No injection or drainage. ENT: No nasal bleeding or discharge. Mucous membranes pink and moist. NECK: Supple. Trachea midline. CARDIOVASCULAR: Regular rate and rhythm. S1, S2 noted. No murmur appreciated. RESPIRATORY: No accessory muscle use. Clear to auscultation. Breath sounds equal bilaterally. GASTROINTESTINAL: Abdomen soft, non-tender, nondistended. Normoactive bowel sounds x4. MUSCULOSKELETAL: Right iadup-rtl-ymxt amputation. Incision area showing some yellowish drainage. There is an open ulceration noted on the anterior surface of the thigh and a previous scar. Has night pink edges. Measuring 4 x 2 cm. No exudates or purulence noted. NEUROLOGICAL: Awake and alert. No obvious cranial nerve deficits. Motor grossly within normal limits. 5/5 muscle strength in bilateral upper and lower extremities. Normal speech. PSYCHIATRIC: Appropriate mood and affect; insight and judgment normal. 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 Patient with history of peripheral artery disease, chronic tobacco use Blood cultures negative to date. Wound culture growing MRSA and gram- negative anna marie. Sensitivity noted, continue on vancomycin for MRSA coverage. Awaiting gram-negative anna marie sensitivity, follow. Soft tissue ultrasound was performed which did show several small pocket of fluid seen within soft tissue of the right stump. Could be postsurgical seromas versus abscess, deferred care to vascular surgery Vascular surgery consulted for recommendations, plan for debridement tomorrow. Wound care consultation has been requested, recommendations to apply dry dressing with Kerlix daily. Continue pain control, IV narcotics. Physical therapy recommending home with home health care physical therapy Leukocytosis, resolved. There is secondary to mild dehydration or infection Continue monitor CBC Chronic obstructive pulmonary disease Continue O2 segmentation maintain O2 sats greater than 92% Continue DuoNeb every 6 hours while awake and every 2 hours as needed Continue incentive spirometry Chronic tobacco and alcohol abuse Patient counseled on cessation Hypertension, hyperlipidemia, coronary disease, anxiety, depression Home medications have been continued DVT prevention Subcutaneous Lovenox Discharge Planning Discharge planning home once cleared by vascular surgery. Cuca Cartagena Aug 04, 2017 12:29
[2017-08-04] MEDS ORDERED: PHARMACY ORDERED LAB ONE (14:45)
[2017-08-04 15:50] VITALS: BP 125/67; PULSE 76; RESP 20; TEMP 98.1; O2SAT 99
[2017-08-04] MEDS: SODIUM CHLOR 0.9% 1000 ML INJ 1,000 ML IV SCH (17:09)
[2017-08-04 19:25] VITALS: O2SAT 98
[2017-08-04] MEDS: HYDROmorphone HCL PF 2 MG/ML VIAL IV PUSH PRN (19:51)
[2017-08-04 20:00] VITALS: BP 125/79; PULSE 67; RESP 18; TEMP 97.4; O2SAT 100
[2017-08-04] MEDS: REMOVE OLD PATCH T-DERMAL SCH (21:00)
[2017-08-04] MEDS: traZODone HCL 100 MG TAB PO SCH (23:10)
[2017-08-04] MEDS: ATORVASTATIN 40 MG TAB PO SCH (23:11)
[2017-08-05] VITALS: BP 136/87; PULSE 68; RESP 18; TEMP 97.8; O2SAT 96
[2017-08-05] MEDS: CEFEPIME INJ 2,000 MG in SODIUM CHLORIDE 0.9% INJ 100 ML IV SCH ×3 (01:31→17:56)
[2017-08-05] MEDS: oxyCODONE/ACETAMINOPHEN 10 MG/325 MG TAB PO PRN ×5 (01:31→21:54)
[2017-08-05] MEDS: VANCOMYCIN INJ 750 MG in SODIUM CHLOR 0.9% 250 ML INJ 250 ML IV SCH ×2 (02:22→15:00)
[2017-08-05] MEDS: MORPHINE SULFATE 2 MG/ML INJ IV PUSH PRN ×3 (02:24→09:24)
[2017-08-05 07:40] VITALS: O2SAT 98
[2017-08-05] MEDS: RESP: ALBUTEROL 2.5 MG/IPRATROPIUM 0.5 MG NEB (SCH) NEB ×2 (07:45→14:00)
[2017-08-05 08:00] VITALS: BP 121/81; PULSE 69; RESP 18; TEMP 97.3; O2SAT 98
[2017-08-05] MEDS: METOPROLOL SUCCINATE 50 MG EXTENDED RELEASE TAB PO SCH (09:00)
[2017-08-05] MEDS: NICOTINE 14 MG/24 HR PATCH T-DERMAL SCH (09:00)
[2017-08-05] MEDS: SODIUM CHLOR 0.9% 1000 ML INJ 1,000 ML IV SCH ×2 (09:21→21:54)
[2017-08-05] MEDS: LACTOBACILLUS ACIDOPHILUS TAB PO SCH ×3 (09:22→17:56)
[2017-08-05] MEDS: ASPIRIN 81 MG CHEW TAB CHEW SCH (09:22)
[2017-08-05] MEDS: DULoxetine HCl DR 60 MG CAP PO SCH (09:22)
[2017-08-05] MEDS: amLODIPine BESYLATE 5 MG TAB PO SCH (09:22)
[2017-08-05] MEDS: GABAPENTIN 100 MG CAP PO SCH ×3 (09:22→17:56)
[2017-08-05] MEDS: guaiFENesin E.R. 600 MG TAB PO SCH ×2 (09:22→21:54)
[2017-08-05] MEDS: SODIUM CHLORIDE 0.9% FLUSH 10 ML FLUSH IV FLUSH SCH ×2 (09:22→20:17)
[2017-08-05] MEDS: MULTIVITAMIN TAB PO SCH (09:23)
[2017-08-05] MEDS: DOCUSATE SODIUM 50 MG/SENNA 8.6 MG TAB PO SCH ×2 (09:23→21:54)
[2017-08-05] MEDS: PANTOPRAZOLE SOD 40 MG DELAYED RELEASE TAB PO SCH (09:23)
--- NOTE | 2017-08-05 09:42 | HHI.PR ---
Subjective Remarks Follow-up intractable and uncontrolled pain from right vksee-olg-yoqo amputation. Patient seen and examined, lying in bed sleeping comfortably, awakens to voice. Patient immediately states that he is in pain. But not showing any signs of pain. Reports from bedside nurse this morning that when injecting IV morphine as ordered in the setting morphine bottle down beside her the patient snatched the bottle and put it in his mouth, stating that the doctor told him it was okay to do this. It seems that every time the nurse comes in patient takes dressing off and states that he wants his IV Dilaudid for dressing changes. All IV medications have been stopped and will defer to vascular surgery for any IV narcotics. Patient seems to be drug-seeking at this time. Objective Vitals Vital Signs Date Time Temp Pulse Resp B/P (MAP) Pulse Ox O2 Delivery O2 Flow Rate FiO2 08/05/17 08:00 97.3 69 18 121/81 (94) 98 08/05/17 07:40 98 21 08/05/17 00:00 97.8 68 18 136/87 (103) 96 08/04/17 21:06 18 08/04/17 20:00 97.4 67 18 125/79 (94) 100 08/04/17 19:25 98 21 08/04/17 18:07 18 08/04/17 18:07 18 08/04/17 15:50 98.1 76 20 125/67 (86) 99 08/04/17 15:50 98.1 76 20 125/67 (86) 99 08/04/17 11:50 98.0 84 20 117/67 (84) 97 I/O 08/04/17 08/04/17 08/04/17 08/05/17 08/05/17 08/05/17 07:00 15:00 23:00 07:00 15:00 23:00 Intake Total 1994 ml 100 ml 2246.5 ml 1000 ml Output Total 1900 ml 2800 ml 1200 ml Balance 94 ml 100 ml -553.5 ml -200 ml Intake Oral 720 ml 1871 ml 0 ml IV Total 1274 ml 100 ml 375.5 ml 1000 ml Output Urine Total 1900 ml 2800 ml 1200 ml # Voids 3 # Bowel Movements 0 Result Diagram: 08/04/17 0606 08/02/17 0615 Imaging Last Impressions Soft Tissue Ultrasound 08/02/17 0000 Signed Impressions: Service Date/Time: Wednesday, August 02, 2017 11:37 - CONCLUSION: Several small pockets of fluid are seen in the soft tissues involving the right stump. Lj Munroe MD Chest X-Ray 08/01/17 0229 Signed Impressions: Service Date/Time: Tuesday, August 01, 2017 03:01 - CONCLUSION: No acute cardiopulmonary process. No change from prior. Humberto Barba MD Femur X-Ray 08/01/17 0000 Signed Impressions: Service Date/Time: Tuesday, August 01, 2017 03:01 - CONCLUSION: 1. Surgical amputation through the proximal right femoral diaphysis. 2. Nothing acute. Humberto Barba MD Objective Remarks GENERAL: Well-developed, well-nourished patient in NAD. SKIN: Warm and dry. No rash. HEAD: Normocephalic. Atraumatic. EYES: Pupils equal and round. No scleral icterus. No injection or drainage. ENT: No nasal bleeding or discharge. Mucous membranes pink and moist. NECK: Supple. Trachea midline. CARDIOVASCULAR: Regular rate and rhythm. S1, S2 noted. No murmur appreciated. RESPIRATORY: No accessory muscle use. Clear to auscultation. Breath sounds equal bilaterally. GASTROINTESTINAL: Abdomen soft, non-tender, nondistended. Normoactive bowel sounds x4. MUSCULOSKELETAL: Right uiqud-dvb-tfld amputation. Incision area showing some yellowish drainage. There is an open ulceration noted on the anterior surface of the thigh and a previous scar. Has night pink edges. Measuring 4 x 2 cm. No exudates or purulence noted. NEUROLOGICAL: Awake and alert. No obvious cranial nerve deficits. Motor grossly within normal limits. 5/5 muscle strength in bilateral upper and lower extremities. Normal speech. PSYCHIATRIC: Appropriate mood and affect; insight and judgment normal. 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 Patient with history of peripheral artery disease, chronic tobacco use Blood cultures negative to date. Wound culture growing MRSA and Acetobacter. Sensitivity noted, continue on vancomycin for MRSA coverage. Continue cefepime for Acetobacter. Consult placed infectious disease, appreciate input recommendations. Soft tissue ultrasound was performed which did show several small pocket of fluid seen within soft tissue of the right stump. Could be postsurgical seromas versus abscess, deferred care to vascular surgery Vascular surgery consulted for recommendations, plan for debridement today. Defer to vascular surgery for IV narcotics recommendations. Wound care consultation has been requested, recommendations to apply dry dressing with Kerlix daily. Continue pain control, oxycodone p.o. per pain scale as needed. Physical therapy recommending home with home health care physical therapy Chronic obstructive pulmonary disease Continue O2 segmentation maintain O2 sats greater than 92% Continue DuoNeb every 6 hours while awake and every 2 hours as needed Continue incentive spirometry Chronic tobacco and alcohol abuse Patient counseled on cessation Hypertension, hyperlipidemia, coronary disease, anxiety, depression Home medications have been continued DVT prevention Subcutaneous Lovenox Discharge Planning Discharge planning home once cleared by vascular surgery. Cuca Cartagena Aug 05, 2017 09:42
[2017-08-05] MEDS: ENOXAPARIN SODIUM 40 MG/0.4 ML SYRINGE SQ SCH (11:00)
[2017-08-05] MEDS ORDERED: BUPIVACAINE/EPINEPHRINE 0.25% 50 ML VIAL ONE (11:07)
[2017-08-05] MEDS ORDERED: LIDOCAINE 1%/EPINEPHrine 1:100,000 SOLN 20 ML VIAL ONE (11:07)
[2017-08-05 12:00] VITALS: BP 126/88; PULSE 83; RESP 18; TEMP 97.7; O2SAT 99
[2017-08-05] MEDS ORDERED: MORPHINE SULFATE 2 MG/ML INJ ONE (14:15)
[2017-08-05] MEDS ORDERED: MORPHINE SULFATE 8 MG/ML INJ ONE ×2 (14:15→16:39)
[2017-08-05] MEDS ORDERED: MORPHINE SULFATE 4 MG/ML INJ ONE (15:45)
[2017-08-05] MEDS ORDERED: ACETAMINOPHEN 1000 MG/100 ML 100 ML IV ONE (15:45)
[2017-08-05] MEDS ORDERED: fentaNYL CITRATE 250 MCG/5 ML AMP ONE (15:46)
[2017-08-05] MEDS ORDERED: GENTAMICIN SULFATE 80 MG/2 ML VIAL ONE (16:15)
[2017-08-05] MEDS ORDERED: HYDROmorphone HCL PF 2 MG/ML VIAL ONE (16:44)
[2017-08-05 20:00] VITALS: BP 109/62; PULSE 81; RESP 20; TEMP 97.6; O2SAT 96
[2017-08-05 20:20] VITALS: O2SAT 99
[2017-08-05] MEDS: RESP: ALBUTEROL 2.5 MG/IPRATROPIUM 0.5 MG NEB (PRN) NEB (20:21)
[2017-08-05] MEDS: REMOVE OLD PATCH T-DERMAL SCH (20:36)
[2017-08-05] MEDS: traZODone HCL 100 MG TAB PO SCH (21:54)
[2017-08-05] MEDS: ATORVASTATIN 40 MG TAB PO SCH (21:54)
--- NOTE | 2017-08-05 21:55 | MP ---
cc: Raad Guerra MD DATE OF OPERATION: 08/05/2017 PREOPERATIVE DIAGNOSES: Peripheral vascular disease, gangrene of the right above knee amputation stump, medial aspect. POSTOPERATIVE DIAGNOSES: Peripheral vascular disease, gangrene of the right above knee amputation stump, medial aspect. OPERATIVE PROCEDURE: Debridement and revision of right above knee amputation stump. SURGEON:. Raad Guerra MD ANESTHESIA: General. ESTIMATED BLOOD LOSS: 20 mL The patient prepped and draped in the usual fashion and stump observed. Lateral aspect of the stump is fine, but the medial aspect, the patient has superficial skin gangrenous area measuring about 1 inch x 3 inches in length. This one is debrided sharply with a 10 blade, going all the way down to the fresh subcutaneous tissue and to the level of the fascia. Area now irrigated with copious amounts of saline and then saline with gentamicin and tissues then reapproximated with a 2-0 Prolene spaced widely apart and an iodoform packing was inserted. Dressing applied. The patient tolerated the procedure well. Raad Guerra MD SJ/rt , 09:21 PM , 09:53 PM
[2017-08-06] VITALS: BP 105/64; PULSE 78; RESP 20; TEMP 97; O2SAT 98
[2017-08-06] MEDS: oxyCODONE/ACETAMINOPHEN 10 MG/325 MG TAB PO PRN ×4 (02:14→13:49)
[2017-08-06] MEDS: CEFEPIME INJ 2,000 MG in SODIUM CHLORIDE 0.9% INJ 100 ML IV SCH ×2 (02:15→09:47)
[2017-08-06] MEDS: VANCOMYCIN INJ 750 MG in SODIUM CHLOR 0.9% 250 ML INJ 250 ML IV SCH ×2 (02:16→13:49)
[2017-08-06] MEDS: RESP: ALBUTEROL 2.5 MG/IPRATROPIUM 0.5 MG NEB (PRN) NEB (07:40)
[2017-08-06 07:41] VITALS: O2SAT 96
[2017-08-06 08:00] VITALS: BP 121/75; PULSE 75; RESP 18; TEMP 97.7; O2SAT 100
[2017-08-06 08:27] LABS: AUTOMATED NEUTROPHIL # 9.3 TH/MM3 (1.8-7.7); BASOPHIL # 0.3 TH/MM3 (0-0.2); EOSINOPHIL # 0.4 TH/MM3 (0-0.4); EOSINOPHIL % 3.4 % (0.0-4.0); HEMATOCRIT 30.8 % (39.0-51.0); HEMOGLOBIN 10.1 GM/DL (13.0-17.0); LYMPH % 17.8 % (9.0-44.0); LYMPHOCYTE # 2.3 TH/MM3 (1.0-4.8); MEAN CELL VOLUME 83.3 FL (80.0-100.0); MEAN CORPUSCULAR HEMOGLOBIN 27.3 PG (27.0-34.0); MEAN CORPUSCULAR HGB CONC 32.8 % (32.0-36.0); MEAN PLATELET VOLUME 5.7 FL (7.0-11.0); MONO % 4.1 % (0.0-8.0); MONOCYTE # 0.5 TH/MM3 (0-0.9); NEUT % 72.7 % (16.0-70.0); PLATELET COUNT 387 TH/MM3 (150-450); RED BLOOD COUNT 3.69 MIL/MM3 (4.50-5.90); RED CELL DISTRIBUTION WIDTH 18.5 % (11.6-17.2); WHITE BLOOD COUNT 12.8 TH/MM3 (4.0-11.0)
[2017-08-06 08:38] LABS: BICARBONATE 29.6 MEQ/L (21.0-32.0)
[2017-08-06 08:41] LABS: CREATININE 0.72 MG/DL (0.60-1.30)
[2017-08-06] MEDS: NICOTINE 14 MG/24 HR PATCH T-DERMAL SCH (09:00)
[2017-08-06] MEDS: DOCUSATE SODIUM 50 MG/SENNA 8.6 MG TAB PO SCH (09:00)
[2017-08-06] MEDS: ENOXAPARIN SODIUM 40 MG/0.4 ML SYRINGE SQ SCH (09:44)
[2017-08-06] MEDS: amLODIPine BESYLATE 5 MG TAB PO SCH (09:44)
[2017-08-06] MEDS: GABAPENTIN 100 MG CAP PO SCH ×2 (09:44→13:49)
[2017-08-06] MEDS: guaiFENesin E.R. 600 MG TAB PO SCH (09:44)
[2017-08-06] MEDS: PANTOPRAZOLE SOD 40 MG DELAYED RELEASE TAB PO SCH (09:44)
[2017-08-06] MEDS: METOPROLOL SUCCINATE 50 MG EXTENDED RELEASE TAB PO SCH (09:44)
[2017-08-06] MEDS: DULoxetine HCl DR 60 MG CAP PO SCH (09:44)
[2017-08-06] MEDS: LACTOBACILLUS ACIDOPHILUS TAB PO SCH ×2 (09:45→13:41)
[2017-08-06] MEDS: ASPIRIN 81 MG CHEW TAB CHEW SCH (09:45)
[2017-08-06] MEDS: MULTIVITAMIN TAB PO SCH (09:45)
[2017-08-06] MEDS: SODIUM CHLORIDE 0.9% FLUSH 10 ML FLUSH IV FLUSH SCH (09:45)
[2017-08-06 12:00] VITALS: BP 136/84; PULSE 82; RESP 15; TEMP 98; O2SAT 100
[2017-08-06] MEDS ORDERED: ONDANSETRON HCL 4 MG/2 ML VIAL IV PUSH ONE (12:00)
[2017-08-06] MEDS ORDERED: ePHEDrine/NS 25 MG/5 ML SYRINGE IV ONE (12:00)
[2017-08-06] MEDS ORDERED: LIDOCAINE HCL 1% PF 5 ML SYRINGE OTHER ONE (12:00)
[2017-08-06] MEDS ORDERED: PROPOFOL 200 MG/20 ML AMP IV ONE (12:00)
--- NOTE | 2017-08-06 12:07 | HHI.PR ---
Subjective Remarks Follow-up intractable and uncontrolled pain from right lmiwu-[id number]-evol amputation. Patient seen and examined, sitting up in bed in no apparent distress. Post surgical dressing found off in bed, he states "it keeps coming off". Encouraged patient to alert nurse of bandage off to be redressed. Spoke to Dr. Strauss who reiterates the need for daily dressing changes and strict adherence to keeping this dressing on at all times. RN updated and aware. Objective Vitals Vital Signs Date Time Temp Pulse Resp B/P (MAP) Pulse Ox O2 Delivery O2 Flow Rate FiO2 08/06/17 08:00 97.7 75 18 121/75 (90) 100 08/06/17 07:41 96 21 08/06/17 00:00 97.0 78 20 105/64 (78) 98 08/05/17 20:20 99 21 08/05/17 20:00 97.6 81 20 109/62 (78) 96 08/05/17 17:30 97.7 60 16 145/86 (105) 97 Room Air 08/05/17 17:15 76 16 145/86 (105) 97 Room Air 08/05/17 17:13 97.7 60 20 136/81 (99) 96 08/05/17 17:00 67 16 136/76 (96) 98 Room Air 08/05/17 16:45 97.2 69 15 138/78 (98) 100 Room Air I/O 08/05/17 08/05/17 08/05/17 08/06/17 08/06/17 08/06/17 07:00 15:00 23:00 07:00 15:00 23:00 Intake Total 1000 ml 100 ml 800 ml 360 ml Output Total 1200 ml 1700 ml 450 ml 1300 ml Balance -200 ml -1600 ml 350 ml -940 ml Intake Oral 0 ml 0 ml 360 ml IV Total 1000 ml 100 ml 800 ml Output Urine Total 1200 ml 1700 ml 450 ml 1300 ml # Voids 5 # Bowel Movements 0 Result Diagram: 08/06/17 0819 08/06/17 0819 Imaging Last Impressions Soft Tissue Ultrasound 08/02/17 0000 Signed Impressions: Service Date/Time: Wednesday, August 02, 2017 11:37 - CONCLUSION: Several small pockets of fluid are seen in the soft tissues involving the right stump. Lj Munroe MD Chest X-Ray 08/01/17 0229 Signed Impressions: Service Date/Time: Tuesday, August 01, 2017 03:01 - CONCLUSION: No acute cardiopulmonary process. No change from prior. Humberto Barba MD Femur X-Ray 08/01/17 0000 Signed Impressions: Service Date/Time: Tuesday, August 01, 2017 03:01 - CONCLUSION: 1. Surgical amputation through the proximal right femoral diaphysis. 2. Nothing acute. Humberto Barba MD Objective Remarks GENERAL: Well-developed, well-nourished patient in NAD. SKIN: Warm and dry. No rash. HEAD: Normocephalic. Atraumatic. EYES: Pupils equal and round. No scleral icterus. No injection or drainage. ENT: No nasal bleeding or discharge. Mucous membranes pink and moist. NECK: Supple. Trachea midline. CARDIOVASCULAR: Regular rate and rhythm. S1, S2 noted. No murmur appreciated. RESPIRATORY: No accessory muscle use. Clear to auscultation. Breath sounds equal bilaterally. GASTROINTESTINAL: Abdomen soft, non-tender, nondistended. Normoactive bowel sounds x4. MUSCULOSKELETAL: Right bxzgz-vyi-[id number] amputation. Post surgical. No drainage at this time. Sutures in place. Packing in place. Ulceration still present on upper thigh open to air. NEUROLOGICAL: Awake and alert. No obvious cranial nerve deficits. Motor grossly within normal limits. 5/5 muscle strength in bilateral upper and lower extremities. Normal speech. PSYCHIATRIC: Appropriate mood and affect; insight and judgment normal. 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 Patient with history of peripheral artery disease, chronic tobacco use Blood cultures negative to date. Wound culture growing MRSA and Acetobacter. Sensitivity noted, continue on vancomycin for MRSA coverage. Continue cefepime for Acetobacter. Consult placed infectious disease, appreciate input recommendations. Soft tissue ultrasound was performed which did show several small pocket of fluid seen within soft tissue of the right stump. Could be postsurgical seromas versus abscess, deferred care to vascular surgery Vascular surgery consulted for recommendations, plan for debridement today. Defer to vascular surgery for IV narcotics recommendations. Wound care consultation has been requested, recommendations to apply dry dressing with Kerlix daily. Wash with soap and water daily. Continue pain control, oxycodone p.o. per pain scale as needed. Physical therapy recommending home with home health care physical therapy Chronic obstructive pulmonary disease Continue O2 segmentation maintain O2 sats greater than 92% Continue DuoNeb every 6 hours while awake and every 2 hours as needed Continue incentive spirometry Chronic tobacco and alcohol abuse Patient counseled on cessation Hypertension, hyperlipidemia, coronary disease, anxiety, depression Home medications have been continued DVT prevention Subcutaneous Lovenox Discharge Planning Discharge planning home once cleared by vascular surgery. 1700: Patient is threatening to leave AMA. Orders from Dr. Strauss to remove packing , patient is adamantly refusing per nursing, MD or area to remove packing despite given pain medications. Patient educated on importance of staying in the hospital for treatment and IV antibiotics and patient still threatening to leave. Dr. Strauss called and updated. Expressed importance of removing packing, patient is still adamant will not allow us to remove it. Patient is encouraged to stay in the hospital due to risk of significant infection and even . Cuca Cartagena Aug 06, 2017 12:07
[2017-08-06] MEDS: SODIUM CHLOR 0.9% 1000 ML INJ 1,000 ML IV SCH (12:30)
--- NOTE | 2017-08-06 13:39 | PD.CAR.PN ---
CVT Progress Note Subjective/Hospital Course: 08/02/2017 Patient underwent on 15 July revision and re-resection of the right above-knee stump because he fell on it was noncompliant and did not come to Dr. and it got necrotic Postoperatively patient did well and was discharged He never showed up in the office for follow-up he had now presents to the [facility] with necrotic area on the medial aspect of the stump On physical examination the lateral portion of the stump is nicely healed and dry while the medial portion reveals about half inch wide strip of necrotic tissue infected and foul-smelling It is also covered with some stool Patient keeps picking on the incision and necrotic area with his fingers although he was told not to do so He continues to smoke and is utterly noncompliant with his care At this point stitches can be removed and I will have to take the patient to the operating room to debride this portion of the stump I will likely take the patient to the OR on In face of patient's noncompliance and poor hygiene I am sort of running out of ideas how to take care of this gentleman and his problems 08/06/2017 Patient status post debridement of the right AKA stump Tissues were washed out debrided and approximated with a iodoform packing Today we came to do dressing change is noted that patient has ripped off his dressing already off and stump is undressed in bed and there is also some urine on the sheets Patient states it was itching and hurting so he took the dressing off When not observed patient is picking on the fresh wound now and putting his fingers into the opening At this point I ordered the packing to be removed and stump to be redressed Patient is noncompliant and will not leave the wound alone This may heal nicely healed may get infected and if this happens again patient may ultimately need hip disarticulation for which will be fatal for him Objective: Vital Signs Date Time Temp Pulse Resp B/P (MAP) Pulse Ox O2 Delivery O2 Flow Rate FiO2 08/06/17 12:00 98.0 82 15 136/84 (101) 100 08/06/17 08:00 97.7 75 18 121/75 (90) 100 08/06/17 07:41 96 21 08/06/17 00:00 97.0 78 20 105/64 (78) 98 08/05/17 20:20 99 21 08/05/17 20:00 97.6 81 20 109/62 (78) 96 08/05/17 17:30 97.7 60 16 145/86 (105) 97 Room Air 08/05/17 17:15 76 16 145/86 (105) 97 Room Air 08/05/17 17:13 97.7 60 20 136/81 (99) 96 08/05/17 17:00 67 16 136/76 (96) 98 Room Air 08/05/17 16:45 97.2 69 15 138/78 (98) 100 Room Air Labs: Laboratory Tests Test 08/06/17 08:19 White Blood Count 12.8 TH/MM3 (4.0-11.0) Red Blood Count 3.69 MIL/MM3 (4.50-5.90) Hemoglobin 10.1 GM/DL (13.0-17.0) Hematocrit 30.8 % (39.0-51.0) Mean Corpuscular Volume 83.3 FL (80.0-100.0) Mean Corpuscular Hemoglobin 27.3 PG (27.0-34.0) Mean Corpuscular Hemoglobin Concent 32.8 % (32.0-36.0) Red Cell Distribution Width 18.5 % (11.6-17.2) Platelet Count 387 TH/MM3 (150-450) Mean Platelet Volume 5.7 FL (7.0-11.0) Neutrophils (%) (Auto) 72.7 % (16.0-70.0) Lymphocytes (%) (Auto) 17.8 % (9.0-44.0) Monocytes (%) (Auto) 4.1 % (0.0-8.0) Eosinophils (%) (Auto) 3.4 % (0.0-4.0) Basophils (%) (Auto) 2.0 % (0.0-2.0) Neutrophils # (Auto) 9.3 TH/MM3 (1.8-7.7) Lymphocytes # (Auto) 2.3 TH/MM3 (1.0-4.8) Monocytes # (Auto) 0.5 TH/MM3 (0-0.9) Eosinophils # (Auto) 0.4 TH/MM3 (0-0.4) Basophils # (Auto) 0.3 TH/MM3 (0-0.2) CBC Comment AUTO DIFF Differential Comment AUTO DIFF CONFIRMED Blood Urea Nitrogen 12 MG/DL (7-18) Creatinine 0.72 MG/DL (0.60-1.30) Random Glucose 92 MG/DL (74-106) Calcium Level 9.0 MG/DL (8.5-10.1) Sodium Level 139 MEQ/L (136-145) Potassium Level 4.1 MEQ/L (3.5-5.1) Chloride Level 103 MEQ/L (98-107) Carbon Dioxide Level 29.6 MEQ/L (21.0-32.0) Anion Gap 6 MEQ/L (5-15) Estimat Glomerular Filtration Rate 114 ML/MIN (>89) Result Diagram: 08/06/17 0819 08/06/17 0819 Raad Guerra MD Aug 06, 2017 13:39
[2017-08-06] MEDS ORDERED: KETOROLAC TROMETHAMINE 30 MG/ML (IVP) VIAL IV PUSH ONE (15:00)
[2017-08-08] MEDS ORDERED: VANCOMYCIN TROUGH ONE (14:45)
== END 2017-08-06 17:26 | disposition left against medical advice (07) | DRG 464 ==
LOC: PHED 23:37 → UNDOADMOB 08-01 03:53 → PHEDA 08-01 03:53 → PHEDH 08-01 06:22 → PHEDA 08-01 06:22 → PH3B 08-01 07:50 → PHEDH 08-01 07:50 → INTOOBSV 08-01 12:38 → OBSVTOIN 08-01 12:38 → PHEDA 08-05 12:38 → PH3B 08-05 12:38 → PHEDH 08-05 12:38 → OBSVTOIN 08-05 12:38
PROVIDERS: ADMIT Hospitalist; ATTEND Hospitalist
PROC: 0JBL0ZZ Excision of Right Upper Leg Subcutaneous Tissue and Fascia, Open Approach (ICD-10-PCS; principal; 2017-08-05 15:54)
DX: T87.43 Infection of amputation stump, right lower extremity (principal); L03.115 Cellulitis of right lower limb; I96 Gangrene, not elsewhere classified; B95.62 Methicillin resistant Staphylococcus aureus infection as the cause of diseases classified elsewhere; Z91.19 Patient's noncompliance with other medical treatment and regimen; I10 Essential (primary) hypertension; J44.9 Chronic obstructive pulmonary disease, unspecified; I25.10 Atherosclerotic heart disease of native coronary artery without angina pectoris; I73.9 Peripheral vascular disease, unspecified; F10.10 Alcohol abuse, uncomplicated; F17.210 Nicotine dependence, cigarettes, uncomplicated; F41.9 Anxiety disorder, unspecified; F32.9 Major depressive disorder, single episode, unspecified; E78.5 Hyperlipidemia, unspecified; H91.90 Unspecified hearing loss, unspecified ear; F12.90 Cannabis use, unspecified, uncomplicated
CPT/HCPCS: 71045; 73552; 76999; 80048; 80053; 80202; 81001; 82550; 82728; 83540; 83550; 83605; 83735; 85025; 85610; 85730; 86403; 87040; 87070; 87077; 87147; 87186; 87205; 94150; 94640; 94664; G8987-GP; G8988-GP; J0131; J0692; J1170; J1580; J1650; J1885; J2270; J2405; J3010; J3370; J3475; J7030; J7050